=== PATIENT | female | born 1960 | race Caucasian/White ===

== ENCOUNTER 2017-08-30 13:31 | Inpatient (IN) | payer MEDICAID ==
[2017-08-30] MEDS ORDERED: NORMAL SALINE 1000 ML 1,000 ML IV ONE ×2 (14:11→20:28)
[2017-08-30] MEDS ORDERED: FENTANYL CITRATE INJ/PF 100 MCG/2 ML AMPUL IV ONE (14:12)
[2017-08-30] MEDS ORDERED: ONDANSETRON 4 MG TAB.RAPDIS PO ONE (14:12)
--- NOTE | 2017-08-30 14:14 | ER Document Report ---
ED Medical Screen (RME) - General Chief Complaint: Dizziness Stated Complaint: LOW BLOOD SUGAR Time Seen by Provider: 08/30/17 14:05 Notes: RAPID MEDICAL EVALUATION DISCLOSURE I have seen this patient as part of a Rapid Medical Evaluation and, if applicable, placed any initially appropriate orders. The patient will be seen and fully evaluated, including a full history and physical exam, by a provider ( in Main ED or Fast Track) when a room becomes available. 56-year-old female here with complaints of abdominal pain nausea vomiting diarrhea lightheadedness ongoing for the past 4 days. She has not taken anything for the symptoms. She went to see her PCP and had ordered some outpatient lab tests however when the patient went [facility] to have the blood drawn, she can became very lightheaded and was sent here by the lab personnel. EXAM Mild to moderate left upper quadrant TTP No peritoneal signs TRAVEL OUTSIDE OF THE [place] IN LAST 30 DAYS: No - Related Data Allergies/Adverse Reactions: ciprofloxacin [From Cipro] Allergy (Verified 08/30/17 13:35) Penicillins Allergy (Verified 08/30/17 13:33) phenytoin [From Dilantin] Allergy (Verified 08/30/17 13:35) Past Medical History - Social History Chew tobacco use (# tins/day): No Frequency of alcohol use: None Drug Abuse: None Renal/ Medical History: Denies: Hx Peritoneal Dialysis Physical Exam - Vital signs Vitals: Temp Pulse Resp BP Pulse Ox 99.7 F 77 20 94/60 L 96 08/30/17 13:41 08/30/17 13:41 08/30/17 13:41 08/30/17 13:41 08/30/17 13:41 Course - Vital Signs Vital signs: Temp Pulse Resp BP Pulse Ox 99.7 F 77 20 94/60 L 96 08/30/17 13:41 08/30/17 13:41 08/30/17 13:41 08/30/17 13:41 08/30/17 13:41
[2017-08-30 15:13] LABS: ABSOLUTE BASOPHILS # (AUTO) 0.1 10^3/uL (0.0-0.2); ABSOLUTE EOSINOPHILS # (AUTO) 0.2 10^3/uL (0.0-0.6); ABSOLUTE LYMPHOCYTES (AUTO) 1.8 10^3/uL (0.5-4.7); ABSOLUTE MONOCYTES (AUTO) 0.6 10^3/uL (0.1-1.4); ABSOLUTE NEUT (AUTO) 7.6 10^3/uL (1.7-8.2); BASOPHILS % (AUTO) 0.7 % (0-2); EOSINOPHILS % (AUTO) 1.5 % (0-6); HEMATOCRIT 38.1 % (36.0-47.0); HEMOGLOBIN 12.8 g/dL (12.0-15.5); LYMPHOCYTES % (AUTO) 17.4 % (13-45); MEAN CORPUSCULAR HEMOGLOBIN 28.6 pg (27.0-33.4); MEAN CORPUSCULAR HGB CONC 33.5 g/dL (32.0-36.0); MEAN CORPUSCULAR VOLUME 85 fl (80-97); MONOCYTES % (AUTO) 5.9 % (3-13); PLATELET COUNT 172 10^3/uL (150-450); RED BLOOD COUNT 4.47 10^6/uL (3.72-5.28); RED CELL DISTRIBUTION WIDTH 15.6 % (11.5-14.0); SEGMENTED NEUTROPHILS % (AUTO) 74.5 % (42-78); TOTAL CELLS COUNTED % (AUTO) 100 %; WHITE BLOOD COUNT 10.1 10^3/uL (4.0-10.5)
[2017-08-30 17:01] LABS: ALANINE AMINOTRANSFERASE 37 U/L (9-52); ALBUMIN 2.9 g/dL (3.5-5.0); ALKALINE PHOSPHATASE 106 U/L (38-126); ANION GAP 13 (5-19); ASPARTATE AMINO TRANSFERASE 49 U/L (14-36); BILIRUBIN,DIRECT 0.5 mg/dL (0.0-0.4); BILIRUBIN,TOTAL 0.7 mg/dL (0.2-1.3); BLOOD UREA NITROGEN 47 mg/dL (7-20); CALCIUM 7.4 mg/dL (8.4-10.2); CARBON DIOXIDE 20 mmol/L (22-30); CHLORIDE 97 mmol/L (98-107); GLUCOSE 107 mg/dL (75-110); LIPASE 10.4 U/L (23-300); POTASSIUM 4.3 mmol/L (3.6-5.0); SODIUM 129.8 mmol/L (137-145); TOTAL PROTEIN 5.6 g/dL (6.3-8.2)
--- NOTE | 2017-08-30 18:46 | RADIOLOGY REPORT (SQ) ---
EXAM DESCRIPTION: CT ABD/PELVIS NO ORAL OR IV COMPLETED DATE/TIME: 08/30/2017 6:13 pm REASON FOR STUDY: LUQ abd pain n/v/d; colitis diverticulitis? COMPARISON: None. TECHNIQUE: CT scan of the abdomen and pelvis performed without intravenous or oral contrast. Images reviewed with lung, soft tissue, and bone windows. Reconstructed coronal and sagittal MPR images revi ewed. All images stored on PACS. All CT scanners at this facility use dose modulation, iterative reconstruction, and/or weight based d osing when appropriate to reduce radiation dose to as low as reasonably achievable (ALARA). [facility]: Dose Right [facility]: CareDose [facility]: Dose Right [facility]: Teradose 4D [facility]: Smart Innofidei RADIATION DOSE: CT Rad equipment meets quality standard of care and radiation dose reduction techniq ues were employed. CTDIvol: 29.9 mGy. DLP: 1674 mGy-cm.mGy. LIMITATIONS: Study is limited due to the patient's body habitus P FINDINGS: LOWER CHEST: No significant findings. No nodules or infiltrates. There is some thickening of the pericardium suggesting a small pericardial effusion. NON-CONTRASTED LIVER, SPLEEN, ADRENALS: Evaluation limited by lack of IV contrast. No identified sign ificant masses. PANCREAS: No masses. No peripancreatic inflammatory changes. GALLBLADDER: Gallbladder is not identified in a patient is presumably post cholecystectomy. RIGHT KIDNEY AND URETER: No suspicious masses. Assessment limited by lack of IV contrast. No signif icant calcifications. No hydronephrosis or hydroureter. LEFT KIDNEY AND URETER: No suspicious masses. Assessment limited by lack of IV contrast. No signifi cant calcifications. No hydronephrosis or hydroureter. AORTA AND RETROPERITONEUM: No aneurysm. Vascular calcifications are identified in the abdominal aort a. No retroperitoneal masses or adenopathy. BOWEL AND PERITONEAL CAVITY: No obvious masses or inflammatory changes. No free fluid. APPENDIX: Not identified. PELVIS, BLADDER, AND ABDOMINAL WALL:No abnormal masses. No free fluid. Bladder normal. BONES: No significant findings. OTHER: No other significant finding. IMPRESSION: NO SIGNIFICANT OR ACUTE PROCESS IN THE ABDOMEN OR PELVIS. COMMENT: Quality ID # [id number]: Final reports with documentation of one or more dose reduction techniques (e.g., Automated exposure control, adjustment of the mA and/or kV according to patient size, use of iterative reconstruction technique) TECHNICAL DOCUMENTATION: JOB ID: [id number] [employer]- All Rights Reserved Reading location - IP/workstation name: [email or web address]
--- NOTE | 2017-08-30 19:31 | ER Document Report ---
ED General - General Chief Complaint: Dizziness Stated Complaint: LOW BLOOD SUGAR Time Seen by Provider: 08/30/17 14:05 Notes: Patient is a 56-year-old female comes emergency department for chief complaint of nausea, vomiting, diarrhea, dehydration, dizziness. She states that she has had about 6 episodes of vomiting a day for the past 4 days, multiple episodes of diarrhea a day, states that she saw primary care today and they sent her for lab work but she became dizzy so she came here. She denies hematemesis or hematochezia, unsure fevers, states she normally has diarrhea but this is much worse. Past medical history of type 2 diabetes, hypertension, hyperlipidemia, hypothyroidism, epilepsy. States she is still taking all her medications, she has been trying to drink plenty of water but she has not noticed urinating for the past 4 days. TRAVEL OUTSIDE OF THE [place] IN LAST 30 DAYS: No - Related Data Allergies/Adverse Reactions: ciprofloxacin [From Cipro] Allergy (Verified 08/30/17 13:35) Penicillins Allergy (Verified 08/30/17 13:33) phenytoin [From Dilantin] Allergy (Verified 08/30/17 13:35) Past Medical History - General Information source: Patient - Social History Smoking Status: Current Every Day Smoker Chew tobacco use (# tins/day): No Frequency of alcohol use: None Drug Abuse: None Lives with: Family Family History: Reviewed & Not Pertinent Patient has suicidal ideation: No Patient has homicidal ideation: No - Past Medical History Cardiac Medical History: Reports: Hx Hypercholesterolemia, Hx Hypertension Endocrine Medical History: Reports: Hx Diabetes Mellitus Type 2, Hx Hypothyroidism Renal/ Medical History: Denies: Hx Peritoneal Dialysis - Immunizations Hx Diphtheria, Pertussis, Tetanus Vaccination: Yes Review of Systems - Review of Systems Constitutional: See HPI EENT: No symptoms reported Cardiovascular: See HPI Respiratory: No symptoms reported Gastrointestinal: See HPI Genitourinary: No symptoms reported Female Genitourinary: No symptoms reported Musculoskeletal: No symptoms reported Skin: No symptoms reported Hematologic/Lymphatic: No symptoms reported Neurological/Psychological: No symptoms reported Physical Exam - Vital signs Vitals: Temp Pulse Resp BP Pulse Ox 99.7 F 77 20 94/60 L 96 08/30/17 13:41 08/30/17 13:41 08/30/17 13:41 08/30/17 13:41 08/30/17 13:41 - Notes Notes: GENERAL: Pale, alert, no distress HEAD: Normocephalic, atraumatic. EYES: Pupils equal, round, and reactive to light. Extraocular movements intact. ENT: Oral mucosa very dry, tongue midline. NECK: Full range of motion. Supple. Trachea midline. LUNGS: Clear to auscultation bilaterally, no wheezes, rales, or rhonchi. No respiratory distress. HEART: Regular rate and rhythm. No murmur ABDOMEN: Minimal generalized, no guarding, nonspecific. Non-distended. Bowel sounds present in all 4 quadrants. EXTREMITIES: Moves all 4 extremities spontaneously. No edema, normal radial and dorsalis pedis pulses bilaterally. No cyanosis. BACK: no cervical, thoracic, lumbar midline tenderness. No saddle anesthesia, normal distal neurovascular exam. NEUROLOGICAL: Alert and oriented x3. Normal speech. [cranial nerves II through XII grossly intact]. PSYCH: Normal affect, normal mood. SKIN: Warm, dry, normal turgor. Slightly pale Course - Re-evaluation Re-evalutation: On my evaluation patient is still hypotensive, her IV has infiltrated and she is not getting any fluids, patient was placed on the monitor, I placed an ultrasound-guided IV, after fluid resuscitation blood pressure improved to 108 systolic. Patient does not have any notable abdominal tenderness, she does have frequent diarrhea and was able to provide a stool sample. C. difficile negative, no white blood cells, culture pending. CBC unremarkable, chemistry shows renal failure with GFR of only 13, creatinine of 3.57, sodium of 129, patient states her creatinine is usually 1 or less. No comparison labs. Suspect acute renal failure from dehydration secondary to nausea and vomiting. CAT scan ordered in triage reviewed and is unremarkable. Urinalysis does not show infection. Patient is weak but she is improved after IV fluids. Will discuss with hospitalist for admission. Discussed with Dr. Dowell, internal medicine, patient will be admitted to the hospital. Patient states understanding and agreement. - Vital Signs Vital signs: Temp Pulse Resp BP Pulse Ox 99.7 F 77 26 H 108/60 92 08/30/17 13:41 08/30/17 13:41 08/31/17 00:01 08/31/17 00:01 08/31/17 00:01 - Laboratory Result Diagrams: 08/30/17 14:33 08/30/17 16:36 Laboratory results interpreted by me: 08/30/17 08/30/17 08/30/17 14:33 15:40 16:36 RDW 15.6 H Sodium 129.8 L Chloride 97 L Carbon Dioxide 20 L BUN 47 H Creatinine 3.57 H Est GFR ( Amer) 16 L Est GFR (Non-Af Amer) 13 L POC Glucose 112 H Calcium 7.4 L Direct Bilirubin 0.5 H AST 49 H Total Protein 5.6 L Albumin 2.9 L Lipase 10.4 L Urine Protein Urine Glucose (UA) 08/30/17 19:09 RDW Sodium Chloride Carbon Dioxide BUN Creatinine Est GFR ( Amer) Est GFR (Non-Af Amer) POC Glucose Calcium Direct Bilirubin AST Total Protein Albumin Lipase Urine Protein >=500 H Urine Glucose (UA) 50 H Discharge - Discharge Clinical Impression: Nausea vomiting and diarrhea Acute renal failure (ARF) Qualifiers: Acute renal failure type: unspecified Qualified Code(s): N17.9 - Acute kidney failure, unspecified Condition: Stable Disposition: ADMITTED INPATIENT Admitting Provider: Hospitalist Unit Admitted: Telemetry
[2017-08-30 19:32] LABS: APPEARANCE,URINE CLOUDY; BILIRUBIN,URINE NEGATIVE (NEGATIVE); GLUCOSE, URINE 50 mg/dL (NEGATIVE); KETONES,URINE NEGATIVE (NEGATIVE); LEUKOCYTE ESTERASE,URINE NEGATIVE (NEGATIVE); NITRITE,URINE NEGATIVE (NEGATIVE); PROTEIN,URINE >=500 mg/dL (NEGATIVE); URINE SPECIFIC GRAVITY 1.018; UROBILINOGEN,URINE NEGATIVE mg/dL (<2.0)
[2017-08-30 19:33] LABS: COLOR,URINE YELLOW
[2017-08-30] MEDS ORDERED: NORMAL SALINE 1000 ML 1,000 ML IV PRN (21:55)
[2017-08-31] MEDS ORDERED: NORMAL SALINE 1000 ML 1,000 ML IV PRN (02:13)
[2017-08-31] MEDS ORDERED: MAG HYDROX/AL HYDROX/SIMETH SUSP 30 ML UDCUP PO PRN (02:13)
[2017-08-31] MEDS ORDERED: ONDANSETRON HCL INJ/PF 4 MG/2 ML SDV IV PRN (02:13)
[2017-08-31] MEDS ORDERED: DEXTROSE 40% GEL 15 GM TUBE PO PRN ×2 (02:26)
[2017-08-31] MEDS ORDERED: GLUCAGON,HUMAN RECOMB 1 MG INJ IM PRN (02:26)
[2017-08-31] MEDS ORDERED: DEXTROSE 50%-WATER 25 GM/50 ML DISP.SYRIN IV PRN ×2 (02:26)
[2017-08-31] MEDS: ACETAMINOPHEN 325 MG TABLET PO PRN (03:21)
[2017-08-31] MEDS: LOPERAMIDE HCL 2 MG CAPSULE PO PRN ×2 (03:42→14:45)
[2017-08-31 03:58] LABS: ABSOLUTE EOSINOPHILS # (AUTO) 0.2 10^3/uL (0.0-0.6); ABSOLUTE LYMPHOCYTES (AUTO) 1.1 10^3/uL (0.5-4.7); BASOPHILS % (AUTO) 0.4 % (0-2); RED CELL DISTRIBUTION WIDTH 15.9 % (11.5-14.0); TOTAL CELLS COUNTED % (AUTO) 100 %
[2017-08-31 04:03] LABS: ANION GAP 12 (5-19); BLOOD UREA NITROGEN 51 mg/dL (7-20); CALCIUM 7.3 mg/dL (8.4-10.2); CARBON DIOXIDE 21 mmol/L (22-30); CHLORIDE 97 mmol/L (98-107); GLUCOSE 142 mg/dL (75-110); POTASSIUM 4.1 mmol/L (3.6-5.0); SODIUM 130.2 mmol/L (137-145)
[2017-08-31 04:05] LABS: ABSOLUTE MONOCYTES (AUTO) 0.4 10^3/uL (0.1-1.4); ABSOLUTE NEUT (AUTO) 6.3 10^3/uL (1.7-8.2); EOSINOPHILS % (AUTO) 2.6 % (0-6); HEMATOCRIT 34.2 % (36.0-47.0); HEMOGLOBIN 11.5 g/dL (12.0-15.5); LYMPHOCYTES % (AUTO) 13.4 % (13-45); MEAN CORPUSCULAR HEMOGLOBIN 28.6 pg (27.0-33.4); MEAN CORPUSCULAR HGB CONC 33.7 g/dL (32.0-36.0); MEAN CORPUSCULAR VOLUME 85 fl (80-97); MONOCYTES % (AUTO) 5.6 % (3-13); RED BLOOD COUNT 4.03 10^6/uL (3.72-5.28)
[2017-08-31 04:21] LABS: PLATELET COUNT 116 10^3/uL (150-450)
[2017-08-31 04:28] LABS: ANISOCYTOSIS SLIGHT; PLATELET COMMENT DECREASED; PLATELET GIANT PRESENT
[2017-08-31] MEDS ORDERED: HEPARIN SOD (PORCINE) 5,000 UNIT/ML 1 ML SYRINGE SUBCUT SCH (06:00)
[2017-08-31] MEDS ORDERED: PANTOPRAZOLE SODIUM 40 MG VIAL IV ONE (06:25)
--- NOTE | 2017-08-31 06:38 | PDOC H&P ---
History of Present Illness Admission Date/PCP: 08/31/2017 Patient complains of: Intractable nausea vomiting and diarrhea History of Present Illness: RISHI TRAYLOR is a 56 year old female with history of multiple medical problems that will be mentioned below presented to the emergency room with acute onset of intractable nausea vomiting and diarrhea for the last 4 days. She admits to occasional coffee-ground emesis however this has not been witnessed in the ER. She has been having fever and chills with a T-max that was up to 103 per her report. She admits to lower abdominal pain. No chest pain or dyspnea or palpitations. No cough or wheezing or hemoptysis. No other bleeding diathesis. Upon presentation emergency room she was slightly hypotensive with a blood pressure of 94/60 with a temperature of 99.7 and pulse of 77 and pulse oximetry of 96% on room air. Labs are remarkable for hyponatremia with a hypokalemia and a CO2 of 20 BUN of 47 and creatinine of 3.57 that is above her previous normal creatinine. Urinalysis was remarkable for significant proteinuria and glucosuria with trace bacteria and rare WBC clumps and 9 WBCs. Her abdominal pelvic CT scan revealed no acute abnormalities. She was given hydration with IV normal saline as well as IV Zofran and fentanyl. Her blood pressure has improved with hydration. She will be admitted to a medical monitored bed for further evaluation and management. Past Medical History Cardiac Medical History: Reports: Hyperlipidema, Hypertension Endocrine Medical History: Reports: Diabetes Mellitus Type 2, Hypothyroidism, Other - History of Graves' disease Musculoskeltal Medical History: Reports: Arthritis Psychiatric Medical History: Reports: Depression Past Surgical History Past Surgical History: Reports: Appendectomy, Cholecystectomy, Hysterectomy Social History Lives with: Family Smoking Status: Current Every Day Smoker Cigarettes Packs Per Day: 0.5 Frequency of Alcohol Use: None Hx Recreational Drug Use: No Drugs: Marijuana Hx Prescription Drug Abuse: No Family History Family History: CAD - Both parents from [place] as well as her brother, [place] - . Parental Family History Reviewed: Yes Children Family History Reviewed: Yes Sibling(s) Family History Reviewed.: Yes Medication/Allergy Allergies/Adverse Reactions: ciprofloxacin [From Cipro] Allergy (Verified 08/30/17 13:35) Penicillins Allergy (Verified 08/30/17 13:33) phenytoin [From Dilantin] Allergy (Verified 08/30/17 13:35) Review of Systems Review of Systems: As per history of present illness. All pertinent systems were reviewed above. Constitutional, HEENT, cardiovascular, respiratory, GI, , musculoskeletal, neuro, psychiatric, endocrine, integumentary and hematologic systems were reviewed and are otherwise negative/unremarkable except for positive findings mentioned above in the HPI. Physical Exam Vital Signs: Temp Pulse Resp BP Pulse Ox 98.0 F 83 16 87/39 L 95 08/31/17 02:48 08/31/17 02:54 08/31/17 02:48 08/31/17 02:48 08/31/17 02:48 Intake & Output 08/29/17 08/30/17 08/31/17 06:59 06:59 06:59 Intake Total 350 Balance 350 Exam: Generally: Pleasant ill-looking middle-aged female in no acute distress Vital signs-as listed Head - atraumatic, normocephalic. Pupils - equal, round and reactive to light and accommodation. Extraocular movements are intact. No scleral icterus. Oropharynx -dry mucous membranes and tongue. No pharyngeal erythema or exudate. Neck - supple. No JVD. Carotid pulses 2+ bilaterally. No carotid bruits. No palpable thyromegaly or lymphadenopathy. Cardiovascular - regular rate and rhythm. Normal S1 and S2. No murmurs, gallops or rubs. Lungs - clear to auscultation bilaterally. Abdomen - soft lower abdominal tenderness without rebound tenderness guarding or rigidity. Positive bowel sounds. No palpable organomegaly or masses. Extremities - no pitting edema, clubbing or cyanosis. Neuro - grossly non-focal. Skin - no rashes. Breast, pelvic and rectal - deferred Results Laboratory Results: 08/31/17 03:29 08/31/17 03:29 08/31/17 08/31/17 08/31/17 03:29 03:29 03:29 WBC 8.0 RBC 4.03 Hgb 11.5 L Hct 34.2 L MCV 85 MCH 28.6 MCHC 33.7 RDW 15.9 H Plt Count 116 L Seg Neutrophils % 78.0 Lymphocytes % 13.4 Monocytes % 5.6 Eosinophils % 2.6 Basophils % 0.4 Absolute Neutrophils 6.3 Absolute Lymphocytes 1.1 Absolute Monocytes 0.4 Absolute Eosinophils 0.2 Absolute Basophils 0.0 Sodium 130.2 L Potassium 4.1 Chloride 97 L Carbon Dioxide 21 L Anion Gap 12 BUN 51 H Creatinine 4.27 H Est GFR ( Amer) 13 L Est GFR (Non-Af Amer) 11 L Glucose 142 H Calcium 7.3 L TSH 0.55 Impressions: Abdomen/Pelvis CT 08/30/17 14:09 IMPRESSION: NO SIGNIFICANT OR ACUTE PROCESS IN THE ABDOMEN OR PELVIS. Assessment & Plan - Diagnosis (1) Acute kidney injury Is this a current diagnosis for this admission?: Yes Plan: The patient will be admitted to an [facility] bed. She will be hydrated with IV normal saline. We will keep her n.p.o. for now. Will place on IV Protonix. BMP will be followed. (2) Hematemesis Is this a current diagnosis for this admission?: Yes Plan: The patient will be hydrated with IV normal saline and placed on 80 mg of IV Protonix followed by IV Protonix drip. A surgery consultation will be obtained for consideration of EGD. Will follow CBC. (3) Nausea vomiting and diarrhea Is this a current diagnosis for this admission?: Yes Plan: This could be related to viral gastroenteritis. If she has persistent fever, consideration could be given to IV antibiotic therapy especially for the possibility of UTI. Urine culture was obtained for confirmation. Stool studies will be obtained. 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 We will place her on SCDs. GI prophylaxis was addressed above. - Plan Summary Plan Summary: The plan of care was discussed in details with the patient. I answered all questions. The patient agreed to proceed with the above-mentioned plan. The patient is presumably full code. This note was created by [employer] (PRIMP) software and may contain typo errors that may have not been proofread.
[2017-08-31] MEDS: INSULIN LISPRO 100 UNIT/ML 3 ML VIAL SUBCUT PRN ×4 (07:59→21:45)
[2017-08-31] MEDS ORDERED: DIPHENHYDRAMINE HCL 25 MG CAPSULE PO PRN (13:46)
--- NOTE | 2017-08-31 13:53 | Progress Note ---
Provider Note Provider Note: This is a 56 years old female patient admitted with 3 days history of nausea and vomiting. At that admission patient was found to be hypotensive and her creatinine is 4.27 GFR of 11. Accept this patient will be her primary attending physician.
[2017-08-31] MEDS: NORMAL SALINE 1000 ML 1,000 ML IV PRN ×2 (14:05→21:25)
[2017-08-31] MEDS ORDERED: BACLOFEN 10 MG TABLET PO ONE (15:00)
[2017-08-31] MEDS ORDERED: GABAPENTIN 300 MG CAPSULE PO ONE (15:00)
[2017-08-31] MEDS: ATORVASTATIN CALCIUM 40 MG TABLET PO SCH (21:15)
[2017-08-31] MEDS: LEVETIRACETAM 500 MG TABLET PO SCH (21:16)
[2017-08-31] MEDS: BACLOFEN 10 MG TABLET PO SCH (21:16)
[2017-08-31] MEDS: GABAPENTIN 300 MG CAPSULE PO SCH (21:16)
[2017-09-01] MEDS: ACETAMINOPHEN 325 MG TABLET PO PRN ×2 (04:11→10:32)
[2017-09-01] MEDS: NORMAL SALINE 1000 ML 1,000 ML IV PRN ×3 (04:12→18:19)
[2017-09-01 05:05] LABS: ABSOLUTE EOSINOPHILS # (AUTO) 0.1 10^3/uL (0.0-0.6); ABSOLUTE LYMPHOCYTES (AUTO) 0.6 10^3/uL (0.5-4.7); ABSOLUTE MONOCYTES (AUTO) 0.3 10^3/uL (0.1-1.4); ABSOLUTE NEUT (AUTO) 2.5 10^3/uL (1.7-8.2); BASOPHILS % (AUTO) 0.6 % (0-2); EOSINOPHILS % (AUTO) 1.9 % (0-6); HEMATOCRIT 36.5 % (36.0-47.0); HEMOGLOBIN 12.3 g/dL (12.0-15.5); LYMPHOCYTES % (AUTO) 16.6 % (13-45); MEAN CORPUSCULAR HEMOGLOBIN 28.3 pg (27.0-33.4); MEAN CORPUSCULAR HGB CONC 33.7 g/dL (32.0-36.0); MEAN CORPUSCULAR VOLUME 84 fl (80-97); MONOCYTES % (AUTO) 8.4 % (3-13); PLATELET COUNT 122 10^3/uL (150-450); RED BLOOD COUNT 4.34 10^6/uL (3.72-5.28); SEGMENTED NEUTROPHILS % (AUTO) 72.5 % (42-78); TOTAL CELLS COUNTED % (AUTO) 100 %; WHITE BLOOD COUNT 3.5 10^3/uL (4.0-10.5)
[2017-09-01 05:13] LABS: ANION GAP 14 (5-19); BLOOD UREA NITROGEN 49 mg/dL (7-20); CALCIUM 7.2 mg/dL (8.4-10.2); CARBON DIOXIDE 16 mmol/L (22-30); CHLORIDE 103 mmol/L (98-107); GLUCOSE 183 mg/dL (75-110); POTASSIUM 4.1 mmol/L (3.6-5.0); SODIUM 132.8 mmol/L (137-145)
[2017-09-01] MEDS: GABAPENTIN 300 MG CAPSULE PO SCH ×3 (05:24→21:28)
[2017-09-01] MEDS: BACLOFEN 10 MG TABLET PO SCH ×3 (05:24→22:36)
[2017-09-01] MEDS: LEVOTHYROXINE SODIUM 0.1 MG TABLET PO SCH (05:24)
[2017-09-01] MEDS: LEVOTHYROXINE SODIUM 0.075 MG TABLET PO SCH (05:24)
[2017-09-01] MEDS: LOPERAMIDE HCL 2 MG CAPSULE PO PRN ×2 (05:33→07:38)
[2017-09-01] MEDS: INSULIN LISPRO 100 UNIT/ML 3 ML VIAL SUBCUT PRN ×2 (08:29→12:14)
[2017-09-01] MEDS ORDERED: RIFAXIMIN 550 MG TABLET PO ONE (09:11)
[2017-09-01] MEDS ORDERED: LOPERAMIDE HCL 2 MG CAPSULE PO ONE (09:15)
[2017-09-01] MEDS: ASPIRIN 81 MG TABLET, ENT COATED PO SCH (09:21)
[2017-09-01] MEDS: FENOFIBRATE NANOCRYSTALLIZED 48 MG TABLET PO SCH (09:21)
[2017-09-01] MEDS: FLUOXETINE HCL 20 MG CAPSULE PO SCH (09:22)
[2017-09-01] MEDS: LEVETIRACETAM 500 MG TABLET PO SCH ×2 (09:22→22:37)
[2017-09-01] MEDS ORDERED: (PENDING PHARMACY ID) (Levothyroxine Sodium [Synthroid] 175 MCG) PO SCH (10:00)
[2017-09-01] MEDS: RIFAXIMIN 550 MG TABLET PO SCH ×2 (10:21→19:57)
--- NOTE | 2017-09-01 13:14 | PDOC PROGRESS REPORT ---
Subjective Progress Note for:: 09/01/17 Subjective:: This is a 56 years old female patient admitted for acute kidney injury most probably secondary to prerenal azotemia due to frequent watery diarrhea. Still patient has watery diarrhea and she has been on Imodium. I started her on rifaximin. Patient recently relocated from [place] to [facility]. I talked to her son who is in the room during this encounter and asked him to get us her medical record. Her kidney function is relatively improving evidenced by that her creatinine is trending down from 4.27 -2.72 and her GFR from 11-22. Reason For Visit: ACUTE KIDNEY INJURY Physical Exam Vital Signs: Temp Pulse Resp BP Pulse Ox 98.4 F 78 20 108/45 L 92 09/01/17 11:42 09/01/17 11:42 09/01/17 11:42 09/01/17 11:42 09/01/17 11:42 Intake & Output 08/31/17 09/01/17 09/02/17 06:59 06:59 06:59 Intake Total 350 4376 75 Balance 350 4376 75 Weight 137.7 kg 143.6 kg General appearance: PRESENT: no acute distress, well-developed, well-nourished Head exam: PRESENT: atraumatic, normocephalic Eye exam: PRESENT: conjunctiva pink, EOMI, PERRLA. ABSENT: scleral icterus Ear exam: PRESENT: normal external ear exam Mouth exam: PRESENT: moist, tongue midline Neck exam: ABSENT: carotid bruit, JVD, lymphadenopathy, thyromegaly Respiratory exam: PRESENT: clear to auscultation compa. ABSENT: rales, rhonchi, wheezes Cardiovascular exam: PRESENT: RRR. ABSENT: diastolic murmur, rubs, systolic murmur Pulses: PRESENT: normal dorsalis pedis pul Vascular exam: PRESENT: normal capillary refill GI/Abdominal exam: PRESENT: normal bowel sounds, soft. ABSENT: distended, guarding, mass, organolmegaly, rebound, tenderness Rectal exam: PRESENT: deferred Extremities exam: PRESENT: full ROM. ABSENT: calf tenderness, clubbing, pedal edema Neurological exam: PRESENT: alert, awake, oriented to person, oriented to place , oriented to time, oriented to situation. ABSENT: motor sensory deficit Psychiatric exam: PRESENT: appropriate affect, normal mood. ABSENT: homicidal ideation, suicidal ideation Skin exam: PRESENT: dry, intact, warm. ABSENT: cyanosis, rash Results Laboratory Results: 09/01/17 04:32 09/01/17 04:32 09/01/17 09/01/17 04:32 04:32 WBC 3.5 L RBC 4.34 Hgb 12.3 Hct 36.5 MCV 84 MCH 28.3 MCHC 33.7 RDW 16.0 H Plt Count 122 L Seg Neutrophils % 72.5 Lymphocytes % 16.6 Monocytes % 8.4 Eosinophils % 1.9 Basophils % 0.6 Absolute Neutrophils 2.5 Absolute Lymphocytes 0.6 Absolute Monocytes 0.3 Absolute Eosinophils 0.1 Absolute Basophils 0.0 Sodium 132.8 L Potassium 4.1 Chloride 103 Carbon Dioxide 16 L Anion Gap 14 BUN 49 H Creatinine 2.72 H Est GFR ( Amer) 22 L Est GFR (Non-Af Amer) 18 L Glucose 183 H Calcium 7.2 L Impressions: Abdomen/Pelvis CT 08/30/17 14:09 IMPRESSION: NO SIGNIFICANT OR ACUTE PROCESS IN THE ABDOMEN OR PELVIS. Assessment & Plan - Diagnosis (1) Acute kidney injury Is this a current diagnosis for this admission?: Yes Plan: Due to prerenal azotemia secondary to nausea vomiting and diarrhea. Patient is being hydrated. Her creatinine is trending down. (2) Type 2 diabetes mellitus Is this a current diagnosis for this admission?: Yes Plan: Metformin is on hold. And she has been on sliding scale. (3) Hypertension Qualifiers: Hypertension type: essential hypertension Qualified Code(s): I10 - Essential (primary) hypertension Is this a current diagnosis for this admission?: Yes Plan: Hold her antihypertensive medications since patient is running low blood pressure. (4) Hyperlipidemia Qualifiers: Hyperlipidemia type: unspecified Qualified Code(s): E78.5 - Hyperlipidemia , unspecified Is this a current diagnosis for this admission?: Yes Plan: Continue her home medication. (5) Morbid obesity due to excess calories Is this a current diagnosis for this admission?: Yes Plan: Lifestyle modification advised
[2017-09-01] MEDS ORDERED: SUCCINYLCHOLINE CHLORIDE INJ 200 MG/10 ML VIAL ONE (14:39)
[2017-09-01 17:11] LABS: ARTERIAL BLOOD BASE EXCESS -9.1 mmol/L; ARTERIAL BLOOD FIO2 2L; ARTERIAL BLOOD HCO3 18.4 mmol/L (20-26); ARTERIAL BLOOD O2 SATURATION 85.6 % (94-98); ARTERIAL BLOOD PCO2 46.4 mmHg (35-45); ARTERIAL BLOOD PH 7.22 (7.35-7.45); ARTERIAL BLOOD PO2 59.8 mmHg (80-100); ARTERIAL BLOOD TOTAL CO2 19.9 mmol/L (21-25)
--- NOTE | 2017-09-01 17:37 | Progress Note ---
Provider Note Provider Note: This is a 56 years old female patient admitted for acute kidney injury and hypotension secondary to volume depletion. This afternoon around 5 PM patient become unresponsive and her O2 saturation is in the lower 70s. Her ABG shows mixed metabolic and respiratory acidosis with pH of 7.22 PCO2 46 and PO2 of 59 and bicarb of 18. Blood pressure is the lower 80s patient is barely responsive to noxious stimuli. Patient puts on nonrebreather and her O2 saturation picked up to 94%. Since patient is not able her respiration and severely hypotensive patient intubated emergently and transferred to the ICU. CT head and V/Q scan is requested.
[2017-09-01 17:50] LABS: ARTERIAL BLOOD BASE EXCESS -10.4 mmol/L; ARTERIAL BLOOD H2CO3 1.59 mmol/L (1.05-1.35); ARTERIAL BLOOD HCO3 18.3 mmol/L (20-26); ARTERIAL BLOOD O2 SATURATION 93.5 % (94-98); ARTERIAL BLOOD PCO2 52.9 mmHg (35-45); ARTERIAL BLOOD PO2 85.7 mmHg (80-100); ARTERIAL BLOOD TOTAL CO2 19.9 mmol/L (21-25)
[2017-09-01 17:53] LABS: ARTERIAL BLOOD FIO2 50%; ARTERIAL BLOOD PH 7.16 (7.35-7.45)
[2017-09-01] MEDS ORDERED: PROPOFOL 1,000 MG/100 ML INFUS..BTL IV ONE ×2 (18:12→20:03)
[2017-09-01] MEDS ORDERED: NOREPINEPHRINE BITARTRATE INJ/PF 4 MG/4 ML SDV IV ONE (18:13)
--- NOTE | 2017-09-01 18:21 | RADIOLOGY REPORT (SQ) ---
EXAM DESCRIPTION: CHEST SINGLE VIEW COMPLETED DATE/TIME: 09/01/2017 5:51 pm REASON FOR STUDY: Pulmonary edema/pneumonia COMPARISON: None. EXAM PARAMETERS: NUMBER OF VIEWS: One view TECHNIQUE: 2 frontal views of the chest were obtained. RADIATION DOSE: N/A LIMITATIONS: Patient positioning. FINDINGS: TEMPORARY SUPPORT DEVICES:On the 1st image the endotracheal tube appears oriented towards the right mainstem bronchus, on the 2nd image the endotracheal tube tip is obscured by overlying tubi ng. An enteric tube courses along the midline, its tip is not visualized on this exam. LUNGS AND PLEURA: No consolidation, sizable pleural effusion or pneumothorax. MEDIASTINUM AND HILAR STRUCTURES: No obvious masses. HEART AND VASCULAR STRUCTURES: The heart is enlarged. There is vascular congestion. IMPRESSION: 1. Cardiomegaly with vascular congestion. 2. Life support devices, as described above. TECHNICAL DOCUMENTATION: JOB ID: [id number] [employer]- All Rights Reserved Reading location - IP/workstation name: [email or web address]
[2017-09-01] MEDS ORDERED: DEXTROSE 5%-WATER 250 ML with NOREPINEPHRINE BITARTRATE 4 MG IV PRN ×2 (19:09)
[2017-09-01] MEDS ORDERED: MIDAZOLAM HCL 50 MG/100 ML RTUINJ IV PRN (19:13)
[2017-09-01] MEDS ORDERED: MIDAZOLAM HCL 0 MG/0 ML RTUINJ ONE (19:55)
[2017-09-01 20:53] LABS: ARTERIAL BLOOD BASE EXCESS -13.2 mmol/L; ARTERIAL BLOOD H2CO3 1.27 mmol/L (1.05-1.35); ARTERIAL BLOOD HCO3 14.8 mmol/L (20-26); ARTERIAL BLOOD O2 SATURATION 98.1 % (94-98); ARTERIAL BLOOD PCO2 42.3 mmHg (35-45); ARTERIAL BLOOD PO2 138.8 mmHg (80-100); ARTERIAL BLOOD TOTAL CO2 16.1 mmol/L (21-25)
[2017-09-01 20:56] LABS: ARTERIAL BLOOD PH 7.16 (7.35-7.45)
[2017-09-01] MEDS: PROPOFOL 1,000 MG/100 ML INFUS..BTL IV PRN (21:27)
[2017-09-01] MEDS: ATORVASTATIN CALCIUM 40 MG TABLET PO SCH (21:28)
[2017-09-01] MEDS ORDERED: SODIUM BICARBONATE 8.4% INJ 50 MEQ/50 ML DISP.SYRIN IV ONE (21:30)
[2017-09-01 21:37] LABS: ARTERIAL BLOOD FIO2 50%
[2017-09-01] MEDS ORDERED: BACLOFEN 10 MG TABLET ONE (21:53)
--- NOTE | 2017-09-01 23:01 | PDOC CONSULTATION ---
Consultation Consult Date: 09/01/17 Consult reason:: hematemesis History of Present Illness Admission Date/PCP: 08/30/17 23:58 History of Present Illness: RISHI TRAYLOR is a 56 year old female with history of DM type 2,hypothyroidism admitted 08/31/17 for intractable nausea,vomiting and diarrhea. Patient admits to occasional coffee ground emesis. However, the hemoccult test done 08/31/17 was negative. Also, her Hb is stable around 12.3. At present , patient is intubated in ICU because of episode of hypoxia on the floor today. Past Medical History Cardiac Medical History: Reports: Hyperlipidema, Hypertension Endocrine Medical History: Reports: Diabetes Mellitus Type 2, Hypothyroidism, Other - History of Graves' disease Musculoskeltal Medical History: Reports: Arthritis Psychiatric Medical History: Reports: Depression Past Surgical History Past Surgical History: Reports: Appendectomy, Cholecystectomy, Hysterectomy Social History Lives with: Family Smoking Status: Current Every Day Smoker Cigarettes Packs Per Day: 0.5 Frequency of Alcohol Use: None Hx Recreational Drug Use: No Drugs: Marijuana Hx Prescription Drug Abuse: No Family History Family History: CAD - Both parents from [place] as well as her brother, [place] - . Parental Family History Reviewed: No Children Family History Reviewed: No Sibling(s) Family History Reviewed.: No Medication/Allergy Home Medications: Amlodipine Besylate [Norvasc 5 mg Tablet] 5 mg PO DAILYP PRN 08/31/17 Aspirin [Aspirin EC] 81 mg PO DAILY 08/31/17 Atorvastatin Calcium [Lipitor 40 mg Tablet] 40 mg PO QHS 08/31/17 Baclofen [Baclofen 10 mg Tablet] 15 mg PO TID 08/31/17 Diphenhydramine HCl [Banophen] 25 mg PO HSP PRN 08/31/17 Fenofibrate Nanocrystallized [Fenofibrate] 48 mg PO DAILY 08/31/17 Fluoxetine HCl [Prozac 20 mg Capsule] 20 mg PO DAILY 08/31/17 Gabapentin [Neurontin] 600 mg PO TID 08/31/17 Guaifenesin [Mucinex] 1,200 mg PO PRN PRN 08/31/17 Levetiracetam [Keppra 500 mg Tablet] 500 mg PO Q12 08/31/17 Levothyroxine Sodium [Synthroid] 175 mcg PO DAILY 08/31/17 Lisinopril [Prinivil 40 mg Tablet] 40 mg PO DAILY 08/31/17 Loperamide HCl [Loperamide] 2 mg PO QID 08/31/17 Metformin HCl [Glucophage] 1,000 mg PO BID 08/31/17 Omeprazole 20 mg PO DAILY 08/31/17 Allergies/Adverse Reactions: ciprofloxacin [From Cipro] Allergy (Verified 08/30/17 13:35) Penicillins Allergy (Verified 08/30/17 13:33) phenytoin [From Dilantin] Allergy (Verified 08/30/17 13:35) Review of Systems ROS unobtainable: Due to endotracheal tube Physical Exam Vital Signs: Temp Pulse Resp BP Pulse Ox 97.5 F 64 13 136/51 H 98 09/01/17 22:00 09/01/17 18:00 09/01/17 18:00 09/01/17 18:00 09/01/17 20:00 Intake & Output 08/31/17 09/01/17 09/02/17 06:59 06:59 06:59 Intake Total 350 4376 300 Output Total 560 Balance 350 4376 -260 Weight 137.7 kg 143.6 kg Exam: intubated and sedated. Abd is soft and no apparent tenderness. Results Laboratory Results: 09/01/17 04:32 09/01/17 04:32 09/01/17 09/01/17 09/01/17 04:32 04:32 16:09 WBC 3.5 L RBC 4.34 Hgb 12.3 Hct 36.5 MCV 84 MCH 28.3 MCHC 33.7 RDW 16.0 H Plt Count 122 L Seg Neutrophils % 72.5 Lymphocytes % 16.6 Monocytes % 8.4 Eosinophils % 1.9 Basophils % 0.6 Absolute Neutrophils 2.5 Absolute Lymphocytes 0.6 Absolute Monocytes 0.3 Absolute Eosinophils 0.1 Absolute Basophils 0.0 Carbonic Acid 1.40 H HCO3/H2CO3 Ratio 13:1 ABG pH 7.22 L ABG pCO2 46.4 H ABG pO2 59.8 L ABG HCO3 18.4 L ABG O2 Saturation 85.6 L ABG Base Excess -9.1 FiO2 2L Sodium 132.8 L Potassium 4.1 Chloride 103 Carbon Dioxide 16 L Anion Gap 14 BUN 49 H Creatinine 2.72 H Est GFR ( Amer) 22 L Est GFR (Non-Af Amer) 18 L Glucose 183 H Calcium 7.2 L Triglycerides 09/01/17 09/01/17 09/01/17 17:36 17:39 20:12 WBC RBC Hgb Hct MCV MCH MCHC RDW Plt Count Seg Neutrophils % Lymphocytes % Monocytes % Eosinophils % Basophils % Absolute Neutrophils Absolute Lymphocytes Absolute Monocytes Absolute Eosinophils Absolute Basophils Carbonic Acid 1.59 H 1.27 HCO3/H2CO3 Ratio 11:1 11:1 ABG pH 7.16 L* 7.16 L* ABG pCO2 52.9 H 42.3 ABG pO2 85.7 138.8 H ABG HCO3 18.3 L 14.8 L ABG O2 Saturation 93.5 L 98.1 H ABG Base Excess -10.4 -13.2 FiO2 50% 50% Sodium Potassium Chloride Carbon Dioxide Anion Gap BUN Creatinine Est GFR ( Amer) Est GFR (Non-Af Amer) Glucose Calcium Triglycerides 157 H Impressions: Abdomen/Pelvis CT 08/30/17 14:09 IMPRESSION: NO SIGNIFICANT OR ACUTE PROCESS IN THE ABDOMEN OR PELVIS. Chest X-Ray 09/01/17 00:00 IMPRESSION: 1. Cardiomegaly with vascular congestion. 2. Life support devices, as described above. Assessment & Plan - Time Time Spent: 30 to 50 Minutes - Plan Summary Plan Summary: Doubt GI bleed. Reconsult if has evidence of GI bleed.
[2017-09-02] MEDS: INSULIN LISPRO 100 UNIT/ML 3 ML VIAL SUBCUT PRN (00:27)
[2017-09-02 01:08] LABS: ARTERIAL BLOOD BASE EXCESS -12.5 mmol/L; ARTERIAL BLOOD H2CO3 1.11 mmol/L (1.05-1.35); ARTERIAL BLOOD HCO3 14.5 mmol/L (20-26); ARTERIAL BLOOD O2 SATURATION 97.2 % (94-98); ARTERIAL BLOOD PH 7.21 (7.35-7.45); ARTERIAL BLOOD PO2 112.3 mmHg (80-100); ARTERIAL BLOOD TOTAL CO2 15.6 mmol/L (21-25)
[2017-09-02 01:09] LABS: ARTERIAL BLOOD FIO2 35%
[2017-09-02] MEDS: PROPOFOL 1,000 MG/100 ML INFUS..BTL IV PRN ×2 (02:22→07:27)
[2017-09-02] MEDS: NORMAL SALINE 1000 ML 1,000 ML IV PRN ×2 (02:22→07:26)
[2017-09-02] MEDS ORDERED: BACLOFEN 10 MG TABLET ONE (03:24)
[2017-09-02 04:59] LABS: ABSOLUTE BASOPHILS # (AUTO) 0.1 10^3/uL (0.0-0.2); ABSOLUTE EOSINOPHILS # (AUTO) 0.1 10^3/uL (0.0-0.6); ABSOLUTE LYMPHOCYTES (AUTO) 1.4 10^3/uL (0.5-4.7); ABSOLUTE MONOCYTES (AUTO) 0.8 10^3/uL (0.1-1.4); ABSOLUTE NEUT (AUTO) 4.1 10^3/uL (1.7-8.2); BASOPHILS % (AUTO) 0.9 % (0-2); EOSINOPHILS % (AUTO) 1.2 % (0-6); HEMATOCRIT 33.7 % (36.0-47.0); HEMOGLOBIN 11.1 g/dL (12.0-15.5); LYMPHOCYTES % (AUTO) 21.7 % (13-45); MEAN CORPUSCULAR VOLUME 85 fl (80-97); MONOCYTES % (AUTO) 12.5 % (3-13); PLATELET COUNT 158 10^3/uL (150-450); RED BLOOD COUNT 3.97 10^6/uL (3.72-5.28); RED CELL DISTRIBUTION WIDTH 16.1 % (11.5-14.0); SEGMENTED NEUTROPHILS % (AUTO) 63.7 % (42-78); TOTAL CELLS COUNTED % (AUTO) 100 %; WHITE BLOOD COUNT 6.4 10^3/uL (4.0-10.5)
--- NOTE | 2017-09-02 05:20 | RADIOLOGY REPORT (SQ) ---
CT head without contrast on 09/02/2017 at 5:05 AM CLINICAL INDICATION: Unresponsive TECHNIQUE: Multiple axial images are obtained throughout the head without the administration of contrast. This exam was performed according to our departmental dose-optimization program, which includes automated exposure control, adjustment of the mA and/or kV according to patient size and/or use of iterative reconstruction technique. Total DLP is 963.96 mGy*cm. COMPARISON: None FINDINGS: There is no hydrocephalus. There is no CT evidence of acute infarct. There is no hemorrhage. There are no abnormal extra-axial fluid collections. There is no mass, mass effect or midline shift. No bony abnormality is noted. IMPRESSION: No acute intracranial abnormality.
[2017-09-02] MEDS: BACLOFEN 10 MG TABLET PO SCH (05:38)
[2017-09-02] MEDS: LEVOTHYROXINE SODIUM 0.075 MG TABLET PO SCH (05:39)
[2017-09-02] MEDS: LEVOTHYROXINE SODIUM 0.1 MG TABLET PO SCH (05:39)
[2017-09-02] MEDS: GABAPENTIN 300 MG CAPSULE PO SCH (05:39)
[2017-09-02 06:25] LABS: ANION GAP 12 (5-19); BLOOD UREA NITROGEN 47 mg/dL (7-20); CARBON DIOXIDE 18 mmol/L (22-30); CHLORIDE 109 mmol/L (98-107); GLUCOSE 171 mg/dL (75-110); POTASSIUM 4.1 mmol/L (3.6-5.0); SODIUM 138.7 mmol/L (137-145)
[2017-09-02 06:57] LABS: ARTERIAL BLOOD BASE EXCESS -8.4 mmol/L; ARTERIAL BLOOD H2CO3 1.22 mmol/L (1.05-1.35); ARTERIAL BLOOD O2 SATURATION 93.4 % (94-98); ARTERIAL BLOOD PCO2 40.4 mmHg (35-45); ARTERIAL BLOOD PH 7.27 (7.35-7.45); ARTERIAL BLOOD PO2 75.7 mmHg (80-100); ARTERIAL BLOOD TOTAL CO2 19.3 mmol/L (21-25)
[2017-09-02 06:58] LABS: ARTERIAL BLOOD FIO2 30%
[2017-09-02] MEDS ORDERED: VANCOMYCIN HCL 0 MG in DEXTROSE 5%-WATER 250 ML IV NR (08:00)
--- NOTE | 2017-09-02 08:48 | RADIOLOGY REPORT (SQ) ---
EXAM DESCRIPTION: CHEST SINGLE VIEW COMPLETED DATE/TIME: 09/02/2017 7:10 am REASON FOR STUDY: vent management COMPARISON: None. EXAM PARAMETERS: NUMBER OF VIEWS: One view. TECHNIQUE: Single frontal radiographic view of the chest acquired. RADIATION DOSE: NA LIMITATIONS: None. FINDINGS: LUNGS AND PLEURA: No opacities, masses or pneumothorax. No pleural effusion. MEDIASTINUM AND HILAR STRUCTURES: No masses. Contour normal. HEART AND VASCULAR STRUCTURES: The heart is unchanged. The pulmonary vasculature is normal. BONES: No acute findings. HARDWARE: Endotracheal tube above jass. NG tube passing toward stomach. OTHER: No other significant finding. IMPRESSION: NO SIGNIFICANT INTERVAL CHANGE. TECHNICAL DOCUMENTATION: JOB ID: [id number] [employer]- All Rights Reserved Reading location - IP/workstation name: [email or web address]
[2017-09-02] MEDS ORDERED: IPRATROPIUM/ALBUTEROL 0.5-2.5 MG/3 ML AMPUL NEB ONE (10:00)
[2017-09-02] MEDS: LEVETIRACETAM 500 MG/NACL-ISO 500 MG/100 ML RTUPB IV SCH ×2 (10:50→22:32)
[2017-09-02] MEDS: AZTREONAM 1 GM in DEXTROSE 5%-WATER 50 ML IV SCH ×2 (10:51→18:45)
[2017-09-02] MEDS: FENOFIBRATE NANOCRYSTALLIZED 48 MG TABLET PO SCH (10:56)
[2017-09-02] MEDS: ASPIRIN 81 MG TABLET, ENT COATED PO SCH (10:56)
[2017-09-02] MEDS: FLUOXETINE HCL 20 MG CAPSULE PO SCH (10:56)
[2017-09-02] MEDS: RIFAXIMIN 550 MG TABLET PO SCH (10:57)
[2017-09-02] MEDS ORDERED: DIPHENHYDRAMINE HCL 25 MG CAPSULE NG PRN (12:30)
[2017-09-02] MEDS ORDERED: DEXTROSE 40% GEL 15 GM TUBE NG PRN ×2 (12:30)
[2017-09-02] MEDS ORDERED: MAG HYDROX/AL HYDROX/SIMETH SUSP 30 ML UDCUP NG PRN (12:30)
[2017-09-02] MEDS ORDERED: ACETAMINOPHEN 325 MG TABLET NG PRN (12:30)
[2017-09-02] MEDS: BACLOFEN 10 MG TABLET NG SCH ×2 (13:55→22:33)
[2017-09-02] MEDS: GABAPENTIN 300 MG CAPSULE NG SCH ×2 (13:55→22:33)
[2017-09-02] MEDS: IPRATROPIUM/ALBUTEROL 0.5-2.5 MG/3 ML AMPUL NEB SCH ×2 (14:14→20:32)
[2017-09-02] MEDS ORDERED: VANCOMYCIN HCL 1,000 MG in DEXTROSE 5%-WATER 250 ML IV SCH (15:00)
--- NOTE | 2017-09-02 16:36 | PDOC PROGRESS REPORT ---
Subjective Progress Note for:: 09/02/17 Subjective:: Patient is intubated and she has been on mechanical ventilation since yesterday for acute hypoxemic and hypercarbic respiratory failure. ABGs relatively better with pH of 7.27, PCO2 40. Her kidney functions also steadily improving initially her creatinine was 4.277 2.72 and today 2.1. Patient has been started empirically on vancomycin and Azactam since she is allergic to penicillin. VQ scan could not be done. Echo requested to see for the if there is any right heart straining. Reason For Visit: ACUTE KIDNEY INJURY Physical Exam Vital Signs: Temp Pulse Resp BP Pulse Ox 100.9 F H 75 15 90/40 L 97 09/02/17 10:00 09/02/17 14:18 09/02/17 15:45 09/02/17 15:45 09/02/17 15:45 Intake & Output 09/01/17 09/02/17 09/03/17 06:59 06:59 06:59 Intake Total 4376 2346 0 Output Total 2160 1045 Balance 4376 186 -1045 Weight 143.6 kg 140.8 kg Results Laboratory Results: 09/02/17 04:18 09/02/17 05:44 09/01/17 09/01/17 09/01/17 16:09 17:36 17:39 WBC RBC Hgb Hct MCV MCH MCHC RDW Plt Count Seg Neutrophils % Lymphocytes % Monocytes % Eosinophils % Basophils % Absolute Neutrophils Absolute Lymphocytes Absolute Monocytes Absolute Eosinophils Absolute Basophils Carbonic Acid 1.40 H 1.59 H HCO3/H2CO3 Ratio 13:1 11:1 ABG pH 7.22 L 7.16 L* ABG pCO2 46.4 H 52.9 H ABG pO2 59.8 L 85.7 ABG HCO3 18.4 L 18.3 L ABG O2 Saturation 85.6 L 93.5 L ABG Base Excess -9.1 -10.4 FiO2 2L 50% Sodium Potassium Chloride Carbon Dioxide Anion Gap BUN Creatinine Est GFR ( Amer) Est GFR (Non-Af Amer) Glucose Calcium Albumin Triglycerides 157 H Stool for White Cells 09/01/17 09/02/17 09/02/17 20:12 00:40 03:00 WBC RBC Hgb Hct MCV MCH MCHC RDW Plt Count Seg Neutrophils % Lymphocytes % Monocytes % Eosinophils % Basophils % Absolute Neutrophils Absolute Lymphocytes Absolute Monocytes Absolute Eosinophils Absolute Basophils Carbonic Acid 1.27 1.11 HCO3/H2CO3 Ratio 11:1 13:1 ABG pH 7.16 L* 7.21 L ABG pCO2 42.3 37.0 ABG pO2 138.8 H 112.3 H ABG HCO3 14.8 L 14.5 L ABG O2 Saturation 98.1 H 97.2 ABG Base Excess -13.2 -12.5 FiO2 50% 35% Sodium Potassium Chloride Carbon Dioxide Anion Gap BUN Creatinine Est GFR ( Amer) Est GFR (Non-Af Amer) Glucose Calcium Albumin Triglycerides Stool for White Cells NO WBCs SEEN 09/02/17 09/02/17 09/02/17 04:18 04:18 05:44 WBC 6.4 RBC 3.97 Hgb 11.1 L Hct 33.7 L MCV 85 MCH 28.0 MCHC 33.0 RDW 16.1 H Plt Count 158 Seg Neutrophils % 63.7 Lymphocytes % 21.7 Monocytes % 12.5 Eosinophils % 1.2 Basophils % 0.9 Absolute Neutrophils 4.1 Absolute Lymphocytes 1.4 Absolute Monocytes 0.8 Absolute Eosinophils 0.1 Absolute Basophils 0.1 Carbonic Acid HCO3/H2CO3 Ratio ABG pH ABG pCO2 ABG pO2 ABG HCO3 ABG O2 Saturation ABG Base Excess FiO2 Sodium Cancelled 138.7 Potassium Cancelled 4.1 Chloride Cancelled 109 H Carbon Dioxide Cancelled 18 L Anion Gap Cancelled 12 BUN Cancelled 47 H Creatinine Cancelled 2.19 H Est GFR ( Amer) Cancelled 28 L Est GFR (Non-Af Amer) Cancelled 23 L Glucose Cancelled 171 H Calcium Cancelled 7.0 L* Albumin Triglycerides Stool for White Cells 09/02/17 09/02/17 05:44 06:14 WBC RBC Hgb Hct MCV MCH MCHC RDW Plt Count Seg Neutrophils % Lymphocytes % Monocytes % Eosinophils % Basophils % Absolute Neutrophils Absolute Lymphocytes Absolute Monocytes Absolute Eosinophils Absolute Basophils Carbonic Acid 1.22 HCO3/H2CO3 Ratio 14:1 ABG pH 7.27 L ABG pCO2 40.4 ABG pO2 75.7 L ABG HCO3 18.0 L ABG O2 Saturation 93.4 L ABG Base Excess -8.4 FiO2 30% Sodium Potassium Chloride Carbon Dioxide Anion Gap BUN Creatinine Est GFR ( Amer) Est GFR (Non-Af Amer) Glucose Calcium Albumin 2.5 L Triglycerides Stool for White Cells Impressions: Abdomen/Pelvis CT 08/30/17 14:09 IMPRESSION: NO SIGNIFICANT OR ACUTE PROCESS IN THE ABDOMEN OR PELVIS. Head CT 09/02/17 00:00 IMPRESSION: No acute intracranial abnormality. Chest X-Ray 09/02/17 05:57 IMPRESSION: NO SIGNIFICANT INTERVAL CHANGE. Assessment & Plan - Diagnosis (1) Hypotension Is this a current diagnosis for this admission?: Yes Plan: Patient has been on normal saline at a rate of 150 mL/h and Levophed. Her blood pressure is relatively better than yesterday. (2) Acute respiratory failure with hypoxia and hypercapnia Is this a current diagnosis for this admission?: Yes Plan: Patient emergently intubated to protect her airway. ABG is getting better. (3) Acute kidney injury Is this a current diagnosis for this admission?: Yes Plan: Her kidney function is steadily improving. (4) Type 2 diabetes mellitus Is this a current diagnosis for this admission?: Yes Plan: Metformin is on hold. And she has been on sliding scale. (5) Hyperlipidemia Qualifiers: Hyperlipidemia type: unspecified Qualified Code(s): E78.5 - Hyperlipidemia , unspecified Is this a current diagnosis for this admission?: Yes Plan: Continue her home medication. (6) Morbid obesity due to excess calories Is this a current diagnosis for this admission?: Yes Plan: Lifestyle modification advised - Time Time Spent with patient: 35 or more minutes
[2017-09-02] MEDS: RIFAXIMIN 550 MG TABLET NG SCH (18:45)
[2017-09-02] MEDS: ATORVASTATIN CALCIUM 40 MG TABLET NG SCH (22:33)
[2017-09-03] MEDS: NORMAL SALINE 1000 ML 1,000 ML IV PRN ×3 (00:51→21:49)
[2017-09-03] MEDS: IPRATROPIUM/ALBUTEROL 0.5-2.5 MG/3 ML AMPUL NEB SCH ×4 (01:35→20:08)
[2017-09-03] MEDS: AZTREONAM 1 GM in DEXTROSE 5%-WATER 50 ML IV SCH ×3 (02:47→17:21)
[2017-09-03] MEDS: PROPOFOL 1,000 MG/100 ML INFUS..BTL IV PRN ×3 (04:19→21:49)
[2017-09-03 04:41] LABS: ANION GAP 11 (5-19); BLOOD UREA NITROGEN 31 mg/dL (7-20); CARBON DIOXIDE 17 mmol/L (22-30); CHLORIDE 114 mmol/L (98-107); GLUCOSE 278 mg/dL (75-110); POTASSIUM 4.2 mmol/L (3.6-5.0); SODIUM 142.1 mmol/L (137-145)
[2017-09-03 04:53] LABS: ABSOLUTE EOSINOPHILS # (AUTO) 0.1 10^3/uL (0.0-0.6); ABSOLUTE LYMPHOCYTES (AUTO) 0.7 10^3/uL (0.5-4.7); ABSOLUTE MONOCYTES (AUTO) 0.5 10^3/uL (0.1-1.4); ABSOLUTE NEUT (AUTO) 6.4 10^3/uL (1.7-8.2); BASOPHILS % (AUTO) 0.3 % (0-2); EOSINOPHILS % (AUTO) 0.7 % (0-6); HEMATOCRIT 31.4 % (36.0-47.0); HEMOGLOBIN 10.5 g/dL (12.0-15.5); LYMPHOCYTES % (AUTO) 8.9 % (13-45); MEAN CORPUSCULAR HEMOGLOBIN 28.3 pg (27.0-33.4); MEAN CORPUSCULAR HGB CONC 33.3 g/dL (32.0-36.0); MEAN CORPUSCULAR VOLUME 85 fl (80-97); MONOCYTES % (AUTO) 6.9 % (3-13); PLATELET COUNT 189 10^3/uL (150-450); RED CELL DISTRIBUTION WIDTH 16.6 % (11.5-14.0); SEGMENTED NEUTROPHILS % (AUTO) 83.2 % (42-78); TOTAL CELLS COUNTED % (AUTO) 100 %; WHITE BLOOD COUNT 7.7 10^3/uL (4.0-10.5)
[2017-09-03 05:08] LABS: ARTERIAL BLOOD BASE EXCESS -6.7 mmol/L; ARTERIAL BLOOD H2CO3 1.13 mmol/L (1.05-1.35); ARTERIAL BLOOD HCO3 18.8 mmol/L (20-26); ARTERIAL BLOOD O2 SATURATION 96.2 % (94-98); ARTERIAL BLOOD PCO2 37.7 mmHg (35-45); ARTERIAL BLOOD PH 7.32 (7.35-7.45); ARTERIAL BLOOD PO2 89.6 mmHg (80-100)
[2017-09-03 05:10] LABS: ARTERIAL BLOOD FIO2 40%
[2017-09-03] MEDS: BACLOFEN 10 MG TABLET NG SCH ×3 (05:45→21:49)
[2017-09-03] MEDS: GABAPENTIN 300 MG CAPSULE NG SCH ×3 (05:45→21:48)
[2017-09-03] MEDS: LEVOTHYROXINE SODIUM 0.1 MG TABLET NG SCH (05:46)
[2017-09-03] MEDS: LEVOTHYROXINE SODIUM 0.075 MG TABLET NG SCH (05:46)
[2017-09-03 06:32] LABS: CALCIUM 6.5 mg/dL (8.4-10.2)
--- NOTE | 2017-09-03 08:29 | RADIOLOGY REPORT (SQ) ---
EXAM DESCRIPTION: CHEST SINGLE VIEW COMPLETED DATE/TIME: 09/03/2017 6:20 am REASON FOR STUDY: ET Tube Placement COMPARISON: 09/02/2017 NUMBER OF VIEWS: One view. TECHNIQUE: Single frontal radiographic image of the chest acquired. LIMITATIONS: Positioning. FINDINGS: LUNGS AND PLEURA: Diffuse interstitial pattern. No focal consolidation or pneumothorax. MEDIASTINUM AND HILAR STRUCTURES: Stable heart size and mediastinal structures. HEART AND VASCULAR STRUCTURES: Stable appearance. SUPPORT DEVICES: Appropriate location without change. BONES: No acute findings. OTHER: No other significant finding. IMPRESSION: No significant change. No pneumothorax. TECHNICAL DOCUMENTATION: JOB ID: [id number] [employer]- All Rights Reserved Reading location - IP/workstation name: [email or web address]
[2017-09-03] MEDS: FLUOXETINE HCL 20 MG CAPSULE NG SCH (11:39)
[2017-09-03] MEDS: ASPIRIN 81 MG TABLET, ENT COATED PO SCH (11:39)
[2017-09-03] MEDS: RIFAXIMIN 550 MG TABLET NG SCH ×2 (11:39→17:21)
[2017-09-03] MEDS: FENOFIBRATE NANOCRYSTALLIZED 48 MG TABLET NG SCH (11:40)
[2017-09-03] MEDS: LEVETIRACETAM 500 MG/NACL-ISO 500 MG/100 ML RTUPB IV SCH ×2 (11:41→21:47)
[2017-09-03] MEDS: VANCOMYCIN HCL 1,250 MG in DEXTROSE 5%-WATER 250 ML IV SCH (15:18)
[2017-09-03] MEDS: LOPERAMIDE HCL 2 MG CAPSULE NG PRN (15:39)
--- NOTE | 2017-09-03 17:59 | XCELERA REPORT ---
[address] [address] Transthoracic Echocardiogram Report Name: RISHI TRAYLOR Age: 56 yrs Gender: Female : 1960 Patient Status: Inpatient Patient Location: ICU^609^A Study Date: 09/03/2017 09:19 AM Height: 63 in Weight: 310 lb BSA: 2.3 m2 Procedure: A complete two-dimensional transthoracic echocardiogram was performed (2D, M-mode, spectral and color flow Doppler). The study was technically difficult with many images being suboptimal in quality. Reason For Study: chf Ordering Physician: YESSENIA TOUSSAINT Performed By: Lizzy Marroquin Interpretation Summary The left ventricular ejection fraction is normal. There is mild concentric left ventricular hypertrophy. The left ventricle is grossly normal size. Doppler measurements suggest pseudonormalized left ventricular relaxation, which is associated with grade II/IV or mild to moderate diastolic dysfunction Wall motion cannot be accurately commented on, but no definite regional wall motion abnormalities noted. Borderline right ventricular enlargement. The right ventricular systolic function is normal. The right atrium is normal. Borderline left atrial enlargement. There is a trace amount of mitral regurgitation There is no mitral valve stenosis. There is no aortic valve stenosis No aortic regurgitation is present. There is a trace to mild amount of tricuspid regurgitation There is mild pulmonary hypertension by echo Right ventricular systolic pressure is estimated to be elevated at 30- 40mmHg. The aortic root is not well visualized but is probably normal size. The inferior vena cava appeared normal and decreased < 50% with respiration (RAP 10-15 mmHg) Minimal pericardial effusion. MMode/2D Measurements & Calculations RVDd: 2.8 cm LVIDd: 5.3 cm FS: 48.2 % Ao root diam: 2.2 cm IVSd: 0.98 cm LVIDs: 2.8 cm EDV(Teich): 136.6 ml LVPWd: 0.99 cm ESV(Teich): 28.4 ml Ao root area: 3.8 cm2 EF(Teich): 79.2 % LA dimension: 3.6 cm Doppler Measurements & Calculations MV E max olga: MV P1/2t max olga: Ao V2 max: LV V1 max P.7 cm/sec 134.4 cm/sec 182.3 cm/sec 11.0 mmHg MV A max olga: MV P1/2t: 71.3 msec Ao max PG: LV V1 max: 135.4 cm/sec 13.3 mmHg 166.2 cm/sec MV E/A: 0.98 MVA(P1/2t): 3.1 cm2 MV dec slope: 552.0 cm/sec2 MV dec time: 0.24 sec PA V2 max: TR max olga: 112.4 cm/sec 305.1 cm/sec PA max PG: TR max P.2 mmHg 5.1 mmHg Left Ventricle The left ventricle is grossly normal size. There is mild concentric left ventricular hypertrophy. The left ventricular ejection fraction is normal. Doppler measurements suggest pseudonormalized left ventricular relaxation, which is associated with grade II/IV or mild to moderate diastolic dysfunction. Wall motion cannot be accurately commented on, but no definite regional wall motion abnormalities noted. Right Ventricle Borderline right ventricular enlargement. There is normal right ventricular wall thickness. The right ventricular systolic function is normal. Atria The right atrium is normal. Borderline left atrial enlargement. Interarterial septum not well visualized and not well dopplered. Cannot comment on ASD/PFO presence. Mitral Valve The mitral valve leaflets are sclerotic, but show no functional abnormalities. There is no mitral valve stenosis. There is a trace amount of mitral regurgitation. Aortic Valve The aortic valve is not well visualized secondary to technical limitations. The aortic valve opens well. There is no aortic valve stenosis. No aortic regurgitation is present. Tricuspid Valve The tricuspid valve is not well visualized secondary to technical limitations. There is no tricuspid stenosis. There is a trace to mild amount of tricuspid regurgitation. There is mild pulmonary hypertension by echo. Right ventricular systolic pressure is estimated to be elevated at 30-40mmHg. Pulmonic Valve The pulmonic valve is not well visualized. Great Vessels The aortic root is not well visualized but is probably normal size. The inferior vena cava appeared normal and decreased < 50% with respiration (RAP 10-15 mmHg). Effusions Minimal pericardial effusion. : YESSENIA TOUSSAINT > Nadja Painter
--- NOTE | 2017-09-03 18:02 | PDOC PROGRESS REPORT ---
Subjective Progress Note for:: 09/03/17 Subjective:: This is a 56 years old female patient recently relocated from [place] to [facility] to stay with her son. She presented to us with chief improve intractable nausea vomiting and diarrhea. At presentation patient was hypotensive and had initial blood workup shows acute kidney injury with creatinine of 4.27. Patient admitted to [facility] and started on aggressive IV hydration. On the third day of her admission patient become profoundly hypotensive, unresponsive and desaturated her O2 saturation in the lower 70s. Rapid response activated and patient intubated since she is not able to protect her airway and transferred to medical intensive care unit where she started on Levophed and aggressive hydration. Her kidney function has improved and her creatinine markedly trended down and it is now 1.12. Her blood and stool culture grew Salmonella species. Patient has been started empirically on vancomycin and Dr. since she is allergic to multiple antibiotics including penicillin. Currently her blood pressure is relatively stable and she is still on mechanical ventilation support. Reason For Visit: ACUTE KIDNEY INJURY Physical Exam Vital Signs: Temp Pulse Resp BP Pulse Ox 99.5 F 84 16 133/52 H 95 09/03/17 15:52 09/03/17 14:16 09/03/17 16:01 09/03/17 16:01 09/03/17 16:30 Intake & Output 09/02/17 09/03/17 09/04/17 06:59 06:59 06:59 Intake Total 2346 3814 300 Output Total 2160 3270 1300 Balance 186 544 -1000 Weight 140.8 kg 139.4 kg General appearance: PRESENT: no acute distress, other - On mechanical ventilation Head exam: PRESENT: atraumatic Eye exam: PRESENT: conjunctiva pink Mouth exam: PRESENT: moist Neck exam: ABSENT: carotid bruit, JVD, lymphadenopathy, thyromegaly Respiratory exam: PRESENT: clear to auscultation compa. ABSENT: rales, rhonchi, wheezes Cardiovascular exam: PRESENT: RRR. ABSENT: diastolic murmur, rubs, systolic murmur GI/Abdominal exam: PRESENT: normal bowel sounds, soft, other - Morbidly obese bowel sounds active. ABSENT: distended, guarding, mass, organolmegaly, rebound , tenderness Results Laboratory Results: 09/03/17 04:03 09/03/17 04:03 0709/03/17 09/03/17 04:03 04:03 04:03 WBC 7.7 RBC 3.70 L Hgb 10.5 L Hct 31.4 L MCV 85 MCH 28.3 MCHC 33.3 RDW 16.6 H Plt Count 189 Seg Neutrophils % 83.2 H Lymphocytes % 8.9 L Monocytes % 6.9 Eosinophils % 0.7 Basophils % 0.3 Absolute Neutrophils 6.4 Absolute Lymphocytes 0.7 Absolute Monocytes 0.5 Absolute Eosinophils 0.1 Absolute Basophils 0.0 Carbonic Acid HCO3/H2CO3 Ratio ABG pH ABG pCO2 ABG pO2 ABG HCO3 ABG O2 Saturation ABG Base Excess FiO2 Sodium 142.1 Potassium 4.2 Chloride 114 H Carbon Dioxide 17 L Anion Gap 11 BUN 31 H Creatinine 1.12 Est GFR ( Amer) > 60 Est GFR (Non-Af Amer) 50 L Glucose 278 H Calcium 6.5 L* Ionized Calcium Bridger Albumin 2.1 L 09/03/17 09/03/17 04:50 09:52 WBC RBC Hgb Hct MCV MCH MCHC RDW Plt Count Seg Neutrophils % Lymphocytes % Monocytes % Eosinophils % Basophils % Absolute Neutrophils Absolute Lymphocytes Absolute Monocytes Absolute Eosinophils Absolute Basophils Carbonic Acid 1.13 HCO3/H2CO3 Ratio 16:1 ABG pH 7.32 L ABG pCO2 37.7 ABG pO2 89.6 ABG HCO3 18.8 L ABG O2 Saturation 96.2 ABG Base Excess -6.7 FiO2 40% Sodium Potassium Chloride Carbon Dioxide Anion Gap BUN Creatinine Est GFR ( Amer) Est GFR (Non-Af Amer) Glucose Calcium Ionized Calcium Bridger 1.00 L Albumin Impressions: Abdomen/Pelvis CT 08/30/17 14:09 IMPRESSION: NO SIGNIFICANT OR ACUTE PROCESS IN THE ABDOMEN OR PELVIS. Head CT 09/02/17 00:00 IMPRESSION: No acute intracranial abnormality. Chest X-Ray 09/03/17 06:00 IMPRESSION: No significant change. No pneumothorax. Assessment & Plan - Diagnosis (1) Septic shock Is this a current diagnosis for this admission?: Yes Plan: Evidence of by profound hypotension, acute respiratory failure, and blood and stool culture positive for Salmonella species. Continue Azactam and vancomycin. I will de-escalate her antibiotics based on her clinical response and sensitivity pattern. (2) Hypotension Is this a current diagnosis for this admission?: Yes Plan: Improving (3) Acute respiratory failure with hypoxia and hypercapnia Is this a current diagnosis for this admission?: Yes Plan: Patient has been on full mechanical ventilation support (4) Acute kidney injury Is this a current diagnosis for this admission?: Yes Plan: Resolving (5) Type 2 diabetes mellitus Is this a current diagnosis for this admission?: Yes Plan: Metformin is on hold. And she has been on sliding scale. (6) Hyperlipidemia Qualifiers: Hyperlipidemia type: unspecified Qualified Code(s): E78.5 - Hyperlipidemia , unspecified Is this a current diagnosis for this admission?: Yes Plan: Continue her home medication. (7) Morbid obesity due to excess calories Is this a current diagnosis for this admission?: Yes Plan: Lifestyle modification advised
[2017-09-03] MEDS ORDERED: CALCIUM GLUCONATE 1000 MG/10 ML INJ IV ONE ×2 (18:08→18:15)
[2017-09-03] MEDS: ATORVASTATIN CALCIUM 40 MG TABLET NG SCH (21:47)
[2017-09-04] MEDS: IPRATROPIUM/ALBUTEROL 0.5-2.5 MG/3 ML AMPUL NEB SCH ×4 (01:28→20:40)
[2017-09-04] MEDS: INSULIN LISPRO 100 UNIT/ML 3 ML VIAL SUBCUT PRN ×3 (01:59→18:54)
[2017-09-04] MEDS: VANCOMYCIN HCL 1,250 MG in DEXTROSE 5%-WATER 250 ML IV SCH (02:29)
[2017-09-04] MEDS: AZTREONAM 1 GM in DEXTROSE 5%-WATER 50 ML IV SCH (02:30)
[2017-09-04 04:06] LABS: ABSOLUTE EOSINOPHILS # (AUTO) 0.1 10^3/uL (0.0-0.6); ABSOLUTE LYMPHOCYTES (AUTO) 0.9 10^3/uL (0.5-4.7); ABSOLUTE MONOCYTES (AUTO) 0.7 10^3/uL (0.1-1.4); ABSOLUTE NEUT (AUTO) 9.3 10^3/uL (1.7-8.2); BASOPHILS % (AUTO) 0.3 % (0-2); EOSINOPHILS % (AUTO) 0.5 % (0-6); HEMATOCRIT 33.4 % (36.0-47.0); HEMOGLOBIN 10.8 g/dL (12.0-15.5); LYMPHOCYTES % (AUTO) 8.3 % (13-45); MEAN CORPUSCULAR HEMOGLOBIN 27.5 pg (27.0-33.4); MEAN CORPUSCULAR HGB CONC 32.4 g/dL (32.0-36.0); MEAN CORPUSCULAR VOLUME 85 fl (80-97); MONOCYTES % (AUTO) 6.6 % (3-13); PLATELET COUNT 253 10^3/uL (150-450); RED BLOOD COUNT 3.94 10^6/uL (3.72-5.28); RED CELL DISTRIBUTION WIDTH 16.6 % (11.5-14.0); SEGMENTED NEUTROPHILS % (AUTO) 84.3 % (42-78); TOTAL CELLS COUNTED % (AUTO) 100 %
[2017-09-04 04:27] LABS: ANION GAP 10 (5-19); BLOOD UREA NITROGEN 25 mg/dL (7-20); CALCIUM 7.2 mg/dL (8.4-10.2); CARBON DIOXIDE 19 mmol/L (22-30); CHLORIDE 118 mmol/L (98-107); GLUCOSE 293 mg/dL (75-110); POTASSIUM 3.9 mmol/L (3.6-5.0); TRIGLYCERIDES 169 mg/dL (<150)
[2017-09-04] MEDS: GABAPENTIN 300 MG CAPSULE NG SCH ×3 (06:37→21:46)
[2017-09-04] MEDS: LEVOTHYROXINE SODIUM 0.1 MG TABLET NG SCH (06:37)
[2017-09-04] MEDS: LEVOTHYROXINE SODIUM 0.075 MG TABLET NG SCH (06:37)
[2017-09-04] MEDS: BACLOFEN 10 MG TABLET NG SCH ×3 (06:37→21:46)
[2017-09-04] MEDS: NORMAL SALINE 1000 ML 1,000 ML IV PRN ×2 (06:39→21:46)
[2017-09-04 08:04] LABS: ARTERIAL BLOOD BASE EXCESS -5.7 mmol/L; ARTERIAL BLOOD H2CO3 1.25 mmol/L (1.05-1.35); ARTERIAL BLOOD HCO3 20.3 mmol/L (20-26); ARTERIAL BLOOD O2 SATURATION 96.9 % (94-98); ARTERIAL BLOOD PCO2 41.5 mmHg (35-45); ARTERIAL BLOOD PH 7.31 (7.35-7.45); ARTERIAL BLOOD PO2 98.6 mmHg (80-100); ARTERIAL BLOOD TOTAL CO2 21.6 mmol/L (21-25)
[2017-09-04 08:06] LABS: ARTERIAL BLOOD FIO2 40%
[2017-09-04] MEDS ORDERED: FUROSEMIDE INJ/PF 40 MG/4 ML SDV IV ONE (09:00)
[2017-09-04] MEDS: ASPIRIN 81 MG TABLET, ENT COATED PO SCH (09:02)
[2017-09-04] MEDS: LOPERAMIDE HCL 2 MG CAPSULE NG PRN (09:03)
[2017-09-04] MEDS: FLUOXETINE HCL 20 MG CAPSULE NG SCH (09:03)
[2017-09-04] MEDS: FENOFIBRATE NANOCRYSTALLIZED 48 MG TABLET NG SCH (09:05)
[2017-09-04] MEDS: LEVETIRACETAM 500 MG/NACL-ISO 500 MG/100 ML RTUPB IV SCH ×2 (09:05→21:46)
[2017-09-04] MEDS: RIFAXIMIN 550 MG TABLET NG SCH ×2 (09:13→18:54)
[2017-09-04] MEDS: DOXYCYCLINE HYCLATE 100 MG in DEXTROSE 5%-WATER 250 ML IV SCH ×2 (11:30→22:28)
--- NOTE | 2017-09-04 13:38 | PDOC PROGRESS REPORT ---
Subjective Progress Note for:: 09/04/17 Subjective:: Patient has been on weaning trial since yesterday. Patient responded to verbal stimuli by trying to open her eyes. Acute kidney injury completely resolved and her blood pressure is stable. Reason For Visit: ACUTE KIDNEY INJURY Physical Exam Vital Signs: Temp Pulse Resp BP Pulse Ox 98.2 F 98 14 118/57 L 92 09/04/17 12:00 09/04/17 12:00 09/04/17 12:00 09/04/17 12:00 09/04/17 12:00 Intake & Output 09/03/17 09/04/17 09/05/17 06:59 06:59 06:59 Intake Total 3814 6328 Output Total 3270 2875 5 Balance 544 3453 -2025 Weight 139.4 kg 140.4 kg Results Laboratory Results: 09/04/17 03:58 09/04/17 03:58 09/04/17 09/04/17 09/04/17 03:58 03:58 03:58 WBC 11.0 H RBC 3.94 Hgb 10.8 L Hct 33.4 L MCV 85 MCH 27.5 MCHC 32.4 RDW 16.6 H Plt Count 253 Seg Neutrophils % 84.3 H Lymphocytes % 8.3 L Monocytes % 6.6 Eosinophils % 0.5 Basophils % 0.3 Absolute Neutrophils 9.3 H Absolute Lymphocytes 0.9 Absolute Monocytes 0.7 Absolute Eosinophils 0.1 Absolute Basophils 0.0 Carbonic Acid HCO3/H2CO3 Ratio ABG pH ABG pCO2 ABG pO2 ABG HCO3 ABG O2 Saturation ABG Base Excess FiO2 Sodium 147.0 H Potassium 3.9 Chloride 118 H Carbon Dioxide 19 L Anion Gap 10 BUN 25 H Creatinine 0.92 Est GFR ( Amer) > 60 Est GFR (Non-Af Amer) > 60 Glucose 293 H Lactic Acid 0.9 Calcium 7.2 L Triglycerides 169 H 09/04/17 07:30 WBC RBC Hgb Hct MCV MCH MCHC RDW Plt Count Seg Neutrophils % Lymphocytes % Monocytes % Eosinophils % Basophils % Absolute Neutrophils Absolute Lymphocytes Absolute Monocytes Absolute Eosinophils Absolute Basophils Carbonic Acid 1.25 HCO3/H2CO3 Ratio 16:1 ABG pH 7.31 L ABG pCO2 41.5 ABG pO2 98.6 ABG HCO3 20.3 ABG O2 Saturation 96.9 ABG Base Excess -5.7 FiO2 40% Sodium Potassium Chloride Carbon Dioxide Anion Gap BUN Creatinine Est GFR ( Amer) Est GFR (Non-Af Amer) Glucose Lactic Acid Calcium Triglycerides 09/03/17 18:15 NT-Pro-B Natriuret Pep 782 Impressions: Abdomen/Pelvis CT 08/30/17 14:09 IMPRESSION: NO SIGNIFICANT OR ACUTE PROCESS IN THE ABDOMEN OR PELVIS. Head CT 09/02/17 00:00 IMPRESSION: No acute intracranial abnormality. Chest X-Ray 09/03/17 06:00 IMPRESSION: No significant change. No pneumothorax. Assessment & Plan - Diagnosis (1) Septic shock Is this a current diagnosis for this admission?: Yes Plan: Has been resolving (2) Hypotension Is this a current diagnosis for this admission?: Yes Plan: Resolving (3) Acute respiratory failure with hypoxia and hypercapnia Is this a current diagnosis for this admission?: Yes Plan: Currently patient is on weaning trial and she will be extubated hopefully in the coming 48 hours. (4) Acute kidney injury Is this a current diagnosis for this admission?: Yes Plan: Completely resolved (5) Type 2 diabetes mellitus Is this a current diagnosis for this admission?: Yes Plan: Metformin is on hold. And she has been on sliding scale. (6) Hyperlipidemia Qualifiers: Hyperlipidemia type: unspecified Qualified Code(s): E78.5 - Hyperlipidemia , unspecified Is this a current diagnosis for this admission?: Yes Plan: Continue her home medication. (7) Morbid obesity due to excess calories Is this a current diagnosis for this admission?: Yes Plan: Lifestyle modification advised
[2017-09-04] MEDS ORDERED: AMLODIPINE BESYLATE 5 MG TABLET PO PRN (18:02)
--- NOTE | 2017-09-04 18:30 | Progress Note ---
Provider Note Provider Note: ID Consult Note Asked by Pharmacy to review patient's chart. Pt not seen or examined. Reviewed provider notes, medications, VS, labs, imaging reports. Ms. Goss is a 56 year old obese woman who was admitted on 08/30/17 with 4 days of NVD, lower abdominal pain, and associated fever/chills with Tmax at home reportedly up to 103 F. She was found to have hypotension, no murmurs, lower abdominal tenderness. Labs reflected RENE, and CT abd/pelvis showed no significant/acute process, and initially she was suspected of having RENE due to viral gastroenteritis and was managed supportively initially. A stool culture sent on 08/30 showed growth of Salmonella species. Fever recurred, up to 100.6 on 09/01. She also became poorly responsive and was found to have hypoxia on 09/01 that required intubation and mechanical ventilation for management. CXR on 09/01 was read as showing cardiomegaly with vascular congestion and no consolidation. Blood cultures were drawn on 09/02. Rifaximin was started on 09/01 and - as pt has Cipro and penicillins documented as allergies (no reaction specified) in her chart - Azactam and vancomycin on . Repeat CXR on 09/02 was read as showing no change. Last fever was overnight between 09/02 and 09/03. Repeat CXR on 09/03 showed diffuse interstitial pattern, no focal consolidation. Sputum on 09/03 was sent, which shows GPCs in clusters preliminarily. TTE showed mild pulmonary hypertension by echo, no mitral valve or aortic valve stenosis, no aortic regurgitation, trace to mild TR, borderline atrial and RV enlargement, mild-moderate LV diastolic dysfunction. Exam has been documented as CTAB. RENE has resolved. BP has been stable. Vent settings have not required escalation. Azactam and vancomycin were discontinued today and doxycycline begun instead. Impression/Recommendations Bacteremic Salmonella gastroenteritis - Risk groups for Salmonella bacteremia are those on acid reducing medications, those at generally extremes of age, immunosuppressed patients including HIV/AIDS , liver disease, sickle cell disease patients. Pt is over age 50 and on PPI at home, but screening for HIV would be appropriate. It is recommended for all adults up to age 65 to have screening at some point for HIV regardless. - The patient should continue treatment to complete the remainder of 14 days of therapy (12 more days), and while she is hospitalized, this can be accomplished with Rocephin 2 g IV q 24h. The patient as reported allergy in her chart to penicillin with no reaction specified. Quite often, reported penicillin allergies are no true IgE mediated allergies that would preclude use, and there is also low cross reactivity between penicillins and cephalosporins. Furthermore , Pharmacy was able to verify that the patient received prescription for Omnicef in Jan 2017, and if she tolerated that without issue, there is little reason to suspect that she would not do well with Rocephin IV until she is clinically stable / improved enough to finish treatment with an oral agent. Confirmation with the patient or family members of the nature of her allergy and prescription history would be helpful if it can be obtained. Otherwise, aztreonam would be expected to be active given the lack of antibiotic resistance her isolate demonstrated. Although the isolate was reported as sensitive to tetracycline, generally tetracyclines do not achieve good blood levels, and experience with tetracyclines to treated bacteremic Salmonella is limited in comparison to other agents (Bactrim, fluoroquinolones, IV 3rd generation cephalosporins). Brian Galloway MD [facility] Infectious Diseases pager [phone]
[2017-09-04] MEDS ORDERED: LISINOPRIL 10 MG TABLET PO SCH (19:00)
[2017-09-04] MEDS: ATORVASTATIN CALCIUM 40 MG TABLET NG SCH (21:46)
[2017-09-04] MEDS: HEPARIN SOD (PORCINE) 5,000 UNIT/ML 1 ML SYRINGE SUBCUT SCH (21:47)
[2017-09-04] MEDS: PROPOFOL 1,000 MG/100 ML INFUS..BTL IV PRN (22:15)
[2017-09-05] MEDS: INSULIN LISPRO 100 UNIT/ML 3 ML VIAL SUBCUT PRN ×3 (00:51→13:11)
[2017-09-05] MEDS: IPRATROPIUM/ALBUTEROL 0.5-2.5 MG/3 ML AMPUL NEB SCH ×4 (01:18→20:36)
[2017-09-05 05:13] LABS: HEMATOCRIT 31.4 % (36.0-47.0); HEMOGLOBIN 10.4 g/dL (12.0-15.5); MEAN CORPUSCULAR VOLUME 85 fl (80-97); PLATELET COUNT 233 10^3/uL (150-450); RED CELL DISTRIBUTION WIDTH 16.8 % (11.5-14.0); WHITE BLOOD COUNT 11.9 10^3/uL (4.0-10.5)
[2017-09-05 05:27] LABS: ANION GAP 7 (5-19); BLOOD UREA NITROGEN 19 mg/dL (7-20); CALCIUM 7.5 mg/dL (8.4-10.2); CARBON DIOXIDE 24 mmol/L (22-30); CHLORIDE 119 mmol/L (98-107); GLUCOSE 263 mg/dL (75-110); POTASSIUM 3.7 mmol/L (3.6-5.0); SODIUM 149.7 mmol/L (137-145)
[2017-09-05 05:38] LABS: ABSOLUTE LYMPHOCYTES# (MANUAL) 1.2 10^3/uL (0.5-4.7); ABSOLUTE MONOCYTES # (MANUAL) 0.5 10^3/uL (0.1-1.4); ABSOLUTE NEUTROPHILS# (MANUAL) 10.2 10^3/uL (1.7-8.2); BAND NEUTROPHILS % (MANUAL) 4 % (3-5); BASOPHILS % (MANUAL) 0 % (0-2); EOSINOPHILS % (MANUAL) 0 % (0-6); LYMPHOCYTES % (MANUAL) 10 % (13-45); MONOCYTES % (MANUAL) 4 % (3-13); SEGMENTED NEUTROPHILS % (MAN) 82 % (42-78); TOTAL CELLS COUNTED 100
[2017-09-05 05:40] LABS: ANISOCYTOSIS 1+; PLATELET COMMENT ADEQUATE; POLYCHROMASIA SLIGHT
[2017-09-05] MEDS: GABAPENTIN 300 MG CAPSULE NG SCH ×3 (05:43→22:25)
[2017-09-05] MEDS: BACLOFEN 10 MG TABLET NG SCH ×3 (05:43→22:25)
[2017-09-05] MEDS: LEVOTHYROXINE SODIUM 0.1 MG TABLET NG SCH (05:44)
[2017-09-05] MEDS: LEVOTHYROXINE SODIUM 0.075 MG TABLET NG SCH (05:44)
[2017-09-05] MEDS: HEPARIN SOD (PORCINE) 5,000 UNIT/ML 1 ML SYRINGE SUBCUT SCH ×3 (05:45→22:27)
[2017-09-05] MEDS ORDERED: AMLODIPINE BESYLATE 5 MG TABLET NG PRN (08:30)
[2017-09-05] MEDS: LEVETIRACETAM 500 MG/NACL-ISO 500 MG/100 ML RTUPB IV SCH ×2 (10:39→22:26)
[2017-09-05] MEDS: DOXYCYCLINE HYCLATE 100 MG in DEXTROSE 5%-WATER 250 ML IV SCH (10:40)
[2017-09-05] MEDS: NORMAL SALINE 1000 ML 1,000 ML IV PRN ×2 (10:41→22:27)
[2017-09-05] MEDS: LISINOPRIL 10 MG TABLET NG SCH (10:54)
[2017-09-05] MEDS: FLUOXETINE HCL 20 MG CAPSULE NG SCH (10:55)
[2017-09-05] MEDS: ASPIRIN 81 MG TABLET, CHEWABLE NG SCH (10:55)
[2017-09-05] MEDS: RIFAXIMIN 550 MG TABLET NG SCH (10:55)
[2017-09-05] MEDS: FENOFIBRATE NANOCRYSTALLIZED 48 MG TABLET NG SCH (10:55)
[2017-09-05 12:17] LABS: VANCOMYCIN,TROUGH < 5.0 ug/mL (5.0-20.0)
[2017-09-05] MEDS ORDERED: CEFTRIAXONE 2 GM/D5W RTU 2 GM/50 ML RTUPB IV SCH (13:00)
[2017-09-05] MEDS: MORPHINE SULFATE 10 MG/ML INJ IV PRN ×2 (15:35→19:41)
--- NOTE | 2017-09-05 17:23 | PDOC PROGRESS REPORT ---
Subjective Progress Note for:: 09/05/17 Subjective:: Patient is still on weaning trial. She was put back on propofol. Her blood pressure is stable it is on the higher side. I restarted all her antihypertensive medication. Her tracheal aspirate grew gram-positive cocci in cluster. I switched her doxycycline to ceftriaxone per ID recommendation. Reason For Visit: ACUTE KIDNEY INJURY Physical Exam Vital Signs: Temp Pulse Resp BP Pulse Ox 100.8 F H 112 H 25 H 167/72 H 92 09/05/17 14:00 09/05/17 14:01 09/05/17 16:00 09/05/17 15:33 09/05/17 16:00 Intake & Output 09/04/17 09/05/17 09/06/17 06:59 06:59 06:59 Intake Total 6319 4498 1444 Output Total 2875 4450 2475 Balance 3453 48 -1031 Weight 140.4 kg 139.7 kg General appearance: PRESENT: no acute distress, other - Patient is a bit restless Head exam: PRESENT: atraumatic Mouth exam: PRESENT: moist Results Laboratory Results: 09/05/17 04:35 09/05/17 04:35 09/05/17 09/05/17 04:35 04:35 WBC 11.9 H RBC 3.70 L Hgb 10.4 L Hct 31.4 L MCV 85 MCH 28.0 MCHC 33.0 RDW 16.8 H Plt Count 233 Seg Neutrophils % Not Reportable Lymphocytes % Not Reportable Monocytes % Not Reportable Eosinophils % Not Reportable Basophils % Not Reportable Absolute Neutrophils Not Reportable Absolute Lymphocytes Not Reportable Absolute Monocytes Not Reportable Absolute Eosinophils Not Reportable Absolute Basophils Not Reportable Sodium 149.7 H Potassium 3.7 Chloride 119 H Carbon Dioxide 24 Anion Gap 7 BUN 19 Creatinine 0.74 Est GFR ( Amer) > 60 Est GFR (Non-Af Amer) > 60 Glucose 263 H Calcium 7.5 L 09/03/17 09:30 Catheterized Urine Urine Culture - Final NO GROWTH 2 DAYS 09/03/17 18:15 NT-Pro-B Natriuret Pep 782 Impressions: Abdomen/Pelvis CT 08/30/17 14:09 IMPRESSION: NO SIGNIFICANT OR ACUTE PROCESS IN THE ABDOMEN OR PELVIS. Head CT 09/02/17 00:00 IMPRESSION: No acute intracranial abnormality. Chest X-Ray 09/03/17 06:00 IMPRESSION: No significant change. No pneumothorax. Assessment & Plan - Diagnosis (1) Septic shock Is this a current diagnosis for this admission?: Yes Plan: Due to Salmonella sepsis. Has been resolving (2) Hypotension Is this a current diagnosis for this admission?: Yes Plan: Resolved (3) Acute respiratory failure with hypoxia and hypercapnia Is this a current diagnosis for this admission?: Yes Plan: Patient is still intubated but on weaning trial (4) Acute kidney injury Is this a current diagnosis for this admission?: Yes Plan: Completely resolved (5) Type 2 diabetes mellitus Is this a current diagnosis for this admission?: Yes Plan: Metformin is on hold. And she has been on sliding scale. (6) Hyperlipidemia Qualifiers: Hyperlipidemia type: unspecified Qualified Code(s): E78.5 - Hyperlipidemia , unspecified Is this a current diagnosis for this admission?: Yes Plan: Continue her home medication. (7) Morbid obesity due to excess calories Is this a current diagnosis for this admission?: Yes Plan: Lifestyle modification advised - Time Time Spent with patient: 25-34 minutes
[2017-09-05] MEDS: ACETAMINOPHEN SOLN 325 MG/10.15 ML UDCUP NG PRN (19:20)
[2017-09-05] MEDS ORDERED: PROPOFOL 1,000 MG/100 ML INFUS..BTL IV ONE (21:56)
[2017-09-05] MEDS ORDERED: DILTIAZEM HCL INJ 25 MG/5 ML VIAL ONE (22:10)
[2017-09-05] MEDS: PROPOFOL 1,000 MG/100 ML INFUS..BTL IV PRN (22:24)
[2017-09-05] MEDS: ATORVASTATIN CALCIUM 40 MG TABLET NG SCH (22:25)
[2017-09-05] MEDS ORDERED: DILTIAZEM HCL INJ 25 MG/5 ML VIAL IV ONE (22:30)
[2017-09-05] MEDS ORDERED: DILTIAZEM HCL/D5W 125 MG/125 ML RTUINJ IV PRN (23:11)
[2017-09-05] MEDS ORDERED: DILTIAZEM HCL/D5W 125 MG/125 ML RTUINJ IV ONE (23:48)
[2017-09-06] MEDS: INSULIN LISPRO 100 UNIT/ML 3 ML VIAL SUBCUT PRN ×4 (00:50→23:51)
[2017-09-06] MEDS: IPRATROPIUM/ALBUTEROL 0.5-2.5 MG/3 ML AMPUL NEB SCH ×4 (01:29→20:13)
[2017-09-06] MEDS: ACETAMINOPHEN SOLN 325 MG/10.15 ML UDCUP NG PRN ×2 (02:41→09:15)
[2017-09-06] MEDS: PROPOFOL 1,000 MG/100 ML INFUS..BTL IV PRN (02:43)
[2017-09-06 04:15] LABS: HEMATOCRIT 32.5 % (36.0-47.0); HEMOGLOBIN 10.6 g/dL (12.0-15.5); MEAN CORPUSCULAR HEMOGLOBIN 27.6 pg (27.0-33.4); MEAN CORPUSCULAR HGB CONC 32.5 g/dL (32.0-36.0); MEAN CORPUSCULAR VOLUME 85 fl (80-97); PLATELET COUNT 266 10^3/uL (150-450); RED BLOOD COUNT 3.83 10^6/uL (3.72-5.28); RED CELL DISTRIBUTION WIDTH 16.8 % (11.5-14.0); WHITE BLOOD COUNT 16.3 10^3/uL (4.0-10.5)
[2017-09-06 04:27] LABS: ANION GAP 10 (5-19); BLOOD UREA NITROGEN 22 mg/dL (7-20); CALCIUM 7.9 mg/dL (8.4-10.2); CARBON DIOXIDE 23 mmol/L (22-30); CHLORIDE 120 mmol/L (98-107); GLUCOSE 301 mg/dL (75-110); POTASSIUM 3.6 mmol/L (3.6-5.0); SODIUM 153.3 mmol/L (137-145)
[2017-09-06 04:39] LABS: ABSOLUTE MONOCYTES # (MANUAL) 0.8 10^3/uL (0.1-1.4); ABSOLUTE NEUTROPHILS# (MANUAL) 13.5 10^3/uL (1.7-8.2); BAND NEUTROPHILS % (MANUAL) 1 % (3-5); BASOPHILS % (MANUAL) 0 % (0-2); EOSINOPHILS % (MANUAL) 0 % (0-6); LYMPHOCYTES % (MANUAL) 12 % (13-45); METAMYELOCYTES % (MANUAL) 1 % (0); MONOCYTES % (MANUAL) 5 % (3-13); SEGMENTED NEUTROPHILS % (MAN) 81 % (42-78); TOTAL CELLS COUNTED 100
[2017-09-06 04:40] LABS: ANISOCYTOSIS 1+; TOXIC GRANULATION SLIGHT; TOXIC VACUOLATION PRESENT
[2017-09-06 04:41] LABS: PLATELET CLUMPS PRESENT; PLATELET COMMENT ADEQUATE; PLATELET LARGE PRESENT
[2017-09-06] MEDS ORDERED: DILTIAZEM HCL/D5W 125 MG/125 ML RTUINJ IV ONE (05:32)
[2017-09-06] MEDS: LEVOTHYROXINE SODIUM 0.1 MG TABLET NG SCH (06:05)
[2017-09-06] MEDS: LEVOTHYROXINE SODIUM 0.075 MG TABLET NG SCH (06:05)
[2017-09-06] MEDS: GABAPENTIN 300 MG CAPSULE NG SCH ×3 (06:05→21:03)
[2017-09-06] MEDS: HEPARIN SOD (PORCINE) 5,000 UNIT/ML 1 ML SYRINGE SUBCUT SCH ×3 (06:06→21:05)
[2017-09-06] MEDS: BACLOFEN 10 MG TABLET NG SCH ×3 (06:39→21:35)
[2017-09-06] MEDS ORDERED: VANCOMYCIN HCL 0 MG in DEXTROSE 5%-WATER 250 ML IV NR (08:15)
--- NOTE | 2017-09-06 08:29 | RADIOLOGY REPORT (SQ) ---
EXAM DESCRIPTION: CHEST SINGLE VIEW COMPLETED DATE/TIME: 09/06/2017 8:19 am REASON FOR STUDY: pna COMPARISON: None. EXAM PARAMETERS: NUMBER OF VIEWS: One view. TECHNIQUE: Single frontal radiographic view of the chest acquired. RADIATION DOSE: NA LIMITATIONS: None. FINDINGS: LUNGS AND PLEURA: Increasing scattered parenchymal densities in both lungs. MEDIASTINUM AND HILAR STRUCTURES: No masses. Contour normal. HEART AND VASCULAR STRUCTURES: Stable cardiomegaly. BONES: No acute findings. HARDWARE: Stable endotracheal tube and nasogastric tube. OTHER: No other significant finding. IMPRESSION: INCREASING PARENCHYMAL DENSITIES IN BOTH LUNGS WHICH MAY BE DUE TO PULMONARY EDEMA AND/O R PNEUMONIA. TECHNICAL DOCUMENTATION: JOB ID: [id number] [employer]- All Rights Reserved Reading location - IP/workstation name: [email or web address] [email or web address]
[2017-09-06] MEDS ORDERED: FUROSEMIDE INJ/PF 40 MG/4 ML SDV IV ONE (08:45)
[2017-09-06 08:50] LABS: ARTERIAL BLOOD BASE EXCESS -1.2 mmol/L; ARTERIAL BLOOD FIO2 80%; ARTERIAL BLOOD H2CO3 1.26 mmol/L (1.05-1.35); ARTERIAL BLOOD O2 SATURATION 94.2 % (94-98); ARTERIAL BLOOD PCO2 41.9 mmHg (35-45); ARTERIAL BLOOD PH 7.38 (7.35-7.45); ARTERIAL BLOOD PO2 72.3 mmHg (80-100); ARTERIAL BLOOD TOTAL CO2 25.3 mmol/L (21-25)
[2017-09-06] MEDS: LORAZEPAM INJ 2 MG/1 ML VIAL IV PRN ×3 (09:05→21:04)
[2017-09-06] MEDS: FLUOXETINE HCL 20 MG CAPSULE NG SCH (09:09)
[2017-09-06] MEDS: ASPIRIN 81 MG TABLET, CHEWABLE NG SCH (09:09)
[2017-09-06] MEDS: LEVETIRACETAM 500 MG/NACL-ISO 500 MG/100 ML RTUPB IV SCH ×2 (09:12→21:04)
[2017-09-06] MEDS: FENOFIBRATE NANOCRYSTALLIZED 48 MG TABLET NG SCH (09:15)
--- NOTE | 2017-09-06 11:41 | RADIOLOGY REPORT (SQ) ---
EXAM DESCRIPTION: CTA CHEST COMPLETED DATE/TIME: 09/06/2017 11:10 am REASON FOR STUDY: pe COMPARISON: Chest radiograph TECHNIQUE: CT scan of the chest performed using helical scanning technique with dynamic intravenous contrast injection. Images reviewed with lung, soft tissue and bone windows. Reconstructed coronal and sagittal MPR images reviewed. Additional 3 dimensional post-processing performed to develop Maximal Intensity Projection images (IL P). All images stored on PACS. All CT scanners at this facility use dose modulation, iterative reconstruction, and/or weight based d osing when appropriate to reduce radiation dose to as low as reasonably achievable (ALARA). [facility]: Dose Right [facility]: CareDose [facility]: Dose Right [facility]: Teradose 4D [facility]: Mocavo CONTRAST TYPE AND DOSE: contrast/concentration: Isovue 370.00 mg/ml; Total Contrast Delivered: 79.0 ml; Total Saline Delivered: 110.0 ml Contrast bolus optimized for the pulmonary arteries. Not diagnostic for the aorta. RENAL FUNCTION: GFR > 60. RADIATION DOSE: CT Rad equipment meets quality standard of care and radiation dose reduction techniq ues were employed. CTDIvol: 15.5 - 28.2 mGy. DLP: 583 mGy-cm. . LIMITATIONS: None. FINDINGS: LUNGS AND PLEURA: Diffuse parenchymal opacities predominantly in the upper lobes. Minimal air bronchograms at the bases. Bilateral pleural effusions. AORTA AND GREAT VESSELS: No aneurysm. Contrast bolus not optimized for the aorta. HEART: No pericardial effusion. No significant coronary artery calcifications. PULMONARY ARTERIES: No emboli visualized in the main pulmonary arteries or the segmental branches. HILAR AND MEDIASTINAL STRUCTURES: No identified masses or abnormal nodes. HARDWARE: ET tube. Nasogastric tube. UPPER ABDOMEN: No significant findings. Limited exam. THYROID AND OTHER SOFT TISSUES: No masses. No adenopathy. BONES: No acute or significant finding. 3D MIPS: Confirm above findings. OTHER: No other significant finding. IMPRESSION: No pulmonary emboli. Diffuse parenchymal opacities predominantly upper lobe with bilate ral pleural effusions. COMMENT: Quality ID # [id number]: Final reports with documentation of one or more dose reduction techniques (e.g., Automated exposure control, adjustment of the mA and/or kV according to patient size, use of iterative reconstruction technique) TECHNICAL DOCUMENTATION: JOB ID: [id number] [employer] [place]- All Rights Reserved Reading location - IP/workstation name: [email or web address]
--- NOTE | 2017-09-06 11:58 | PDOC CONSULTATION ---
Consultation Consult Date: 09/06/17 Attending physician:: YESSENIA TOUSSAINT Consult reason:: Septic shock History of Present Illness Admission Date/PCP: 08/30/17 23:58 History of Present Illness: RISHI TRAYLOR is a 56 year old female Past Medical History Cardiac Medical History: Reports: Atrial Fibrillation, Hyperlipidema, Hypertension, Other - hx of chest pain Pulmonary Medical History: Reports: Asthma, Chronic Obstructive Pulmonary Disease (COPD), Intubation, Sleep Apnea Neurological Medical History: Reports: Seizures, Other - TIA Endocrine Medical History: Reports: Diabetes Mellitus Type 2, Hypothyroidism, Other - History of Graves' disease Malignancy Medical History: Reports: None GI Medical History: Reports: Diverticulitis, Other - IBS (d) Musculoskeltal Medical History: Reports: Arthritis, Fibromyalgia, Gout Psychiatric Medical History: Reports: Depression, Substance Abuse, Tobacco Dependency, Other - hx of substance abuse Hematology: Denies: Hemophilia, Sickle Cell Disease Infectious Medical History: Denies: Clostridium Difficile Past Surgical History Past Surgical History: Reports: Appendectomy, Section, Cholecystectomy , Hysterectomy, Knee Replacement, Other - r knee oral surgery Social History Information Source: [facility] Records Lives with: Family Smoking Status: Current Every Day Smoker Cigarettes Packs Per Day: 1 Passive smoke exposure as: Both Frequency of Alcohol Use: None Hx Recreational Drug Use: No Drugs: Marijuana Hx Prescription Drug Abuse: No Do you have pets?: Yes Have you had any respiratory illnesses as a child?: Yes Have you been exposed to any sick contacts recently?: Yes Have you had any recent respiratory illnesses?: Yes Have you travelled outside of [place] in the past 12 months?: Yes - just moved from [facility] Family History Family History: CAD - Both parents from [place] as well as her brother, COPD, DM - ., Hyperlipidemia, Hypertension, Malignancy - pancreatic,colon cancer, Thyroid Disfunction - asthma, Other - pseudoseizures Parental Family History Reviewed: Yes Children Family History Reviewed: Yes Sibling(s) Family History Reviewed.: Yes Medication/Allergy Home Medications: Amlodipine Besylate [Norvasc 5 mg Tablet] 5 mg PO DAILYP PRN 08/31/17 Aspirin [Aspirin EC] 81 mg PO DAILY 08/31/17 Atorvastatin Calcium [Lipitor 40 mg Tablet] 40 mg PO QHS 08/31/17 Baclofen [Baclofen 10 mg Tablet] 15 mg PO TID 08/31/17 Diphenhydramine HCl [Banophen] 25 mg PO HSP PRN 08/31/17 Fenofibrate Nanocrystallized [Fenofibrate] 48 mg PO DAILY 08/31/17 Fluoxetine HCl [Prozac 20 mg Capsule] 20 mg PO DAILY 08/31/17 Gabapentin [Neurontin] 600 mg PO TID 08/31/17 Guaifenesin [Mucinex] 1,200 mg PO PRN PRN 08/31/17 Levetiracetam [Keppra 500 mg Tablet] 500 mg PO Q12 08/31/17 Levothyroxine Sodium [Synthroid] 175 mcg PO DAILY 08/31/17 Lisinopril [Prinivil 40 mg Tablet] 40 mg PO DAILY 08/31/17 Loperamide HCl [Loperamide] 2 mg PO QID 08/31/17 Metformin HCl [Glucophage] 1,000 mg PO BID 08/31/17 Omeprazole 20 mg PO DAILY 08/31/17 Allergies/Adverse Reactions: ciprofloxacin [From Cipro] Allergy (Verified 08/30/17 13:35) Penicillins Allergy (Verified 08/30/17 13:33) phenytoin [From Dilantin] Allergy (Verified 08/30/17 13:35) Physical Exam Vital Signs: Temp Pulse Resp BP Pulse Ox 100.8 F H 99 18 145/78 H 95 09/06/17 08:00 09/06/17 08:29 09/06/17 08:29 09/06/17 08:00 09/06/17 08:29 Intake & Output 09/05/17 09/06/17 09/07/17 06:59 06:59 06:59 Intake Total 4498 2893 0 Output Total 4450 4000 240 Balance 48 -1107 -240 Weight 139.7 kg 138.1 kg Results Laboratory Results: 09/06/17 03:54 09/06/17 03:54 09/06/17 09/06/17 09/06/17 03:54 03:54 08:22 WBC 16.3 H RBC 3.83 Hgb 10.6 L Hct 32.5 L MCV 85 MCH 27.6 MCHC 32.5 RDW 16.8 H Plt Count 266 Seg Neutrophils % Not Reportable Lymphocytes % Not Reportable Monocytes % Not Reportable Eosinophils % Not Reportable Basophils % Not Reportable Absolute Neutrophils Not Reportable Absolute Lymphocytes Not Reportable Absolute Monocytes Not Reportable Absolute Eosinophils Not Reportable Absolute Basophils Not Reportable Carbonic Acid 1.26 HCO3/H2CO3 Ratio 19:1 ABG pH 7.38 ABG pCO2 41.9 ABG pO2 72.3 L ABG HCO3 24.0 ABG O2 Saturation 94.2 ABG Base Excess -1.2 FiO2 80% Sodium 153.3 H Potassium 3.6 Chloride 120 H Carbon Dioxide 23 Anion Gap 10 BUN 22 H Creatinine 0.94 Est GFR ( Amer) > 60 Est GFR (Non-Af Amer) > 60 Glucose 301 H Calcium 7.9 L 09/03/17 09:30 Tracheal Aspirate Gram Stain - Final 09/03/17 09:30 Tracheal Aspirate Sputum Culture - Final Staphylococcus Aureus Normal Rach 09/02/17 03:00 Stool - Stool - Final 09/02/17 03:00 Stool - Stool Stool Culture - Final Salmonella Species 09/03/17 09:30 Catheterized Urine Urine Culture - Final NO GROWTH 2 DAYS 09/03/17 18:15 NT-Pro-B Natriuret Pep 782 Impressions: Abdomen/Pelvis CT 08/30/17 14:09 IMPRESSION: NO SIGNIFICANT OR ACUTE PROCESS IN THE ABDOMEN OR PELVIS. Head CT 09/02/17 00:00 IMPRESSION: No acute intracranial abnormality. Chest X-Ray 09/06/17 00:00 IMPRESSION: INCREASING PARENCHYMAL DENSITIES IN BOTH LUNGS WHICH MAY BE DUE TO PULMONARY EDEMA AND/OR PNEUMONIA. Chest/Abdomen CTA 09/06/17 00:00 IMPRESSION: No pulmonary emboli. Diffuse parenchymal opacities predominantly upper lobe with bilateral pleural effusions. Assessment & Plan - Diagnosis (1) Acute kidney injury Is this a current diagnosis for this admission?: Yes Plan: Labs- All tests 24 hr +3.04 L 08/30/17 08/30/17 08/31/17 16:36 19:09 03:29 BUN 47 H 51 H Creatinine 3.57 H 4.27 H Urine Protein >=500 H Urine Glucose (UA) 50 H 09/01/17 09/02/17 09/03/17 04:32 05:44 04:03 BUN 49 H 47 H 31 H Creatinine 2.72 H 2.19 H 1.12 Urine Protein Urine Glucose (UA) 09/04/17 09/05/17 09/06/17 03:58 04:35 03:54 BUN 25 H 19 22 H Creatinine 0.92 0.74 0.94 Urine Protein Urine Glucose (UA) (2) Acute respiratory failure with hypoxia and hypercapnia Is this a current diagnosis for this admission?: Yes Plan: Labs- All tests 24 hr 09/01/17 09/01/17 09/01/17 16:09 17:36 20:12 ABG pH 7.22 L 7.16 L* ABG pCO2 46.4 H 52.9 H 42.3 ABG pO2 85.7 138.8 H FiO2 2L 50% 50% 09/02/17 09/02/17 09/03/17 00:40 06:14 04:50 ABG pH 7.21 L 7.27 L 7.32 L ABG pCO2 37.0 40.4 37.7 ABG pO2 112.3 H 75.7 L 89.6 FiO2 35% 30% 40% 09/04/17 09/06/17 07:30 08:22 ABG pH 7.31 L 7.38 ABG pCO2 41.5 41.9 ABG pO2 98.6 72.3 L FiO2 40% 80% PAO2/FIO2 = 72/.8 = 90 c/w ARDS neg CTA (3) Morbid obesity due to excess calories Is this a current diagnosis for this admission?: Yes (4) Septic shock Is this a current diagnosis for this admission?: Yes Plan: 09/03/17 09:30 Gram Stain - Final Tracheal Aspirate Sputum Culture - Final Staphylococcus Aureus Normal Rach 09/03/17 09:30 Urine Culture - Final Catheterized Urine NO GROWTH 2 DAYS 09/02/17 09:10 Blood Culture - Preliminary Blood Salmonella Species 09/02/17 03:00 - Final Stool - Stool Stool Culture - Final Salmonella Species 08/30/17 19:05 - Final Stool - Stool Stool Culture - Final Salmonella Species - Time Total Critical Time (Minutes): 65
[2017-09-06] MEDS ORDERED: DIGOXIN INJ 0.5 MG/2 ML AMPULE IV ONE (12:00)
[2017-09-06] MEDS: LISINOPRIL 10 MG TABLET NG SCH (12:07)
[2017-09-06] MEDS: VANCOMYCIN HCL 1,500 MG in DEXTROSE 5%-WATER 250 ML IV SCH ×2 (12:07→21:09)
[2017-09-06] MEDS: 1/2 NORMAL SALINE 1,000 ML IV PRN (12:12)
[2017-09-06] MEDS: PIPERACILLIN SODIUM/TAZOBACTAM 3.375 GM in NORMAL SALINE 100 ML IV SCH ×2 (12:12→13:21)
[2017-09-06] MEDS: CEFTAZIDIME PENTAHYDRATE 1 GM in DEXTROSE 5%-WATER 50 ML IV SCH ×2 (14:37→21:03)
[2017-09-06] MEDS: MORPHINE SULFATE 10 MG/ML INJ IV PRN (14:39)
--- NOTE | 2017-09-06 16:28 | PDOC PROGRESS REPORT ---
Subjective Progress Note for:: 09/06/17 Subjective:: Patient intubated and on mechanical ventilation. Patient is still on weaning trial. She is desaturating and CT scan of the chest with contrast done and PE ruled out she has bilateral diffuse parenchymal opacities. Patient has been on Zosyn and vancomycin. Patient also developed new onset A. fib with RVR. Dr. Painter consulted. Dr. Vasquez also has been involved in the management of this patient and appreciate his contribution. Reason For Visit: ACUTE KIDNEY INJURY Physical Exam Vital Signs: Temp Pulse Resp BP Pulse Ox 100.2 F 78 16 115/50 L 95 09/06/17 12:00 09/06/17 14:19 09/06/17 14:19 09/06/17 12:07 09/06/17 14:19 Intake & Output 09/05/17 09/06/17 09/07/17 06:59 06:59 06:59 Intake Total 4498 2893 153 Output Total 4450 4000 1090 Balance 48 1103 -937 Weight 139.7 kg 138.1 kg General appearance: PRESENT: mild distress Eye exam: PRESENT: other - gumming of the eyelids Neck exam: ABSENT: carotid bruit, JVD, lymphadenopathy, thyromegaly Respiratory exam: PRESENT: crackles, rhonchi - At the lung bases GI/Abdominal exam: PRESENT: normal bowel sounds, soft. ABSENT: distended, guarding, mass, organolmegaly, rebound, tenderness Results Laboratory Results: 09/06/17 03:54 09/06/17 03:54 09/06/17 09/06/17 09/06/17 03:54 03:54 08:22 WBC 16.3 H RBC 3.83 Hgb 10.6 L Hct 32.5 L MCV 85 MCH 27.6 MCHC 32.5 RDW 16.8 H Plt Count 266 Seg Neutrophils % Not Reportable Lymphocytes % Not Reportable Monocytes % Not Reportable Eosinophils % Not Reportable Basophils % Not Reportable Absolute Neutrophils Not Reportable Absolute Lymphocytes Not Reportable Absolute Monocytes Not Reportable Absolute Eosinophils Not Reportable Absolute Basophils Not Reportable Carbonic Acid 1.26 HCO3/H2CO3 Ratio 19:1 ABG pH 7.38 ABG pCO2 41.9 ABG pO2 72.3 L ABG HCO3 24.0 ABG O2 Saturation 94.2 ABG Base Excess -1.2 FiO2 80% Sodium 153.3 H Potassium 3.6 Chloride 120 H Carbon Dioxide 23 Anion Gap 10 BUN 22 H Creatinine 0.94 Est GFR ( Amer) > 60 Est GFR (Non-Af Amer) > 60 Glucose 301 H Calcium 7.9 L 09/03/17 09:30 Tracheal Aspirate Gram Stain - Final 09/03/17 09:30 Tracheal Aspirate Sputum Culture - Final Staphylococcus Aureus Reduced Normal Rach 09/02/17 03:00 Stool - Stool - Final 09/02/17 03:00 Stool - Stool Stool Culture - Final Salmonella Species 09/03/17 18:15 NT-Pro-B Natriuret Pep 782 Impressions: Abdomen/Pelvis CT 08/30/17 14:09 IMPRESSION: NO SIGNIFICANT OR ACUTE PROCESS IN THE ABDOMEN OR PELVIS. Head CT 09/02/17 00:00 IMPRESSION: No acute intracranial abnormality. Chest X-Ray 09/06/17 00:00 IMPRESSION: INCREASING PARENCHYMAL DENSITIES IN BOTH LUNGS WHICH MAY BE DUE TO PULMONARY EDEMA AND/OR PNEUMONIA. Chest/Abdomen CTA 09/06/17 00:00 IMPRESSION: No pulmonary emboli. Diffuse parenchymal opacities predominantly upper lobe with bilateral pleural effusions. Assessment & Plan - Diagnosis (1) Septic shock Is this a current diagnosis for this admission?: Yes Plan: Blood pressure is stable (2) Hypotension Is this a current diagnosis for this admission?: Yes Plan: Has resolved (3) Acute respiratory failure with hypoxia and hypercapnia Is this a current diagnosis for this admission?: Yes Plan: Patient is still intubated but on weaning trial (4) Acute kidney injury Is this a current diagnosis for this admission?: Yes Plan: Completely resolved (5) Type 2 diabetes mellitus Is this a current diagnosis for this admission?: Yes Plan: Metformin is on hold. And she has been on sliding scale. (6) Hyperlipidemia Qualifiers: Hyperlipidemia type: unspecified Qualified Code(s): E78.5 - Hyperlipidemia , unspecified Is this a current diagnosis for this admission?: Yes Plan: Continue her home medication. (7) Morbid obesity due to excess calories Is this a current diagnosis for this admission?: Yes Plan: Lifestyle modification advised (8) New onset a-fib Is this a current diagnosis for this admission?: Yes Plan: Dr. Dozier has been consulted
[2017-09-06] MEDS: FUROSEMIDE INJ/PF 40 MG/4 ML SDV IV SCH (18:39)
[2017-09-06] MEDS: DIGOXIN INJ 0.5 MG/2 ML AMPULE IV SCH ×2 (18:40→23:50)
--- NOTE | 2017-09-06 20:43 | PDOC CONSULTATION ---
Consultation Consult Date: 09/06/17 Attending physician:: YESSENIA TOUSSAINT Consult reason:: Atrial flutter fibrillation with rapid ventricular response History of Present Illness Admission Date/PCP: 08/30/17 23:58 Patient complains of: Currently intubated and sedated. History of Present Illness: RISHI TRAYLOR is a 56 year old female with history of multiple medical problems that will be mentioned below presented to the emergency room with acute onset of intractable nausea vomiting and diarrhea for the last 4 days. She admits to occasional coffee-ground emesis however this has not been witnessed in the ER. She has been having fever and chills with a T-max that was up to 103 per her report. She admits to lower abdominal pain. No chest pain or dyspnea or palpitations. No cough or wheezing or hemoptysis. No other bleeding diathesis. Upon presentation emergency room she was slightly hypotensive with a blood pressure of 94/60 with a temperature of 99.7 and pulse of 77 and pulse oximetry of 96% on room air. Labs are remarkable for hyponatremia with a hypokalemia and a CO2 of 20 BUN of 47 and creatinine of 3.57 that is above her previous normal creatinine. Urinalysis was remarkable for significant proteinuria and glucosuria with trace bacteria and rare WBC clumps and 9 WBCs. Her abdominal pelvic CT scan revealed no acute abnormalities. She was given hydration with IV normal saline as well as IV Zofran and fentanyl. Her blood pressure has improved with hydration. She will be admitted to a medical monitored bed for further evaluation and management. This history obtained by the hospitalist was reviewed. Course in the hospital reviewed. Patient currently is intubated and sedated therefore cannot give any good history. Patient subsequently had to be transferred to the intensive care unit for respiratory distress and failure. Last night/early this morning she was noted to go into atrial flutter fibrillation with rapid ventricular response. Currently she is on Cardizem drip. I been asked to evaluate this patient. Past Medical History Cardiac Medical History: Reports: Atrial Fibrillation, Hyperlipidema, Hypertension, Other - hx of chest pain Pulmonary Medical History: Reports: Asthma, Chronic Obstructive Pulmonary Disease (COPD), Intubation, Sleep Apnea Neurological Medical History: Reports: Seizures, Other - TIA Endocrine Medical History: Reports: Diabetes Mellitus Type 2, Hypothyroidism, Other - History of Graves' disease Malignancy Medical History: Reports: None GI Medical History: Reports: Diverticulitis, Other - IBS (d) Musculoskeltal Medical History: Reports: Arthritis, Fibromyalgia, Gout Psychiatric Medical History: Reports: Depression, Substance Abuse, Tobacco Dependency, Other - hx of substance abuse Hematology: Denies: Hemophilia, Sickle Cell Disease Infectious Medical History: Reports: Hepatitis C Denies: Clostridium Difficile Past Surgical History Past Surgical History: Reports: Appendectomy, Section, Cholecystectomy , Hysterectomy, Knee Replacement, Other - r knee oral surgery Social History Lives with: Family Smoking Status: Current Every Day Smoker Cigarettes Packs Per Day: 1 Frequency of Alcohol Use: None Hx Recreational Drug Use: No Drugs: Marijuana Hx Prescription Drug Abuse: No Family History Family History: CAD - Both parents from [place] as well as her brother, COPD, DM - ., Hyperlipidemia, Hypertension, Malignancy - pancreatic,colon cancer, Thyroid Disfunction - asthma, Other - pseudoseizures Parental Family History Reviewed: Yes Children Family History Reviewed: Yes Sibling(s) Family History Reviewed.: Yes Medication/Allergy Home Medications: Amlodipine Besylate [Norvasc 5 mg Tablet] 5 mg PO DAILYP PRN 08/31/17 Aspirin [Aspirin EC] 81 mg PO DAILY 08/31/17 Atorvastatin Calcium [Lipitor 40 mg Tablet] 40 mg PO QHS 08/31/17 Baclofen [Baclofen 10 mg Tablet] 15 mg PO TID 08/31/17 Diphenhydramine HCl [Banophen] 25 mg PO HSP PRN 08/31/17 Fenofibrate Nanocrystallized [Fenofibrate] 48 mg PO DAILY 08/31/17 Fluoxetine HCl [Prozac 20 mg Capsule] 20 mg PO DAILY 08/31/17 Gabapentin [Neurontin] 600 mg PO TID 08/31/17 Guaifenesin [Mucinex] 1,200 mg PO PRN PRN 08/31/17 Levetiracetam [Keppra 500 mg Tablet] 500 mg PO Q12 08/31/17 Levothyroxine Sodium [Synthroid] 175 mcg PO DAILY 08/31/17 Lisinopril [Prinivil 40 mg Tablet] 40 mg PO DAILY 08/31/17 Loperamide HCl [Loperamide] 2 mg PO QID 08/31/17 Metformin HCl [Glucophage] 1,000 mg PO BID 08/31/17 Omeprazole 20 mg PO DAILY 08/31/17 Allergies/Adverse Reactions: ciprofloxacin [From Cipro] Allergy (Verified 08/30/17 13:35) Penicillins Allergy (Verified 08/30/17 13:33) phenytoin [From Dilantin] Allergy (Verified 08/30/17 13:35) Physical Exam Vital Signs: Temp Pulse Resp BP Pulse Ox 100.2 F 96 15 115/50 L 97 09/06/17 12:00 09/06/17 12:00 09/06/17 12:07 09/06/17 12:07 09/06/17 12:07 Intake & Output 09/05/17 09/06/17 09/07/17 06:59 06:59 06:59 Intake Total 4498 2893 153 Output Total 4450 4000 1090 Balance 48 -1107 -937 Weight 139.7 kg 138.1 kg Exam: GENERAL: well-nourished and in no acute distress. Patient is intubated and sedated. Orientation cannot be checked HEAD: Atraumatic, normocephalic. EYES: Pupils equal round and reactive to light, extraocular movements could not be checked, sclera anicteric, conjunctiva are normal. ENT: TMs normal, nares patent, oropharynx clear without exudates. Moist mucous membranes. No oral ulcerations or bleeding gums noted NECK: supple without lymphadenopathy or JVD. Trachea is central. No cervical or axillary lymphadenopathy noted. Carotids are 2+ LUNGS: Breath sounds mostly clear to auscultation patient is noted to have bibasal crackles at the extreme bases CHEST: Palpation of the chest wall shows no significant chest wall tenderness or abnormalities. HEART: [place] [employer], No PSH, 2/6 NENA aortic area, 1/6 mariano systolic murmur mitral area , no rubs or gallops. ABDOMEN: Soft, no significant tenderness appreciated, normoactive bowel sounds. No guarding, no rebound. No rigidity noted . No masses appreciated. EXTREMITIES: Pedal pulses are 1-2+, no calf tenderness noted, 2 + pedal edema noted. No clubbing or cyanosis. NEUROLOGICAL: The patient cannot participate in the neurological exam but no facial asymmetry noted. Extremities slightly hypotonic PSYCH: This cannot be evaluated. Patient cannot participate. SKIN: No significant ecchymosis, rash, or signs of pruritus noted. MUSCULOSKELETAL EXAM: No significant joint swelling noted. Patient cannot participate in musculoskeletal exam Results Laboratory Results: 09/06/17 03:54 09/06/17 03:54 09/06/17 09/06/17 09/06/17 03:54 03:54 08:22 WBC 16.3 H RBC 3.83 Hgb 10.6 L Hct 32.5 L MCV 85 MCH 27.6 MCHC 32.5 RDW 16.8 H Plt Count 266 Seg Neutrophils % Not Reportable Lymphocytes % Not Reportable Monocytes % Not Reportable Eosinophils % Not Reportable Basophils % Not Reportable Absolute Neutrophils Not Reportable Absolute Lymphocytes Not Reportable Absolute Monocytes Not Reportable Absolute Eosinophils Not Reportable Absolute Basophils Not Reportable Carbonic Acid 1.26 HCO3/H2CO3 Ratio 19:1 ABG pH 7.38 ABG pCO2 41.9 ABG pO2 72.3 L ABG HCO3 24.0 ABG O2 Saturation 94.2 ABG Base Excess -1.2 FiO2 80% Sodium 153.3 H Potassium 3.6 Chloride 120 H Carbon Dioxide 23 Anion Gap 10 BUN 22 H Creatinine 0.94 Est GFR ( Amer) > 60 Est GFR (Non-Af Amer) > 60 Glucose 301 H Calcium 7.9 L 09/03/17 09:30 Tracheal Aspirate Gram Stain - Final 09/03/17 09:30 Tracheal Aspirate Sputum Culture - Final Staphylococcus Aureus Normal Rach 09/02/17 03:00 Stool - Stool - Final 09/02/17 03:00 Stool - Stool Stool Culture - Final Salmonella Species 09/03/17 09:30 Catheterized Urine Urine Culture - Final NO GROWTH 2 DAYS 09/03/17 18:15 NT-Pro-B Natriuret Pep 782 EKG Comments: 2D echo shows normal LVEF, diastolic dysfunction Impressions: Abdomen/Pelvis CT 08/30/17 14:09 IMPRESSION: NO SIGNIFICANT OR ACUTE PROCESS IN THE ABDOMEN OR PELVIS. Head CT 09/02/17 00:00 IMPRESSION: No acute intracranial abnormality. Chest X-Ray 09/06/17 00:00 IMPRESSION: INCREASING PARENCHYMAL DENSITIES IN BOTH LUNGS WHICH MAY BE DUE TO PULMONARY EDEMA AND/OR PNEUMONIA. Chest/Abdomen CTA 09/06/17 00:00 IMPRESSION: No pulmonary emboli. Diffuse parenchymal opacities predominantly upper lobe with bilateral pleural effusions. Assessment & Plan - Diagnosis (1) New onset a-fib Is this a current diagnosis for this admission?: Yes (2) Acute respiratory failure with hypoxia and hypercapnia Is this a current diagnosis for this admission?: Yes (3) Hyperlipidemia Qualifiers: Hyperlipidemia type: unspecified Qualified Code(s): E78.5 - Hyperlipidemia , unspecified Is this a current diagnosis for this admission?: Yes (4) Type 2 diabetes mellitus Qualifiers: Diabetes mellitus group home insulin use: without group home use Diabetes mellitus complication status: without complication Qualified Code(s): E11.9 - Type 2 diabetes mellitus without complications Is this a current diagnosis for this admission?: No (5) Acute kidney injury Is this a current diagnosis for this admission?: Yes (6) Septic shock Is this a current diagnosis for this admission?: Yes - Notes Notes: Atrial flutter fibrillation with rapid ventricular response: Continue Cardizem drip. Subsequently however in the afternoon, patient was noted to convert to sinus rhythm. Recommend starting patient on Cardizem CD 120 mg p.o. twice daily. Recommend DVT prophylaxis at this point. New onset atrial fibrillation: Most likely related to metabolic problems. Agree with Cardizem drip. If blood pressure is a problem, recommend digitalization and amiodarone bolus and drip protocol if needed. However by evening patient had converted spontaneously to sinus rhythm. Acute respiratory failure with hypoxemia and hypercapnia: Possibly related to metabolic issues. Chest x-ray suggests pulmonary edema, possibly noncardiac but could well be related to diastolic CHF. Recommend cautious diuresis as allowed by blood pressure. Hyperlipidemia: Recommend high potency statin therapy. Diabetes: Being well managed by hospitalist. Acute kidney injury: Related to metabolic problems, sepsis and hypotension which fortunately was just transient. Septic shock: Patient currently having good perfusion and therefore out of shock. Most likely related to bacteremia. We will continue to follow. - Time Time Spent: 30 to 50 Minutes - More than 50% of the time spent coordinating care , discussing management plans with involved caregivers. Management plans discussed with involved personnels. Medical decision making was of moderate to high complexity, patient's has multiple comorbidities. Medications reviewed and adjusted accordingly: Yes
[2017-09-06] MEDS: ATORVASTATIN CALCIUM 40 MG TABLET NG SCH (21:03)
[2017-09-06] MEDS: GUAIFENESIN 600 MG TABLET.SA PO SCH ×2 (21:03→22:20)
[2017-09-06] MEDS: LOPERAMIDE HCL 2 MG CAPSULE NG PRN (23:50)
[2017-09-07] MEDS: LORAZEPAM INJ 2 MG/1 ML VIAL IV PRN ×4 (00:01→18:45)
[2017-09-07] MEDS: IPRATROPIUM/ALBUTEROL 0.5-2.5 MG/3 ML AMPUL NEB SCH ×4 (02:14→20:08)
[2017-09-07] MEDS: 1/2 NORMAL SALINE 1,000 ML IV PRN ×2 (02:47→22:36)
[2017-09-07 05:14] LABS: ARTERIAL BLOOD BASE EXCESS -0.6 mmol/L; ARTERIAL BLOOD H2CO3 1.35 mmol/L (1.05-1.35); ARTERIAL BLOOD O2 SATURATION 94.7 % (94-98); ARTERIAL BLOOD PCO2 44.8 mmHg (35-45); ARTERIAL BLOOD PH 7.37 (7.35-7.45); ARTERIAL BLOOD PO2 75.8 mmHg (80-100); ARTERIAL BLOOD TOTAL CO2 26.4 mmol/L (21-25)
[2017-09-07 05:15] LABS: ARTERIAL BLOOD FIO2 50%
[2017-09-07] MEDS: CEFTAZIDIME PENTAHYDRATE 1 GM in DEXTROSE 5%-WATER 50 ML IV SCH ×3 (05:17→22:33)
[2017-09-07] MEDS: BACLOFEN 10 MG TABLET NG SCH ×3 (05:18→22:32)
[2017-09-07] MEDS: GABAPENTIN 300 MG CAPSULE NG SCH ×3 (05:18→22:35)
[2017-09-07] MEDS: LEVOTHYROXINE SODIUM 0.1 MG TABLET NG SCH (05:19)
[2017-09-07] MEDS: FUROSEMIDE INJ/PF 40 MG/4 ML SDV IV SCH ×2 (05:19→18:21)
[2017-09-07] MEDS: LEVOTHYROXINE SODIUM 0.075 MG TABLET NG SCH (05:19)
[2017-09-07] MEDS: HEPARIN SOD (PORCINE) 5,000 UNIT/ML 1 ML SYRINGE SUBCUT SCH ×3 (05:20→22:35)
[2017-09-07 06:40] LABS: HEMATOCRIT 33.4 % (36.0-47.0); HEMOGLOBIN 10.8 g/dL (12.0-15.5); MEAN CORPUSCULAR HEMOGLOBIN 27.7 pg (27.0-33.4); MEAN CORPUSCULAR HGB CONC 32.2 g/dL (32.0-36.0); MEAN CORPUSCULAR VOLUME 86 fl (80-97); PLATELET COUNT 240 10^3/uL (150-450); RED BLOOD COUNT 3.88 10^6/uL (3.72-5.28); RED CELL DISTRIBUTION WIDTH 17.2 % (11.5-14.0); WHITE BLOOD COUNT 17.2 10^3/uL (4.0-10.5)
[2017-09-07 07:02] LABS: ANION GAP 11 (5-19); BLOOD UREA NITROGEN 23 mg/dL (7-20); CALCIUM 8.3 mg/dL (8.4-10.2); CARBON DIOXIDE 26 mmol/L (22-30); CHLORIDE 115 mmol/L (98-107); GLUCOSE 319 mg/dL (75-110); PHOSPHORUS 2.3 mg/dL (2.5-4.5); POTASSIUM 3.6 mmol/L (3.6-5.0); SODIUM 151.7 mmol/L (137-145); TRIGLYCERIDES 270 mg/dL (<150)
[2017-09-07] MEDS: MORPHINE SULFATE 10 MG/ML INJ IV PRN ×3 (07:50→22:43)
--- NOTE | 2017-09-07 08:07 | RADIOLOGY REPORT (SQ) ---
EXAM DESCRIPTION: CHEST SINGLE VIEW COMPLETED DATE/TIME: 09/07/2017 6:14 am REASON FOR STUDY: resp. failure, intubation COMPARISON: 09/06/2017 EXAM PARAMETERS: NUMBER OF VIEWS: One view TECHNIQUE: Single frontal radiograph of the chest. RADIATION DOSE: N/A LIMITATIONS: None. FINDINGS: TEMPORARY SUPPORT DEVICES:ETT in expected location. NG tube courses below the leslie-diaphr agm in to the stomach. LUNGS AND PLEURA: Slight worsening of the diffuse parenchymal opacities. No effusions. No masses. No pneumothorax. MEDIASTINUM AND HILAR STRUCTURES: No masses. Contour normal. HEART AND VASCULAR STRUCTURES: Heart is enlarged. Choose 3 Aorta normal for age. BONES: No acute findings. OTHER: No other significant finding. IMPRESSION: Worsening of the parenchymal opacities. Vascular congestion. Overall assessment is pul monary edema versus diffuse pneumonia. SUPPORT DEVICE(S) IN EXPECTED LOCATIONS. TECHNICAL DOCUMENTATION: JOB ID: [id number] [employer] All Rights Reserved Reading location - IP/workstation name: [email or web address]
[2017-09-07] MEDS: LOPERAMIDE HCL 2 MG CAPSULE NG PRN (08:12)
[2017-09-07] MEDS ORDERED: DILTIAZEM HCL 120 MG CAP.SR.24H PO SCH (10:00)
[2017-09-07] MEDS: FENOFIBRATE NANOCRYSTALLIZED 48 MG TABLET NG SCH (10:00)
[2017-09-07] MEDS: LEVETIRACETAM 500 MG/NACL-ISO 500 MG/100 ML RTUPB IV SCH ×2 (10:00→23:10)
--- NOTE | 2017-09-07 11:01 | PDOC PROGRESS REPORT ---
Subjective Progress Note for:: 09/07/17 Subjective:: intubated sedated Reason For Visit: ACUTE KIDNEY INJURY Physical Exam Vital Signs: Temp Pulse Resp BP Pulse Ox 99.5 F 67 17 148/54 H 95 09/07/17 02:00 09/07/17 02:14 09/07/17 08:15 09/07/17 08:07 09/07/17 08:15 Intake & Output 09/06/17 09/07/17 09/08/17 06:59 06:59 06:59 Intake Total 2893 1815 Output Total 4000 3300 600 Balance -1107 -1485 -600 Weight 138.1 kg 138.7 kg General appearance: PRESENT: no acute distress, disheveled, morbidly obese. ABSENT: cooperative Head exam: PRESENT: atraumatic, normocephalic Eye exam: PRESENT: conjunctiva pale. ABSENT: EOMI, nystagmus, periorbital swelling, scleral icterus Mouth exam: PRESENT: dry mucosa, neck supple, tongue midline, other - ET tube Neck exam: ABSENT: carotid bruit, JVD, lymphadenopathy, thyromegaly, tracheal deviation, tracheostomy Respiratory exam: PRESENT: decreased breath sounds, prolonged expiratory phas, rales, rhonchi, unlabored. ABSENT: retraction, stridor Cardiovascular exam: PRESENT: RRR, +S1, +S2, tachycardia Pulses: PRESENT: normal radial pulses GI/Abdominal exam: PRESENT: diminished bowel sounds, soft Extremities exam: ABSENT: calf tenderness, clubbing, joint swelling Musculoskeletal exam: ABSENT: ambulatory, deformity, dislocation Neurological exam: ABSENT: awake Skin exam: PRESENT: dry, warm Results Laboratory Results: 09/07/17 06:25 09/07/17 06:25 09/07/17 09/07/17 09/07/17 04:55 06:25 06:25 WBC 17.2 H RBC 3.88 Hgb 10.8 L Hct 33.4 L MCV 86 MCH 27.7 MCHC 32.2 RDW 17.2 H Plt Count 240 Carbonic Acid 1.35 HCO3/H2CO3 Ratio 18:1 ABG pH 7.37 ABG pCO2 44.8 ABG pO2 75.8 L ABG HCO3 25.0 ABG O2 Saturation 94.7 ABG Base Excess -0.6 FiO2 50% Sodium 151.7 H Potassium 3.6 Chloride 115 H Carbon Dioxide 26 Anion Gap 11 BUN 23 H Creatinine 0.81 Est GFR ( Amer) > 60 Est GFR (Non-Af Amer) > 60 Glucose 319 H Calcium 8.3 L Phosphorus 2.3 L Magnesium 1.8 Triglycerides 270 H 09/03/17 09:30 Tracheal Aspirate Gram Stain - Final 09/03/17 09:30 Tracheal Aspirate Sputum Culture - Final Staphylococcus Aureus Reduced Normal Rach 09/02/17 03:00 Stool - Stool - Final 09/02/17 03:00 Stool - Stool Stool Culture - Final Salmonella Species 09/03/17 09/07/17 18:15 06:25 NT-Pro-B Natriuret Pep 782 4140 H Impressions: Abdomen/Pelvis CT 08/30/17 14:09 IMPRESSION: NO SIGNIFICANT OR ACUTE PROCESS IN THE ABDOMEN OR PELVIS. Head CT 09/02/17 00:00 IMPRESSION: No acute intracranial abnormality. Chest/Abdomen CTA 09/06/17 00:00 IMPRESSION: No pulmonary emboli. Diffuse parenchymal opacities predominantly upper lobe with bilateral pleural effusions. Chest X-Ray 09/07/17 00:00 IMPRESSION: Worsening of the parenchymal opacities. Vascular congestion. Overall assessment is pulmonary edema versus diffuse pneumonia. SUPPORT DEVICE(S) IN EXPECTED LOCATIONS. Assessment & Plan - Diagnosis (1) Acute kidney injury Is this a current diagnosis for this admission?: Yes Plan: stable (2) Acute respiratory failure with hypoxia and hypercapnia Is this a current diagnosis for this admission?: Yes Plan: PAO2/FIO2 = 76/.5 = 152 mild improvement (3) Morbid obesity due to excess calories Is this a current diagnosis for this admission?: Yes (4) Septic shock Is this a current diagnosis for this admission?: Yes Plan: 09/03/17 09:30 Gram Stain - Final Tracheal Aspirate Sputum Culture - Final Staphylococcus Aureus Normal Rach 09/03/17 09:30 Urine Culture - Final Catheterized Urine NO GROWTH 2 DAYS 09/02/17 09:10 Blood Culture - Preliminary Blood Salmonella Species 09/02/17 03:00 - Final Stool - Stool Stool Culture - Final Salmonella Species 08/30/17 19:05 - Final Stool - Stool Stool Culture - Final Salmonella Species - Time Total Critical Time (Minutes): 50
[2017-09-07] MEDS: LISINOPRIL 10 MG TABLET NG SCH (11:06)
[2017-09-07] MEDS: DIGOXIN INJ 0.5 MG/2 ML AMPULE IV SCH (11:07)
[2017-09-07] MEDS: FLUOXETINE HCL 20 MG CAPSULE NG SCH (11:07)
[2017-09-07] MEDS: ASPIRIN 81 MG TABLET, CHEWABLE NG SCH (11:07)
[2017-09-07] MEDS: VANCOMYCIN HCL 1,500 MG in DEXTROSE 5%-WATER 250 ML IV SCH ×2 (11:47→22:37)
[2017-09-07] MEDS ORDERED: FUROSEMIDE INJ/PF 40 MG/4 ML SDV IV ONE (12:55)
--- NOTE | 2017-09-07 13:03 | PDOC PROGRESS REPORT ---
Subjective Progress Note for:: 09/07/17 Subjective:: Still patient is on weaning trial. She is not ready for extubation since she is back on propofol drip. The repeat chest x-ray reported worsening of pulmonary congestion. Patient is already on Lasix 40 mg IV twice a day. I ordered a single dose of [address] Vasquez has been following the patient. Her A. fib subsided now currently patient is in sinus rhythm. Reason For Visit: ACUTE KIDNEY INJURY Physical Exam Vital Signs: Temp Pulse Resp BP Pulse Ox 99.5 F 82 16 148/54 H 94 09/07/17 02:00 09/07/17 08:18 09/07/17 08:18 09/07/17 08:07 09/07/17 08:18 Intake & Output 09/06/17 09/07/17 09/08/17 06:59 06:59 06:59 Intake Total 2893 2165 Output Total 4000 3300 1000 Balance -1107 -1135 -1000 Weight 138.1 kg 138.7 kg General appearance: PRESENT: no acute distress Head exam: PRESENT: atraumatic Neck exam: ABSENT: carotid bruit, JVD, lymphadenopathy, thyromegaly Respiratory exam: PRESENT: clear to auscultation compa. ABSENT: rales, rhonchi, wheezes Cardiovascular exam: PRESENT: RRR. ABSENT: diastolic murmur, rubs, systolic murmur Results Laboratory Results: 09/07/17 06:25 09/07/17 06:25 09/07/17 09/07/17 09/07/17 04:55 06:25 06:25 WBC 17.2 H RBC 3.88 Hgb 10.8 L Hct 33.4 L MCV 86 MCH 27.7 MCHC 32.2 RDW 17.2 H Plt Count 240 Carbonic Acid 1.35 HCO3/H2CO3 Ratio 18:1 ABG pH 7.37 ABG pCO2 44.8 ABG pO2 75.8 L ABG HCO3 25.0 ABG O2 Saturation 94.7 ABG Base Excess -0.6 FiO2 50% Sodium 151.7 H Potassium 3.6 Chloride 115 H Carbon Dioxide 26 Anion Gap 11 BUN 23 H Creatinine 0.81 Est GFR ( Amer) > 60 Est GFR (Non-Af Amer) > 60 Glucose 319 H Calcium 8.3 L Phosphorus 2.3 L Magnesium 1.8 Triglycerides 270 H 07/22/18 09:57 Blood Blood Culture - Final NO GROWTH IN 5 DAYS 09/03/17 09:30 Tracheal Aspirate Gram Stain - Final 09/03/17 09:30 Tracheal Aspirate Sputum Culture - Final Staphylococcus Aureus Reduced Normal Rach 09/02/17 03:00 Stool - Stool - Final 09/02/17 03:00 Stool - Stool Stool Culture - Final Salmonella Species 09/03/17 09/07/17 18:15 06:25 NT-Pro-B Natriuret Pep 782 4140 H Impressions: Abdomen/Pelvis CT 08/30/17 14:09 IMPRESSION: NO SIGNIFICANT OR ACUTE PROCESS IN THE ABDOMEN OR PELVIS. Head CT 09/02/17 00:00 IMPRESSION: No acute intracranial abnormality. Chest/Abdomen CTA 09/06/17 00:00 IMPRESSION: No pulmonary emboli. Diffuse parenchymal opacities predominantly upper lobe with bilateral pleural effusions. Chest X-Ray 09/07/17 00:00 IMPRESSION: Worsening of the parenchymal opacities. Vascular congestion. Overall assessment is pulmonary edema versus diffuse pneumonia. SUPPORT DEVICE(S) IN EXPECTED LOCATIONS. Assessment & Plan - Diagnosis (1) Septic shock Is this a current diagnosis for this admission?: Yes Plan: Blood pressure is stable (2) Hypotension Is this a current diagnosis for this admission?: Yes Plan: Has resolved (3) Acute respiratory failure with hypoxia and hypercapnia Is this a current diagnosis for this admission?: Yes Plan: Patient is still intubated but on weaning trial (4) Acute kidney injury Is this a current diagnosis for this admission?: Yes Plan: Completely resolved (5) Type 2 diabetes mellitus Is this a current diagnosis for this admission?: Yes Plan: Metformin is on hold. And she has been on sliding scale. (6) Hyperlipidemia Qualifiers: Hyperlipidemia type: unspecified Qualified Code(s): E78.5 - Hyperlipidemia , unspecified Is this a current diagnosis for this admission?: Yes Plan: Continue her home medication. (7) Morbid obesity due to excess calories Is this a current diagnosis for this admission?: Yes Plan: Lifestyle modification advised (8) New onset a-fib Is this a current diagnosis for this admission?: Yes Plan: Resolved now patient is in sinus rhythm. Patient probably has paroxysmal A. fib.
[2017-09-07] MEDS: GUAIFENESIN SYRP 200 MG/10 ML UDC PO SCH ×2 (13:14→22:36)
[2017-09-07] MEDS: METOPROLOL TARTRATE PF/INJ 5 MG/5 ML SDV IV PRN ×3 (15:26→22:42)
[2017-09-07] MEDS: INSULIN LISPRO 100 UNIT/ML 3 ML VIAL SUBCUT PRN (18:33)
[2017-09-07 22:24] LABS: VANCOMYCIN,TROUGH 21.1 ug/mL (5.0-20.0)
[2017-09-07] MEDS: DILTIAZEM HCL 60 MG TABLET PO SCH (22:32)
[2017-09-07] MEDS: ATORVASTATIN CALCIUM 40 MG TABLET NG SCH (22:35)
[2017-09-08] MEDS: IPRATROPIUM/ALBUTEROL 0.5-2.5 MG/3 ML AMPUL NEB SCH ×4 (01:53→19:56)
[2017-09-08 04:15] LABS: HEMATOCRIT 32.6 % (36.0-47.0); HEMOGLOBIN 10.5 g/dL (12.0-15.5); MEAN CORPUSCULAR HEMOGLOBIN 27.9 pg (27.0-33.4); MEAN CORPUSCULAR HGB CONC 32.3 g/dL (32.0-36.0); MEAN CORPUSCULAR VOLUME 87 fl (80-97); PLATELET COUNT 190 10^3/uL (150-450); RED BLOOD COUNT 3.77 10^6/uL (3.72-5.28); RED CELL DISTRIBUTION WIDTH 16.6 % (11.5-14.0); WHITE BLOOD COUNT 15.5 10^3/uL (4.0-10.5)
[2017-09-08 04:36] LABS: ALANINE AMINOTRANSFERASE 51 U/L (9-52); ALBUMIN 2.5 g/dL (3.5-5.0); ALKALINE PHOSPHATASE 416 U/L (38-126); ANION GAP 11 (5-19); ASPARTATE AMINO TRANSFERASE 42 U/L (14-36); BILIRUBIN,DIRECT 0.9 mg/dL (0.0-0.4); BILIRUBIN,TOTAL 0.9 mg/dL (0.2-1.3); BLOOD UREA NITROGEN 24 mg/dL (7-20); CALCIUM 8.7 mg/dL (8.4-10.2); CARBON DIOXIDE 29 mmol/L (22-30); CHLORIDE 112 mmol/L (98-107); GLUCOSE 356 mg/dL (75-110); POTASSIUM 3.6 mmol/L (3.6-5.0); SODIUM 152.1 mmol/L (137-145); TOTAL PROTEIN 5.8 g/dL (6.3-8.2)
[2017-09-08 05:02] LABS: ABSOLUTE LYMPHOCYTES# (MANUAL) 1.2 10^3/uL (0.5-4.7); ABSOLUTE MONOCYTES # (MANUAL) 0.5 10^3/uL (0.1-1.4); ABSOLUTE NEUTROPHILS# (MANUAL) 13.8 10^3/uL (1.7-8.2); BAND NEUTROPHILS % (MANUAL) 3 % (3-5); BASOPHILS % (MANUAL) 0 % (0-2); EOSINOPHILS % (MANUAL) 0 % (0-6); LYMPHOCYTES % (MANUAL) 8 % (13-45); METAMYELOCYTES % (MANUAL) 2 % (0); MONOCYTES % (MANUAL) 3 % (3-13); SEGMENTED NEUTROPHILS % (MAN) 84 % (42-78); TOTAL CELLS COUNTED 100
[2017-09-08 05:04] LABS: ANISOCYTOSIS 1+; HYPOCHROMASIA SLIGHT
[2017-09-08 05:07] LABS: PLATELET COMMENT ADEQUATE
[2017-09-08] MEDS: METOPROLOL TARTRATE PF/INJ 5 MG/5 ML SDV IV PRN ×3 (05:30→18:24)
[2017-09-08 05:35] LABS: ARTERIAL BLOOD BASE EXCESS 4.3 mmol/L; ARTERIAL BLOOD H2CO3 1.31 mmol/L (1.05-1.35); ARTERIAL BLOOD HCO3 28.9 mmol/L (20-26); ARTERIAL BLOOD O2 SATURATION 92.8 % (94-98); ARTERIAL BLOOD PCO2 43.5 mmHg (35-45); ARTERIAL BLOOD PH 7.44 (7.35-7.45); ARTERIAL BLOOD PO2 62.9 mmHg (80-100); ARTERIAL BLOOD TOTAL CO2 30.3 mmol/L (21-25)
[2017-09-08 05:38] LABS: ARTERIAL BLOOD FIO2 50%
[2017-09-08] MEDS: CEFTAZIDIME PENTAHYDRATE 1 GM in DEXTROSE 5%-WATER 50 ML IV SCH ×3 (05:48→22:37)
[2017-09-08] MEDS: BACLOFEN 10 MG TABLET NG SCH ×3 (05:48→22:36)
[2017-09-08] MEDS: HEPARIN SOD (PORCINE) 5,000 UNIT/ML 1 ML SYRINGE SUBCUT SCH ×3 (05:49→22:37)
[2017-09-08] MEDS: GABAPENTIN 300 MG CAPSULE NG SCH ×3 (05:49→22:38)
[2017-09-08] MEDS: FUROSEMIDE INJ/PF 40 MG/4 ML SDV IV SCH ×2 (05:49→18:40)
[2017-09-08] MEDS: LEVOTHYROXINE SODIUM 0.1 MG TABLET NG SCH (05:50)
[2017-09-08] MEDS: LEVOTHYROXINE SODIUM 0.075 MG TABLET NG SCH (05:50)
[2017-09-08] MEDS: MORPHINE SULFATE 10 MG/ML INJ IV PRN (05:51)
--- NOTE | 2017-09-08 08:19 | RADIOLOGY REPORT (SQ) ---
EXAM DESCRIPTION: CHEST SINGLE VIEW COMPLETED DATE/TIME: 09/08/2017 7:25 am REASON FOR STUDY: pna COMPARISON: 09/07/2017. FINDINGS: AP portable supine images of the chest, somewhat limited technique due to positioning diff iculties. Performed at approximately 0709 hours. Rotation to the right. Endotracheal and nasogastric tubes look appropriate. Patchy perihilar and lo wer lobe edema/ airspace disease. This looks similar compared to prior. IMPRESSION: Relatively stable appearance of the chest. Support lines and tubes remain in good posit ion. Persistent infiltrates/ edema which look similar. TECHNICAL DOCUMENTATION: JOB ID: [id number] Reading location - IP/workstation name: [email or web address]
[2017-09-08] MEDS: ACETAMINOPHEN SOLN 325 MG/10.15 ML UDCUP NG PRN (08:43)
[2017-09-08] MEDS: INSULIN LISPRO 100 UNIT/ML 3 ML VIAL SUBCUT PRN ×3 (08:45→18:24)
[2017-09-08] MEDS: GUAIFENESIN SYRP 200 MG/10 ML UDC PO SCH ×2 (09:17→22:39)
[2017-09-08] MEDS: LISINOPRIL 10 MG TABLET NG SCH (09:17)
[2017-09-08] MEDS: ASPIRIN 81 MG TABLET, CHEWABLE NG SCH (09:17)
[2017-09-08] MEDS: DILTIAZEM HCL 60 MG TABLET PO SCH ×2 (09:17→22:36)
[2017-09-08] MEDS: AMLODIPINE BESYLATE 5 MG TABLET NG PRN (09:18)
[2017-09-08] MEDS: DIGOXIN INJ 0.5 MG/2 ML AMPULE IV SCH (09:19)
[2017-09-08] MEDS: FLUOXETINE HCL 20 MG CAPSULE NG SCH (09:19)
[2017-09-08] MEDS: LEVETIRACETAM 500 MG/NACL-ISO 500 MG/100 ML RTUPB IV SCH ×2 (09:20→22:38)
[2017-09-08] MEDS ORDERED: FUROSEMIDE INJ/PF 40 MG/4 ML SDV IV ONE (09:23)
[2017-09-08] MEDS: FENOFIBRATE NANOCRYSTALLIZED 48 MG TABLET NG SCH (09:24)
[2017-09-08] MEDS: VANCOMYCIN HCL 1,500 MG in DEXTROSE 5%-WATER 250 ML IV SCH (09:24)
[2017-09-08] MEDS: DEXTROSE 5%-WATER 1000 ML 1,000 ML IV PRN (09:25)
[2017-09-08] MEDS ORDERED: FUROSEMIDE INJ/PF 100 MG/10 ML SDV IV ONE (09:30)
--- NOTE | 2017-09-08 10:18 | PDOC PROGRESS REPORT ---
Subjective Progress Note for:: 09/08/17 Subjective:: Patient is lying in bed with mechanical ventilation in situ. Her blood work shows hyperglycemia greater than 300 and her chemistries remarkable for hyponatremia with sodium of 152. I switched her half-normal saline to D5W. Patient opens her eyes in response to her name. Reason For Visit: ACUTE KIDNEY INJURY Physical Exam Vital Signs: Temp Pulse Resp BP Pulse Ox 99.3 F 75 20 189/65 H 96 09/08/17 02:00 09/08/17 08:09 09/08/17 10:00 09/08/17 09:39 09/08/17 10:00 Intake & Output 09/07/17 09/08/17 09/09/17 06:59 06:59 06:59 Intake Total 2215 9122 250 Output Total 3306 5695 1050 Balance -8988 -0128 -800 Weight 138.7 kg 136.3 kg General appearance: PRESENT: no acute distress Head exam: PRESENT: atraumatic Eye exam: PRESENT: conjunctiva pink Mouth exam: PRESENT: moist Respiratory exam: PRESENT: clear to auscultation compa. ABSENT: rales, rhonchi, wheezes Cardiovascular exam: PRESENT: RRR. ABSENT: diastolic murmur, rubs, systolic murmur GI/Abdominal exam: PRESENT: normal bowel sounds, soft. ABSENT: distended, guarding, mass, organolmegaly, rebound, tenderness Results Laboratory Results: 09/08/17 04:06 09/08/17 04:06 09/08/17 09/08/17 09/08/17 04:06 04:06 05:24 WBC 15.5 H RBC 3.77 Hgb 10.5 L Hct 32.6 L MCV 87 MCH 27.9 MCHC 32.3 RDW 16.6 H Plt Count 190 Seg Neutrophils % Not Reportable Lymphocytes % Not Reportable Monocytes % Not Reportable Eosinophils % Not Reportable Basophils % Not Reportable Absolute Neutrophils Not Reportable Absolute Lymphocytes Not Reportable Absolute Monocytes Not Reportable Absolute Eosinophils Not Reportable Absolute Basophils Not Reportable Carbonic Acid 1.31 HCO3/H2CO3 Ratio 22:1 ABG pH 7.44 ABG pCO2 43.5 ABG pO2 62.9 L ABG HCO3 28.9 H ABG O2 Saturation 92.8 L ABG Base Excess 4.3 FiO2 50% Sodium 152.1 H Potassium 3.6 Chloride 112 H Carbon Dioxide 29 Anion Gap 11 BUN 24 H Creatinine 0.78 Est GFR ( Amer) > 60 Est GFR (Non-Af Amer) > 60 Glucose 356 H Calcium 8.7 Magnesium 1.8 Total Bilirubin 0.9 AST 42 H ALT 51 Alkaline Phosphatase 416 H Total Protein 5.8 L Albumin 2.5 L 09/02/17 09:57 Blood Blood Culture - Final NO GROWTH IN 5 DAYS 09/03/17 09/07/17 18:15 06:25 NT-Pro-B Natriuret Pep 782 4140 H Impressions: Abdomen/Pelvis CT 08/30/17 14:09 IMPRESSION: NO SIGNIFICANT OR ACUTE PROCESS IN THE ABDOMEN OR PELVIS. Head CT 09/02/17 00:00 IMPRESSION: No acute intracranial abnormality. Chest/Abdomen CTA 09/06/17 00:00 IMPRESSION: No pulmonary emboli. Diffuse parenchymal opacities predominantly upper lobe with bilateral pleural effusions. Chest X-Ray 09/08/17 00:00 IMPRESSION: Relatively stable appearance of the chest. Support lines and tubes remain in good position. Persistent infiltrates/ edema which look similar. Assessment & Plan - Diagnosis (1) Hypernatremia Is this a current diagnosis for this admission?: Yes Plan: Patient has been switched from half saline to D5W. We will check her BMP in a.m. (2) Septic shock Is this a current diagnosis for this admission?: Yes Plan: Her Zosyn and switched to ceftazidime by Dr. Vasquez. She has been also on vancomycin. (3) Hypotension Is this a current diagnosis for this admission?: Yes Plan: Has resolved (4) Acute respiratory failure with hypoxia and hypercapnia Is this a current diagnosis for this admission?: Yes Plan: Patient is still intubated but on weaning trial (5) Acute kidney injury Is this a current diagnosis for this admission?: Yes Plan: Has resolved (6) Type 2 diabetes mellitus Is this a current diagnosis for this admission?: Yes Plan: Metformin is on hold. And she has been on sliding scale. (7) Hyperlipidemia Qualifiers: Hyperlipidemia type: unspecified Qualified Code(s): E78.5 - Hyperlipidemia , unspecified Is this a current diagnosis for this admission?: Yes Plan: Continue her home medication. (8) Morbid obesity due to excess calories Is this a current diagnosis for this admission?: Yes Plan: Lifestyle modification advised (9) New onset a-fib Is this a current diagnosis for this admission?: Yes Plan: Resolved now patient is in sinus rhythm. Patient probably has paroxysmal A. fib.
[2017-09-08] MEDS: METOPROLOL TARTRATE 25 MG TABLET PO SCH ×2 (11:41→22:38)
[2017-09-08] MEDS: PANTOPRAZOLE SODIUM 40 MG VIAL IV SCH (11:41)
[2017-09-08] MEDS: GUAIFENESIN 600 MG TABLET.SA PO SCH (12:28)
[2017-09-08] MEDS: INSULIN LISPRO 100 UNIT/ML 3 ML VIAL SUBCUT SCH (18:23)
--- NOTE | 2017-09-08 19:49 | PDOC PROGRESS REPORT ---
Subjective Progress Note for:: 09/07/17 Subjective:: Patient is somewhat improved and is maintaining sinus rhythm. There is no other significant change in general condition. Patient remains intubated, sedated, patient however looks comfortable and in acute distress. Medications reviewed. Reason For Visit: ACUTE KIDNEY INJURY Physical Exam Vital Signs: Temp Pulse Resp BP Pulse Ox 99.3 F 62 16 147/50 H 92 09/08/17 17:37 09/08/17 14:17 09/08/17 16:02 09/08/17 16:02 09/08/17 16:02 Intake & Output 09/07/17 09/08/17 09/09/17 06:59 06:59 06:59 Intake Total 3 7 1989 Output Total 7469 9027 3110 Balance -0109 -4216 -656 Weight 138.7 kg 136.3 kg Exam: GENERAL: well-nourished and in no acute distress. Patient is intubated and sedated. Orientation cannot be checked HEAD: Atraumatic, normocephalic. EYES: Pupils equal round and reactive to light, extraocular movements could not be checked, sclera anicteric, conjunctiva are normal. ENT: TMs normal, nares patent, oropharynx clear without exudates. Moist mucous membranes. No oral ulcerations or bleeding gums noted NECK: supple without lymphadenopathy or JVD. Trachea is central. No cervical or axillary lymphadenopathy noted. Carotids are 2+ LUNGS: Breath sounds mostly clear to auscultation patient is noted to have bibasal crackles at the extreme bases CHEST: Palpation of the chest wall shows no significant chest wall tenderness or abnormalities. 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 ABDOMEN: Soft, no significant tenderness appreciated, normoactive bowel sounds. No guarding, no rebound. No rigidity noted . No masses appreciated. EXTREMITIES: Pedal pulses are 1-2+, no calf tenderness noted, 1+ pedal edema noted. No clubbing or cyanosis. NEUROLOGICAL: The patient cannot participate in the neurological exam but no facial asymmetry noted. Extremities slightly hypotonic PSYCH: This cannot be evaluated. Patient cannot participate. SKIN: No significant ecchymosis, rash, or signs of pruritus noted. MUSCULOSKELETAL EXAM: No significant joint swelling noted. Patient cannot participate in musculoskeletal exam Results Laboratory Results: 09/08/17 04:06 09/08/17 04:06 09/08/17 09/08/17 09/08/17 04:06 04:06 05:24 WBC 15.5 H RBC 3.77 Hgb 10.5 L Hct 32.6 L MCV 87 MCH 27.9 MCHC 32.3 RDW 16.6 H Plt Count 190 Seg Neutrophils % Not Reportable Lymphocytes % Not Reportable Monocytes % Not Reportable Eosinophils % Not Reportable Basophils % Not Reportable Absolute Neutrophils Not Reportable Absolute Lymphocytes Not Reportable Absolute Monocytes Not Reportable Absolute Eosinophils Not Reportable Absolute Basophils Not Reportable Carbonic Acid 1.31 HCO3/H2CO3 Ratio 22:1 ABG pH 7.44 ABG pCO2 43.5 ABG pO2 62.9 L ABG HCO3 28.9 H ABG O2 Saturation 92.8 L ABG Base Excess 4.3 FiO2 50% Sodium 152.1 H Potassium 3.6 Chloride 112 H Carbon Dioxide 29 Anion Gap 11 BUN 24 H Creatinine 0.78 Est GFR ( Amer) > 60 Est GFR (Non-Af Amer) > 60 Glucose 356 H Calcium 8.7 Magnesium 1.8 Total Bilirubin 0.9 AST 42 H ALT 51 Alkaline Phosphatase 416 H Total Protein 5.8 L Albumin 2.5 L 09/02/17 09:10 Blood Blood Culture - Final Salmonella Species 09/03/17 09/07/17 18:15 06:25 NT-Pro-B Natriuret Pep 782 4140 H EKG Comments: Telemetry shows sinus rhythm Impressions: Abdomen/Pelvis CT 08/30/17 14:09 IMPRESSION: NO SIGNIFICANT OR ACUTE PROCESS IN THE ABDOMEN OR PELVIS. Head CT 09/02/17 00:00 IMPRESSION: No acute intracranial abnormality. Chest/Abdomen CTA 09/06/17 00:00 IMPRESSION: No pulmonary emboli. Diffuse parenchymal opacities predominantly upper lobe with bilateral pleural effusions. Chest X-Ray 09/08/17 00:00 IMPRESSION: Relatively stable appearance of the chest. Support lines and tubes remain in good position. Persistent infiltrates/ edema which look similar. Assessment & Plan - Diagnosis (1) New onset a-fib Is this a current diagnosis for this admission?: Yes (2) Acute respiratory failure with hypoxia and hypercapnia Is this a current diagnosis for this admission?: Yes (3) Hyperlipidemia Qualifiers: Hyperlipidemia type: unspecified Qualified Code(s): E78.5 - Hyperlipidemia , unspecified Is this a current diagnosis for this admission?: Yes (4) Type 2 diabetes mellitus Qualifiers: Diabetes mellitus ferry terminal supervisor insulin use: without ferry terminal supervisor use Diabetes mellitus complication status: without complication Qualified Code(s): E11.9 - Type 2 diabetes mellitus without complications Is this a current diagnosis for this admission?: No (5) Acute kidney injury Is this a current diagnosis for this admission?: Yes (6) Septic shock Is this a current diagnosis for this admission?: Yes - Notes Notes: Atrial flutter fibrillation: Currently maintaining sinus rhythm. Patient was noted to convert to sinus rhythm shortly after being moved to the unit. Recommend switching Cardizem CD 120 mg p.o. twice daily and instead of short- acting Cardizem. Recommend DVT prophylaxis at this point. New onset atrial fibrillation: Most likely related to metabolic problems. Do not feel patient needs chronic anticoagulation at this point. This needed can be reassessed later on. Acute respiratory failure with hypoxemia and hypercapnia: Possibly related to metabolic issues. Chest x-ray suggests pulmonary edema, possibly noncardiac but could well be related to diastolic CHF. Recommend cautious diuresis as allowed by blood pressure. Hyperlipidemia: Recommend high potency statin therapy. Diabetes: Being well managed by hospitalist. Acute kidney injury: Related to metabolic problems, sepsis and hypotension which fortunately was just transient. Septic shock: Patient currently having good perfusion and therefore out of shock. Most likely related to bacteremia. We will continue to follow.
--- NOTE | 2017-09-08 19:50 | PDOC PROGRESS REPORT ---
Subjective Progress Note for:: 09/08/17 Subjective:: Patient is somewhat improved and is maintaining sinus rhythm. There is no other significant change in general condition. Patient remains intubated, sedated, patient however looks comfortable and in acute distress. Medications reviewed. Reason For Visit: ACUTE KIDNEY INJURY Physical Exam Vital Signs: Temp Pulse Resp BP Pulse Ox 99.3 F 62 16 147/50 H 92 09/08/17 17:37 09/08/17 14:17 09/08/17 16:02 09/08/17 16:02 09/08/17 16:02 Intake & Output 09/07/17 09/08/17 09/09/17 06:59 06:59 06:59 Intake Total 5670 3 1989 Output Total 6383 2548 7500 Balance -7453 -1556 -231 Weight 138.7 kg 136.3 kg Exam: GENERAL: well-nourished and in no acute distress. Patient is intubated and sedated. Orientation cannot be checked HEAD: Atraumatic, normocephalic. EYES: Pupils equal round and reactive to light, extraocular movements could not be checked, sclera anicteric, conjunctiva are normal. ENT: TMs normal, nares patent, oropharynx clear without exudates. Moist mucous membranes. No oral ulcerations or bleeding gums noted NECK: supple without lymphadenopathy or JVD. Trachea is central. No cervical or axillary lymphadenopathy noted. Carotids are 2+ LUNGS: Breath sounds mostly clear to auscultation patient is noted to have bibasal crackles at the extreme bases CHEST: Palpation of the chest wall shows no significant chest wall tenderness or abnormalities. 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 ABDOMEN: Soft, no significant tenderness appreciated, normoactive bowel sounds. No guarding, no rebound. No rigidity noted . No masses appreciated. EXTREMITIES: Pedal pulses are 1-2+, no calf tenderness noted, 1+ pedal edema noted. No clubbing or cyanosis. NEUROLOGICAL: The patient cannot participate in the neurological exam but no facial asymmetry noted. Extremities slightly hypotonic PSYCH: This cannot be evaluated. Patient cannot participate. SKIN: No significant ecchymosis, rash, or signs of pruritus noted. MUSCULOSKELETAL EXAM: No significant joint swelling noted. Patient cannot participate in musculoskeletal exam Results Laboratory Results: 09/08/17 04:06 09/08/17 04:06 09/08/17 09/08/17 09/08/17 04:06 04:06 05:24 WBC 15.5 H RBC 3.77 Hgb 10.5 L Hct 32.6 L MCV 87 MCH 27.9 MCHC 32.3 RDW 16.6 H Plt Count 190 Seg Neutrophils % Not Reportable Lymphocytes % Not Reportable Monocytes % Not Reportable Eosinophils % Not Reportable Basophils % Not Reportable Absolute Neutrophils Not Reportable Absolute Lymphocytes Not Reportable Absolute Monocytes Not Reportable Absolute Eosinophils Not Reportable Absolute Basophils Not Reportable Carbonic Acid 1.31 HCO3/H2CO3 Ratio 22:1 ABG pH 7.44 ABG pCO2 43.5 ABG pO2 62.9 L ABG HCO3 28.9 H ABG O2 Saturation 92.8 L ABG Base Excess 4.3 FiO2 50% Sodium 152.1 H Potassium 3.6 Chloride 112 H Carbon Dioxide 29 Anion Gap 11 BUN 24 H Creatinine 0.78 Est GFR ( Amer) > 60 Est GFR (Non-Af Amer) > 60 Glucose 356 H Calcium 8.7 Magnesium 1.8 Total Bilirubin 0.9 AST 42 H ALT 51 Alkaline Phosphatase 416 H Total Protein 5.8 L Albumin 2.5 L 09/02/17 09:10 Blood Blood Culture - Final Salmonella Species 09/03/17 09/07/17 18:15 06:25 NT-Pro-B Natriuret Pep 782 4140 H EKG Comments: Patient maintaining sinus rhythm. No sustained tachyarrhythmia or bradycardia arrhythmia noted. Impressions: Abdomen/Pelvis CT 08/30/17 14:09 IMPRESSION: NO SIGNIFICANT OR ACUTE PROCESS IN THE ABDOMEN OR PELVIS. Head CT 09/02/17 00:00 IMPRESSION: No acute intracranial abnormality. Chest/Abdomen CTA 09/06/17 00:00 IMPRESSION: No pulmonary emboli. Diffuse parenchymal opacities predominantly upper lobe with bilateral pleural effusions. Chest X-Ray 09/08/17 00:00 IMPRESSION: Relatively stable appearance of the chest. Support lines and tubes remain in good position. Persistent infiltrates/ edema which look similar. Assessment & Plan - Diagnosis (1) New onset a-fib Is this a current diagnosis for this admission?: Yes (2) Acute respiratory failure with hypoxia and hypercapnia Is this a current diagnosis for this admission?: Yes (3) Hyperlipidemia Qualifiers: Hyperlipidemia type: unspecified Qualified Code(s): E78.5 - Hyperlipidemia , unspecified Is this a current diagnosis for this admission?: Yes (4) Type 2 diabetes mellitus Qualifiers: Diabetes mellitus usp insulin use: without termite control technician use Diabetes mellitus complication status: without complication Qualified Code(s): E11.9 - Type 2 diabetes mellitus without complications Is this a current diagnosis for this admission?: No (5) Acute kidney injury Is this a current diagnosis for this admission?: Yes (6) Septic shock Is this a current diagnosis for this admission?: Yes - Notes Notes: Atrial flutter fibrillation with rapid ventricular response: Continue patient on Cardizem CD 120 mg p.o. twice daily. Recommend DVT prophylaxis at this point. New onset atrial fibrillation: Most likely related to metabolic problems. Patient spontaneously converted to sinus rhythm. Acute respiratory failure with hypoxemia and hypercapnia: Possibly related to metabolic issues. Chest x-ray suggests pulmonary edema, possibly noncardiac but could well be related to diastolic CHF. Currently seems fairly compensated on clinical exam. It is best to keep patient in negative balance. Hyperlipidemia: Recommend high potency statin therapy. Diabetes: Being well managed by hospitalist. Acute kidney injury: Related to metabolic problems, sepsis and hypotension which fortunately was just transient. This is improving. Septic shock: Patient currently having good perfusion and therefore out of shock. Most likely related to bacteremia. We will continue to follow. - Time Time with patient: 15-25 minutes - CODE STATUS was discussed, patient remains full code. Surrogate decision-maker unchanged. Multiple medical problems were addressed. More than 50% of the time spent coordinating care, discussing management plans with involved caregivers. Management plans discussed with involved personnels. Medical decision making was of moderate to high complexity , patient's has multiple comorbidities. Medications reviewed and adjusted accordingly: Yes
[2017-09-08] MEDS: ATORVASTATIN CALCIUM 40 MG TABLET NG SCH (22:38)
[2017-09-08] MEDS: VANCOMYCIN HCL 1,000 MG in DEXTROSE 5%-WATER 250 ML IV SCH (22:39)
[2017-09-09] MEDS: DEXTROSE 5%-WATER 1000 ML 1,000 ML IV PRN ×2 (00:11→16:00)
[2017-09-09] MEDS: INSULIN LISPRO 100 UNIT/ML 3 ML VIAL SUBCUT SCH ×4 (01:12→18:03)
[2017-09-09] MEDS: INSULIN LISPRO 100 UNIT/ML 3 ML VIAL SUBCUT PRN ×3 (01:12→18:03)
[2017-09-09] MEDS: IPRATROPIUM/ALBUTEROL 0.5-2.5 MG/3 ML AMPUL NEB SCH ×4 (02:14→20:35)
[2017-09-09 04:39] LABS: ABSOLUTE BASOPHILS # (AUTO) 0.1 10^3/uL (0.0-0.2); ABSOLUTE EOSINOPHILS # (AUTO) 0.2 10^3/uL (0.0-0.6); ABSOLUTE LYMPHOCYTES (AUTO) 1.5 10^3/uL (0.5-4.7); ABSOLUTE MONOCYTES (AUTO) 0.4 10^3/uL (0.1-1.4); ABSOLUTE NEUT (AUTO) 9.7 10^3/uL (1.7-8.2); BASOPHILS % (AUTO) 0.8 % (0-2); HEMOGLOBIN 10.4 g/dL (12.0-15.5); LYMPHOCYTES % (AUTO) 12.5 % (13-45); MEAN CORPUSCULAR HEMOGLOBIN 28.3 pg (27.0-33.4); MEAN CORPUSCULAR HGB CONC 32.7 g/dL (32.0-36.0); MEAN CORPUSCULAR VOLUME 87 fl (80-97); MONOCYTES % (AUTO) 3.4 % (3-13); PLATELET COUNT 175 10^3/uL (150-450); RED BLOOD COUNT 3.69 10^6/uL (3.72-5.28); RED CELL DISTRIBUTION WIDTH 16.3 % (11.5-14.0); SEGMENTED NEUTROPHILS % (AUTO) 81.3 % (42-78); TOTAL CELLS COUNTED % (AUTO) 100 %
[2017-09-09 05:01] LABS: ANION GAP 9 (5-19); BLOOD UREA NITROGEN 23 mg/dL (7-20); CALCIUM 8.8 mg/dL (8.4-10.2); CARBON DIOXIDE 34 mmol/L (22-30); CHLORIDE 107 mmol/L (98-107); GLUCOSE 335 mg/dL (75-110); POTASSIUM 3.5 mmol/L (3.6-5.0); SODIUM 149.9 mmol/L (137-145)
[2017-09-09] MEDS: BACLOFEN 10 MG TABLET NG SCH ×3 (06:49→22:28)
[2017-09-09] MEDS: CEFTAZIDIME PENTAHYDRATE 1 GM in DEXTROSE 5%-WATER 50 ML IV SCH ×3 (06:49→22:28)
[2017-09-09] MEDS: HEPARIN SOD (PORCINE) 5,000 UNIT/ML 1 ML SYRINGE SUBCUT SCH ×3 (06:50→22:28)
[2017-09-09] MEDS: FUROSEMIDE INJ/PF 40 MG/4 ML SDV IV SCH ×2 (06:50→18:02)
[2017-09-09] MEDS: LEVOTHYROXINE SODIUM 0.1 MG TABLET NG SCH (06:52)
[2017-09-09] MEDS: LEVOTHYROXINE SODIUM 0.075 MG TABLET NG SCH (06:52)
[2017-09-09] MEDS: GABAPENTIN 300 MG CAPSULE NG SCH ×3 (06:52→22:29)
[2017-09-09 07:11] LABS: ARTERIAL BLOOD FIO2 50%; ARTERIAL BLOOD H2CO3 1.57 mmol/L (1.05-1.35); ARTERIAL BLOOD HCO3 34.7 mmol/L (20-26); ARTERIAL BLOOD O2 SATURATION 95.2 % (94-98); ARTERIAL BLOOD PCO2 52.2 mmHg (35-45); ARTERIAL BLOOD PH 7.44 (7.35-7.45); ARTERIAL BLOOD PO2 74.5 mmHg (80-100); ARTERIAL BLOOD TOTAL CO2 36.3 mmol/L (21-25)
[2017-09-09] MEDS ORDERED: HYDRALAZINE HCL INJ/PF 20 MG/1 ML SDV IV PRN (08:00)
[2017-09-09] MEDS ORDERED: HYDRALAZINE HCL INJ/PF 20 MG/1 ML SDV ONE (08:24)
--- NOTE | 2017-09-09 08:24 | RADIOLOGY REPORT (SQ) ---
EXAM DESCRIPTION: CHEST SINGLE VIEW COMPLETED DATE/TIME: 09/09/2017 7:10 am REASON FOR STUDY: pna COMPARISON: 09/08/2017. FINDINGS: AP portable upright 0656 hours Limiting external monitor leads. Endotracheal and nasogastric tubes, right central line all look indigo ssly stable allowing for poor visualization. Extremely low lung volumes with basilar subsegmental atelectasis but upper lobe aeration looks improv ed. IMPRESSION: Appropriate lines and tubes suspected. Probable improved aeration. TECHNICAL DOCUMENTATION: JOB ID: [id number] Reading location - IP/workstation name: [email or web address]
[2017-09-09] MEDS: METOPROLOL TARTRATE 25 MG TABLET PO SCH ×2 (09:37→22:29)
[2017-09-09] MEDS: ASPIRIN 81 MG TABLET, CHEWABLE NG SCH (09:37)
[2017-09-09] MEDS: AMLODIPINE BESYLATE 5 MG TABLET NG PRN (09:39)
[2017-09-09] MEDS: ACETAMINOPHEN SOLN 325 MG/10.15 ML UDCUP NG PRN ×2 (09:40→13:18)
[2017-09-09] MEDS: FLUOXETINE HCL 20 MG CAPSULE NG SCH (09:40)
[2017-09-09] MEDS: DILTIAZEM HCL 60 MG TABLET PO SCH ×2 (09:40→22:28)
[2017-09-09] MEDS: LISINOPRIL 10 MG TABLET NG SCH (09:40)
[2017-09-09] MEDS: GUAIFENESIN SYRP 200 MG/10 ML UDC PO SCH ×2 (09:41→22:29)
[2017-09-09] MEDS: VANCOMYCIN HCL 1,000 MG in DEXTROSE 5%-WATER 250 ML IV SCH ×2 (09:41→23:09)
[2017-09-09] MEDS: LEVETIRACETAM 500 MG/NACL-ISO 500 MG/100 ML RTUPB IV SCH ×2 (09:41→23:08)
[2017-09-09] MEDS: DIGOXIN INJ 0.5 MG/2 ML AMPULE IV SCH (09:41)
[2017-09-09] MEDS: PANTOPRAZOLE SODIUM 40 MG VIAL IV SCH (09:41)
[2017-09-09] MEDS: FENOFIBRATE NANOCRYSTALLIZED 48 MG TABLET NG SCH (09:43)
[2017-09-09] MEDS: LOPERAMIDE HCL 2 MG CAPSULE NG PRN (13:18)
--- NOTE | 2017-09-09 13:22 | PDOC PROGRESS REPORT ---
Subjective Progress Note for:: 09/09/17 Subjective:: Patient remained intubated. She has been on weaning trial. Patient follow commands. Potential extubation for tomorrow. Reason For Visit: ACUTE KIDNEY INJURY Physical Exam Vital Signs: Temp Pulse Resp BP Pulse Ox 99.5 F 61 17 144/48 H 94 09/08/17 23:48 09/09/17 10:00 09/09/17 12:03 09/09/17 12:03 09/09/17 12:03 Intake & Output 09/08/17 09/09/17 09/10/17 06:59 06:59 06:59 Intake Total 205 3390 50 Output Total 5659 4100 0450 Balance -5054 -743 -9839 Weight 136.3 kg 134.9 kg General appearance: PRESENT: no acute distress Head exam: PRESENT: atraumatic Neck exam: ABSENT: carotid bruit, JVD, lymphadenopathy, thyromegaly Cardiovascular exam: PRESENT: RRR. ABSENT: diastolic murmur, rubs, systolic murmur GI/Abdominal exam: PRESENT: normal bowel sounds Results Laboratory Results: 09/09/17 04:17 09/09/17 04:17 09/09/17 09/09/17 09/09/17 04:17 04:17 07:00 WBC 12.0 H RBC 3.69 L Hgb 10.4 L Hct 32.0 L MCV 87 MCH 28.3 MCHC 32.7 RDW 16.3 H Plt Count 175 Seg Neutrophils % 81.3 H Lymphocytes % 12.5 L Monocytes % 3.4 Eosinophils % 2.0 Basophils % 0.8 Absolute Neutrophils 9.7 H Absolute Lymphocytes 1.5 Absolute Monocytes 0.4 Absolute Eosinophils 0.2 Absolute Basophils 0.1 Carbonic Acid 1.57 H HCO3/H2CO3 Ratio 22:1 ABG pH 7.44 ABG pCO2 52.2 H ABG pO2 74.5 L ABG HCO3 34.7 H ABG O2 Saturation 95.2 ABG Base Excess 9.0 FiO2 50% Sodium 149.9 H Potassium 3.5 L Chloride 107 Carbon Dioxide 34 H Anion Gap 9 BUN 23 H Creatinine 0.72 Est GFR ( Amer) > 60 Est GFR (Non-Af Amer) > 60 Glucose 335 H Calcium 8.8 Magnesium 1.7 09/02/17 09:10 Blood Blood Culture - Final Salmonella Species 09/03/17 09/07/17 18:15 06:25 NT-Pro-B Natriuret Pep 782 4140 H Impressions: Abdomen/Pelvis CT 08/30/17 14:09 IMPRESSION: NO SIGNIFICANT OR ACUTE PROCESS IN THE ABDOMEN OR PELVIS. Head CT 09/02/17 00:00 IMPRESSION: No acute intracranial abnormality. Chest/Abdomen CTA 09/06/17 00:00 IMPRESSION: No pulmonary emboli. Diffuse parenchymal opacities predominantly upper lobe with bilateral pleural effusions. Chest X-Ray 09/09/17 06:00 IMPRESSION: Appropriate lines and tubes suspected. Probable improved aeration. Assessment & Plan - Diagnosis (1) Hypernatremia Is this a current diagnosis for this admission?: Yes Plan: Improving her sodium trended from 152-149 (2) Septic shock Is this a current diagnosis for this admission?: Yes Plan: Has resolved (3) Hypotension Is this a current diagnosis for this admission?: Yes Plan: Resolved (4) Acute respiratory failure with hypoxia and hypercapnia Is this a current diagnosis for this admission?: Yes Plan: Mechanical ventilation (5) Acute kidney injury Is this a current diagnosis for this admission?: Yes Plan: Has resolved (6) Type 2 diabetes mellitus Is this a current diagnosis for this admission?: Yes Plan: Patient has been running hyperglycemia ranging between 350 and 400. Patient has been started on Humalog 5 units ACS (7) Hyperlipidemia Qualifiers: Hyperlipidemia type: unspecified Qualified Code(s): E78.5 - Hyperlipidemia , unspecified Is this a current diagnosis for this admission?: Yes Plan: Continue her home medication. (8) Morbid obesity due to excess calories Is this a current diagnosis for this admission?: Yes Plan: Lifestyle modification advised (9) New onset a-fib Is this a current diagnosis for this admission?: Yes Plan: Resolved now patient is in sinus rhythm. Patient probably has paroxysmal A. fib.
--- NOTE | 2017-09-09 18:52 | PDOC PROGRESS REPORT ---
Subjective Progress Note for:: 09/09/17 Subjective:: Patient is somewhat improved and is maintaining sinus rhythm. There is no other significant change in general condition. Patient remains intubated, patient however looks comfortable and in acute distress. Medications reviewed. Reason For Visit: ACUTE KIDNEY INJURY Physical Exam Vital Signs: Temp Pulse Resp BP Pulse Ox 99.5 F 61 15 143/55 H 95 09/09/17 15:52 09/09/17 14:26 09/09/17 17:02 09/09/17 17:02 09/09/17 17:02 Intake & Output 09/08/17 09/09/17 09/10/17 06:59 06:59 06:59 Intake Total 8863 3390 1644 Output Total 5633 5673 1825 Balance -3641 -715 -181 Weight 136.3 kg 134.9 kg Exam: GENERAL: well-nourished and in no acute distress. Patient is intubated. Orientation cannot be checked HEAD: Atraumatic, normocephalic. EYES: Pupils equal round and reactive to light, extraocular movements could not be checked, sclera anicteric, conjunctiva are normal. ENT: TMs normal, nares patent, oropharynx clear without exudates. Moist mucous membranes. No oral ulcerations or bleeding gums noted NECK: supple without lymphadenopathy or JVD. Trachea is central. No cervical or axillary lymphadenopathy noted. Carotids are 2+ LUNGS: Breath sounds mostly clear to auscultation patient is noted to have bibasal crackles at the extreme bases CHEST: Palpation of the chest wall shows no significant chest wall tenderness or abnormalities. 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 ABDOMEN: Soft, no significant tenderness appreciated, normoactive bowel sounds. No guarding, no rebound. No rigidity noted . No masses appreciated. EXTREMITIES: Pedal pulses are 1-2+, no calf tenderness noted, 1+ pedal edema noted. No clubbing or cyanosis. NEUROLOGICAL: The patient cannot participate in the neurological exam but no facial asymmetry noted. Extremities slightly hypotonic PSYCH: This cannot be evaluated. Patient cannot participate. SKIN: No significant ecchymosis, rash, or signs of pruritus noted. MUSCULOSKELETAL EXAM: No significant joint swelling noted. Patient cannot participate in musculoskeletal exam Results Laboratory Results: 09/09/17 04:17 09/09/17 04:17 09/09/17 09/09/17 09/09/17 04:17 04:17 07:00 WBC 12.0 H RBC 3.69 L Hgb 10.4 L Hct 32.0 L MCV 87 MCH 28.3 MCHC 32.7 RDW 16.3 H Plt Count 175 Seg Neutrophils % 81.3 H Lymphocytes % 12.5 L Monocytes % 3.4 Eosinophils % 2.0 Basophils % 0.8 Absolute Neutrophils 9.7 H Absolute Lymphocytes 1.5 Absolute Monocytes 0.4 Absolute Eosinophils 0.2 Absolute Basophils 0.1 Carbonic Acid 1.57 H HCO3/H2CO3 Ratio 22:1 ABG pH 7.44 ABG pCO2 52.2 H ABG pO2 74.5 L ABG HCO3 34.7 H ABG O2 Saturation 95.2 ABG Base Excess 9.0 FiO2 50% Sodium 149.9 H Potassium 3.5 L Chloride 107 Carbon Dioxide 34 H Anion Gap 9 BUN 23 H Creatinine 0.72 Est GFR ( Amer) > 60 Est GFR (Non-Af Amer) > 60 Glucose 335 H Calcium 8.8 Magnesium 1.7 09/02/17 09:10 Blood Blood Culture - Final Salmonella Species 09/03/17 09/07/17 18:15 06:25 NT-Pro-B Natriuret Pep 782 4140 H Impressions: Abdomen/Pelvis CT 08/30/17 14:09 IMPRESSION: NO SIGNIFICANT OR ACUTE PROCESS IN THE ABDOMEN OR PELVIS. Head CT 09/02/17 00:00 IMPRESSION: No acute intracranial abnormality. Chest/Abdomen CTA 09/06/17 00:00 IMPRESSION: No pulmonary emboli. Diffuse parenchymal opacities predominantly upper lobe with bilateral pleural effusions. Chest X-Ray 09/09/17 06:00 IMPRESSION: Appropriate lines and tubes suspected. Probable improved aeration. Assessment & Plan - Diagnosis (1) New onset a-fib Is this a current diagnosis for this admission?: Yes (2) Acute respiratory failure with hypoxia and hypercapnia Is this a current diagnosis for this admission?: Yes (3) Hyperlipidemia Qualifiers: Hyperlipidemia type: unspecified Qualified Code(s): E78.5 - Hyperlipidemia , unspecified Is this a current diagnosis for this admission?: Yes (4) Type 2 diabetes mellitus Qualifiers: Diabetes mellitus senior care insulin use: without terminal gauger supervisor use Diabetes mellitus complication status: without complication Qualified Code(s): E11.9 - Type 2 diabetes mellitus without complications Is this a current diagnosis for this admission?: No (5) Acute kidney injury Is this a current diagnosis for this admission?: Yes (6) Septic shock Is this a current diagnosis for this admission?: Yes - Notes Notes: Atrial flutter fibrillation with rapid ventricular response: Continue patient on Cardizem CD 120 mg p.o. twice daily. Continue IV/p.o. digoxin. Recommend DVT prophylaxis at this point. Chronic anticoagulation not recommended since atrial flutter fibrillation was transient and probably related to metabolic reasons. New onset atrial fibrillation: Most likely related to metabolic problems. Patient spontaneously converted to sinus rhythm. Acute respiratory failure with hypoxemia and hypercapnia: Possibly related to metabolic issues. Chest x-ray suggests pulmonary edema, possibly noncardiac but could well be related to diastolic CHF. Currently seems fairly compensated on clinical exam. It is best to keep patient in negative balance. Continue IV Lasix and adjust as needed by following chest x-ray. Hyperlipidemia: Recommend high potency statin therapy. Diabetes: Being well managed by hospitalist. Acute kidney injury: This has resolved and renal functions been normal. Septic shock: Patient currently having good perfusion and therefore out of shock. Most likely related to bacteremia. Patient has been stable from cardiac standpoint for several days, therefore will sign off. Please reconsult if needed - Time Time with patient: 15-25 minutes - CODE STATUS was discussed, patient remains full code. Surrogate decision-maker unchanged. Multiple medical problems were addressed. More than 50% of the time spent coordinating care, discussing management plans with involved caregivers. Management plans discussed with involved personnels. Medical decision making was of moderate to high complexity , patient's has multiple comorbidities. Medications reviewed and adjusted accordingly: Yes
[2017-09-09] MEDS: ATORVASTATIN CALCIUM 40 MG TABLET NG SCH (22:29)
[2017-09-10] MEDS: INSULIN LISPRO 100 UNIT/ML 3 ML VIAL SUBCUT SCH ×4 (00:21→17:26)
[2017-09-10] MEDS: INSULIN LISPRO 100 UNIT/ML 3 ML VIAL SUBCUT PRN ×2 (00:21→12:35)
[2017-09-10] MEDS: IPRATROPIUM/ALBUTEROL 0.5-2.5 MG/3 ML AMPUL NEB SCH ×4 (02:51→20:34)
[2017-09-10 03:44] LABS: ABSOLUTE BASOPHILS # (AUTO) 0.1 10^3/uL (0.0-0.2); ABSOLUTE EOSINOPHILS # (AUTO) 0.2 10^3/uL (0.0-0.6); ABSOLUTE LYMPHOCYTES (AUTO) 1.9 10^3/uL (0.5-4.7); ABSOLUTE MONOCYTES (AUTO) 0.4 10^3/uL (0.1-1.4); ABSOLUTE NEUT (AUTO) 8.1 10^3/uL (1.7-8.2); BASOPHILS % (AUTO) 1.3 % (0-2); EOSINOPHILS % (AUTO) 2.2 % (0-6); HEMATOCRIT 31.3 % (36.0-47.0); HEMOGLOBIN 10.4 g/dL (12.0-15.5); LYMPHOCYTES % (AUTO) 17.7 % (13-45); MEAN CORPUSCULAR HEMOGLOBIN 28.6 pg (27.0-33.4); MEAN CORPUSCULAR HGB CONC 33.1 g/dL (32.0-36.0); MEAN CORPUSCULAR VOLUME 86 fl (80-97); MONOCYTES % (AUTO) 3.5 % (3-13); PLATELET COUNT 154 10^3/uL (150-450); RED BLOOD COUNT 3.63 10^6/uL (3.72-5.28); SEGMENTED NEUTROPHILS % (AUTO) 75.3 % (42-78); TOTAL CELLS COUNTED % (AUTO) 100 %; WHITE BLOOD COUNT 10.7 10^3/uL (4.0-10.5)
[2017-09-10 04:16] LABS: ANION GAP 8 (5-19); BLOOD UREA NITROGEN 21 mg/dL (7-20); CALCIUM 8.8 mg/dL (8.4-10.2); CARBON DIOXIDE 36 mmol/L (22-30); CHLORIDE 103 mmol/L (98-107); GLUCOSE 292 mg/dL (75-110); PHOSPHORUS 2.6 mg/dL (2.5-4.5); POTASSIUM 3.1 mmol/L (3.6-5.0)
[2017-09-10 06:07] LABS: ARTERIAL BLOOD BASE EXCESS 10.2 mmol/L; ARTERIAL BLOOD H2CO3 1.44 mmol/L (1.05-1.35); ARTERIAL BLOOD HCO3 35.2 mmol/L (20-26); ARTERIAL BLOOD O2 SATURATION 98.4 % (94-98); ARTERIAL BLOOD PCO2 47.8 mmHg (35-45); ARTERIAL BLOOD PH 7.49 (7.35-7.45); ARTERIAL BLOOD PO2 114.3 mmHg (80-100); ARTERIAL BLOOD TOTAL CO2 36.7 mmol/L (21-25)
[2017-09-10 06:08] LABS: ARTERIAL BLOOD FIO2 45%
[2017-09-10] MEDS: BACLOFEN 10 MG TABLET NG SCH ×3 (06:37→22:14)
[2017-09-10] MEDS: HEPARIN SOD (PORCINE) 5,000 UNIT/ML 1 ML SYRINGE SUBCUT SCH ×3 (06:37→22:13)
[2017-09-10] MEDS: CEFTAZIDIME PENTAHYDRATE 1 GM in DEXTROSE 5%-WATER 50 ML IV SCH ×3 (06:37→22:23)
[2017-09-10] MEDS: GABAPENTIN 300 MG CAPSULE NG SCH ×3 (06:38→22:15)
[2017-09-10] MEDS: LEVOTHYROXINE SODIUM 0.075 MG TABLET NG SCH (06:38)
[2017-09-10] MEDS: FUROSEMIDE INJ/PF 40 MG/4 ML SDV IV SCH ×2 (06:38→17:27)
[2017-09-10] MEDS: LEVOTHYROXINE SODIUM 0.1 MG TABLET NG SCH (06:39)
--- NOTE | 2017-09-10 08:52 | RADIOLOGY REPORT (SQ) ---
EXAM DESCRIPTION: CHEST SINGLE VIEW COMPLETED DATE/TIME: 09/10/2017 6:19 am REASON FOR STUDY: ETT PLACEMENT/VENT PT COMPARISON: 09/09/2017 NUMBER OF VIEWS: One view. TECHNIQUE: Single frontal radiographic image of the chest acquired. LIMITATIONS: None. FINDINGS: LUNGS AND PLEURA: Bilateral airspace disease with better definition of the right and left diaphragms. No pneumothorax. MEDIASTINUM AND HILAR STRUCTURES: Stable heart size and mediastinal structures. HEART AND VASCULAR STRUCTURES: Stable appearance. SUPPORT DEVICES: Appropriate location without change. BONES: No acute findings. OTHER: No other significant finding. IMPRESSION: Improving pneumonia. No pneumothorax. TECHNICAL DOCUMENTATION: JOB ID: [id number] [email or web address] Reading location - IP/workstation name: [email or web address]
[2017-09-10] MEDS: PANTOPRAZOLE SODIUM 40 MG VIAL IV SCH (09:52)
[2017-09-10] MEDS: DIGOXIN INJ 0.5 MG/2 ML AMPULE IV SCH (09:52)
[2017-09-10] MEDS: METOPROLOL TARTRATE 25 MG TABLET PO SCH ×2 (09:53→22:15)
[2017-09-10] MEDS: FENOFIBRATE NANOCRYSTALLIZED 48 MG TABLET NG SCH (09:53)
[2017-09-10] MEDS: LISINOPRIL 10 MG TABLET NG SCH (09:53)
[2017-09-10] MEDS: GUAIFENESIN SYRP 200 MG/10 ML UDC PO SCH ×2 (09:53→22:15)
[2017-09-10] MEDS: DILTIAZEM HCL 60 MG TABLET PO SCH ×2 (09:53→22:14)
[2017-09-10] MEDS: ASPIRIN 81 MG TABLET, CHEWABLE NG SCH (09:54)
[2017-09-10] MEDS: LEVETIRACETAM 500 MG/NACL-ISO 500 MG/100 ML RTUPB IV SCH ×2 (09:54→22:13)
[2017-09-10] MEDS: FLUOXETINE HCL 20 MG CAPSULE NG SCH (09:54)
[2017-09-10] MEDS: DEXTROSE 5%-WATER 1000 ML 1,000 ML IV PRN ×2 (10:02→20:40)
[2017-09-10] MEDS: VANCOMYCIN HCL 1,000 MG in DEXTROSE 5%-WATER 250 ML IV SCH (10:03)
[2017-09-10] MEDS: MAGNESIUM SULFATE/D5W 1 GM/100 ML RTUPB IV SCH ×2 (10:33→11:28)
[2017-09-10] MEDS: POTASSI CL 20 MEQ/50 ML RIDER 20 MEQ/50 ML RTUPB IV SCH ×2 (12:32→14:35)
[2017-09-10 14:08] LABS: ARTERIAL BLOOD BASE EXCESS 9.8 mmol/L; ARTERIAL BLOOD H2CO3 1.35 mmol/L (1.05-1.35); ARTERIAL BLOOD HCO3 34.1 mmol/L (20-26); ARTERIAL BLOOD O2 SATURATION 95.1 % (94-98); ARTERIAL BLOOD PO2 69.7 mmHg (80-100); ARTERIAL BLOOD TOTAL CO2 35.4 mmol/L (21-25)
[2017-09-10 14:09] LABS: ARTERIAL BLOOD FIO2 30%
--- NOTE | 2017-09-10 14:49 | PDOC PROGRESS REPORT ---
Subjective Progress Note for:: 09/10/17 Subjective:: I seen patient awake alert and responsive. She is going soon to be extubated. Her basic metabolic panel shows that her hyponatremia is improving 3 days ago her sodium was 152 today it is 147. No significant event overnight. Reason For Visit: ACUTE KIDNEY INJURY Physical Exam Vital Signs: Temp Pulse Resp BP Pulse Ox 100.2 F 63 22 H 169/56 H 94 09/10/17 12:00 09/10/17 13:00 09/10/17 13:00 09/10/17 13:00 09/10/17 13:00 Intake & Output 09/09/17 09/10/17 09/11/17 06:59 06:59 06:59 Intake Total 3390 3094 642 Output Total 4105 3350 1220 Balance -715 -256 -578 Weight 134.9 kg General appearance: PRESENT: no acute distress Head exam: PRESENT: atraumatic Eye exam: PRESENT: conjunctiva pink Mouth exam: PRESENT: moist Neck exam: ABSENT: carotid bruit, JVD, lymphadenopathy, thyromegaly Respiratory exam: PRESENT: clear to auscultation compa. ABSENT: rales, rhonchi, wheezes Cardiovascular exam: PRESENT: RRR. ABSENT: diastolic murmur, rubs, systolic murmur Neurological exam: PRESENT: alert, awake Results Laboratory Results: 09/10/17 03:32 09/10/17 03:32 09/10/17 09/10/17 09/10/17 03:32 03:32 05:40 WBC 10.7 H RBC 3.63 L Hgb 10.4 L Hct 31.3 L MCV 86 MCH 28.6 MCHC 33.1 RDW 16.0 H Plt Count 154 Seg Neutrophils % 75.3 Lymphocytes % 17.7 Monocytes % 3.5 Eosinophils % 2.2 Basophils % 1.3 Absolute Neutrophils 8.1 Absolute Lymphocytes 1.9 Absolute Monocytes 0.4 Absolute Eosinophils 0.2 Absolute Basophils 0.1 Carbonic Acid 1.44 H HCO3/H2CO3 Ratio 24:1 ABG pH 7.49 H ABG pCO2 47.8 H ABG pO2 114.3 H ABG HCO3 35.2 H ABG O2 Saturation 98.4 H ABG Base Excess 10.2 FiO2 45% Sodium 147.0 H Potassium 3.1 L Chloride 103 Carbon Dioxide 36 H Anion Gap 8 BUN 21 H Creatinine 0.81 Est GFR ( Amer) > 60 Est GFR (Non-Af Amer) > 60 Glucose 292 H Calcium 8.8 Phosphorus 2.6 Magnesium 1.5 L 09/10/17 14:00 WBC RBC Hgb Hct MCV MCH MCHC RDW Plt Count Seg Neutrophils % Lymphocytes % Monocytes % Eosinophils % Basophils % Absolute Neutrophils Absolute Lymphocytes Absolute Monocytes Absolute Eosinophils Absolute Basophils Carbonic Acid 1.35 HCO3/H2CO3 Ratio 25:1 ABG pH 7.50 H ABG pCO2 45.0 ABG pO2 69.7 L ABG HCO3 34.1 H ABG O2 Saturation 95.1 ABG Base Excess 9.8 FiO2 30% Sodium Potassium Chloride Carbon Dioxide Anion Gap BUN Creatinine Est GFR ( Amer) Est GFR (Non-Af Amer) Glucose Calcium Phosphorus Magnesium 09/05/17 13:40 Blood Blood Culture - Final NO GROWTH IN 5 DAYS 09/05/17 11:35 Blood Blood Culture - Final NO GROWTH IN 5 DAYS 09/02/17 09:10 Blood Blood Culture - Final Salmonella Species 09/03/17 09/07/17 18:15 06:25 NT-Pro-B Natriuret Pep 782 4140 H Impressions: Abdomen/Pelvis CT 08/30/17 14:09 IMPRESSION: NO SIGNIFICANT OR ACUTE PROCESS IN THE ABDOMEN OR PELVIS. Head CT 09/02/17 00:00 IMPRESSION: No acute intracranial abnormality. Chest/Abdomen CTA 09/06/17 00:00 IMPRESSION: No pulmonary emboli. Diffuse parenchymal opacities predominantly upper lobe with bilateral pleural effusions. Chest X-Ray 09/10/17 00:00 IMPRESSION: Improving pneumonia. No pneumothorax. Assessment & Plan - Diagnosis (1) Hypernatremia Is this a current diagnosis for this admission?: Yes Plan: Resolving (2) Septic shock Is this a current diagnosis for this admission?: Yes Plan: Has resolved (3) Hypotension Is this a current diagnosis for this admission?: Yes Plan: Has resolved (4) Acute respiratory failure with hypoxia and hypercapnia Is this a current diagnosis for this admission?: Yes Plan: Resolving (5) Acute kidney injury Is this a current diagnosis for this admission?: Yes Plan: Has resolved (6) Type 2 diabetes mellitus Is this a current diagnosis for this admission?: Yes Plan: Patient has been running hyperglycemia ranging between 350 and 400. Patient has been started on Humalog 5 units ACS (7) Hyperlipidemia Qualifiers: Hyperlipidemia type: unspecified Qualified Code(s): E78.5 - Hyperlipidemia , unspecified Is this a current diagnosis for this admission?: Yes Plan: Continue her home medication. (8) Morbid obesity due to excess calories Is this a current diagnosis for this admission?: Yes Plan: Lifestyle modification advised (9) New onset a-fib Is this a current diagnosis for this admission?: Yes
[2017-09-10] MEDS: MORPHINE SULFATE 10 MG/ML INJ IV PRN (16:05)
[2017-09-10] MEDS: ATORVASTATIN CALCIUM 40 MG TABLET NG SCH (22:15)
[2017-09-11] MEDS: VANCOMYCIN HCL 750 MG in DEXTROSE 5%-WATER 250 ML IV SCH ×2 (00:59→14:14)
[2017-09-11] MEDS: INSULIN LISPRO 100 UNIT/ML 3 ML VIAL SUBCUT SCH ×5 (01:16→23:11)
[2017-09-11] MEDS: INSULIN LISPRO 100 UNIT/ML 3 ML VIAL SUBCUT PRN ×2 (01:16→23:11)
[2017-09-11] MEDS: IPRATROPIUM/ALBUTEROL 0.5-2.5 MG/3 ML AMPUL NEB SCH ×4 (02:21→20:49)
[2017-09-11 05:27] LABS: ABSOLUTE BASOPHILS # (AUTO) 0.1 10^3/uL (0.0-0.2); ABSOLUTE EOSINOPHILS # (AUTO) 0.2 10^3/uL (0.0-0.6); ABSOLUTE LYMPHOCYTES (AUTO) 1.4 10^3/uL (0.5-4.7); ABSOLUTE MONOCYTES (AUTO) 0.4 10^3/uL (0.1-1.4); ABSOLUTE NEUT (AUTO) 7.7 10^3/uL (1.7-8.2); BASOPHILS % (AUTO) 0.8 % (0-2); EOSINOPHILS % (AUTO) 2.2 % (0-6); HEMATOCRIT 35.3 % (36.0-47.0); HEMOGLOBIN 11.6 g/dL (12.0-15.5); LYMPHOCYTES % (AUTO) 14.5 % (13-45); MEAN CORPUSCULAR HEMOGLOBIN 28.4 pg (27.0-33.4); MEAN CORPUSCULAR HGB CONC 32.8 g/dL (32.0-36.0); MEAN CORPUSCULAR VOLUME 87 fl (80-97); MONOCYTES % (AUTO) 3.8 % (3-13); PLATELET COUNT 143 10^3/uL (150-450); RED BLOOD COUNT 4.08 10^6/uL (3.72-5.28); RED CELL DISTRIBUTION WIDTH 15.7 % (11.5-14.0); SEGMENTED NEUTROPHILS % (AUTO) 78.7 % (42-78); TOTAL CELLS COUNTED % (AUTO) 100 %; WHITE BLOOD COUNT 9.8 10^3/uL (4.0-10.5)
[2017-09-11 05:44] LABS: ARTERIAL BLOOD BASE EXCESS 14.7 mmol/L; ARTERIAL BLOOD FIO2 4 L; ARTERIAL BLOOD H2CO3 1.66 mmol/L (1.05-1.35); ARTERIAL BLOOD HCO3 40.4 mmol/L (20-26); ARTERIAL BLOOD O2 SATURATION 95.1 % (94-98); ARTERIAL BLOOD PH 7.48 (7.35-7.45); ARTERIAL BLOOD PO2 71.8 mmHg (80-100); ARTERIAL BLOOD TOTAL CO2 42.1 mmol/L (21-25)
[2017-09-11 05:50] LABS: ALANINE AMINOTRANSFERASE 46 U/L (9-52); ALBUMIN 2.7 g/dL (3.5-5.0); ALKALINE PHOSPHATASE 467 U/L (38-126); ASPARTATE AMINO TRANSFERASE 42 U/L (14-36); BILIRUBIN,DIRECT 0.6 mg/dL (0.0-0.4); BILIRUBIN,TOTAL 0.9 mg/dL (0.2-1.3); BLOOD UREA NITROGEN 18 mg/dL (7-20); CALCIUM 8.6 mg/dL (8.4-10.2); GLUCOSE 270 mg/dL (75-110); PHOSPHORUS 2.8 mg/dL (2.5-4.5); TOTAL PROTEIN 6.1 g/dL (6.3-8.2)
[2017-09-11 06:12] LABS: ANION GAP 10 (5-19); CARBON DIOXIDE 39 mmol/L (22-30); CHLORIDE 96 mmol/L (98-107); SODIUM 144.9 mmol/L (137-145)
[2017-09-11 06:15] LABS: POTASSIUM 2.8 mmol/L (3.6-5.0)
[2017-09-11] MEDS: FUROSEMIDE INJ/PF 40 MG/4 ML SDV IV SCH (06:39)
[2017-09-11] MEDS: CEFTAZIDIME PENTAHYDRATE 1 GM in DEXTROSE 5%-WATER 50 ML IV SCH ×3 (06:40→21:26)
[2017-09-11] MEDS: HEPARIN SOD (PORCINE) 5,000 UNIT/ML 1 ML SYRINGE SUBCUT SCH ×3 (06:41→21:24)
--- NOTE | 2017-09-11 06:41 | RADIOLOGY REPORT (SQ) ---
EXAM DESCRIPTION: XR CHEST 1 VIEW COMPLETED DATE/TME: 09/11/2017 06:00 CLINICAL HISTORY: 56 years Female, pna COMPARISON: One day prior. NUMBER OF VIEWS/TECHNIQUE: 1/AP FINDINGS: Moderate mixed streaky and patchy opacity of the left lower lobe. Normal cardiac silhouette size. No pneumothorax. No acute bone defect. Interval extubation. IMPRESSION: Interval extubation, else, stable.
[2017-09-11] MEDS: LEVOTHYROXINE SODIUM 0.1 MG TABLET NG SCH (06:42)
[2017-09-11] MEDS: LEVOTHYROXINE SODIUM 0.075 MG TABLET NG SCH (06:42)
[2017-09-11] MEDS: GABAPENTIN 300 MG CAPSULE NG SCH ×3 (06:42→21:26)
[2017-09-11] MEDS: POTASSIUM CHLORIDE 20 MEQ/50 ML RTU IV SCH ×3 (07:12→14:17)
[2017-09-11] MEDS: BACLOFEN 10 MG TABLET NG SCH ×3 (07:13→21:28)
--- NOTE | 2017-09-11 09:27 | EKG REPORT ---
SEVERITY:- ABNORMAL ECG - SINUS RHYTHM FIRST DEGREE AV BLOCK CONSIDER POSTERIOR INFARCT V PACED BEATS VS AIVR : Confirmed by: Nadja Painter 11-Sep-2017 09:26:53
[2017-09-11 10:04] LABS: CREATINE KINASE MB 1.3 ng/mL (<4.55); TROPONIN I 0.016 ng/mL
[2017-09-11] MEDS: LEVETIRACETAM 500 MG/NACL-ISO 500 MG/100 ML RTUPB IV SCH ×2 (10:28→21:22)
[2017-09-11] MEDS: GUAIFENESIN SYRP 200 MG/10 ML UDC PO SCH ×2 (10:28→21:26)
[2017-09-11] MEDS: ASPIRIN 81 MG TABLET, CHEWABLE NG SCH (10:28)
[2017-09-11] MEDS: METOPROLOL TARTRATE 25 MG TABLET PO SCH ×2 (10:29→21:24)
[2017-09-11] MEDS: FLUOXETINE HCL 20 MG CAPSULE NG SCH (10:29)
[2017-09-11] MEDS: DILTIAZEM HCL 60 MG TABLET PO SCH ×2 (10:29→21:25)
[2017-09-11] MEDS: FENOFIBRATE NANOCRYSTALLIZED 48 MG TABLET NG SCH (10:29)
[2017-09-11] MEDS: DIGOXIN INJ 0.5 MG/2 ML AMPULE IV SCH (10:30)
[2017-09-11] MEDS: LISINOPRIL 10 MG TABLET NG SCH (10:30)
--- NOTE | 2017-09-11 15:58 | PDOC PROGRESS REPORT ---
Subjective Progress Note for:: 09/11/17 Subjective:: The patient finally extubated successfully. The patient tolerated the procedure and now currently she is on oxygen via nasal cannula and desaturates around 97%. The only issue this morning is that her potassium is 2.8 may be due to the aggressive diuresis. I will replete her potassium. Patient promised to turn around her life by doing lifestyle modification. Reason For Visit: ACUTE KIDNEY INJURY Physical Exam Vital Signs: Temp Pulse Resp BP Pulse Ox 96.8 F L 55 L 17 155/50 H 91 L 09/11/17 14:00 09/11/17 14:00 09/11/17 15:04 09/11/17 15:04 09/11/17 15:04 Intake & Output 09/10/17 09/11/17 09/12/17 06:59 06:59 06:59 Intake Total 3094 2142 210 Output Total 3350 4945 1570 Balance -256 -2803 -1360 Weight 130.6 kg General appearance: PRESENT: no acute distress Eye exam: PRESENT: conjunctiva pink Neck exam: ABSENT: carotid bruit, JVD, lymphadenopathy, thyromegaly Respiratory exam: PRESENT: clear to auscultation compa. ABSENT: rales, rhonchi, wheezes Cardiovascular exam: PRESENT: RRR. ABSENT: diastolic murmur, rubs, systolic murmur GI/Abdominal exam: PRESENT: normal bowel sounds, soft, other - [place] obese abdomen. ABSENT: distended, guarding, mass, organolmegaly, rebound, tenderness Results Laboratory Results: 09/11/17 05:14 09/11/17 05:14 09/11/17 09/11/17 09/11/17 05:14 05:14 05:30 WBC 9.8 RBC 4.08 Hgb 11.6 L Hct 35.3 L MCV 87 MCH 28.4 MCHC 32.8 RDW 15.7 H Plt Count 143 L Seg Neutrophils % 78.7 H Lymphocytes % 14.5 Monocytes % 3.8 Eosinophils % 2.2 Basophils % 0.8 Absolute Neutrophils 7.7 Absolute Lymphocytes 1.4 Absolute Monocytes 0.4 Absolute Eosinophils 0.2 Absolute Basophils 0.1 Carbonic Acid 1.66 H HCO3/H2CO3 Ratio 24:1 ABG pH 7.48 H ABG pCO2 55.0 H ABG pO2 71.8 L ABG HCO3 40.4 H ABG O2 Saturation 95.1 ABG Base Excess 14.7 FiO2 4 L Sodium 144.9 Potassium 2.8 L* Chloride 96 L Carbon Dioxide 39 H Anion Gap 10 BUN 18 Creatinine 0.63 Est GFR ( Amer) > 60 Est GFR (Non-Af Amer) > 60 Glucose 270 H Calcium 8.6 Phosphorus 2.8 Magnesium 1.9 Total Bilirubin 0.9 AST 42 H ALT 46 Alkaline Phosphatase 467 H Total Protein 6.1 L Albumin 2.7 L 09/05/17 13:40 Blood Blood Culture - Final NO GROWTH IN 5 DAYS 09/03/17 09/07/17 09/11/17 18:15 06:25 09:15 Creatine Kinase 82 CK-MB (CK-2) Troponin I NT-Pro-B Natriuret Pep 782 4140 H 09/11/17 09:15 Creatine Kinase CK-MB (CK-2) 1.30 Troponin I 0.016 NT-Pro-B Natriuret Pep Impressions: Abdomen/Pelvis CT 08/30/17 14:09 IMPRESSION: NO SIGNIFICANT OR ACUTE PROCESS IN THE ABDOMEN OR PELVIS. Head CT 09/02/17 00:00 IMPRESSION: No acute intracranial abnormality. Chest/Abdomen CTA 09/06/17 00:00 IMPRESSION: No pulmonary emboli. Diffuse parenchymal opacities predominantly upper lobe with bilateral pleural effusions. Chest X-Ray 09/11/17 06:00 IMPRESSION: Interval extubation, else, stable. Assessment & Plan - Diagnosis (1) Hypokalemia Is this a current diagnosis for this admission?: Yes Plan: We will replete her potassium and check her BMP in a.m. (2) Hypernatremia Is this a current diagnosis for this admission?: Yes Plan: Resolving (3) Septic shock Is this a current diagnosis for this admission?: Yes Plan: Has resolved (4) Hypotension Is this a current diagnosis for this admission?: Yes Plan: Has resolved (5) Acute respiratory failure with hypoxia and hypercapnia Is this a current diagnosis for this admission?: Yes Plan: Resolving (6) Acute kidney injury Is this a current diagnosis for this admission?: Yes (7) Type 2 diabetes mellitus Is this a current diagnosis for this admission?: Yes (8) Hyperlipidemia Qualifiers: Hyperlipidemia type: unspecified Qualified Code(s): E78.5 - Hyperlipidemia , unspecified Is this a current diagnosis for this admission?: Yes (9) Morbid obesity due to excess calories Is this a current diagnosis for this admission?: Yes (10) New onset a-fib Is this a current diagnosis for this admission?: Yes
[2017-09-11] MEDS ORDERED: FUROSEMIDE INJ/PF 40 MG/4 ML SDV IV SCH (18:00)
[2017-09-11 21:06] LABS: ALANINE AMINOTRANSFERASE 43 U/L (9-52); ALBUMIN 2.7 g/dL (3.5-5.0); ALKALINE PHOSPHATASE 457 U/L (38-126); ANION GAP 6 (5-19); ASPARTATE AMINO TRANSFERASE 50 U/L (14-36); BILIRUBIN,DIRECT 0.7 mg/dL (0.0-0.4); BILIRUBIN,TOTAL 0.8 mg/dL (0.2-1.3); BLOOD UREA NITROGEN 17 mg/dL (7-20); CALCIUM 8.7 mg/dL (8.4-10.2); CARBON DIOXIDE 38 mmol/L (22-30); CHLORIDE 98 mmol/L (98-107); GLUCOSE 275 mg/dL (75-110); POTASSIUM 3.1 mmol/L (3.6-5.0); TOTAL PROTEIN 6.1 g/dL (6.3-8.2)
[2017-09-11] MEDS: DEXTROSE 5%-WATER 1000 ML 1,000 ML IV PRN (21:20)
[2017-09-11] MEDS: ATORVASTATIN CALCIUM 40 MG TABLET NG SCH (21:25)
[2017-09-11] MEDS: LOPERAMIDE HCL 2 MG CAPSULE NG PRN (21:25)
--- NOTE | 2017-09-11 22:23 | EKG REPORT ---
SEVERITY:- ABNORMAL ECG - ATRIAL FIBRILLATION LEFT BUNDLE BRANCH BLOCK : Confirmed by: Nadja Painter 11-Sep-2017 22:22:25
[2017-09-11] MEDS ORDERED: POTASSIUM CHLORIDE 20 MEQ/50 ML RTU IV SCH (22:45)
[2017-09-11] MEDS: POTASSIUM CHLORIDE 10 MEQ CAPSULE.ER PO SCH (23:13)
[2017-09-12] MEDS: VANCOMYCIN HCL 750 MG in DEXTROSE 5%-WATER 250 ML IV SCH ×3 (01:00→23:17)
[2017-09-12] MEDS: IPRATROPIUM/ALBUTEROL 0.5-2.5 MG/3 ML AMPUL NEB SCH ×4 (02:07→20:31)
[2017-09-12] MEDS: POTASSIUM CHLORIDE 10 MEQ CAPSULE.ER PO SCH (02:12)
[2017-09-12 04:22] LABS: ABSOLUTE BASOPHILS # (AUTO) 0.1 10^3/uL (0.0-0.2); ABSOLUTE EOSINOPHILS # (AUTO) 0.2 10^3/uL (0.0-0.6); ABSOLUTE LYMPHOCYTES (AUTO) 1.6 10^3/uL (0.5-4.7); ABSOLUTE MONOCYTES (AUTO) 0.5 10^3/uL (0.1-1.4); ABSOLUTE NEUT (AUTO) 8.1 10^3/uL (1.7-8.2); BASOPHILS % (AUTO) 0.5 % (0-2); EOSINOPHILS % (AUTO) 2.1 % (0-6); HEMATOCRIT 34.3 % (36.0-47.0); HEMOGLOBIN 11.1 g/dL (12.0-15.5); LYMPHOCYTES % (AUTO) 15.4 % (13-45); MEAN CORPUSCULAR HEMOGLOBIN 28.2 pg (27.0-33.4); MEAN CORPUSCULAR HGB CONC 32.5 g/dL (32.0-36.0); MEAN CORPUSCULAR VOLUME 87 fl (80-97); MONOCYTES % (AUTO) 4.5 % (3-13); PLATELET COUNT 150 10^3/uL (150-450); RED BLOOD COUNT 3.95 10^6/uL (3.72-5.28); RED CELL DISTRIBUTION WIDTH 15.4 % (11.5-14.0); SEGMENTED NEUTROPHILS % (AUTO) 77.5 % (42-78); TOTAL CELLS COUNTED % (AUTO) 100 %; WHITE BLOOD COUNT 10.5 10^3/uL (4.0-10.5)
[2017-09-12 04:38] LABS: ANION GAP 7 (5-19); BLOOD UREA NITROGEN 19 mg/dL (7-20); CALCIUM 8.3 mg/dL (8.4-10.2); CARBON DIOXIDE 38 mmol/L (22-30); CHLORIDE 95 mmol/L (98-107); GLUCOSE 377 mg/dL (75-110); POTASSIUM 3.3 mmol/L (3.6-5.0); SODIUM 139.8 mmol/L (137-145)
[2017-09-12 05:31] LABS: ARTERIAL BLOOD BASE EXCESS 11.2 mmol/L; ARTERIAL BLOOD H2CO3 1.58 mmol/L (1.05-1.35); ARTERIAL BLOOD HCO3 36.7 mmol/L (20-26); ARTERIAL BLOOD O2 SATURATION 95.2 % (94-98); ARTERIAL BLOOD PCO2 52.4 mmHg (35-45); ARTERIAL BLOOD PH 7.46 (7.35-7.45); ARTERIAL BLOOD PO2 72.9 mmHg (80-100); ARTERIAL BLOOD TOTAL CO2 38.3 mmol/L (21-25)
[2017-09-12 05:32] LABS: ARTERIAL BLOOD FIO2 40
--- NOTE | 2017-09-12 06:35 | RADIOLOGY REPORT (SQ) ---
EXAM DESCRIPTION: XR CHEST 1 VIEW COMPLETED DATE/TME: 09/12/2017 06:00 CLINICAL HISTORY: 56 years Female, resp failure COMPARISON: One day prior. NUMBER OF VIEWS/TECHNIQUE: 1/AP FINDINGS: Mixed small streakiness and patchy opacity of the left lower lobe, prominent cardiac silhouette. No pneumothorax. No acute bone defect. IMPRESSION: No significant change.
[2017-09-12] MEDS: BACLOFEN 10 MG TABLET NG SCH ×3 (07:34→21:27)
[2017-09-12] MEDS: HEPARIN SOD (PORCINE) 5,000 UNIT/ML 1 ML SYRINGE SUBCUT SCH ×3 (07:34→21:26)
[2017-09-12] MEDS: GABAPENTIN 300 MG CAPSULE NG SCH ×3 (07:35→21:27)
[2017-09-12] MEDS: INSULIN LISPRO 100 UNIT/ML 3 ML VIAL SUBCUT SCH ×4 (07:57→23:15)
[2017-09-12] MEDS: CEFTAZIDIME PENTAHYDRATE 1 GM in DEXTROSE 5%-WATER 50 ML IV SCH ×3 (07:57→21:26)
[2017-09-12] MEDS: INSULIN LISPRO 100 UNIT/ML 3 ML VIAL SUBCUT PRN ×4 (07:58→23:15)
[2017-09-12] MEDS: LEVOTHYROXINE SODIUM 0.075 MG TABLET NG SCH (07:59)
[2017-09-12] MEDS: LEVOTHYROXINE SODIUM 0.1 MG TABLET NG SCH (07:59)
[2017-09-12] MEDS ORDERED: AMLODIPINE BESYLATE 10 MG TABLET PO SCH (10:00)
[2017-09-12] MEDS: GUAIFENESIN SYRP 200 MG/10 ML UDC PO SCH ×3 (11:04→23:15)
[2017-09-12] MEDS: LEVETIRACETAM 500 MG/NACL-ISO 500 MG/100 ML RTUPB IV SCH ×2 (11:05→21:22)
[2017-09-12] MEDS: FLUOXETINE HCL 20 MG CAPSULE NG SCH (11:10)
[2017-09-12] MEDS: METOPROLOL TARTRATE 25 MG TABLET PO SCH (11:11)
[2017-09-12] MEDS: DIGOXIN INJ 0.5 MG/2 ML AMPULE IV SCH (11:11)
[2017-09-12] MEDS: ASPIRIN 81 MG TABLET, CHEWABLE NG SCH (11:11)
[2017-09-12] MEDS: LISINOPRIL 10 MG TABLET NG SCH (11:11)
[2017-09-12] MEDS: DILTIAZEM HCL 60 MG TABLET PO SCH (11:11)
[2017-09-12] MEDS: FENOFIBRATE NANOCRYSTALLIZED 48 MG TABLET NG SCH (11:12)
--- NOTE | 2017-09-12 16:20 | PDOC PROGRESS REPORT ---
Subjective Subjective:: I seen patient propped up in bed. She is awake alert conversant and playful. She is good for transfer out of ICU to medical floor. Reason For Visit: ACUTE KIDNEY INJURY Physical Exam Vital Signs: Temp Pulse Resp BP Pulse Ox 97.7 F 58 L 19 127/49 H 94 09/12/17 14:00 09/12/17 14:00 09/12/17 16:04 09/12/17 16:04 09/12/17 16:04 Intake & Output 09/11/17 09/12/17 09/13/17 06:59 06:59 06:59 Intake Total 2142 2130 220 Output Total 4945 2610 750 Balance -2803 -480 -530 Weight 130.6 kg 131.8 kg General appearance: PRESENT: no acute distress Head exam: PRESENT: atraumatic Eye exam: PRESENT: conjunctiva pink Mouth exam: PRESENT: moist Neck exam: ABSENT: carotid bruit, JVD, lymphadenopathy, thyromegaly Respiratory exam: PRESENT: clear to auscultation compa. ABSENT: rales, rhonchi, wheezes Cardiovascular exam: PRESENT: RRR. ABSENT: diastolic murmur, rubs, systolic murmur GI/Abdominal exam: PRESENT: normal bowel sounds, soft. ABSENT: distended, guarding, mass, organolmegaly, rebound, tenderness Extremities exam: PRESENT: full ROM. ABSENT: calf tenderness, clubbing, pedal edema Neurological exam: PRESENT: alert, awake Psychiatric exam: PRESENT: normal mood Results Laboratory Results: 09/12/17 04:00 09/12/17 04:00 09/11/17 09/12/17 09/12/17 20:45 04:00 04:00 WBC 10.5 RBC 3.95 Hgb 11.1 L Hct 34.3 L MCV 87 MCH 28.2 MCHC 32.5 RDW 15.4 H Plt Count 150 Seg Neutrophils % 77.5 Lymphocytes % 15.4 Monocytes % 4.5 Eosinophils % 2.1 Basophils % 0.5 Absolute Neutrophils 8.1 Absolute Lymphocytes 1.6 Absolute Monocytes 0.5 Absolute Eosinophils 0.2 Absolute Basophils 0.1 Carbonic Acid HCO3/H2CO3 Ratio ABG pH ABG pCO2 ABG pO2 ABG HCO3 ABG O2 Saturation ABG Base Excess FiO2 Sodium 142.0 139.8 Potassium 3.1 L 3.3 L Chloride 98 95 L Carbon Dioxide 38 H 38 H Anion Gap 6 7 BUN 17 19 Creatinine 0.58 0.66 Est GFR ( Amer) > 60 > 60 Est GFR (Non-Af Amer) > 60 > 60 Glucose 275 H 377 H Calcium 8.7 8.3 L Phosphorus 3.0 Magnesium 1.8 Total Bilirubin 0.8 AST 50 H ALT 43 Alkaline Phosphatase 457 H Total Protein 6.1 L Albumin 2.7 L 09/12/17 05:00 WBC RBC Hgb Hct MCV MCH MCHC RDW Plt Count Seg Neutrophils % Lymphocytes % Monocytes % Eosinophils % Basophils % Absolute Neutrophils Absolute Lymphocytes Absolute Monocytes Absolute Eosinophils Absolute Basophils Carbonic Acid 1.58 H HCO3/H2CO3 Ratio 23:1 ABG pH 7.46 H ABG pCO2 52.4 H ABG pO2 72.9 L ABG HCO3 36.7 H ABG O2 Saturation 95.2 ABG Base Excess 11.2 FiO2 40 Sodium Potassium Chloride Carbon Dioxide Anion Gap BUN Creatinine Est GFR ( Amer) Est GFR (Non-Af Amer) Glucose Calcium Phosphorus Magnesium Total Bilirubin AST ALT Alkaline Phosphatase Total Protein Albumin 09/03/17 09/07/17 09/11/17 18:15 06:25 09:15 Creatine Kinase 82 CK-MB (CK-2) Troponin I NT-Pro-B Natriuret Pep 782 4140 H 09/11/17 09:15 Creatine Kinase CK-MB (CK-2) 1.30 Troponin I 0.016 NT-Pro-B Natriuret Pep Impressions: Abdomen/Pelvis CT 08/30/17 14:09 IMPRESSION: NO SIGNIFICANT OR ACUTE PROCESS IN THE ABDOMEN OR PELVIS. Head CT 09/02/17 00:00 IMPRESSION: No acute intracranial abnormality. Chest/Abdomen CTA 09/06/17 00:00 IMPRESSION: No pulmonary emboli. Diffuse parenchymal opacities predominantly upper lobe with bilateral pleural effusions. Chest X-Ray 09/12/17 06:00 IMPRESSION: No significant change. Assessment & Plan - Diagnosis (1) Hypokalemia Is this a current diagnosis for this admission?: Yes Plan: Improving (2) Hypernatremia Is this a current diagnosis for this admission?: Yes Plan: Resolved (3) Septic shock Is this a current diagnosis for this admission?: Yes Plan: Has resolved (4) Hypotension Is this a current diagnosis for this admission?: Yes Plan: Has resolved (5) Acute respiratory failure with hypoxia and hypercapnia Is this a current diagnosis for this admission?: Yes Plan: Resolving (6) Acute kidney injury Is this a current diagnosis for this admission?: Yes Plan: Has resolved (7) Type 2 diabetes mellitus Is this a current diagnosis for this admission?: Yes Plan: Patient has been running hyperglycemia ranging between 350 and 400. Patient has been started on Humalog 5 units ACS (8) Hyperlipidemia Qualifiers: Hyperlipidemia type: unspecified Qualified Code(s): E78.5 - Hyperlipidemia , unspecified Is this a current diagnosis for this admission?: Yes Plan: Continue her home medication. (9) Morbid obesity due to excess calories Is this a current diagnosis for this admission?: Yes Plan: Lifestyle modification advised (10) New onset a-fib Is this a current diagnosis for this admission?: Yes Plan: Resolved now patient is in sinus rhythm. Patient probably has paroxysmal A. fib.
[2017-09-12] MEDS: HYDRALAZINE HCL 50 MG TABLET PO SCH ×2 (16:38→21:27)
[2017-09-12] MEDS: ATORVASTATIN CALCIUM 40 MG TABLET NG SCH (21:27)
[2017-09-13] MEDS: IPRATROPIUM/ALBUTEROL 0.5-2.5 MG/3 ML AMPUL NEB SCH ×4 (01:23→20:36)
[2017-09-13 04:30] LABS: ANION GAP 8 (5-19); BLOOD UREA NITROGEN 19 mg/dL (7-20); CALCIUM 8.5 mg/dL (8.4-10.2); CARBON DIOXIDE 34 mmol/L (22-30); CHLORIDE 97 mmol/L (98-107); GLUCOSE 260 mg/dL (75-110); SODIUM 139.4 mmol/L (137-145)
[2017-09-13] MEDS: HYDRALAZINE HCL 50 MG TABLET PO SCH ×4 (06:57→21:45)
[2017-09-13] MEDS: LEVOTHYROXINE SODIUM 0.075 MG TABLET NG SCH (06:57)
[2017-09-13] MEDS: LEVOTHYROXINE SODIUM 0.1 MG TABLET NG SCH (06:57)
[2017-09-13] MEDS: GABAPENTIN 300 MG CAPSULE NG SCH (06:57)
[2017-09-13] MEDS: BACLOFEN 10 MG TABLET NG SCH (06:58)
[2017-09-13] MEDS: POTASSIUM CHLORIDE 10 MEQ CAPSULE.ER PO SCH ×3 (06:58→10:04)
[2017-09-13] MEDS: CEFTAZIDIME PENTAHYDRATE 1 GM in DEXTROSE 5%-WATER 50 ML IV SCH (06:58)
[2017-09-13] MEDS: HEPARIN SOD (PORCINE) 5,000 UNIT/ML 1 ML SYRINGE SUBCUT SCH ×3 (06:58→21:47)
[2017-09-13] MEDS: INSULIN LISPRO 100 UNIT/ML 3 ML VIAL SUBCUT PRN ×4 (08:46→22:11)
[2017-09-13] MEDS: ASPIRIN 81 MG TABLET, CHEWABLE NG SCH (09:00)
[2017-09-13] MEDS: METFORMIN HCL 500 MG TABLET PO SCH (09:00)
[2017-09-13] MEDS: LISINOPRIL 10 MG TABLET NG SCH (09:01)
[2017-09-13] MEDS: AMLODIPINE BESYLATE 10 MG TABLET PO SCH (09:01)
[2017-09-13] MEDS: FLUOXETINE HCL 20 MG CAPSULE NG SCH (09:02)
[2017-09-13] MEDS: GUAIFENESIN SYRP 200 MG/10 ML UDC PO SCH ×2 (09:03→21:32)
[2017-09-13] MEDS ORDERED: MAG HYDROX/AL HYDROX/SIMETH SUSP 30 ML UDCUP PO PRN (09:30)
[2017-09-13] MEDS ORDERED: DEXTROSE 40% GEL 15 GM TUBE PO PRN ×2 (09:30)
[2017-09-13] MEDS ORDERED: DIPHENHYDRAMINE HCL 25 MG CAPSULE PO PRN (09:30)
[2017-09-13] MEDS: ACETAMINOPHEN SOLN 325 MG/10.15 ML UDCUP PO PRN ×2 (10:02→21:29)
[2017-09-13] MEDS: ASPIRIN 81 MG TABLET, CHEWABLE PO SCH (10:14)
[2017-09-13] MEDS: FLUOXETINE HCL 20 MG CAPSULE PO SCH (10:14)
[2017-09-13] MEDS: LISINOPRIL 10 MG TABLET PO SCH (10:14)
[2017-09-13] MEDS ORDERED: LEVETIRACETAM 500 MG TABLET PO ONE (10:30)
[2017-09-13] MEDS: FENOFIBRATE NANOCRYSTALLIZED 48 MG TABLET PO SCH (11:14)
[2017-09-13 12:54] LABS: VANCOMYCIN,TROUGH 15.3 ug/mL (5.0-20.0)
[2017-09-13] MEDS: GABAPENTIN 300 MG CAPSULE PO SCH ×2 (13:37→21:36)
--- NOTE | 2017-09-13 17:49 | PDOC PROGRESS REPORT ---
Subjective Subjective:: This is a 56 years old female patient admitted for acute kidney injury most probably secondary to prerenal azotemia due to frequent watery diarrhea. On the third day of her admission at about 5 PM patient become unresponsive and her O2 saturation is in the lower 70s. Her ABG shows mixed metabolic and respiratory acidosis with pH of 7.22 PCO2 46 and PO2 of 59 and bicarb of 18. Blood pressure is the lower 80s patient is barely responsive to noxious stimuli. Patient puts on nonrebreather and her O2 saturation picked up to 94%. Since patient is not able to protect her airway and severely hypotensive she was intubated emergently and transferred to the ICU. CTA of the chest is negative for PE. Her blood and urine culture grew Salmonella which is pansensitive. Patient was treated with ceftriaxone related to cefepime and ceftazidime. As you patient started on Levophed and aggressively treated with fluids. Her blood pressure normalized and she is taken off the pressors and sedation gradually. Currently patient is extubated and awaiting transfer to the IMCU. Reason For Visit: ACUTE KIDNEY INJURY Physical Exam Vital Signs: Temp Pulse Resp BP Pulse Ox 98.1 F 60 19 125/76 94 09/13/17 12:00 09/13/17 13:28 09/13/17 14:05 09/13/17 14:05 09/13/17 14:05 Intake & Output 09/12/17 09/13/17 09/14/17 06:59 06:59 06:59 Intake Total 2130 720 350 Output Total 2610 1425 575 Balance -480 -705 -225 Weight 131.8 kg 131.9 kg General appearance: PRESENT: no acute distress Eye exam: PRESENT: conjunctiva pink Mouth exam: PRESENT: moist Neck exam: ABSENT: carotid bruit, JVD, lymphadenopathy, thyromegaly Respiratory exam: PRESENT: clear to auscultation compa. ABSENT: rales, rhonchi, wheezes Cardiovascular exam: PRESENT: RRR. ABSENT: diastolic murmur, rubs, systolic murmur GI/Abdominal exam: PRESENT: normal bowel sounds, soft. ABSENT: distended, guarding, mass, organolmegaly, rebound, tenderness Neurological exam: PRESENT: alert, awake Results Laboratory Results: 09/12/17 04:00 09/13/17 04:04 09/13/17 04:04 Sodium 139.4 Potassium 3.0 L* Chloride 97 L Carbon Dioxide 34 H Anion Gap 8 BUN 19 Creatinine 0.69 Est GFR ( Amer) > 60 Est GFR (Non-Af Amer) > 60 Glucose 260 H Calcium 8.5 09/03/17 09/07/17 09/11/17 18:15 06:25 09:15 Creatine Kinase 82 CK-MB (CK-2) Troponin I NT-Pro-B Natriuret Pep 782 4140 H 09/11/17 09:15 Creatine Kinase CK-MB (CK-2) 1.30 Troponin I 0.016 NT-Pro-B Natriuret Pep Impressions: Abdomen/Pelvis CT 08/30/17 14:09 IMPRESSION: NO SIGNIFICANT OR ACUTE PROCESS IN THE ABDOMEN OR PELVIS. Head CT 09/02/17 00:00 IMPRESSION: No acute intracranial abnormality. Chest/Abdomen CTA 09/06/17 00:00 IMPRESSION: No pulmonary emboli. Diffuse parenchymal opacities predominantly upper lobe with bilateral pleural effusions. Chest X-Ray 09/12/17 06:00 IMPRESSION: No significant change. Assessment & Plan - Diagnosis (1) Hypokalemia Is this a current diagnosis for this admission?: Yes Plan: Improving (2) Hypernatremia Is this a current diagnosis for this admission?: Yes Plan: Resolved (3) Septic shock Is this a current diagnosis for this admission?: Yes Plan: Has resolved (4) Hypotension Is this a current diagnosis for this admission?: Yes Plan: Has resolved (5) Acute respiratory failure with hypoxia and hypercapnia Is this a current diagnosis for this admission?: Yes Plan: Resolving (6) Acute kidney injury Is this a current diagnosis for this admission?: Yes Plan: Has resolved (7) Type 2 diabetes mellitus Is this a current diagnosis for this admission?: Yes Plan: Patient has been running hyperglycemia ranging between 350 and 400. Patient has been started on Humalog 5 units ACS (8) Hyperlipidemia Qualifiers: Hyperlipidemia type: unspecified Qualified Code(s): E78.5 - Hyperlipidemia , unspecified Is this a current diagnosis for this admission?: Yes Plan: Continue her home medication. (9) Morbid obesity due to excess calories Is this a current diagnosis for this admission?: Yes Plan: Lifestyle modification advised (10) New onset a-fib Is this a current diagnosis for this admission?: Yes Plan: Resolved now patient is in sinus rhythm. Patient probably has paroxysmal A. fib.
[2017-09-13] MEDS: BACLOFEN 10 MG TABLET PO SCH (18:19)
[2017-09-13] MEDS: LEVETIRACETAM 500 MG TABLET PO SCH (21:38)
[2017-09-13] MEDS: ATORVASTATIN CALCIUM 40 MG TABLET PO SCH (21:38)
[2017-09-14] MEDS: IPRATROPIUM/ALBUTEROL 0.5-2.5 MG/3 ML AMPUL NEB SCH ×4 (02:07→19:55)
[2017-09-14 04:37] LABS: ABSOLUTE BASOPHILS # (AUTO) 0.1 10^3/uL (0.0-0.2); ABSOLUTE EOSINOPHILS # (AUTO) 0.2 10^3/uL (0.0-0.6); ABSOLUTE MONOCYTES (AUTO) 0.5 10^3/uL (0.1-1.4); ABSOLUTE NEUT (AUTO) 5.7 10^3/uL (1.7-8.2); EOSINOPHILS % (AUTO) 1.8 % (0-6); HEMATOCRIT 31.8 % (36.0-47.0); HEMOGLOBIN 10.5 g/dL (12.0-15.5); LYMPHOCYTES % (AUTO) 23.5 % (13-45); MEAN CORPUSCULAR HEMOGLOBIN 28.7 pg (27.0-33.4); MEAN CORPUSCULAR VOLUME 87 fl (80-97); PLATELET COUNT 158 10^3/uL (150-450); RED BLOOD COUNT 3.66 10^6/uL (3.72-5.28); RED CELL DISTRIBUTION WIDTH 15.7 % (11.5-14.0); SEGMENTED NEUTROPHILS % (AUTO) 67.7 % (42-78); TOTAL CELLS COUNTED % (AUTO) 100 %; WHITE BLOOD COUNT 8.5 10^3/uL (4.0-10.5)
[2017-09-14 04:47] LABS: ANION GAP 10 (5-19); BLOOD UREA NITROGEN 23 mg/dL (7-20); CALCIUM 8.8 mg/dL (8.4-10.2); CARBON DIOXIDE 31 mmol/L (22-30); CHLORIDE 100 mmol/L (98-107); GLUCOSE 316 mg/dL (75-110); PHOSPHORUS 4.3 mg/dL (2.5-4.5); POTASSIUM 3.7 mmol/L (3.6-5.0); SODIUM 141.4 mmol/L (137-145)
[2017-09-14 05:16] LABS: ARTERIAL BLOOD BASE EXCESS 8.3 mmol/L; ARTERIAL BLOOD FIO2 40%; ARTERIAL BLOOD H2CO3 1.57 mmol/L (1.05-1.35); ARTERIAL BLOOD HCO3 33.9 mmol/L (20-26); ARTERIAL BLOOD O2 SATURATION 98.5 % (94-98); ARTERIAL BLOOD PH 7.43 (7.35-7.45); ARTERIAL BLOOD TOTAL CO2 35.5 mmol/L (21-25)
[2017-09-14] MEDS: BACLOFEN 10 MG TABLET PO SCH ×4 (05:19→21:43)
[2017-09-14] MEDS: GABAPENTIN 300 MG CAPSULE PO SCH ×3 (05:20→21:34)
[2017-09-14] MEDS: HYDRALAZINE HCL 50 MG TABLET PO SCH ×3 (05:20→21:33)
[2017-09-14] MEDS: LEVOTHYROXINE SODIUM 0.075 MG TABLET PO SCH (05:21)
[2017-09-14] MEDS: LEVOTHYROXINE SODIUM 0.1 MG TABLET PO SCH (05:21)
[2017-09-14] MEDS: HEPARIN SOD (PORCINE) 5,000 UNIT/ML 1 ML SYRINGE SUBCUT SCH ×3 (05:26→21:35)
--- NOTE | 2017-09-14 07:41 | RADIOLOGY REPORT (SQ) ---
EXAM DESCRIPTION: XR CHEST 1 VIEW COMPLETED DATE/TME: 09/14/2017 06:00 CLINICAL HISTORY: 56 years Female, pna COMPARISON: 2 days prior. NUMBER OF VIEWS/TECHNIQUE: 1/AP FINDINGS: Small left lower lobar retrocardiac patchy opacity, mild central edema pattern, prominent cardiac silhouette. No pneumothorax. No acute bone defect. IMPRESSION: No significant change.
[2017-09-14] MEDS: INSULIN LISPRO 100 UNIT/ML 3 ML VIAL SUBCUT PRN ×4 (08:32→23:51)
[2017-09-14] MEDS: METFORMIN HCL 500 MG TABLET PO SCH ×2 (09:59→18:01)
[2017-09-14] MEDS: ASPIRIN 81 MG TABLET, CHEWABLE PO SCH (10:00)
[2017-09-14] MEDS: LEVETIRACETAM 500 MG TABLET PO SCH ×2 (10:00→21:34)
[2017-09-14] MEDS: GUAIFENESIN SYRP 200 MG/10 ML UDC PO SCH ×2 (10:01→21:32)
[2017-09-14] MEDS: AMLODIPINE BESYLATE 10 MG TABLET PO SCH (10:01)
[2017-09-14] MEDS: FLUOXETINE HCL 20 MG CAPSULE PO SCH (10:02)
[2017-09-14] MEDS: LISINOPRIL 10 MG TABLET PO SCH (10:06)
[2017-09-14] MEDS: FENOFIBRATE NANOCRYSTALLIZED 48 MG TABLET PO SCH (10:06)
--- NOTE | 2017-09-14 11:04 | PDOC PROGRESS REPORT ---
Subjective Progress Note for:: 09/14/17 Subjective:: Stable Reason For Visit: ACUTE KIDNEY INJURY Physical Exam Vital Signs: Temp Pulse Resp BP Pulse Ox 97.0 F 58 L 13 139/60 H 98 09/14/17 04:00 09/14/17 02:08 09/14/17 04:09 09/14/17 04:09 09/14/17 04:09 Intake & Output 09/13/17 09/14/17 09/15/17 06:59 06:59 06:59 Intake Total 720 350 Output Total 1425 1575 Balance -705 -1225 Weight 131.9 kg 132.1 kg General appearance: PRESENT: no acute distress, well-developed, well-nourished Head exam: PRESENT: atraumatic, normocephalic Eye exam: PRESENT: conjunctiva pink, EOMI, PERRLA. ABSENT: scleral icterus Ear exam: PRESENT: normal external ear exam Mouth exam: PRESENT: moist, tongue midline Neck exam: ABSENT: carotid bruit, JVD, lymphadenopathy, thyromegaly Respiratory exam: PRESENT: clear to auscultation compa. ABSENT: rales, rhonchi, wheezes Cardiovascular exam: PRESENT: RRR. ABSENT: diastolic murmur, rubs, systolic murmur Pulses: PRESENT: normal dorsalis pedis pul Vascular exam: PRESENT: normal capillary refill GI/Abdominal exam: PRESENT: normal bowel sounds, soft. ABSENT: distended, guarding, mass, organolmegaly, rebound, tenderness Extremities exam: PRESENT: full ROM. ABSENT: calf tenderness, clubbing, pedal edema Neurological exam: PRESENT: alert, awake, oriented to person, oriented to place , oriented to time, oriented to situation, CN II-XII grossly intact. ABSENT: motor sensory deficit Psychiatric exam: PRESENT: appropriate affect, normal mood. ABSENT: homicidal ideation, suicidal ideation Skin exam: PRESENT: dry, intact, warm. ABSENT: cyanosis, rash Results Laboratory Results: 09/14/17 04:06 09/14/17 04:06 09/14/17 09/14/17 09/14/17 04:06 04:06 04:45 WBC 8.5 RBC 3.66 L Hgb 10.5 L Hct 31.8 L MCV 87 MCH 28.7 MCHC 33.0 RDW 15.7 H Plt Count 158 Seg Neutrophils % 67.7 Lymphocytes % 23.5 Monocytes % 6.0 Eosinophils % 1.8 Basophils % 1.0 Absolute Neutrophils 5.7 Absolute Lymphocytes 2.0 Absolute Monocytes 0.5 Absolute Eosinophils 0.2 Absolute Basophils 0.1 Carbonic Acid 1.57 H HCO3/H2CO3 Ratio 21:1 ABG pH 7.43 ABG pCO2 52.0 H ABG pO2 123.0 H ABG HCO3 33.9 H ABG O2 Saturation 98.5 H ABG Base Excess 8.3 FiO2 40% Sodium 141.4 Potassium 3.7 Chloride 100 Carbon Dioxide 31 H Anion Gap 10 BUN 23 H Creatinine 0.83 Est GFR ( Amer) > 60 Est GFR (Non-Af Amer) > 60 Glucose 316 H Calcium 8.8 Phosphorus 4.3 Magnesium 1.7 09/03/17 09/07/17 09/11/17 18:15 06:25 09:15 Creatine Kinase 82 CK-MB (CK-2) Troponin I NT-Pro-B Natriuret Pep 782 4140 H 09/11/17 09:15 Creatine Kinase CK-MB (CK-2) 1.30 Troponin I 0.016 NT-Pro-B Natriuret Pep Impressions: Abdomen/Pelvis CT 08/30/17 14:09 IMPRESSION: NO SIGNIFICANT OR ACUTE PROCESS IN THE ABDOMEN OR PELVIS. Head CT 09/02/17 00:00 IMPRESSION: No acute intracranial abnormality. Chest/Abdomen CTA 09/06/17 00:00 IMPRESSION: No pulmonary emboli. Diffuse parenchymal opacities predominantly upper lobe with bilateral pleural effusions. Chest X-Ray 09/12/17 06:00 IMPRESSION: No significant change. Assessment & Plan - Diagnosis (1) Acute kidney injury Is this a current diagnosis for this admission?: No (2) Acute respiratory failure with hypoxia and hypercapnia Is this a current diagnosis for this admission?: No (3) Morbid obesity due to excess calories Is this a current diagnosis for this admission?: Yes (4) Septic shock Is this a current diagnosis for this admission?: Yes Plan: Resolved (5) Obesity hypoventilation syndrome Is this a current diagnosis for this admission?: Yes Plan: FVC 40% FEV1 43% The above patient has failed BiPAP. This patient would benefit from noninvasive mechanical ventilation via the trilogy AVAPS/AE and faster responding AVAPS rates. The trilogy is able to provide a target tidal volume and also adjusting the EPAP pressures to maintain a patent airway as well as an oral backup rate this machine will help improve PaCO2 levels. The severity of the patient's condition will lead to future hospitalizations and readmissions as well as life-threatening situations without the use of this device trilogy home vent needed for hypercapnic respiratory failure[facility]
--- NOTE | 2017-09-14 13:18 | PDOC PROGRESS REPORT ---
Subjective Progress Note for:: 09/14/17 - seen on rounds this morning Subjective:: states she's feeling much better today- denies any acute symptoms Reason For Visit: ACUTE KIDNEY INJURY Physical Exam Vital Signs: Temp Pulse Resp BP Pulse Ox 97.5 F 65 18 141/57 H 92 09/14/17 08:00 09/14/17 08:00 09/14/17 08:00 09/14/17 08:00 09/14/17 08:00 Intake & Output 09/13/17 09/14/17 09/15/17 06:59 06:59 06:59 Intake Total 720 350 Output Total 1425 1575 Balance -705 -1225 Weight 290 lb 12.635 oz 291 lb 3.69 oz General appearance: PRESENT: no acute distress, morbidly obese Head exam: PRESENT: atraumatic, normocephalic Eye exam: PRESENT: EOMI, PERRLA. ABSENT: conjunctival injection Mouth exam: PRESENT: moist Neck exam: ABSENT: tracheal deviation Respiratory exam: PRESENT: clear to auscultation compa, decreased breath sounds - bilaterally mostly at the bases and with occasional expiratory wheezing, symmetrical. ABSENT: chest wall tenderness Cardiovascular exam: PRESENT: +S1, +S2 Pulses: PRESENT: +2 pedal pulses bilateral GI/Abdominal exam: PRESENT: normal bowel sounds, soft. ABSENT: tenderness Extremities exam: ABSENT: +2 edema Neurological exam: PRESENT: alert, awake, oriented to person, oriented to place , oriented to time, CN II-XII grossly intact Skin exam: PRESENT: dry, warm Results Laboratory Results: 09/14/17 04:06 09/14/17 04:06 09/14/17 09/14/17 09/14/17 04:06 04:06 04:45 WBC 8.5 RBC 3.66 L Hgb 10.5 L Hct 31.8 L MCV 87 MCH 28.7 MCHC 33.0 RDW 15.7 H Plt Count 158 Seg Neutrophils % 67.7 Lymphocytes % 23.5 Monocytes % 6.0 Eosinophils % 1.8 Basophils % 1.0 Absolute Neutrophils 5.7 Absolute Lymphocytes 2.0 Absolute Monocytes 0.5 Absolute Eosinophils 0.2 Absolute Basophils 0.1 Carbonic Acid 1.57 H HCO3/H2CO3 Ratio 21:1 ABG pH 7.43 ABG pCO2 52.0 H ABG pO2 123.0 H ABG HCO3 33.9 H ABG O2 Saturation 98.5 H ABG Base Excess 8.3 FiO2 40% Sodium 141.4 Potassium 3.7 Chloride 100 Carbon Dioxide 31 H Anion Gap 10 BUN 23 H Creatinine 0.83 Est GFR ( Amer) > 60 Est GFR (Non-Af Amer) > 60 Glucose 316 H Calcium 8.8 Phosphorus 4.3 Magnesium 1.7 09/03/17 09/07/17 09/11/17 18:15 06:25 09:15 Creatine Kinase 82 CK-MB (CK-2) Troponin I NT-Pro-B Natriuret Pep 782 4140 H 09/11/17 09:15 Creatine Kinase CK-MB (CK-2) 1.30 Troponin I 0.016 NT-Pro-B Natriuret Pep Impressions: Abdomen/Pelvis CT 08/30/17 14:09 IMPRESSION: NO SIGNIFICANT OR ACUTE PROCESS IN THE ABDOMEN OR PELVIS. Head CT 09/02/17 00:00 IMPRESSION: No acute intracranial abnormality. Chest/Abdomen CTA 09/06/17 00:00 IMPRESSION: No pulmonary emboli. Diffuse parenchymal opacities predominantly upper lobe with bilateral pleural effusions. Chest X-Ray 09/14/17 06:00 IMPRESSION: No significant change. Assessment & Plan - Diagnosis (2) Acute kidney injury Is this a current diagnosis for this admission?: Yes (3) Acute respiratory failure with hypoxia and hypercapnia Is this a current diagnosis for this admission?: Yes (4) Hypokalemia Is this a current diagnosis for this admission?: Yes - Time Total Critical Time (Minutes): 55 - round on patients this morning and spoke with ICU attending about patient Anticipated discharge: Acute Rehab Within: when bed available - Plan Summary Plan Summary: Salmonella bacteremia- repeat blood cultures negative. currently on Rocephin. Will transition her to Cipro PO if needed. she will need 2 weeks of antibiotics. Spoke with ICU attending today- given that she has salmonella bacteremia- will order ECHO and CT abdo/pelvis with IV contrast to rule out any vascular pathology. she's doing much better now- I will downgrade her today to MICU floor. RENE - resolved Acute resp failure with hypoxia and hypercapnia- unclear etiology- she does have a history of COPD- i am wondering if this acute COPD exacerbation or not. currently on 3L NC- spoke with nursing to wean O2 to SaO2 >89%. She has obesity and might have underlying chronic respiratory failure due to obesity hypoventilation syndrome- currently she's on CPAP at night. she tells me she had O2 ordered for her many years ago but hasn't use it in recent time. Disposition- she will be going to rehab when bed is ready- nursing tells me that bed will not bed ready until next week.
[2017-09-14] MEDS: CEFTRIAXONE 2 GM/D5W RTU 2 GM/50 ML RTUPB IV SCH ×2 (17:52)
[2017-09-14] MEDS: ATORVASTATIN CALCIUM 40 MG TABLET PO SCH (21:33)
[2017-09-14] MEDS: LOPERAMIDE HCL 2 MG CAPSULE PO PRN (21:34)
[2017-09-15] MEDS: IPRATROPIUM/ALBUTEROL 0.5-2.5 MG/3 ML AMPUL NEB SCH ×3 (01:37→20:26)
--- NOTE | 2017-09-15 01:41 | RADIOLOGY REPORT (SQ) ---
EXAM DESCRIPTION: CT ABDOMEN PELVIS WITH IV CONTRAST COMPLETED DATE/TME: 09/15/2017 00:00 CLINICAL HISTORY: 56 years Female, salmonella bacteremia Comparison: CR, one day prior. Technique: IV contrast. Coronal and sagittal reformat. This exam was performed according to our departmental dose-optimization program, which includes automated exposure control, adjustment of the mA and/or kV according to patient size and/or use of iterative reconstruction technique. [facility]: Dose Right [facility]: CareDose [facility]: Dose Right [facility]: Teradose 4D [facility]: [employer] LIMITATIONS: None Findings: Calcification associated with the mitral valve. Small bibasilar patchy lung opacities partially imaged. Small pericardial fluid. No appendicitis. Appendectomy. Small subcutaneous edema of the right paracentral abdominal pelvic wall may indicate injection sequelae. Gamble bulb. Small left upper renal cortical scar/developed slit. Mild lower thoracic disc desiccation. No ascites. Inferior thorax, liver, cholecystectomy, Pancreas, mild splenomegaly, adrenals, renal system, gastrointestinal tract, pelvic organs, lymphatics, vasculature, and musculoskeleton appear otherwise unremarkable. IMPRESSION: 1. Bilateral lower lobar pneumonia partially imaged. 2. Mild splenomegaly.
[2017-09-15 05:17] LABS: ABSOLUTE BASOPHILS # (AUTO) 0.1 10^3/uL (0.0-0.2); ABSOLUTE EOSINOPHILS # (AUTO) 0.1 10^3/uL (0.0-0.6); ABSOLUTE LYMPHOCYTES (AUTO) 1.9 10^3/uL (0.5-4.7); ABSOLUTE MONOCYTES (AUTO) 0.4 10^3/uL (0.1-1.4); ABSOLUTE NEUT (AUTO) 5.6 10^3/uL (1.7-8.2); EOSINOPHILS % (AUTO) 1.4 % (0-6); HEMATOCRIT 31.8 % (36.0-47.0); HEMOGLOBIN 10.3 g/dL (12.0-15.5); LYMPHOCYTES % (AUTO) 23.8 % (13-45); MEAN CORPUSCULAR HEMOGLOBIN 28.1 pg (27.0-33.4); MEAN CORPUSCULAR HGB CONC 32.4 g/dL (32.0-36.0); MEAN CORPUSCULAR VOLUME 87 fl (80-97); MONOCYTES % (AUTO) 5.2 % (3-13); PLATELET COUNT 210 10^3/uL (150-450); RED BLOOD COUNT 3.67 10^6/uL (3.72-5.28); RED CELL DISTRIBUTION WIDTH 16.1 % (11.5-14.0); SEGMENTED NEUTROPHILS % (AUTO) 68.6 % (42-78); TOTAL CELLS COUNTED % (AUTO) 100 %; WHITE BLOOD COUNT 8.1 10^3/uL (4.0-10.5)
[2017-09-15 05:37] LABS: ANION GAP 10 (5-19); BLOOD UREA NITROGEN 19 mg/dL (7-20); CALCIUM 8.9 mg/dL (8.4-10.2); CARBON DIOXIDE 32 mmol/L (22-30); CHLORIDE 99 mmol/L (98-107); GLUCOSE 264 mg/dL (75-110); POTASSIUM 3.5 mmol/L (3.6-5.0); SODIUM 140.7 mmol/L (137-145)
[2017-09-15 05:49] LABS: ARTERIAL BLOOD BASE EXCESS 5.7 mmol/L; ARTERIAL BLOOD H2CO3 1.59 mmol/L (1.05-1.35); ARTERIAL BLOOD HCO3 31.7 mmol/L (20-26); ARTERIAL BLOOD O2 SATURATION 95.6 % (94-98); ARTERIAL BLOOD PCO2 52.9 mmHg (35-45); ARTERIAL BLOOD PO2 80.4 mmHg (80-100); ARTERIAL BLOOD TOTAL CO2 33.3 mmol/L (21-25)
[2017-09-15 05:50] LABS: ARTERIAL BLOOD FIO2 35%
[2017-09-15] MEDS: HYDRALAZINE HCL 50 MG TABLET PO SCH (06:00)
[2017-09-15] MEDS: LEVOTHYROXINE SODIUM 0.1 MG TABLET PO SCH (06:01)
[2017-09-15] MEDS: LEVOTHYROXINE SODIUM 0.075 MG TABLET PO SCH (06:01)
[2017-09-15] MEDS: GABAPENTIN 300 MG CAPSULE PO SCH ×3 (06:02→22:55)
[2017-09-15] MEDS: HEPARIN SOD (PORCINE) 5,000 UNIT/ML 1 ML SYRINGE SUBCUT SCH ×3 (06:02→22:56)
[2017-09-15] MEDS: BACLOFEN 10 MG TABLET PO SCH ×3 (06:10→22:43)
[2017-09-15] MEDS: INSULIN LISPRO 100 UNIT/ML 3 ML VIAL SUBCUT PRN ×3 (08:45→18:12)
--- NOTE | 2017-09-15 08:57 | RADIOLOGY REPORT (SQ) ---
EXAM DESCRIPTION: CHEST SINGLE VIEW COMPLETED DATE/TIME: 09/15/2017 8:11 am REASON FOR STUDY: pna COMPARISON: 09/14/2017. 09/12/2017. EXAM PARAMETERS: NUMBER OF VIEWS: One view. TECHNIQUE: Single frontal radiographic view of the chest acquired. RADIATION DOSE: NA LIMITATIONS: None. FINDINGS: LUNGS AND PLEURA: Left basilar discoid atelectasis. MEDIASTINUM AND HILAR STRUCTURES: No masses. Contour normal. HEART AND VASCULAR STRUCTURES: Borderline cardiac size. BONES: No acute findings. HARDWARE: None in the chest. OTHER: Chest leads in place. IMPRESSION: No significant interval change. TECHNICAL DOCUMENTATION: JOB ID: [id number] [employer]- All Rights Reserved Reading location - IP/workstation name: [email or web address]
[2017-09-15] MEDS ORDERED: ACETAMINOPHEN 325 MG TABLET PO PRN (09:10)
[2017-09-15] MEDS ORDERED: OXYCODONE-ACETAMINOPHEN 5-325 MG TABLET PO PRN (09:11)
[2017-09-15] MEDS: METFORMIN HCL 500 MG TABLET PO SCH ×2 (09:32→18:10)
[2017-09-15] MEDS: FLUOXETINE HCL 20 MG CAPSULE PO SCH (09:32)
[2017-09-15] MEDS: LEVETIRACETAM 500 MG TABLET PO SCH ×2 (09:33→22:56)
[2017-09-15] MEDS: GUAIFENESIN SYRP 200 MG/10 ML UDC PO SCH ×2 (09:33→22:59)
[2017-09-15] MEDS: FENOFIBRATE NANOCRYSTALLIZED 48 MG TABLET PO SCH (09:33)
[2017-09-15] MEDS: ASPIRIN 81 MG TABLET, CHEWABLE PO SCH (09:33)
[2017-09-15] MEDS: INSULIN GLARGINE,HUM.REC.ANLOG 1,000 UNIT/10 ML UNIT SUBCUT SCH ×2 (09:42→22:48)
[2017-09-15] MEDS: LISINOPRIL 10 MG TABLET PO SCH (09:49)
[2017-09-15] MEDS: AMLODIPINE BESYLATE 10 MG TABLET PO SCH (09:50)
[2017-09-15] MEDS ORDERED: HYDRALAZINE HCL 50 MG TABLET PO SCH (10:15)
[2017-09-15] MEDS: HYDRALAZINE HCL 25 MG TABLET PO SCH ×2 (11:56→22:56)
--- NOTE | 2017-09-15 14:10 | PDOC PROGRESS REPORT ---
Subjective Progress Note for:: 09/15/17 Subjective:: states her back hurts but otherwise feels alright Reason For Visit: ACUTE KIDNEY INJURY Physical Exam Vital Signs: Temp Pulse Resp BP Pulse Ox 98.0 F 62 16 125/51 L 93 09/15/17 11:13 09/15/17 11:13 09/15/17 11:13 09/15/17 11:13 09/15/17 11:13 Intake & Output 09/14/17 09/15/17 09/16/17 06:59 06:59 06:59 Intake Total 350 1555 655 Output Total 1575 450 400 Balance -1225 1105 255 Weight 291 lb 3.69 oz 292 lb 1.8 oz General appearance: PRESENT: no acute distress, morbidly obese Head exam: PRESENT: atraumatic, normocephalic Eye exam: PRESENT: EOMI, PERRLA. ABSENT: scleral icterus Mouth exam: PRESENT: moist, neck supple, tongue midline Neck exam: ABSENT: tracheal deviation Respiratory exam: PRESENT: decreased breath sounds - bilaterally with occasional expiratory wheezing with some rhonchi, rhonchi, symmetrical, wheezes Pulses: PRESENT: +2 pedal pulses bilateral GI/Abdominal exam: PRESENT: normal bowel sounds, soft. ABSENT: tenderness Extremities exam: ABSENT: +2 edema Neurological exam: PRESENT: alert, oriented to person, oriented to place, oriented to time, oriented to situation, CN II-XII grossly intact Skin exam: PRESENT: dry, warm Results Laboratory Results: 09/15/17 04:12 09/15/17 04:12 09/15/17 09/15/17 09/15/17 04:12 04:12 05:44 WBC 8.1 RBC 3.67 L Hgb 10.3 L Hct 31.8 L MCV 87 MCH 28.1 MCHC 32.4 RDW 16.1 H Plt Count 210 Seg Neutrophils % 68.6 Lymphocytes % 23.8 Monocytes % 5.2 Eosinophils % 1.4 Basophils % 1.0 Absolute Neutrophils 5.6 Absolute Lymphocytes 1.9 Absolute Monocytes 0.4 Absolute Eosinophils 0.1 Absolute Basophils 0.1 Carbonic Acid 1.59 H HCO3/H2CO3 Ratio 19:1 ABG pH 7.40 ABG pCO2 52.9 H ABG pO2 80.4 ABG HCO3 31.7 H ABG O2 Saturation 95.6 ABG Base Excess 5.7 FiO2 35% Sodium 140.7 Potassium 3.5 L Chloride 99 Carbon Dioxide 32 H Anion Gap 10 BUN 19 Creatinine 0.74 Est GFR ( Amer) > 60 Est GFR (Non-Af Amer) > 60 Glucose 264 H Calcium 8.9 Magnesium 1.6 09/03/17 09/07/17 09/11/17 18:15 06:25 09:15 Creatine Kinase 82 CK-MB (CK-2) Troponin I NT-Pro-B Natriuret Pep 782 4140 H 09/11/17 09:15 Creatine Kinase CK-MB (CK-2) 1.30 Troponin I 0.016 NT-Pro-B Natriuret Pep Impressions: Head CT 09/02/17 00:00 IMPRESSION: No acute intracranial abnormality. Chest/Abdomen CTA 09/06/17 00:00 IMPRESSION: No pulmonary emboli. Diffuse parenchymal opacities predominantly upper lobe with bilateral pleural effusions. Abdomen/Pelvis CT 09/15/17 00:00 IMPRESSION: 1. Bilateral lower lobar pneumonia partially imaged. 2. Mild splenomegaly. Chest X-Ray 09/15/17 06:00 IMPRESSION: No significant interval change. Assessment & Plan - Diagnosis (1) Salmonella bacteremia Is this a current diagnosis for this admission?: Yes Plan: c/w rocephin for now. will need antibiotics for 2 weeks atleast. (2) Acute kidney injury Is this a current diagnosis for this admission?: Yes Plan: resolved, stable (3) Acute respiratory failure with hypoxia and hypercapnia Is this a current diagnosis for this admission?: Yes Plan: history of COPD on baseline 2L O2 now. will change duoneb to BID dosing for now. (4) Hypokalemia Is this a current diagnosis for this admission?: Yes (5) Type 2 diabetes mellitus Qualifiers: Diabetes mellitus snf insulin use: without middle or intermediate school principal use Diabetes mellitus complication status: without complication Qualified Code(s): E11.9 - Type 2 diabetes mellitus without complications Is this a current diagnosis for this admission?: Yes Plan: initiated lantus today at her home dose
[2017-09-15] MEDS: CEFTRIAXONE 2 GM/D5W RTU 2 GM/50 ML RTUPB IV SCH (18:12)
[2017-09-15] MEDS: ATORVASTATIN CALCIUM 40 MG TABLET PO SCH (22:55)
[2017-09-16 05:29] LABS: ANION GAP 14 (5-19); BLOOD UREA NITROGEN 20 mg/dL (7-20); CALCIUM 9.1 mg/dL (8.4-10.2); CARBON DIOXIDE 28 mmol/L (22-30); CHLORIDE 99 mmol/L (98-107); GLUCOSE 221 mg/dL (75-110); POTASSIUM 3.7 mmol/L (3.6-5.0); SODIUM 140.9 mmol/L (137-145)
[2017-09-16] MEDS: BACLOFEN 10 MG TABLET PO SCH ×3 (06:54→22:34)
[2017-09-16] MEDS: HEPARIN SOD (PORCINE) 5,000 UNIT/ML 1 ML SYRINGE SUBCUT SCH ×3 (06:54→22:33)
[2017-09-16] MEDS: HYDRALAZINE HCL 25 MG TABLET PO SCH ×3 (06:55→22:38)
[2017-09-16] MEDS: GABAPENTIN 300 MG CAPSULE PO SCH ×3 (06:55→22:32)
[2017-09-16] MEDS: LEVOTHYROXINE SODIUM 0.075 MG TABLET PO SCH (06:55)
[2017-09-16] MEDS: LEVOTHYROXINE SODIUM 0.1 MG TABLET PO SCH (06:56)
[2017-09-16] MEDS: INSULIN LISPRO 100 UNIT/ML 3 ML VIAL SUBCUT PRN ×3 (08:32→18:57)
[2017-09-16] MEDS: INSULIN GLARGINE,HUM.REC.ANLOG 1,000 UNIT/10 ML UNIT SUBCUT SCH ×2 (08:32→22:31)
[2017-09-16] MEDS: IPRATROPIUM/ALBUTEROL 0.5-2.5 MG/3 ML AMPUL NEB SCH ×2 (09:18→20:30)
[2017-09-16] MEDS: FLUOXETINE HCL 20 MG CAPSULE PO SCH (09:30)
[2017-09-16] MEDS: LISINOPRIL 10 MG TABLET PO SCH (09:30)
[2017-09-16] MEDS: LEVETIRACETAM 500 MG TABLET PO SCH ×2 (09:31→22:37)
[2017-09-16] MEDS: METFORMIN HCL 500 MG TABLET PO SCH ×2 (09:31→18:56)
[2017-09-16] MEDS: GUAIFENESIN SYRP 200 MG/10 ML UDC PO SCH ×3 (09:31→22:32)
[2017-09-16] MEDS: AMLODIPINE BESYLATE 10 MG TABLET PO SCH (09:31)
[2017-09-16] MEDS: ASPIRIN 81 MG TABLET, CHEWABLE PO SCH (09:31)
[2017-09-16] MEDS: FENOFIBRATE NANOCRYSTALLIZED 48 MG TABLET PO SCH (09:33)
--- NOTE | 2017-09-16 13:52 | PDOC PROGRESS REPORT ---
Subjective Progress Note for:: 09/16/17 - Seen on rounds this morning Subjective:: She tells me that she is feeling well today. States her breathing is much better today. Discussed about rehab. She says she is agreeable. She did mention about going home but I discussed about her physical deconditioning due to being in the hospital for so long and she understands and agrees. I have contacted case management and they are working on short-term rehab. Here is interim history by previous provider This is a 56 years old female patient admitted for acute kidney injury most probably secondary to prerenal azotemia due to frequent watery diarrhea. On the third day of her admission at about 5 PM patient become unresponsive and her O2 saturation is in the lower 70s. Her ABG shows mixed metabolic and respiratory acidosis with pH of 7.22 PCO2 46 and PO2 of 59 and bicarb of 18. Blood pressure is the lower 80s patient is barely responsive to noxious stimuli. Patient puts on nonrebreather and her O2 saturation picked up to 94%. Since patient is not able to protect her airway and severely hypotensive she was intubated emergently and transferred to the ICU. CTA of the chest is negative for PE. Her blood and urine culture grew Salmonella which is pansensitive. Patient was treated with ceftriaxone related to cefepime and ceftazidime. As you patient started on Levophed and aggressively treated with fluids. Her blood pressure normalized and she is taken off the pressors and sedation gradually. Currently patient is extubated and awaiting transfer to the [facility]. Reason For Visit: ACUTE KIDNEY INJURY Physical Exam Vital Signs: Temp Pulse Resp BP Pulse Ox 98.5 F 69 15 118/47 L 95 09/16/17 11:16 09/16/17 11:16 09/16/17 11:16 09/16/17 11:16 09/16/17 11:16 Intake & Output 09/15/17 09/16/17 09/17/17 06:59 06:59 06:59 Intake Total 1555 1467 355 Output Total 450 825 225 Balance 1105 642 130 Weight 292 lb 1.8 oz 305 lb 12.498 oz General appearance: PRESENT: no acute distress, morbidly obese Head exam: PRESENT: atraumatic, normocephalic Eye exam: PRESENT: EOMI, PERRLA. ABSENT: scleral icterus Respiratory exam: PRESENT: clear to auscultation compa, decreased breath sounds - Bilaterally with no expiratory wheezing appreciated today, symmetrical Cardiovascular exam: PRESENT: +S1, +S2 Pulses: PRESENT: +2 pedal pulses bilateral Extremities exam: ABSENT: pedal edema Skin exam: PRESENT: dry, warm Results Laboratory Results: 09/15/17 04:12 09/16/17 04:10 09/16/17 04:10 Sodium 140.9 Potassium 3.7 Chloride 99 Carbon Dioxide 28 Anion Gap 14 BUN 20 Creatinine 0.88 Est GFR ( Amer) > 60 Est GFR (Non-Af Amer) > 60 Glucose 221 H Calcium 9.1 09/03/17 09/07/17 09/11/17 18:15 06:25 09:15 Creatine Kinase 82 CK-MB (CK-2) Troponin I NT-Pro-B Natriuret Pep 782 4140 H 09/11/17 09:15 Creatine Kinase CK-MB (CK-2) 1.30 Troponin I 0.016 NT-Pro-B Natriuret Pep Impressions: Head CT 09/02/17 00:00 IMPRESSION: No acute intracranial abnormality. Chest/Abdomen CTA 09/06/17 00:00 IMPRESSION: No pulmonary emboli. Diffuse parenchymal opacities predominantly upper lobe with bilateral pleural effusions. Abdomen/Pelvis CT 09/15/17 00:00 IMPRESSION: 1. Bilateral lower lobar pneumonia partially imaged. 2. Mild splenomegaly. Chest X-Ray 09/15/17 06:00 IMPRESSION: No significant interval change. Assessment & Plan - Diagnosis (1) Salmonella bacteremia Is this a current diagnosis for this admission?: Yes (2) Acute kidney injury Is this a current diagnosis for this admission?: Yes (3) Acute respiratory failure with hypoxia and hypercapnia Is this a current diagnosis for this admission?: Yes (4) Hypokalemia Is this a current diagnosis for this admission?: Yes (5) Type 2 diabetes mellitus Qualifiers: Diabetes mellitus senior care insulin use: without senior care use Diabetes mellitus complication status: without complication Qualified Code(s): E11.9 - Type 2 diabetes mellitus without complications Is this a current diagnosis for this admission?: Yes - Plan Summary Plan Summary: Patient currently is doing well and stable. She is awaiting rehab placement and case management is on the case. Due to her positive history of bacteremia secondary to Salmonella is recommended that she should get 2 weeks of Rocephin or Cipro. Currently she is on Rocephin since 09/15/17. If she is discharged prior to her 14 days of Rocephin and she can be discharged on Cipro 750 mg twice daily for the rest of the course. I did get a CT of abdomen pelvis given history of Salmonella bacteremia which did not show any acute changes but did show partially imaged bilateral lower lobe pneumonia. Although chest x-ray does not show anything. She is on antibiotics at this time and clinically she is doing much better.
[2017-09-16] MEDS: CEFTRIAXONE 2 GM/D5W RTU 2 GM/50 ML RTUPB IV SCH (18:56)
[2017-09-16] MEDS: ATORVASTATIN CALCIUM 40 MG TABLET PO SCH (22:32)
[2017-09-17 05:58] LABS: ANION GAP 12 (5-19); BLOOD UREA NITROGEN 26 mg/dL (7-20); CALCIUM 9.4 mg/dL (8.4-10.2); CARBON DIOXIDE 30 mmol/L (22-30); CHLORIDE 100 mmol/L (98-107); GLUCOSE 183 mg/dL (75-110); POTASSIUM 3.8 mmol/L (3.6-5.0); SODIUM 141.8 mmol/L (137-145)
[2017-09-17] MEDS: LEVOTHYROXINE SODIUM 0.1 MG TABLET PO SCH (07:00)
[2017-09-17] MEDS: GABAPENTIN 300 MG CAPSULE PO SCH ×3 (07:01→21:59)
[2017-09-17] MEDS: LEVOTHYROXINE SODIUM 0.075 MG TABLET PO SCH (07:01)
[2017-09-17] MEDS: HEPARIN SOD (PORCINE) 5,000 UNIT/ML 1 ML SYRINGE SUBCUT SCH ×3 (07:01→22:00)
[2017-09-17] MEDS: HYDRALAZINE HCL 25 MG TABLET PO SCH ×3 (07:01→22:02)
[2017-09-17] MEDS: BACLOFEN 10 MG TABLET PO SCH ×3 (07:03→22:01)
[2017-09-17] MEDS: INSULIN LISPRO 100 UNIT/ML 3 ML VIAL SUBCUT PRN ×2 (07:52→13:47)
[2017-09-17] MEDS: IPRATROPIUM/ALBUTEROL 0.5-2.5 MG/3 ML AMPUL NEB SCH ×2 (08:11→19:36)
[2017-09-17] MEDS: METFORMIN HCL 500 MG TABLET PO SCH ×2 (09:47→17:35)
[2017-09-17] MEDS: LISINOPRIL 10 MG TABLET PO SCH (09:47)
[2017-09-17] MEDS: AMLODIPINE BESYLATE 10 MG TABLET PO SCH (09:47)
[2017-09-17] MEDS: ASPIRIN 81 MG TABLET, CHEWABLE PO SCH (09:48)
[2017-09-17] MEDS: FENOFIBRATE NANOCRYSTALLIZED 48 MG TABLET PO SCH (09:48)
[2017-09-17] MEDS: LEVETIRACETAM 500 MG TABLET PO SCH ×2 (09:48→22:00)
[2017-09-17] MEDS: FLUOXETINE HCL 20 MG CAPSULE PO SCH (09:48)
[2017-09-17] MEDS: GUAIFENESIN SYRP 200 MG/10 ML UDC PO SCH ×2 (09:49→22:00)
[2017-09-17] MEDS: INSULIN GLARGINE,HUM.REC.ANLOG 1,000 UNIT/10 ML UNIT SUBCUT SCH ×2 (09:53→22:05)
[2017-09-17] MEDS: LOPERAMIDE HCL 2 MG CAPSULE PO PRN ×2 (11:58→22:00)
--- NOTE | 2017-09-17 15:08 | PDOC PROGRESS REPORT ---
Subjective Progress Note for:: 09/17/17 Subjective:: The patient is a pleasant, obese 56-year-old female who was admitted to the hospital with intractable diarrhea and an acute kidney injury. The patient's diarrhea was secondary to Salmonella and the patient actually developed Salmonella bacteremia. On the third day after admission the patient became unresponsive and her O2 saturations dropped into the low 70s. Since the patient was significantly hypotensive and could not protect her airway she was urgently intubated and transferred to the ICU. CTA of the chest was negative for pulmonary embolus. Sputum culture was positive for MSSA. Initially the patient was on pressors but eventually was successfully extubated and downgraded out of the ICU. She is completed a 2 week course of IV antibiotics for her bacteremia. Repeat blood cultures have been negative. At this point she is significantly debilitated and the initial plan was to pursue subacute rehabilitation at discharge. According to the discharge planning notes the patient received a bed offer this morning. Initially I was going to discharge the patient but it turns out that this was in fact not true. She was declined from subacute rehabilitation as she only has Medicaid. The discharge planners are still working on appropriate disposition. She has not been seen by physical therapy but hopefully will be seen today. The patient is not wanting to sign over her social security check to go to rehab but would like to go home. According to the nursing staff the patient has not been out of bed and requires quite a bit of assistance just to sit up in the bed at this time. Today when I saw the patient she is in good spirits. She is resting comfortably and states that she is anxious to get out of the hospital. She denies fever or shaking chills. No chest pain, shortness of breath or cough. No nausea or vomiting. She states she has had some diarrhea. She is tested negative for Clostridium difficile infection on 3 different occasions. She reports no urinary complaints. Reason For Visit: ACUTE KIDNEY INJURY Physical Exam Vital Signs: Temp Pulse Resp BP Pulse Ox 98.3 F 70 21 H 124/60 96 09/17/17 11:30 09/17/17 11:30 09/17/17 11:30 09/17/17 11:30 09/17/17 11:30 Intake & Output 09/16/17 09/17/17 09/18/17 06:59 06:59 06:59 Intake Total 1467 855 413 Output Total 825 325 Balance 642 530 413 Weight 138.7 kg 139.3 kg General appearance: PRESENT: no acute distress, morbidly obese, well-nourished, other - She is chronically ill-appearing and pale Head exam: PRESENT: atraumatic, normocephalic Eye exam: PRESENT: conjunctiva pink, EOMI, PERRLA. ABSENT: scleral icterus Mouth exam: PRESENT: moist, tongue midline Neck exam: ABSENT: carotid bruit, JVD, lymphadenopathy, thyromegaly Respiratory exam: PRESENT: clear to auscultation compa, decreased breath sounds - She is diminished in the lower bases bilaterally. ABSENT: rales, rhonchi, wheezes Cardiovascular exam: PRESENT: RRR. ABSENT: diastolic murmur, rubs, systolic murmur GI/Abdominal exam: PRESENT: normal bowel sounds, soft, other - Her abdomen is morbidly obese. I could not assess for organomegaly due to the patient's body habitus. ABSENT: distended, guarding, mass, rebound, tenderness Rectal exam: PRESENT: deferred Extremities exam: PRESENT: full ROM. ABSENT: calf tenderness, clubbing, pedal edema Musculoskeletal exam: ABSENT: ambulatory Neurological exam: PRESENT: alert Psychiatric exam: PRESENT: appropriate affect, normal mood. ABSENT: homicidal ideation, suicidal ideation Skin exam: PRESENT: dry, intact, warm. ABSENT: cyanosis, rash Results Laboratory Results: 09/15/17 04:12 09/17/17 04:10 09/17/17 04:10 Sodium 141.8 Potassium 3.8 Chloride 100 Carbon Dioxide 30 Anion Gap 12 BUN 26 H Creatinine 1.25 Est GFR ( Amer) 53 L Est GFR (Non-Af Amer) 44 L Glucose 183 H Calcium 9.4 09/03/17 09/07/17 09/11/17 18:15 06:25 09:15 Creatine Kinase 82 CK-MB (CK-2) Troponin I NT-Pro-B Natriuret Pep 782 4140 H 09/11/17 09:15 Creatine Kinase CK-MB (CK-2) 1.30 Troponin I 0.016 NT-Pro-B Natriuret Pep Impressions: Head CT 09/02/17 00:00 IMPRESSION: No acute intracranial abnormality. Chest/Abdomen CTA 09/06/17 00:00 IMPRESSION: No pulmonary emboli. Diffuse parenchymal opacities predominantly upper lobe with bilateral pleural effusions. Abdomen/Pelvis CT 09/15/17 00:00 IMPRESSION: 1. Bilateral lower lobar pneumonia partially imaged. 2. Mild splenomegaly. Chest X-Ray 09/15/17 06:00 IMPRESSION: No significant interval change. Assessment & Plan - Diagnosis (1) Septic shock Is this a current diagnosis for this admission?: Yes Plan: Resolved. Requiring mechanical ventilation in the ICU as well as pressors. Resolved. Her septic shock is likely due to her Salmonella bacteremia as well as MSSA pneumonia. (2) Salmonella bacteremia Is this a current diagnosis for this admission?: Yes Plan: She is completed a course of antibiotic therapy. Repeat cultures are negative. (3) Acute respiratory failure with hypoxia and hypercapnia Is this a current diagnosis for this admission?: Yes Plan: Secondary to septic shock due to Salmonella bacteremia also MSSA pneumonia. (4) MSSA (methicillin susceptible Staphylococcus aureus) pneumonia Is this a current diagnosis for this admission?: Yes Plan: She has completed a course of antibiotic therapy. (5) Acute renal failure Is this a current diagnosis for this admission?: Yes Plan: Secondary to intractable diarrhea prior to presentation. Also secondary to sepsis. Resolved (6) Diabetes mellitus Is this a current diagnosis for this admission?: Yes Plan: Adequately controlled on current regimen. (7) Hyponatremia Is this a current diagnosis for this admission?: Yes Plan: Resolved (8) Hypokalemia Is this a current diagnosis for this admission?: Yes Plan: Repleted and resolved (9) Hypomagnesemia Is this a current diagnosis for this admission?: Yes Plan: Repleted and resolved (10) New onset atrial fibrillation Is this a current diagnosis for this admission?: Yes Plan: Secondary to acute illness. No further episodes. Currently in a sinus rhythm and rate controlled. (11) Hyperlipidemia Is this a current diagnosis for this admission?: Yes Plan: Continue atorvastatin (12) Morbid obesity Is this a current diagnosis for this admission?: Yes Plan: Dietary discretion is advised (13) Ambulatory dysfunction Is this a current diagnosis for this admission?: Yes Plan: Physical therapy will see her i hopefully today. Apparently the patient only has Medicaid and has been declined from rehab. The discharge planners are working on appropriate disposition. Also the patient does not want to sign over her social security check to go to rehab. Further discussions need to be had. (14) Full code status Is this a current diagnosis for this admission?: Yes - Time Time Spent with patient: 25-34 minutes - Inpatient Certification Medical Necessity: Other - Inpatient hospitalization remains necessary for disposition. The patient is profoundly weak with significant ambulatory dysfunction after this acute illness. She needs further evaluation from physical therapy and likely will require some sort of rehabilitation prior to transitioning home.
--- NOTE | 2017-09-17 17:34 | Pulmonary Function Test ---
Pulmonary Function Test Date of Procedure:: 09/13/17 INDICATION:: Dyspnea Referring Provider: - Report Spirometry: FVC 1.18 L 40% postbronchodilator 1.43 L 48% FEV1 1.03 L 43% postbronchodilator 1.31 L 54% FEV1/FVC % 81 postbronchodilator 92 predicted 87 FEF 25-75% 1.22 L 46% postbronchodilator 2.30 L 87% Impression: Moderate obstructive ventilatory defect with good response to bronchodilator therapy. Inferred restrictive ventilatory defect. (Restrictive defect may mask the degree of obstruction) Restrictive defect cannot be diagnosed conclusively without lung volumes .
[2017-09-17] MEDS: CEFTRIAXONE 2 GM/D5W RTU 2 GM/50 ML RTUPB IV SCH (17:35)
[2017-09-17] MEDS: ONDANSETRON HCL INJ/PF 4 MG/2 ML SDV IV PRN (20:38)
[2017-09-17] MEDS: ATORVASTATIN CALCIUM 40 MG TABLET PO SCH (22:00)
[2017-09-18] MEDS: LOPERAMIDE HCL 2 MG CAPSULE PO PRN ×4 (03:38→23:51)
[2017-09-18 05:01] LABS: ABSOLUTE BASOPHILS # (AUTO) 0.1 10^3/uL (0.0-0.2); ABSOLUTE EOSINOPHILS # (AUTO) 0.2 10^3/uL (0.0-0.6); ABSOLUTE LYMPHOCYTES (AUTO) 2.1 10^3/uL (0.5-4.7); ABSOLUTE MONOCYTES (AUTO) 0.6 10^3/uL (0.1-1.4); ABSOLUTE NEUT (AUTO) 4.7 10^3/uL (1.7-8.2); BASOPHILS % (AUTO) 1.2 % (0-2); HEMATOCRIT 30.5 % (36.0-47.0); LYMPHOCYTES % (AUTO) 26.6 % (13-45); MEAN CORPUSCULAR HEMOGLOBIN 28.7 pg (27.0-33.4); MEAN CORPUSCULAR HGB CONC 32.8 g/dL (32.0-36.0); MEAN CORPUSCULAR VOLUME 88 fl (80-97); MONOCYTES % (AUTO) 8.1 % (3-13); PLATELET COUNT 277 10^3/uL (150-450); RED BLOOD COUNT 3.49 10^6/uL (3.72-5.28); RED CELL DISTRIBUTION WIDTH 16.2 % (11.5-14.0); SEGMENTED NEUTROPHILS % (AUTO) 61.1 % (42-78); TOTAL CELLS COUNTED % (AUTO) 100 %; WHITE BLOOD COUNT 7.7 10^3/uL (4.0-10.5)
[2017-09-18 05:16] LABS: ANION GAP 12 (5-19); BLOOD UREA NITROGEN 28 mg/dL (7-20); CALCIUM 9.3 mg/dL (8.4-10.2); CARBON DIOXIDE 29 mmol/L (22-30); CHLORIDE 103 mmol/L (98-107); GLUCOSE 74 mg/dL (75-110); POTASSIUM 3.8 mmol/L (3.6-5.0); SODIUM 144.1 mmol/L (137-145)
[2017-09-18] MEDS: LEVOTHYROXINE SODIUM 0.1 MG TABLET PO SCH (05:16)
[2017-09-18] MEDS: HEPARIN SOD (PORCINE) 5,000 UNIT/ML 1 ML SYRINGE SUBCUT SCH ×3 (05:16→21:43)
[2017-09-18] MEDS: LEVOTHYROXINE SODIUM 0.075 MG TABLET PO SCH (05:16)
[2017-09-18] MEDS: HYDRALAZINE HCL 25 MG TABLET PO SCH (05:17)
[2017-09-18] MEDS: GABAPENTIN 300 MG CAPSULE PO SCH ×3 (05:17→21:43)
[2017-09-18] MEDS: BACLOFEN 10 MG TABLET PO SCH ×3 (05:18→21:44)
[2017-09-18] MEDS: IPRATROPIUM/ALBUTEROL 0.5-2.5 MG/3 ML AMPUL NEB SCH ×2 (07:42→20:03)
[2017-09-18] MEDS: AMLODIPINE BESYLATE 10 MG TABLET PO SCH (09:48)
[2017-09-18] MEDS: LISINOPRIL 10 MG TABLET PO SCH (09:48)
[2017-09-18] MEDS: INSULIN GLARGINE,HUM.REC.ANLOG 1,000 UNIT/10 ML UNIT SUBCUT SCH ×2 (09:49→21:41)
[2017-09-18] MEDS: GUAIFENESIN SYRP 200 MG/10 ML UDC PO SCH ×3 (09:50→21:45)
[2017-09-18] MEDS: LEVETIRACETAM 500 MG TABLET PO SCH ×2 (09:50→21:43)
[2017-09-18] MEDS: ASPIRIN 81 MG TABLET, CHEWABLE PO SCH (09:50)
[2017-09-18] MEDS: FENOFIBRATE NANOCRYSTALLIZED 48 MG TABLET PO SCH (09:50)
[2017-09-18] MEDS: FLUOXETINE HCL 20 MG CAPSULE PO SCH (09:50)
[2017-09-18] MEDS: METFORMIN HCL 500 MG TABLET PO SCH ×2 (09:50→17:01)
[2017-09-18] MEDS ORDERED: NORMAL SALINE 1000 ML 1,000 ML IV PRN (10:15)
[2017-09-18] MEDS ORDERED: LISINOPRIL 10 MG TABLET PO SCH (10:16)
--- NOTE | 2017-09-18 11:50 | PDOC PROGRESS REPORT ---
Subjective Progress Note for:: 09/18/17 Subjective:: Patient was admitted with intractable diarrhea as well as acute kidney failure. She was found to be positive for Salmonella with bacteremia as well as diarrhea. She was subsequently intubated and treated in the ICU and is being successfully extubated. Repeat blood cultures have been negative. She does continue to improve and has been hemodynamically stable however she has been weak especially due to her prolonged hospitalization and she is still recuperating but the plan is for her to go home with home health at discharge once stable. Reason For Visit: ACUTE KIDNEY INJURY Physical Exam Vital Signs: Temp Pulse Resp BP Pulse Ox 97.7 F 61 18 95/49 L 94 09/18/17 07:32 09/18/17 07:42 09/18/17 07:42 09/18/17 07:32 09/18/17 07:32 Intake & Output 09/17/17 09/18/17 09/19/17 06:59 06:59 06:59 Intake Total 855 1018 Output Total 325 Balance 530 1018 Weight 139.3 kg 138.1 kg General appearance: PRESENT: no acute distress, morbidly obese, well-developed, well-nourished Head exam: PRESENT: atraumatic, normocephalic Eye exam: PRESENT: EOMI. ABSENT: scleral icterus Mouth exam: PRESENT: moist, tongue midline Neck exam: ABSENT: carotid bruit, JVD, lymphadenopathy, thyromegaly Respiratory exam: PRESENT: clear to auscultation compa. ABSENT: rales, rhonchi, wheezes Cardiovascular exam: PRESENT: RRR. ABSENT: diastolic murmur, rubs, systolic murmur Pulses: PRESENT: normal dorsalis pedis pul Vascular exam: PRESENT: normal capillary refill GI/Abdominal exam: PRESENT: normal bowel sounds, soft. ABSENT: distended, guarding, mass, organolmegaly, rebound, tenderness Rectal exam: PRESENT: deferred Extremities exam: PRESENT: full ROM. ABSENT: calf tenderness, clubbing, pedal edema Neurological exam: PRESENT: alert, awake, oriented to person, oriented to place , oriented to time, oriented to situation, CN II-XII grossly intact. ABSENT: motor sensory deficit Psychiatric exam: PRESENT: normal mood. ABSENT: homicidal ideation, suicidal ideation Skin exam: PRESENT: dry, intact, warm. ABSENT: cyanosis, rash Results Laboratory Results: 09/18/17 04:07 09/18/17 04:07 09/18/17 09/18/17 04:07 04:07 WBC 7.7 RBC 3.49 L Hgb 10.0 L Hct 30.5 L MCV 88 MCH 28.7 MCHC 32.8 RDW 16.2 H Plt Count 277 Seg Neutrophils % 61.1 Lymphocytes % 26.6 Monocytes % 8.1 Eosinophils % 3.0 Basophils % 1.2 Absolute Neutrophils 4.7 Absolute Lymphocytes 2.1 Absolute Monocytes 0.6 Absolute Eosinophils 0.2 Absolute Basophils 0.1 Sodium 144.1 Potassium 3.8 Chloride 103 Carbon Dioxide 29 Anion Gap 12 BUN 28 H Creatinine 1.31 H Est GFR ( Amer) 50 L Est GFR (Non-Af Amer) 42 L Glucose 74 L Calcium 9.3 Magnesium 1.5 L 09/03/17 09/07/17 09/11/17 18:15 06:25 09:15 Creatine Kinase 82 CK-MB (CK-2) Troponin I NT-Pro-B Natriuret Pep 782 4140 H 09/11/17 09:15 Creatine Kinase CK-MB (CK-2) 1.30 Troponin I 0.016 NT-Pro-B Natriuret Pep Impressions: Head CT 09/02/17 00:00 IMPRESSION: No acute intracranial abnormality. Chest/Abdomen CTA 09/06/17 00:00 IMPRESSION: No pulmonary emboli. Diffuse parenchymal opacities predominantly upper lobe with bilateral pleural effusions. Abdomen/Pelvis CT 09/15/17 00:00 IMPRESSION: 1. Bilateral lower lobar pneumonia partially imaged. 2. Mild splenomegaly. Chest X-Ray 09/15/17 06:00 IMPRESSION: No significant interval change. Assessment & Plan - Time Time Spent with patient: 15-24 minutes Medications reviewed and adjusted accordingly: Yes Anticipated discharge: Home with Homehealth Within: within 48 hours - Inpatient Certification Based on my medical assessment, after consideration of the patient's comorbidities, presenting symptoms, or acuity I expect that the services needed warrant INPATIENT care.: Yes Medical Necessity: Significant Comorbidiites Make Outpatient Treatment Too Risky , Risk of Complication if Not Cared For in Hospital - Plan Summary Plan Summary: Septic shock secondary to Salmonella bacteremia as well as MSSA pneumonia resolved. 2. Salmonella bacteremia she has completed a course of antibiotics 3. MSSA pneumonia resolved 4. Acute respiratory failure with hypoxemia and hypercapnia status post mechanical ventilation. 5. Acute kidney failure secondary to ATN as well as a sepsis resolved 6. Type 2 diabetes mellitus controlled 7. Hyponatremia, hypokalemia and hypomagnesemia all corrected 8. Lone atrial fibrillation secondary to sepsis resolved 9. Hyperlipidemia chronic currently on statin 10. Ambulatory dysfunction from prolonged hospitalization. Continue to encourage physical therapy in hospital 11. Morbid obesity patient encouraged to lose weight 12. Full CODE STATUS
[2017-09-18] MEDS: MAGNESIUM SULFATE/D5W 1 GM/100 ML RTUPB IV SCH ×2 (12:53→14:14)
[2017-09-18] MEDS: ONDANSETRON HCL INJ/PF 4 MG/2 ML SDV IV PRN (16:57)
[2017-09-18] MEDS: CEFTRIAXONE 2 GM/D5W RTU 2 GM/50 ML RTUPB IV SCH (17:01)
--- NOTE | 2017-09-18 18:56 | PDOC PROGRESS REPORT ---
Subjective Progress Note for:: 09/18/17 Subjective:: Stable Without complaints Reason For Visit: ACUTE KIDNEY INJURY Physical Exam Vital Signs: Temp Pulse Resp BP Pulse Ox 97.8 F 61 16 95/41 L 96 09/18/17 15:35 09/18/17 15:35 09/18/17 15:35 09/18/17 15:35 09/18/17 15:35 Intake & Output 09/17/17 09/18/17 09/19/17 06:59 06:59 06:59 Intake Total 855 1018 2288 Output Total 325 Balance 530 1018 2288 Weight 139.3 kg 138.1 kg General appearance: PRESENT: no acute distress, cooperative, disheveled, morbidly obese Head exam: PRESENT: atraumatic, normocephalic Eye exam: PRESENT: conjunctiva pale, EOMI. ABSENT: nystagmus, periorbital swelling, scleral icterus Mouth exam: PRESENT: moist, neck supple, tongue midline Neck exam: ABSENT: carotid bruit, JVD, lymphadenopathy, thyromegaly, tracheal deviation, tracheostomy Respiratory exam: PRESENT: decreased breath sounds, prolonged expiratory phas, rales, rhonchi, unlabored. ABSENT: retraction Cardiovascular exam: PRESENT: RRR, +S1, +S2 Pulses: PRESENT: normal radial pulses GI/Abdominal exam: PRESENT: normal bowel sounds, soft Extremities exam: ABSENT: calf tenderness, clubbing, joint swelling Musculoskeletal exam: ABSENT: deformity, dislocation Neurological exam: PRESENT: awake Psychiatric exam: PRESENT: flat affect Skin exam: PRESENT: dry, warm Results Laboratory Results: 09/18/17 04:07 09/18/17 04:07 09/18/17 09/18/17 04:07 04:07 WBC 7.7 RBC 3.49 L Hgb 10.0 L Hct 30.5 L MCV 88 MCH 28.7 MCHC 32.8 RDW 16.2 H Plt Count 277 Seg Neutrophils % 61.1 Lymphocytes % 26.6 Monocytes % 8.1 Eosinophils % 3.0 Basophils % 1.2 Absolute Neutrophils 4.7 Absolute Lymphocytes 2.1 Absolute Monocytes 0.6 Absolute Eosinophils 0.2 Absolute Basophils 0.1 Sodium 144.1 Potassium 3.8 Chloride 103 Carbon Dioxide 29 Anion Gap 12 BUN 28 H Creatinine 1.31 H Est GFR ( Amer) 50 L Est GFR (Non-Af Amer) 42 L Glucose 74 L Calcium 9.3 Magnesium 1.5 L 09/03/17 09/07/17 09/11/17 18:15 06:25 09:15 Creatine Kinase 82 CK-MB (CK-2) Troponin I NT-Pro-B Natriuret Pep 782 4140 H 09/11/17 09:15 Creatine Kinase CK-MB (CK-2) 1.30 Troponin I 0.016 NT-Pro-B Natriuret Pep Impressions: Head CT 09/02/17 00:00 IMPRESSION: No acute intracranial abnormality. Chest/Abdomen CTA 09/06/17 00:00 IMPRESSION: No pulmonary emboli. Diffuse parenchymal opacities predominantly upper lobe with bilateral pleural effusions. Abdomen/Pelvis CT 09/15/17 00:00 IMPRESSION: 1. Bilateral lower lobar pneumonia partially imaged. 2. Mild splenomegaly. Chest X-Ray 09/15/17 06:00 IMPRESSION: No significant interval change. Assessment & Plan - Diagnosis (1) Acute kidney injury Is this a current diagnosis for this admission?: No Plan: stable (2) Acute respiratory failure with hypoxia and hypercapnia Is this a current diagnosis for this admission?: No Plan: PAO2/FIO2 = 76/.5 = 152 mild improvement (3) Morbid obesity due to excess calories Is this a current diagnosis for this admission?: Yes (4) Septic shock Is this a current diagnosis for this admission?: Yes Plan: Resolved (5) Obesity hypoventilation syndrome Is this a current diagnosis for this admission?: Yes Plan: FVC 40% FEV1 43% The above patient has failed BiPAP. This patient would benefit from noninvasive mechanical ventilation via the trilogy AVAPS/AE and faster responding AVAPS rates. The trilogy is able to provide a target tidal volume and also adjusting the EPAP pressures to maintain a patent airway as well as an oral backup rate this machine will help improve PaCO2 levels. The severity of the patient's condition will lead to future hospitalizations and readmissions as well as life-threatening situations without the use of this device trilogy home vent needed for hypercapnic respiratory failure. [facility] or [facility] [place] [facility] to follow for trilogy set up.
--- NOTE | 2017-09-18 19:01 | PDOC PROGRESS REPORT ---
Subjective Progress Note for:: 09/08/17 Subjective:: intubated sedated Reason For Visit: Respiratory failure Physical Exam Vital Signs: Temp Pulse Resp BP Pulse Ox 99.3 F 75 25 H 193/73 H 94 09/08/17 02:00 09/08/17 08:09 09/08/17 08:09 09/08/17 04:39 09/08/17 08:09 Intake & Output 09/07/17 09/08/17 09/09/17 06:59 06:59 06:59 Intake Total 2215 1654 Output Total 3301 8766 Balance -1411 -1850 Weight 138.7 kg 136.3 kg General appearance: PRESENT: no acute distress, cooperative, disheveled, morbidly obese Head exam: PRESENT: atraumatic, normocephalic Eye exam: PRESENT: conjunctiva pale, EOMI. ABSENT: nystagmus, periorbital swelling, scleral icterus Mouth exam: PRESENT: dry mucosa, neck supple, tongue midline, other - ET tube in place Neck exam: ABSENT: carotid bruit, JVD, lymphadenopathy, thyromegaly, tracheal deviation, tracheostomy Respiratory exam: PRESENT: decreased breath sounds, prolonged expiratory phas, rales, rhonchi, unlabored. ABSENT: retraction, stridor Cardiovascular exam: PRESENT: RRR, +S1, +S2 Pulses: PRESENT: normal radial pulses GI/Abdominal exam: PRESENT: normal bowel sounds, soft Extremities exam: PRESENT: pedal edema. ABSENT: calf tenderness, clubbing, joint swelling Musculoskeletal exam: ABSENT: deformity, dislocation Neurological exam: PRESENT: awake Psychiatric exam: PRESENT: flat affect Skin exam: PRESENT: dry, warm Results Laboratory Results: 09/08/17 04:06 09/08/17 04:06 09/08/17 09/08/17 09/08/17 04:06 04:06 05:24 WBC 15.5 H RBC 3.77 Hgb 10.5 L Hct 32.6 L MCV 87 MCH 27.9 MCHC 32.3 RDW 16.6 H Plt Count 190 Seg Neutrophils % Not Reportable Lymphocytes % Not Reportable Monocytes % Not Reportable Eosinophils % Not Reportable Basophils % Not Reportable Absolute Neutrophils Not Reportable Absolute Lymphocytes Not Reportable Absolute Monocytes Not Reportable Absolute Eosinophils Not Reportable Absolute Basophils Not Reportable Carbonic Acid 1.31 HCO3/H2CO3 Ratio 22:1 ABG pH 7.44 ABG pCO2 43.5 ABG pO2 62.9 L ABG HCO3 28.9 H ABG O2 Saturation 92.8 L ABG Base Excess 4.3 FiO2 50% Sodium 152.1 H Potassium 3.6 Chloride 112 H Carbon Dioxide 29 Anion Gap 11 BUN 24 H Creatinine 0.78 Est GFR ( Amer) > 60 Est GFR (Non-Af Amer) > 60 Glucose 356 H Calcium 8.7 Magnesium 1.8 Total Bilirubin 0.9 AST 42 H ALT 51 Alkaline Phosphatase 416 H Total Protein 5.8 L Albumin 2.5 L 09/02/17 09:57 Blood Blood Culture - Final NO GROWTH IN 5 DAYS 09/03/17 09/07/17 18:15 06:25 NT-Pro-B Natriuret Pep 782 4140 H Impressions: Abdomen/Pelvis CT 08/30/17 14:09 IMPRESSION: NO SIGNIFICANT OR ACUTE PROCESS IN THE ABDOMEN OR PELVIS. Head CT 09/02/17 00:00 IMPRESSION: No acute intracranial abnormality. Chest/Abdomen CTA 09/06/17 00:00 IMPRESSION: No pulmonary emboli. Diffuse parenchymal opacities predominantly upper lobe with bilateral pleural effusions. Chest X-Ray 09/08/17 00:00 IMPRESSION: Relatively stable appearance of the chest. Support lines and tubes remain in good position. Persistent infiltrates/ edema which look similar. Assessment & Plan - Diagnosis (1) Acute kidney injury Is this a current diagnosis for this admission?: Yes Plan: stable (2) Acute respiratory failure with hypoxia and hypercapnia Is this a current diagnosis for this admission?: Yes Plan: wean from mechanical ventilation as tolerated (3) Morbid obesity due to excess calories Is this a current diagnosis for this admission?: Yes (4) Septic shock Is this a current diagnosis for this admission?: Yes Plan: Resolved - Time Total Critical Time (Minutes): 45
--- NOTE | 2017-09-18 19:04 | PDOC PROGRESS REPORT ---
Subjective Progress Note for:: 09/09/17 Subjective:: intubated sedated Reason For Visit: ACUTE KIDNEY INJURY Physical Exam Vital Signs: Temp Pulse Resp BP Pulse Ox 99.5 F 61 17 144/48 H 94 09/08/17 23:48 09/09/17 10:00 09/09/17 12:03 09/09/17 12:03 09/09/17 12:03 Intake & Output 09/08/17 09/09/17 09/10/17 06:59 06:59 06:59 Intake Total 4646 3390 50 Output Total 5695 2444 1450 Balance -9012 -077 -3330 Weight 136.3 kg 134.9 kg General appearance: PRESENT: no acute distress, cooperative, disheveled, morbidly obese Head exam: PRESENT: atraumatic, normocephalic Eye exam: PRESENT: conjunctiva pale, EOMI. ABSENT: nystagmus, periorbital swelling Mouth exam: PRESENT: dry mucosa, neck supple, tongue midline, other - ET tube in place Neck exam: ABSENT: carotid bruit, JVD, lymphadenopathy, thyromegaly, tracheal deviation, tracheostomy Respiratory exam: PRESENT: decreased breath sounds, prolonged expiratory phas, rhonchi, unlabored. ABSENT: retraction, stridor Cardiovascular exam: PRESENT: RRR, +S1, +S2 Pulses: PRESENT: normal radial pulses GI/Abdominal exam: PRESENT: hypoactive bowel sounds, soft Extremities exam: PRESENT: pedal edema. ABSENT: calf tenderness, clubbing, joint swelling Musculoskeletal exam: ABSENT: deformity, dislocation Neurological exam: PRESENT: awake Skin exam: PRESENT: dry Results Laboratory Results: 09/09/17 04:17 09/09/17 04:17 09/09/17 09/09/17 09/09/17 04:17 04:17 07:00 WBC 12.0 H RBC 3.69 L Hgb 10.4 L Hct 32.0 L MCV 87 MCH 28.3 MCHC 32.7 RDW 16.3 H Plt Count 175 Seg Neutrophils % 81.3 H Lymphocytes % 12.5 L Monocytes % 3.4 Eosinophils % 2.0 Basophils % 0.8 Absolute Neutrophils 9.7 H Absolute Lymphocytes 1.5 Absolute Monocytes 0.4 Absolute Eosinophils 0.2 Absolute Basophils 0.1 Carbonic Acid 1.57 H HCO3/H2CO3 Ratio 22:1 ABG pH 7.44 ABG pCO2 52.2 H ABG pO2 74.5 L ABG HCO3 34.7 H ABG O2 Saturation 95.2 ABG Base Excess 9.0 FiO2 50% Sodium 149.9 H Potassium 3.5 L Chloride 107 Carbon Dioxide 34 H Anion Gap 9 BUN 23 H Creatinine 0.72 Est GFR ( Amer) > 60 Est GFR (Non-Af Amer) > 60 Glucose 335 H Calcium 8.8 Magnesium 1.7 09/02/17 09:10 Blood Blood Culture - Final Salmonella Species 09/03/17 09/07/17 18:15 06:25 NT-Pro-B Natriuret Pep 782 4140 H Impressions: Abdomen/Pelvis CT 08/30/17 14:09 IMPRESSION: NO SIGNIFICANT OR ACUTE PROCESS IN THE ABDOMEN OR PELVIS. Head CT 09/02/17 00:00 IMPRESSION: No acute intracranial abnormality. Chest/Abdomen CTA 09/06/17 00:00 IMPRESSION: No pulmonary emboli. Diffuse parenchymal opacities predominantly upper lobe with bilateral pleural effusions. Chest X-Ray 09/09/17 06:00 IMPRESSION: Appropriate lines and tubes suspected. Probable improved aeration. Assessment & Plan - Diagnosis (1) Acute kidney injury Is this a current diagnosis for this admission?: Yes Plan: stable (2) Acute respiratory failure with hypoxia and hypercapnia Is this a current diagnosis for this admission?: Yes Plan: Respiratory rate, tidal volume, FiO2, minute ventilation, airway pressures all suggest successful extubation will proceed with extubation (3) Morbid obesity due to excess calories Is this a current diagnosis for this admission?: Yes (4) Septic shock Is this a current diagnosis for this admission?: Yes - Time Total Critical Time (Minutes): 55
--- NOTE | 2017-09-18 19:08 | PDOC PROGRESS REPORT ---
Subjective Progress Note for:: 09/10/17 Subjective:: iStatus post extubation stable Reason For Visit: ACUTE KIDNEY INJURY Physical Exam Vital Signs: Temp Pulse Resp BP Pulse Ox 99.7 F 69 17 183/66 H 96 09/10/17 07:46 09/10/17 07:46 09/10/17 08:03 09/10/17 08:03 09/10/17 08:03 Intake & Output 09/09/17 09/10/17 09/11/17 06:59 06:59 06:59 Intake Total 3390 1744 Output Total 4105 1860 420 Balance -965 -1606 -420 Weight 134.9 kg General appearance: PRESENT: no acute distress, cooperative, disheveled, morbidly obese Head exam: PRESENT: atraumatic, normocephalic Eye exam: PRESENT: conjunctiva pale, EOMI. ABSENT: nystagmus, periorbital swelling, scleral icterus Mouth exam: PRESENT: moist, neck supple, tongue midline Neck exam: ABSENT: carotid bruit, JVD, lymphadenopathy, thyromegaly, tracheal deviation, tracheostomy Respiratory exam: PRESENT: decreased breath sounds, prolonged expiratory phas, rhonchi, unlabored. ABSENT: retraction, stridor Cardiovascular exam: PRESENT: RRR, +S1, +S2 Pulses: PRESENT: normal radial pulses GI/Abdominal exam: PRESENT: normal bowel sounds, soft Gentrourinary exam: PRESENT: indwelling catheter Extremities exam: PRESENT: pedal edema. ABSENT: calf tenderness, clubbing, joint swelling Musculoskeletal exam: ABSENT: deformity, dislocation Neurological exam: PRESENT: awake, oriented to person Psychiatric exam: PRESENT: flat affect Skin exam: PRESENT: dry, warm Results Laboratory Results: 09/10/17 03:32 09/10/17 03:32 09/10/17 09/10/17 09/10/17 03:32 03:32 05:40 WBC 10.7 H RBC 3.63 L Hgb 10.4 L Hct 31.3 L MCV 86 MCH 28.6 MCHC 33.1 RDW 16.0 H Plt Count 154 Seg Neutrophils % 75.3 Lymphocytes % 17.7 Monocytes % 3.5 Eosinophils % 2.2 Basophils % 1.3 Absolute Neutrophils 8.1 Absolute Lymphocytes 1.9 Absolute Monocytes 0.4 Absolute Eosinophils 0.2 Absolute Basophils 0.1 Carbonic Acid 1.44 H HCO3/H2CO3 Ratio 24:1 ABG pH 7.49 H ABG pCO2 47.8 H ABG pO2 114.3 H ABG HCO3 35.2 H ABG O2 Saturation 98.4 H ABG Base Excess 10.2 FiO2 45% Sodium 147.0 H Potassium 3.1 L Chloride 103 Carbon Dioxide 36 H Anion Gap 8 BUN 21 H Creatinine 0.81 Est GFR ( Amer) > 60 Est GFR (Non-Af Amer) > 60 Glucose 292 H Calcium 8.8 Phosphorus 2.6 Magnesium 1.5 L 09/02/17 09:10 Blood Blood Culture - Final Salmonella Species 09/03/17 09/07/17 18:15 06:25 NT-Pro-B Natriuret Pep 782 4140 H Impressions: Abdomen/Pelvis CT 08/30/17 14:09 IMPRESSION: NO SIGNIFICANT OR ACUTE PROCESS IN THE ABDOMEN OR PELVIS. Head CT 09/02/17 00:00 IMPRESSION: No acute intracranial abnormality. Chest/Abdomen CTA 09/06/17 00:00 IMPRESSION: No pulmonary emboli. Diffuse parenchymal opacities predominantly upper lobe with bilateral pleural effusions. Chest X-Ray 09/10/17 00:00 IMPRESSION: Improving pneumonia. No pneumothorax. Assessment & Plan - Diagnosis (1) Acute kidney injury Is this a current diagnosis for this admission?: Yes Plan: Resolved (2) Acute respiratory failure with hypoxia and hypercapnia Is this a current diagnosis for this admission?: Yes Plan: Stable at this time (3) Morbid obesity due to excess calories Is this a current diagnosis for this admission?: Yes (4) Septic shock Is this a current diagnosis for this admission?: Yes - Time Total Critical Time (Minutes): 40
--- NOTE | 2017-09-18 19:11 | PDOC PROGRESS REPORT ---
Subjective Progress Note for:: 09/11/17 Subjective:: iStatus post extubation stable Reason For Visit: ACUTE KIDNEY INJURY Physical Exam Vital Signs: Temp Pulse Resp BP Pulse Ox 96.6 F L 60 15 163/66 H 96 09/11/17 08:00 09/11/17 08:00 09/11/17 08:00 09/11/17 08:00 09/11/17 08:00 Intake & Output 09/10/17 09/11/17 09/12/17 06:59 06:59 06:59 Intake Total 3094 2142 Output Total 3350 4945 740 Balance -256 -2803 -740 Weight 130.6 kg General appearance: PRESENT: no acute distress, cooperative, disheveled, morbidly obese Head exam: PRESENT: atraumatic, normocephalic Eye exam: PRESENT: conjunctiva pale, EOMI. ABSENT: nystagmus, periorbital swelling, scleral icterus Mouth exam: PRESENT: dry mucosa, neck supple, tongue midline Neck exam: ABSENT: carotid bruit, JVD, lymphadenopathy, thyromegaly, tracheal deviation, tracheostomy Respiratory exam: PRESENT: decreased breath sounds, prolonged expiratory phas, rhonchi, unlabored. ABSENT: retraction, stridor Cardiovascular exam: PRESENT: RRR, +S1, +S2 Pulses: PRESENT: normal radial pulses GI/Abdominal exam: PRESENT: normal bowel sounds, soft Extremities exam: PRESENT: pedal edema. ABSENT: calf tenderness, clubbing, joint swelling Musculoskeletal exam: ABSENT: deformity, dislocation Neurological exam: PRESENT: awake Psychiatric exam: PRESENT: flat affect Skin exam: PRESENT: dry, vesicles Results Laboratory Results: 09/11/17 05:14 09/11/17 05:14 09/10/17 09/11/17 09/11/17 14:00 05:14 05:14 WBC 9.8 RBC 4.08 Hgb 11.6 L Hct 35.3 L MCV 87 MCH 28.4 MCHC 32.8 RDW 15.7 H Plt Count 143 L Seg Neutrophils % 78.7 H Lymphocytes % 14.5 Monocytes % 3.8 Eosinophils % 2.2 Basophils % 0.8 Absolute Neutrophils 7.7 Absolute Lymphocytes 1.4 Absolute Monocytes 0.4 Absolute Eosinophils 0.2 Absolute Basophils 0.1 Carbonic Acid 1.35 HCO3/H2CO3 Ratio 25:1 ABG pH 7.50 H ABG pCO2 45.0 ABG pO2 69.7 L ABG HCO3 34.1 H ABG O2 Saturation 95.1 ABG Base Excess 9.8 FiO2 30% Sodium 144.9 Potassium 2.8 L* Chloride 96 L Carbon Dioxide 39 H Anion Gap 10 BUN 18 Creatinine 0.63 Est GFR ( Amer) > 60 Est GFR (Non-Af Amer) > 60 Glucose 270 H Calcium 8.6 Phosphorus 2.8 Magnesium 1.9 Total Bilirubin 0.9 AST 42 H ALT 46 Alkaline Phosphatase 467 H Total Protein 6.1 L Albumin 2.7 L 09/11/17 05:30 WBC RBC Hgb Hct MCV MCH MCHC RDW Plt Count Seg Neutrophils % Lymphocytes % Monocytes % Eosinophils % Basophils % Absolute Neutrophils Absolute Lymphocytes Absolute Monocytes Absolute Eosinophils Absolute Basophils Carbonic Acid 1.66 H HCO3/H2CO3 Ratio 24:1 ABG pH 7.48 H ABG pCO2 55.0 H ABG pO2 71.8 L ABG HCO3 40.4 H ABG O2 Saturation 95.1 ABG Base Excess 14.7 FiO2 4 L Sodium Potassium Chloride Carbon Dioxide Anion Gap BUN Creatinine Est GFR ( Amer) Est GFR (Non-Af Amer) Glucose Calcium Phosphorus Magnesium Total Bilirubin AST ALT Alkaline Phosphatase Total Protein Albumin 09/05/17 13:40 Blood Blood Culture - Final NO GROWTH IN 5 DAYS 09/05/17 11:35 Blood Blood Culture - Final NO GROWTH IN 5 DAYS 09/03/17 09/07/17 18:15 06:25 NT-Pro-B Natriuret Pep 782 4140 H Impressions: Abdomen/Pelvis CT 08/30/17 14:09 IMPRESSION: NO SIGNIFICANT OR ACUTE PROCESS IN THE ABDOMEN OR PELVIS. Head CT 09/02/17 00:00 IMPRESSION: No acute intracranial abnormality. Chest/Abdomen CTA 09/06/17 00:00 IMPRESSION: No pulmonary emboli. Diffuse parenchymal opacities predominantly upper lobe with bilateral pleural effusions. Chest X-Ray 09/11/17 06:00 IMPRESSION: Interval extubation, else, stable. Assessment & Plan - Diagnosis (1) Acute kidney injury Is this a current diagnosis for this admission?: Yes Plan: Resolved (2) Acute respiratory failure with hypoxia and hypercapnia Is this a current diagnosis for this admission?: Yes Plan: Extubated stable (3) Morbid obesity due to excess calories Is this a current diagnosis for this admission?: Yes (4) Septic shock Is this a current diagnosis for this admission?: Yes - Time Total Critical Time (Minutes): 40
--- NOTE | 2017-09-18 19:13 | PDOC PROGRESS REPORT ---
Subjective Progress Note for:: 09/12/17 Subjective:: iStatus post extubation stable Reason For Visit: ACUTE KIDNEY INJURY Physical Exam Vital Signs: Temp Pulse Resp BP Pulse Ox 96.4 F L 57 L 19 161/67 H 95 09/12/17 08:00 09/12/17 09:01 09/12/17 09:04 09/12/17 09:04 09/12/17 09:04 Intake & Output 09/11/17 09/12/17 09/13/17 06:59 06:59 06:59 Intake Total 2142 1880 Output Total 4945 2610 150 Balance -2803 -730 -150 Weight 130.6 kg 131.8 kg General appearance: PRESENT: no acute distress, cooperative, disheveled, morbidly obese Head exam: PRESENT: atraumatic, normocephalic Eye exam: PRESENT: conjunctiva pale, EOMI. ABSENT: nystagmus, periorbital swelling, scleral icterus Mouth exam: PRESENT: moist, neck supple, tongue midline Neck exam: ABSENT: carotid bruit, JVD, lymphadenopathy, thyromegaly, tracheal deviation, tracheostomy Respiratory exam: PRESENT: decreased breath sounds, prolonged expiratory phas, rhonchi, unlabored. ABSENT: retraction, stridor Cardiovascular exam: PRESENT: RRR, +S1, +S2 Pulses: PRESENT: normal radial pulses GI/Abdominal exam: PRESENT: normal bowel sounds, soft Gentrourinary exam: PRESENT: indwelling catheter Extremities exam: PRESENT: pedal edema. ABSENT: calf tenderness, clubbing, joint swelling Musculoskeletal exam: ABSENT: deformity, dislocation Neurological exam: PRESENT: awake Psychiatric exam: PRESENT: flat affect Skin exam: PRESENT: dry, warm Results Laboratory Results: 09/12/17 04:00 09/12/17 04:00 09/11/17 09/12/17 09/12/17 20:45 04:00 04:00 WBC 10.5 RBC 3.95 Hgb 11.1 L Hct 34.3 L MCV 87 MCH 28.2 MCHC 32.5 RDW 15.4 H Plt Count 150 Seg Neutrophils % 77.5 Lymphocytes % 15.4 Monocytes % 4.5 Eosinophils % 2.1 Basophils % 0.5 Absolute Neutrophils 8.1 Absolute Lymphocytes 1.6 Absolute Monocytes 0.5 Absolute Eosinophils 0.2 Absolute Basophils 0.1 Carbonic Acid HCO3/H2CO3 Ratio ABG pH ABG pCO2 ABG pO2 ABG HCO3 ABG O2 Saturation ABG Base Excess FiO2 Sodium 142.0 139.8 Potassium 3.1 L 3.3 L Chloride 98 95 L Carbon Dioxide 38 H 38 H Anion Gap 6 7 BUN 17 19 Creatinine 0.58 0.66 Est GFR ( Amer) > 60 > 60 Est GFR (Non-Af Amer) > 60 > 60 Glucose 275 H 377 H Calcium 8.7 8.3 L Phosphorus 3.0 Magnesium 1.8 Total Bilirubin 0.8 AST 50 H ALT 43 Alkaline Phosphatase 457 H Total Protein 6.1 L Albumin 2.7 L 09/12/17 05:00 WBC RBC Hgb Hct MCV MCH MCHC RDW Plt Count Seg Neutrophils % Lymphocytes % Monocytes % Eosinophils % Basophils % Absolute Neutrophils Absolute Lymphocytes Absolute Monocytes Absolute Eosinophils Absolute Basophils Carbonic Acid 1.58 H HCO3/H2CO3 Ratio 23:1 ABG pH 7.46 H ABG pCO2 52.4 H ABG pO2 72.9 L ABG HCO3 36.7 H ABG O2 Saturation 95.2 ABG Base Excess 11.2 FiO2 40 Sodium Potassium Chloride Carbon Dioxide Anion Gap BUN Creatinine Est GFR ( Amer) Est GFR (Non-Af Amer) Glucose Calcium Phosphorus Magnesium Total Bilirubin AST ALT Alkaline Phosphatase Total Protein Albumin 09/03/17 09/07/17 09/11/17 18:15 06:25 09:15 Creatine Kinase 82 CK-MB (CK-2) Troponin I NT-Pro-B Natriuret Pep 782 4140 H 09/11/17 09:15 Creatine Kinase CK-MB (CK-2) 1.30 Troponin I 0.016 NT-Pro-B Natriuret Pep Impressions: Abdomen/Pelvis CT 08/30/17 14:09 IMPRESSION: NO SIGNIFICANT OR ACUTE PROCESS IN THE ABDOMEN OR PELVIS. Head CT 09/02/17 00:00 IMPRESSION: No acute intracranial abnormality. Chest/Abdomen CTA 09/06/17 00:00 IMPRESSION: No pulmonary emboli. Diffuse parenchymal opacities predominantly upper lobe with bilateral pleural effusions. Chest X-Ray 09/12/17 06:00 IMPRESSION: No significant change. Assessment & Plan - Diagnosis (1) Acute kidney injury Is this a current diagnosis for this admission?: Yes Plan: Resolved (2) Acute respiratory failure with hypoxia and hypercapnia Is this a current diagnosis for this admission?: Yes Plan: Extubated stable (3) Morbid obesity due to excess calories Is this a current diagnosis for this admission?: Yes (4) Septic shock Is this a current diagnosis for this admission?: Yes
--- NOTE | 2017-09-18 19:14 | PDOC PROGRESS REPORT ---
Subjective Progress Note for:: 09/13/17 Subjective:: iStatus post extubation stable Reason For Visit: ACUTE KIDNEY INJURY Physical Exam Vital Signs: Temp Pulse Resp BP Pulse Ox 97.2 F 63 17 133/55 H 97 09/13/17 08:00 09/13/17 08:37 09/13/17 08:37 09/13/17 08:04 09/13/17 08:37 Intake & Output 09/12/17 09/13/17 09/14/17 06:59 06:59 06:59 Intake Total 2130 720 Output Total 2610 1425 235 Balance -480 -705 -235 Weight 131.8 kg 131.9 kg General appearance: PRESENT: no acute distress, cooperative, disheveled, morbidly obese Head exam: PRESENT: atraumatic, normocephalic Eye exam: PRESENT: conjunctiva pale, EOMI. ABSENT: nystagmus, periorbital swelling, scleral icterus Mouth exam: PRESENT: moist, neck supple, tongue midline Neck exam: ABSENT: carotid bruit, JVD, lymphadenopathy, thyromegaly, tracheal deviation, tracheostomy Respiratory exam: PRESENT: decreased breath sounds, prolonged expiratory phas, rhonchi, unlabored. ABSENT: retraction, stridor Cardiovascular exam: PRESENT: RRR, +S1, +S2 Pulses: PRESENT: normal radial pulses GI/Abdominal exam: PRESENT: normal bowel sounds, soft Gentrourinary exam: PRESENT: indwelling catheter Extremities exam: ABSENT: calf tenderness, clubbing, joint swelling Musculoskeletal exam: ABSENT: deformity, dislocation Neurological exam: PRESENT: awake Psychiatric exam: PRESENT: flat affect Skin exam: PRESENT: dry, warm Results Laboratory Results: 09/12/17 04:00 09/13/17 04:04 09/13/17 04:04 Sodium 139.4 Potassium 3.0 L* Chloride 97 L Carbon Dioxide 34 H Anion Gap 8 BUN 19 Creatinine 0.69 Est GFR ( Amer) > 60 Est GFR (Non-Af Amer) > 60 Glucose 260 H Calcium 8.5 09/03/17 09/07/17 09/11/17 18:15 06:25 09:15 Creatine Kinase 82 CK-MB (CK-2) Troponin I NT-Pro-B Natriuret Pep 782 4140 H 09/11/17 09:15 Creatine Kinase CK-MB (CK-2) 1.30 Troponin I 0.016 NT-Pro-B Natriuret Pep Impressions: Abdomen/Pelvis CT 08/30/17 14:09 IMPRESSION: NO SIGNIFICANT OR ACUTE PROCESS IN THE ABDOMEN OR PELVIS. Head CT 09/02/17 00:00 IMPRESSION: No acute intracranial abnormality. Chest/Abdomen CTA 09/06/17 00:00 IMPRESSION: No pulmonary emboli. Diffuse parenchymal opacities predominantly upper lobe with bilateral pleural effusions. Chest X-Ray 09/12/17 06:00 IMPRESSION: No significant change. Assessment & Plan - Diagnosis (1) Acute kidney injury Is this a current diagnosis for this admission?: Yes Plan: Resolved (2) Acute respiratory failure with hypoxia and hypercapnia Is this a current diagnosis for this admission?: Yes Plan: Extubated stable (3) Morbid obesity due to excess calories Is this a current diagnosis for this admission?: Yes (4) Septic shock Is this a current diagnosis for this admission?: Yes Plan: Resolved
--- NOTE | 2017-09-18 19:16 | PDOC PROGRESS REPORT ---
Subjective Progress Note for:: 09/17/17 Subjective:: iStatus post extubation stable Reason For Visit: ACUTE KIDNEY INJURY Physical Exam Vital Signs: Temp Pulse Resp BP Pulse Ox 98.3 F 70 21 H 124/60 96 09/17/17 11:30 09/17/17 11:30 09/17/17 11:30 09/17/17 11:30 09/17/17 11:30 Intake & Output 09/16/17 09/17/17 09/18/17 06:59 06:59 06:59 Intake Total 1467 855 Output Total 825 325 Balance 642 530 Weight 138.7 kg 139.3 kg General appearance: PRESENT: no acute distress, cooperative, disheveled, morbidly obese Head exam: PRESENT: atraumatic, normocephalic Eye exam: PRESENT: conjunctiva pale, EOMI. ABSENT: nystagmus, periorbital swelling, scleral icterus Mouth exam: PRESENT: moist, neck supple, tongue midline Neck exam: ABSENT: carotid bruit, JVD, lymphadenopathy, thyromegaly, tracheal deviation, tracheostomy Respiratory exam: PRESENT: decreased breath sounds, prolonged expiratory phas, rhonchi. ABSENT: retraction, stridor Cardiovascular exam: PRESENT: RRR, +S1, +S2 Pulses: PRESENT: normal radial pulses GI/Abdominal exam: PRESENT: normal bowel sounds, soft Extremities exam: PRESENT: pedal edema. ABSENT: calf tenderness, clubbing, joint swelling Musculoskeletal exam: ABSENT: deformity, dislocation Neurological exam: PRESENT: awake Psychiatric exam: PRESENT: flat affect Skin exam: PRESENT: dry, warm Results Laboratory Results: 09/15/17 04:12 09/17/17 04:10 09/17/17 04:10 Sodium 141.8 Potassium 3.8 Chloride 100 Carbon Dioxide 30 Anion Gap 12 BUN 26 H Creatinine 1.25 Est GFR ( Amer) 53 L Est GFR (Non-Af Amer) 44 L Glucose 183 H Calcium 9.4 09/03/17 09/07/17 09/11/17 18:15 06:25 09:15 Creatine Kinase 82 CK-MB (CK-2) Troponin I NT-Pro-B Natriuret Pep 782 4140 H 09/11/17 09:15 Creatine Kinase CK-MB (CK-2) 1.30 Troponin I 0.016 NT-Pro-B Natriuret Pep Impressions: Head CT 09/02/17 00:00 IMPRESSION: No acute intracranial abnormality. Chest/Abdomen CTA 09/06/17 00:00 IMPRESSION: No pulmonary emboli. Diffuse parenchymal opacities predominantly upper lobe with bilateral pleural effusions. Abdomen/Pelvis CT 09/15/17 00:00 IMPRESSION: 1. Bilateral lower lobar pneumonia partially imaged. 2. Mild splenomegaly. Chest X-Ray 09/15/17 06:00 IMPRESSION: No significant interval change. Assessment & Plan - Diagnosis (1) Acute kidney injury Is this a current diagnosis for this admission?: No (2) Acute respiratory failure with hypoxia and hypercapnia Is this a current diagnosis for this admission?: Yes Plan: Extubated stable (3) Morbid obesity due to excess calories Is this a current diagnosis for this admission?: Yes (4) Septic shock Is this a current diagnosis for this admission?: Yes Plan: Resolved (5) Obesity hypoventilation syndrome Is this a current diagnosis for this admission?: Yes Plan: FVC 40% FEV1 43% The above patient has failed BiPAP. This patient would benefit from noninvasive mechanical ventilation via the trilogy AVAPS/AE and faster responding AVAPS rates. The trilogy is able to provide a target tidal volume and also adjusting the EPAP pressures to maintain a patent airway as well as an oral backup rate this machine will help improve PaCO2 levels. The severity of the patient's condition will lead to future hospitalizations and readmissions as well as life-threatening situations without the use of this device trilogy home vent needed for hypercapnic respiratory failure. [facility] or [facility] to follow for trilogy set up.
[2017-09-18] MEDS: ATORVASTATIN CALCIUM 40 MG TABLET PO SCH (21:43)
[2017-09-19] MEDS: GABAPENTIN 300 MG CAPSULE PO SCH ×3 (05:22→22:58)
[2017-09-19] MEDS: HEPARIN SOD (PORCINE) 5,000 UNIT/ML 1 ML SYRINGE SUBCUT SCH ×3 (05:23→22:59)
[2017-09-19] MEDS: LEVOTHYROXINE SODIUM 0.1 MG TABLET PO SCH (05:23)
[2017-09-19] MEDS: LEVOTHYROXINE SODIUM 0.075 MG TABLET PO SCH (05:23)
[2017-09-19] MEDS: BACLOFEN 10 MG TABLET PO SCH ×3 (05:23→23:02)
[2017-09-19 06:04] LABS: ANION GAP 11 (5-19); BLOOD UREA NITROGEN 32 mg/dL (7-20); CALCIUM 8.8 mg/dL (8.4-10.2); CARBON DIOXIDE 29 mmol/L (22-30); CHLORIDE 103 mmol/L (98-107); GLUCOSE 96 mg/dL (75-110); POTASSIUM 3.8 mmol/L (3.6-5.0); SODIUM 142.5 mmol/L (137-145)
[2017-09-19] MEDS: IPRATROPIUM/ALBUTEROL 0.5-2.5 MG/3 ML AMPUL NEB SCH ×2 (07:58→19:47)
[2017-09-19] MEDS: LEVETIRACETAM 500 MG TABLET PO SCH ×2 (09:34→22:58)
[2017-09-19] MEDS: ASPIRIN 81 MG TABLET, CHEWABLE PO SCH (09:34)
[2017-09-19] MEDS: INSULIN GLARGINE,HUM.REC.ANLOG 1,000 UNIT/10 ML UNIT SUBCUT SCH ×2 (09:34→23:02)
[2017-09-19] MEDS: METFORMIN HCL 500 MG TABLET PO SCH ×2 (09:34→17:39)
[2017-09-19] MEDS: AMLODIPINE BESYLATE 10 MG TABLET PO SCH (09:35)
[2017-09-19] MEDS: GUAIFENESIN SYRP 200 MG/10 ML UDC PO SCH ×2 (09:35→23:06)
[2017-09-19] MEDS: FLUOXETINE HCL 20 MG CAPSULE PO SCH (09:35)
[2017-09-19] MEDS: FENOFIBRATE NANOCRYSTALLIZED 48 MG TABLET PO SCH (09:36)
[2017-09-19] MEDS: ONDANSETRON HCL INJ/PF 4 MG/2 ML SDV IV PRN ×3 (09:55→23:10)
--- NOTE | 2017-09-19 11:34 | PDOC PROGRESS REPORT ---
Subjective Progress Note for:: 09/19/17 Subjective:: iStatus post extubation stable Reason For Visit: ACUTE KIDNEY INJURY Physical Exam Vital Signs: Temp Pulse Resp BP Pulse Ox 98.1 F 62 14 99/79 L 95 09/19/17 07:50 09/19/17 07:58 09/19/17 07:58 09/19/17 07:50 09/19/17 07:58 Intake & Output 09/18/17 09/19/17 09/20/17 06:59 06:59 06:59 Intake Total 1018 2288 Balance 1018 2288 Weight 138.1 kg 138.4 kg General appearance: PRESENT: no acute distress, cooperative, disheveled, morbidly obese Head exam: PRESENT: atraumatic, normocephalic Eye exam: PRESENT: conjunctiva pale, EOMI. ABSENT: nystagmus, periorbital swelling, scleral icterus Mouth exam: PRESENT: moist, neck supple, tongue midline Neck exam: ABSENT: carotid bruit, JVD, lymphadenopathy, thyromegaly, tracheal deviation, tracheostomy Respiratory exam: PRESENT: decreased breath sounds, prolonged expiratory phas, rhonchi, unlabored. ABSENT: stridor, tachypnea Cardiovascular exam: PRESENT: RRR, +S1, +S2 Pulses: PRESENT: normal radial pulses GI/Abdominal exam: PRESENT: normal bowel sounds, soft Gentrourinary exam: PRESENT: indwelling catheter Extremities exam: PRESENT: pedal edema. ABSENT: calf tenderness, clubbing, joint swelling Musculoskeletal exam: ABSENT: ambulatory, deformity, dislocation Neurological exam: PRESENT: awake Psychiatric exam: PRESENT: flat affect Skin exam: PRESENT: dry, warm Results Laboratory Results: 09/18/17 04:07 09/19/17 04:11 09/19/17 04:11 Sodium 142.5 Potassium 3.8 Chloride 103 Carbon Dioxide 29 Anion Gap 11 BUN 32 H Creatinine 1.84 H Est GFR ( Amer) 34 L Est GFR (Non-Af Amer) 28 L Glucose 96 Calcium 8.8 09/03/17 09/07/17 09/11/17 18:15 06:25 09:15 Creatine Kinase 82 CK-MB (CK-2) Troponin I NT-Pro-B Natriuret Pep 782 4140 H 09/11/17 09:15 Creatine Kinase CK-MB (CK-2) 1.30 Troponin I 0.016 NT-Pro-B Natriuret Pep Impressions: Head CT 09/02/17 00:00 IMPRESSION: No acute intracranial abnormality. Chest/Abdomen CTA 09/06/17 00:00 IMPRESSION: No pulmonary emboli. Diffuse parenchymal opacities predominantly upper lobe with bilateral pleural effusions. Abdomen/Pelvis CT 09/15/17 00:00 IMPRESSION: 1. Bilateral lower lobar pneumonia partially imaged. 2. Mild splenomegaly. Chest X-Ray 09/15/17 06:00 IMPRESSION: No significant interval change. Assessment & Plan - Diagnosis (1) Acute kidney injury Is this a current diagnosis for this admission?: No (2) Acute respiratory failure with hypoxia and hypercapnia Is this a current diagnosis for this admission?: Yes Plan: At or near her baseline (3) Morbid obesity due to excess calories Is this a current diagnosis for this admission?: Yes (4) Septic shock Is this a current diagnosis for this admission?: No (5) Obesity hypoventilation syndrome Is this a current diagnosis for this admission?: Yes Plan: FVC 40% FEV1 43% The above patient has failed BiPAP. This patient would benefit from noninvasive mechanical ventilation via the trilogy AVAPS/AE and faster responding AVAPS rates. The trilogy is able to provide a target tidal volume and also adjusting the EPAP pressures to maintain a patent airway as well as an oral backup rate this machine will help improve PaCO2 levels. The severity of the patient's condition will lead to future hospitalizations and readmissions as well as life-threatening situations without the use of this device trilogy home vent needed for hypercapnic respiratory failure. [facility] or [facility] to follow for trilogy set up.
[2017-09-19] MEDS: NYSTATIN TOPICAL POWDER 15 GM TP SCH ×2 (11:56→17:39)
[2017-09-19] MEDS: NORMAL SALINE 1000 ML 1,000 ML IV PRN (11:56)
[2017-09-19] MEDS: INSULIN LISPRO 100 UNIT/ML 3 ML VIAL SUBCUT PRN (14:59)
--- NOTE | 2017-09-19 16:28 | PDOC PROGRESS REPORT ---
Subjective Progress Note for:: 09/19/17 Subjective:: Patient was admitted with intractable diarrhea as well as acute kidney failure. She was found to be positive for Salmonella with bacteremia as well as diarrhea. She was subsequently intubated and treated in the ICU and is being successfully extubated. Repeat blood cultures have been negative. She does continue to improve and has been hemodynamically stable however she has been weak especially due to her prolonged hospitalization and she is still recuperating but the plan is for her to go home with home health at discharge once stable. We are planning for the end of the week if she continues to make progress Reason For Visit: ACUTE KIDNEY INJURY Physical Exam Vital Signs: Temp Pulse Resp BP Pulse Ox 98.1 F 60 14 99/79 L 95 09/19/17 07:50 09/19/17 14:00 09/19/17 07:58 09/19/17 07:50 09/19/17 07:58 Intake & Output 09/18/17 09/19/17 09/20/17 06:59 06:59 06:59 Intake Total 1018 2288 Balance 1018 2288 Weight 138.1 kg 138.4 kg General appearance: PRESENT: no acute distress, morbidly obese, well-developed, well-nourished Head exam: PRESENT: atraumatic, normocephalic Eye exam: PRESENT: PERRLA. ABSENT: scleral icterus Ear exam: PRESENT: normal external ear exam Mouth exam: PRESENT: moist, tongue midline Neck exam: ABSENT: carotid bruit, JVD, lymphadenopathy, thyromegaly Respiratory exam: PRESENT: clear to auscultation compa. ABSENT: rales, rhonchi, wheezes Cardiovascular exam: PRESENT: RRR. ABSENT: diastolic murmur, rubs, systolic murmur Pulses: PRESENT: normal dorsalis pedis pul Vascular exam: PRESENT: normal capillary refill GI/Abdominal exam: PRESENT: normal bowel sounds, soft. ABSENT: distended, guarding, mass, organolmegaly, rebound, tenderness Rectal exam: PRESENT: deferred Extremities exam: PRESENT: full ROM. ABSENT: calf tenderness, clubbing, pedal edema Neurological exam: PRESENT: alert, awake, oriented to person, oriented to place , oriented to time, oriented to situation, CN II-XII grossly intact. ABSENT: motor sensory deficit Psychiatric exam: PRESENT: appropriate affect, normal mood. ABSENT: homicidal ideation, suicidal ideation Skin exam: PRESENT: dry, intact, warm. ABSENT: cyanosis, rash Results Laboratory Results: 09/18/17 04:07 09/19/17 04:11 09/19/17 09/19/17 04:11 04:11 Sodium 142.5 Potassium 3.8 Chloride 103 Carbon Dioxide 29 Anion Gap 11 BUN 32 H Creatinine 1.84 H Est GFR ( Amer) 34 L Est GFR (Non-Af Amer) 28 L Glucose 96 Calcium 8.8 Magnesium 1.9 09/03/17 09/07/17 09/11/17 18:15 06:25 09:15 Creatine Kinase 82 CK-MB (CK-2) Troponin I NT-Pro-B Natriuret Pep 782 4140 H 09/11/17 09:15 Creatine Kinase CK-MB (CK-2) 1.30 Troponin I 0.016 NT-Pro-B Natriuret Pep Impressions: Head CT 09/02/17 00:00 IMPRESSION: No acute intracranial abnormality. Chest/Abdomen CTA 09/06/17 00:00 IMPRESSION: No pulmonary emboli. Diffuse parenchymal opacities predominantly upper lobe with bilateral pleural effusions. Abdomen/Pelvis CT 09/15/17 00:00 IMPRESSION: 1. Bilateral lower lobar pneumonia partially imaged. 2. Mild splenomegaly. Chest X-Ray 09/15/17 06:00 IMPRESSION: No significant interval change. Assessment & Plan - Time Time Spent with patient: 15-24 minutes Medications reviewed and adjusted accordingly: Yes Anticipated discharge: Home Within: within 72 hours - Inpatient Certification Based on my medical assessment, after consideration of the patient's comorbidities, presenting symptoms, or acuity I expect that the services needed warrant INPATIENT care.: Yes Medical Necessity: Need Close Monitoring Due to Risk of Patient Decompensation, Risk of Complication if Not Cared For in Hospital - Plan Summary Plan Summary: 1. Septic shock secondary to Salmonella bacteremia as well as MSSA pneumonia resolved. 2. Salmonella bacteremia - completed a course of antibiotics 3. MSSA pneumonia resolved 4. Acute respiratory failure with hypoxemia and hypercapnia status post mechanical ventilation. 5. Acute kidney failure secondary to ATN as well as sepsis resolved 6. Type 2 diabetes mellitus controlled 7. Hyponatremia, hypokalemia and hypomagnesemia corrected 8. 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 Hyperlipidemia chronic currently on statin 10. Ambulatory dysfunction from prolonged hospitalization. Continue to encourage physical therapy in hospital. Plan is to dc home with home health once stable 11. Morbid obesity patient encouraged to lose weight 12. Full CODE STATUS
[2017-09-19] MEDS: CEFTRIAXONE 2 GM/D5W RTU 2 GM/50 ML RTUPB IV SCH (17:39)
[2017-09-19] MEDS: ATORVASTATIN CALCIUM 40 MG TABLET PO SCH (22:58)
[2017-09-20] MEDS: NORMAL SALINE 1000 ML 1,000 ML IV PRN ×2 (03:21→20:35)
[2017-09-20] MEDS: ONDANSETRON HCL INJ/PF 4 MG/2 ML SDV IV PRN ×2 (03:22→08:12)
[2017-09-20 05:24] LABS: ANION GAP 13 (5-19); BLOOD UREA NITROGEN 36 mg/dL (7-20); CARBON DIOXIDE 26 mmol/L (22-30); CHLORIDE 104 mmol/L (98-107); GLUCOSE 103 mg/dL (75-110); POTASSIUM 4.5 mmol/L (3.6-5.0)
[2017-09-20] MEDS: LEVOTHYROXINE SODIUM 0.1 MG TABLET PO SCH (05:57)
[2017-09-20] MEDS: GABAPENTIN 300 MG CAPSULE PO SCH ×3 (05:57→21:40)
[2017-09-20] MEDS: HEPARIN SOD (PORCINE) 5,000 UNIT/ML 1 ML SYRINGE SUBCUT SCH ×3 (05:57→21:52)
[2017-09-20] MEDS: LEVOTHYROXINE SODIUM 0.075 MG TABLET PO SCH (05:58)
[2017-09-20] MEDS: BACLOFEN 10 MG TABLET PO SCH ×3 (05:58→21:42)
[2017-09-20] MEDS: IPRATROPIUM/ALBUTEROL 0.5-2.5 MG/3 ML AMPUL NEB SCH ×2 (09:21→19:53)
[2017-09-20] MEDS: FLUOXETINE HCL 20 MG CAPSULE PO SCH (10:58)
[2017-09-20] MEDS: LEVETIRACETAM 500 MG TABLET PO SCH ×2 (10:58→21:41)
[2017-09-20] MEDS: ASPIRIN 81 MG TABLET, CHEWABLE PO SCH (10:58)
[2017-09-20] MEDS: METFORMIN HCL 500 MG TABLET PO SCH ×2 (10:58→18:01)
[2017-09-20] MEDS: NYSTATIN TOPICAL POWDER 15 GM TP SCH ×2 (10:58→18:01)
[2017-09-20] MEDS: AMLODIPINE BESYLATE 10 MG TABLET PO SCH (10:58)
[2017-09-20] MEDS: GUAIFENESIN SYRP 200 MG/10 ML UDC PO SCH ×2 (11:00→21:44)
[2017-09-20] MEDS: INSULIN GLARGINE,HUM.REC.ANLOG 1,000 UNIT/10 ML UNIT SUBCUT SCH ×3 (11:00→21:43)
[2017-09-20] MEDS: FENOFIBRATE NANOCRYSTALLIZED 48 MG TABLET PO SCH (11:13)
--- NOTE | 2017-09-20 14:28 | PDOC PROGRESS REPORT ---
Subjective Progress Note for:: 09/20/17 Subjective:: Patient complain of some nausea and vomiting today and just generalized malaise she has not been febrile and she has been hemodynamically stable. There is no abdominal pain or dizziness Reason For Visit: ACUTE KIDNEY INJURY Physical Exam Vital Signs: Temp Pulse Resp BP Pulse Ox 98.2 F 53 L 16 122/55 L 97 09/20/17 07:37 09/20/17 07:37 09/20/17 07:37 09/20/17 07:37 09/20/17 07:37 Intake & Output 09/19/17 09/20/17 09/21/17 06:59 06:59 06:59 Intake Total 2288 2392 Output Total 500 Balance 2288 1892 Weight 138.4 kg 140.6 kg General appearance: PRESENT: no acute distress, well-developed, well-nourished Head exam: PRESENT: atraumatic, normocephalic Eye exam: PRESENT: conjunctiva pink, EOMI, PERRLA. ABSENT: scleral icterus Ear exam: PRESENT: normal external ear exam Mouth exam: PRESENT: moist, tongue midline Neck exam: ABSENT: carotid bruit, JVD, lymphadenopathy, thyromegaly Respiratory exam: PRESENT: clear to auscultation compa. ABSENT: rales, rhonchi, wheezes Cardiovascular exam: PRESENT: RRR. ABSENT: diastolic murmur, rubs, systolic murmur Pulses: PRESENT: normal dorsalis pedis pul Vascular exam: PRESENT: normal capillary refill GI/Abdominal exam: PRESENT: normal bowel sounds, soft. ABSENT: distended, guarding, mass, organolmegaly, rebound, tenderness Rectal exam: PRESENT: deferred Extremities exam: PRESENT: full ROM. ABSENT: calf tenderness, clubbing, pedal edema Neurological exam: PRESENT: alert, awake, oriented to person, oriented to place , oriented to time, oriented to situation, CN II-XII grossly intact. ABSENT: motor sensory deficit Psychiatric exam: PRESENT: appropriate affect. ABSENT: homicidal ideation, suicidal ideation Skin exam: PRESENT: dry, intact, warm. ABSENT: cyanosis, rash Results Laboratory Results: 09/18/17 04:07 09/20/17 04:29 09/20/17 04:29 Sodium 143.0 Potassium 4.5 Chloride 104 Carbon Dioxide 26 Anion Gap 13 BUN 36 H Creatinine 1.81 H Est GFR ( Amer) 35 L Est GFR (Non-Af Amer) 29 L Glucose 103 Calcium 9.0 09/03/17 09/07/17 09/11/17 18:15 06:25 09:15 Creatine Kinase 82 CK-MB (CK-2) Troponin I NT-Pro-B Natriuret Pep 782 4140 H 09/11/17 09:15 Creatine Kinase CK-MB (CK-2) 1.30 Troponin I 0.016 NT-Pro-B Natriuret Pep Impressions: Head CT 09/02/17 00:00 IMPRESSION: No acute intracranial abnormality. Chest/Abdomen CTA 09/06/17 00:00 IMPRESSION: No pulmonary emboli. Diffuse parenchymal opacities predominantly upper lobe with bilateral pleural effusions. Abdomen/Pelvis CT 09/15/17 00:00 IMPRESSION: 1. Bilateral lower lobar pneumonia partially imaged. 2. Mild splenomegaly. Chest X-Ray 09/15/17 06:00 IMPRESSION: No significant interval change. Assessment & Plan - Time Time Spent with patient: 15-24 minutes Anticipated discharge: Home with Homehealth Within: within 72 hours - Inpatient Certification Based on my medical assessment, after consideration of the patient's comorbidities, presenting symptoms, or acuity I expect that the services needed warrant INPATIENT care.: Yes Medical Necessity: Risk of Complication if Not Cared For in Hospital, Risk of Diagnosis Which Will Require Inpatient Eval/Care/Monitoring - Plan Summary Plan Summary: 1. Septic shock secondary to Salmonella bacteremia as well as MSSA pneumonia. Patient had been on Fortaz since 726 and this was subsequently switched to ceftriaxone which she has received up till now making about 15 days of cephalosporins. Was felt that she needed at least 14 days of IV antibiotics due to the Salmonella bacteremia. I will go ahead and discontinue the ceftriaxone. Also be contributing factor to her GI symptoms. 2. Salmonella bacteremia - completed a course of antibiotics today 3. MSSA pneumonia resolved 4. Acute respiratory failure with hypoxemia and hypercapnia status post mechanical ventilation. 5. Acute kidney failure secondary to ATN as well as sepsis resolved 6. Type 2 diabetes mellitus controlled 7. Hyponatremia, hypokalemia and hypomagnesemia corrected 8. 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 Hyperlipidemia chronic currently on statin 10. Ambulatory dysfunction from prolonged hospitalization. Continue to encourage physical therapy in hospital. Plan is to dc home with home health once stable 11. Morbid obesity patient encouraged to lose weight 12. Full CODE STATUS 13. She appears to be slightly azotemic again and she has been placed on cautious IV fluid
[2017-09-20] MEDS: PROMETHAZINE HCL INJ 25 MG/1 ML VIAL IV PRN (15:32)
--- NOTE | 2017-09-20 16:29 | RADIOLOGY REPORT (SQ) ---
EXAM DESCRIPTION: KUB/ABDOMEN (SINGLE VIEW) COMPLETED DATE/TIME: 09/20/2017 4:19 pm REASON FOR STUDY: vomiting Bile, obstruction? COMPARISON: None. NUMBER OF VIEWS: One view. TECHNIQUE: Supine radiographic image of the abdomen acquired. LIMITATIONS: None. FINDINGS: BOWEL GAS PATTERN: Relatively gasless abdomen. No dilated loops of bowel are appreciated. CALCIFICATIONS: No suspicious calcifications. SOFT TISSUES: No gross mass or suggestion of organomegaly. HARDWARE: None in the abdomen. BONES: No acute fracture. No worrisome bone lesions. OTHER: Cannot exclude airspace disease in either lower lobe. IMPRESSION: 1. Nonspecific abdomen. The paucity of bowel gas Yomaira difficult to rule out bowel obst ruction. 2. Cannot exclude lower lobe airspace disease. TECHNICAL DOCUMENTATION: JOB ID: [id number] [employer]- All Rights Reserved Reading location - IP/workstation name: [email or web address]
[2017-09-20] MEDS: HYDRALAZINE HCL 25 MG TABLET PO SCH ×2 (18:01→21:41)
[2017-09-20] MEDS: ATORVASTATIN CALCIUM 40 MG TABLET PO SCH (21:41)
[2017-09-21 05:06] LABS: ABSOLUTE BASOPHILS # (AUTO) 0.1 10^3/uL (0.0-0.2); ABSOLUTE EOSINOPHILS # (AUTO) 0.2 10^3/uL (0.0-0.6); ABSOLUTE LYMPHOCYTES (AUTO) 1.7 10^3/uL (0.5-4.7); ABSOLUTE MONOCYTES (AUTO) 0.4 10^3/uL (0.1-1.4); ABSOLUTE NEUT (AUTO) 2.9 10^3/uL (1.7-8.2); BASOPHILS % (AUTO) 1.7 % (0-2); EOSINOPHILS % (AUTO) 3.7 % (0-6); HEMOGLOBIN 8.9 g/dL (12.0-15.5); LYMPHOCYTES % (AUTO) 32.8 % (13-45); MEAN CORPUSCULAR HEMOGLOBIN 29.1 pg (27.0-33.4); MEAN CORPUSCULAR VOLUME 88 fl (80-97); MONOCYTES % (AUTO) 7.4 % (3-13); PLATELET COUNT 237 10^3/uL (150-450); RED BLOOD COUNT 3.07 10^6/uL (3.72-5.28); RED CELL DISTRIBUTION WIDTH 17.9 % (11.5-14.0); SEGMENTED NEUTROPHILS % (AUTO) 54.4 % (42-78); TOTAL CELLS COUNTED % (AUTO) 100 %; WHITE BLOOD COUNT 5.3 10^3/uL (4.0-10.5)
[2017-09-21 05:22] LABS: ANION GAP 8 (5-19); BLOOD UREA NITROGEN 30 mg/dL (7-20); CALCIUM 8.8 mg/dL (8.4-10.2); CARBON DIOXIDE 29 mmol/L (22-30); CHLORIDE 108 mmol/L (98-107); GLUCOSE 98 mg/dL (75-110); POTASSIUM 4.5 mmol/L (3.6-5.0); SODIUM 144.9 mmol/L (137-145)
[2017-09-21] MEDS: HYDRALAZINE HCL 25 MG TABLET PO SCH ×3 (06:16→22:13)
[2017-09-21] MEDS: GABAPENTIN 300 MG CAPSULE PO SCH ×3 (06:16→22:11)
[2017-09-21] MEDS: BACLOFEN 10 MG TABLET PO SCH ×3 (06:16→22:17)
[2017-09-21] MEDS: LEVOTHYROXINE SODIUM 0.075 MG TABLET PO SCH (06:17)
[2017-09-21] MEDS: HEPARIN SOD (PORCINE) 5,000 UNIT/ML 1 ML SYRINGE SUBCUT SCH ×3 (06:18→22:14)
[2017-09-21] MEDS: LEVOTHYROXINE SODIUM 0.1 MG TABLET PO SCH (06:18)
[2017-09-21] MEDS: IPRATROPIUM/ALBUTEROL 0.5-2.5 MG/3 ML AMPUL NEB SCH ×2 (08:14→19:44)
[2017-09-21] MEDS: INSULIN GLARGINE,HUM.REC.ANLOG 1,000 UNIT/10 ML UNIT SUBCUT SCH ×2 (10:41→22:15)
[2017-09-21] MEDS: FLUOXETINE HCL 20 MG CAPSULE PO SCH (10:44)
[2017-09-21] MEDS: LEVETIRACETAM 500 MG TABLET PO SCH ×2 (10:44→22:10)
[2017-09-21] MEDS: ASPIRIN 81 MG TABLET, CHEWABLE PO SCH (10:44)
[2017-09-21] MEDS: METFORMIN HCL 500 MG TABLET PO SCH ×2 (10:44→18:19)
[2017-09-21] MEDS: AMLODIPINE BESYLATE 10 MG TABLET PO SCH (10:45)
[2017-09-21] MEDS: FENOFIBRATE NANOCRYSTALLIZED 48 MG TABLET PO SCH (10:47)
[2017-09-21] MEDS: LOPERAMIDE HCL 2 MG CAPSULE PO PRN ×2 (10:48→15:23)
[2017-09-21] MEDS: NORMAL SALINE 1000 ML 1,000 ML IV PRN (10:49)
[2017-09-21] MEDS: GUAIFENESIN SYRP 200 MG/10 ML UDC PO SCH ×2 (10:53→22:17)
[2017-09-21] MEDS: NYSTATIN TOPICAL POWDER 15 GM TP SCH (10:58)
--- NOTE | 2017-09-21 13:37 | PDOC PROGRESS REPORT ---
Subjective Progress Note for:: 09/21/17 Subjective:: Patient feels much better today. There has been no further nausea vomiting. There is no diarrhea or fever. She was able to tolerate breakfast this morning Reason For Visit: ACUTE KIDNEY INJURY Physical Exam Vital Signs: Temp Pulse Resp BP Pulse Ox 97.9 F 69 18 139/55 H 96 09/21/17 11:18 09/21/17 11:18 09/21/17 11:18 09/21/17 11:18 09/21/17 11:18 Intake & Output 09/20/17 09/21/17 09/22/17 06:59 06:59 06:59 Intake Total 2392 2411 1752 Output Total 500 250 Balance 1892 2161 1752 Weight 140.6 kg 140 kg General appearance: PRESENT: no acute distress, morbidly obese, well-developed, well-nourished Head exam: PRESENT: atraumatic, normocephalic Eye exam: PRESENT: conjunctiva pink, EOMI, PERRLA. ABSENT: scleral icterus Ear exam: PRESENT: normal external ear exam Mouth exam: PRESENT: moist, tongue midline Neck exam: ABSENT: carotid bruit, JVD, lymphadenopathy, thyromegaly Respiratory exam: PRESENT: clear to auscultation compa. ABSENT: rales, rhonchi, wheezes Cardiovascular exam: PRESENT: RRR. ABSENT: diastolic murmur, rubs, systolic murmur Pulses: PRESENT: normal dorsalis pedis pul Vascular exam: PRESENT: normal capillary refill GI/Abdominal exam: PRESENT: normal bowel sounds, soft. ABSENT: distended, guarding, mass, organolmegaly, rebound, tenderness Rectal exam: PRESENT: deferred Extremities exam: PRESENT: full ROM. ABSENT: calf tenderness, clubbing, pedal edema Neurological exam: PRESENT: alert, awake, oriented to person, oriented to place , oriented to time, oriented to situation, CN II-XII grossly intact. ABSENT: motor sensory deficit Psychiatric exam: PRESENT: appropriate affect, normal mood. ABSENT: homicidal ideation, suicidal ideation Skin exam: PRESENT: dry, intact, warm. ABSENT: cyanosis, rash Results Laboratory Results: 09/21/17 04:16 09/21/17 04:16 09/21/17 09/21/17 04:16 04:16 WBC 5.3 RBC 3.07 L Hgb 8.9 L Hct 27.0 L MCV 88 MCH 29.1 MCHC 33.0 RDW 17.9 H Plt Count 237 Seg Neutrophils % 54.4 Lymphocytes % 32.8 Monocytes % 7.4 Eosinophils % 3.7 Basophils % 1.7 Absolute Neutrophils 2.9 Absolute Lymphocytes 1.7 Absolute Monocytes 0.4 Absolute Eosinophils 0.2 Absolute Basophils 0.1 Sodium 144.9 Potassium 4.5 Chloride 108 H Carbon Dioxide 29 Anion Gap 8 BUN 30 H Creatinine 1.23 Est GFR ( Amer) 54 L Est GFR (Non-Af Amer) 45 L Glucose 98 Calcium 8.8 09/03/17 09/07/17 09/11/17 18:15 06:25 09:15 Creatine Kinase 82 CK-MB (CK-2) Troponin I NT-Pro-B Natriuret Pep 782 4140 H 09/11/17 09:15 Creatine Kinase CK-MB (CK-2) 1.30 Troponin I 0.016 NT-Pro-B Natriuret Pep Impressions: Head CT 09/02/17 00:00 IMPRESSION: No acute intracranial abnormality. Chest/Abdomen CTA 09/06/17 00:00 IMPRESSION: No pulmonary emboli. Diffuse parenchymal opacities predominantly upper lobe with bilateral pleural effusions. Abdomen/Pelvis CT 09/15/17 00:00 IMPRESSION: 1. Bilateral lower lobar pneumonia partially imaged. 2. Mild splenomegaly. Chest X-Ray 09/15/17 06:00 IMPRESSION: No significant interval change. KUB X-Ray 09/20/17 00:00 IMPRESSION: 1. Nonspecific abdomen. The paucity of bowel gas Yomaira difficult to rule out bowel obstruction. 2. Cannot exclude lower lobe airspace disease. Assessment & Plan - Time Time Spent with patient: 15-24 minutes Medications reviewed and adjusted accordingly: Yes Anticipated discharge: Home Within: within 72 hours - Inpatient Certification Based on my medical assessment, after consideration of the patient's comorbidities, presenting symptoms, or acuity I expect that the services needed warrant INPATIENT care.: Yes Medical Necessity: Need For Continuous Telemetry Monitoring - Plan Summary Plan Summary: 1. Septic shock secondary to Salmonella bacteremia as well as MSSA pneumonia. Patient received Fortaz since 71 and this was subsequently switched to ceftriaxone which she received through 09/20 about 15 days of cephalosporins. Was felt that she needed at least 14 days of IV antibiotics due to the Salmonella bacteremia. Is now off all antibiotics 2. Salmonella bacteremia - completed a course of antibiotics today 3. MSSA pneumonia resolved 4. Acute respiratory failure with hypoxemia and hypercapnia status post mechanical ventilation. 5. Acute kidney failure secondary to ATN as well as sepsis resolved 6. Type 2 diabetes mellitus controlled 7. Hyponatremia, hypokalemia and hypomagnesemia corrected 8. 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 Hyperlipidemia chronic currently on statin 10. Ambulatory dysfunction from prolonged hospitalization. Continue to encourage physical therapy in hospital. Plan is to dc home with home health once stable. She has been encouraged to ambulate with help so she can get stronger and be discharged home 11. Morbid obesity patient encouraged to lose weight 12. Full CODE STATUS 13. Continue cautious IV fluid due to azotemia
[2017-09-21] MEDS: ATORVASTATIN CALCIUM 40 MG TABLET PO SCH (22:10)
[2017-09-22] MEDS: LOPERAMIDE HCL 2 MG CAPSULE PO PRN (00:08)
[2017-09-22] MEDS: PROMETHAZINE HCL INJ 25 MG/1 ML VIAL IV PRN (00:10)
[2017-09-22] MEDS: NYSTATIN TOPICAL POWDER 15 GM TP SCH ×3 (00:52→18:42)
[2017-09-22] MEDS: NORMAL SALINE 1000 ML 1,000 ML IV PRN (00:53)
[2017-09-22 05:53] LABS: ANION GAP 8 (5-19); BLOOD UREA NITROGEN 22 mg/dL (7-20); CALCIUM 8.7 mg/dL (8.4-10.2); CARBON DIOXIDE 28 mmol/L (22-30); CHLORIDE 108 mmol/L (98-107); GLUCOSE 100 mg/dL (75-110); POTASSIUM 4.4 mmol/L (3.6-5.0); SODIUM 144.1 mmol/L (137-145)
[2017-09-22] MEDS: BACLOFEN 10 MG TABLET PO SCH ×3 (06:10→22:12)
[2017-09-22] MEDS: HYDRALAZINE HCL 25 MG TABLET PO SCH ×3 (06:10→22:12)
[2017-09-22] MEDS: HEPARIN SOD (PORCINE) 5,000 UNIT/ML 1 ML SYRINGE SUBCUT SCH ×3 (06:10→22:12)
[2017-09-22] MEDS: LEVOTHYROXINE SODIUM 0.1 MG TABLET PO SCH (06:11)
[2017-09-22] MEDS: LEVOTHYROXINE SODIUM 0.075 MG TABLET PO SCH (06:11)
[2017-09-22] MEDS: GABAPENTIN 300 MG CAPSULE PO SCH ×3 (06:11→22:12)
[2017-09-22] MEDS: IPRATROPIUM/ALBUTEROL 0.5-2.5 MG/3 ML AMPUL NEB SCH ×2 (07:42→19:36)
[2017-09-22] MEDS: FLUOXETINE HCL 20 MG CAPSULE PO SCH (10:44)
[2017-09-22] MEDS: METFORMIN HCL 500 MG TABLET PO SCH ×2 (10:44→18:08)
[2017-09-22] MEDS: AMLODIPINE BESYLATE 10 MG TABLET PO SCH (10:44)
[2017-09-22] MEDS: INSULIN GLARGINE,HUM.REC.ANLOG 1,000 UNIT/10 ML UNIT SUBCUT SCH ×2 (10:45→22:13)
[2017-09-22] MEDS: FENOFIBRATE NANOCRYSTALLIZED 48 MG TABLET PO SCH (10:45)
[2017-09-22] MEDS: ASPIRIN 81 MG TABLET, CHEWABLE PO SCH (10:45)
[2017-09-22] MEDS: LEVETIRACETAM 500 MG TABLET PO SCH ×2 (10:45→22:12)
[2017-09-22] MEDS: GUAIFENESIN SYRP 200 MG/10 ML UDC PO SCH ×2 (10:46→22:13)
[2017-09-22] MEDS ORDERED: NORMAL SALINE 1000 ML 1,000 ML IV PRN (11:20)
--- NOTE | 2017-09-22 11:29 | PDOC PROGRESS REPORT ---
Subjective Progress Note for:: 09/22/17 Subjective:: Patient feels much better today. C/o ear pain Reason For Visit: ACUTE KIDNEY INJURY Physical Exam Vital Signs: Temp Pulse Resp BP Pulse Ox 98.4 F 63 18 110/47 L 99 09/22/17 07:50 09/22/17 07:50 09/22/17 07:50 09/22/17 07:50 09/22/17 07:50 Intake & Output 09/21/17 09/22/17 09/23/17 06:59 06:59 06:59 Intake Total 2411 3430 Output Total 250 Balance 2161 3430 Weight 140 kg 140.6 kg General appearance: PRESENT: no acute distress, morbidly obese, well-developed, well-nourished Head exam: PRESENT: atraumatic, normocephalic Eye exam: PRESENT: conjunctiva pink, EOMI, PERRLA. ABSENT: scleral icterus Ear exam: PRESENT: normal external ear exam Mouth exam: PRESENT: moist, tongue midline Neck exam: ABSENT: carotid bruit, JVD, lymphadenopathy, thyromegaly Respiratory exam: PRESENT: clear to auscultation compa. ABSENT: rales, rhonchi, wheezes Cardiovascular exam: PRESENT: RRR. ABSENT: diastolic murmur, rubs, systolic murmur Pulses: PRESENT: normal dorsalis pedis pul Vascular exam: PRESENT: normal capillary refill GI/Abdominal exam: PRESENT: normal bowel sounds, soft. ABSENT: distended, guarding, mass, organolmegaly, rebound, tenderness Rectal exam: PRESENT: deferred Extremities exam: PRESENT: full ROM. ABSENT: calf tenderness, clubbing, pedal edema Neurological exam: PRESENT: alert, awake, oriented to person, oriented to place , oriented to time, oriented to situation, CN II-XII grossly intact. ABSENT: motor sensory deficit Psychiatric exam: PRESENT: appropriate affect, normal mood. ABSENT: homicidal ideation, suicidal ideation Skin exam: PRESENT: dry, intact, warm. ABSENT: cyanosis, rash Results Laboratory Results: 09/21/17 04:16 09/22/17 04:20 09/22/17 04:20 Sodium 144.1 Potassium 4.4 Chloride 108 H Carbon Dioxide 28 Anion Gap 8 BUN 22 H Creatinine 0.89 Est GFR ( Amer) > 60 Est GFR (Non-Af Amer) > 60 Glucose 100 Calcium 8.7 09/03/17 09/07/17 09/11/17 18:15 06:25 09:15 Creatine Kinase 82 CK-MB (CK-2) Troponin I NT-Pro-B Natriuret Pep 782 4140 H 09/11/17 09:15 Creatine Kinase CK-MB (CK-2) 1.30 Troponin I 0.016 NT-Pro-B Natriuret Pep Impressions: Head CT 09/02/17 00:00 IMPRESSION: No acute intracranial abnormality. Chest/Abdomen CTA 09/06/17 00:00 IMPRESSION: No pulmonary emboli. Diffuse parenchymal opacities predominantly upper lobe with bilateral pleural effusions. Abdomen/Pelvis CT 09/15/17 00:00 IMPRESSION: 1. Bilateral lower lobar pneumonia partially imaged. 2. Mild splenomegaly. Chest X-Ray 09/15/17 06:00 IMPRESSION: No significant interval change. KUB X-Ray 09/20/17 00:00 IMPRESSION: 1. Nonspecific abdomen. The paucity of bowel gas Yomaira difficult to rule out bowel obstruction. 2. Cannot exclude lower lobe airspace disease. Assessment & Plan - Time Time Spent with patient: 15-24 minutes Smoking Cessation Education: 3 to 10 minutes Anticipated discharge: Home Within: within 48 hours - Inpatient Certification Based on my medical assessment, after consideration of the patient's comorbidities, presenting symptoms, or acuity I expect that the services needed warrant INPATIENT care.: Yes Medical Necessity: Need For IV Fluids - Plan Summary Plan Summary: 1. Septic shock secondary to Salmonella bacteremia as well as MSSA pneumonia. Patient received Fortaz since and this was subsequently switched to ceftriaxone which she received through 09/20. 2. Salmonella bacteremia - completed a course of antibiotics today 3. MSSA pneumonia resolved 4. Acute respiratory failure with hypoxemia and hypercapnia status post mechanical ventilation. 5. Acute kidney failure secondary to ATN as well as sepsis resolved 6. Type 2 diabetes mellitus controlled 7. Hyponatremia, hypokalemia and hypomagnesemia corrected 8. 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 Hyperlipidemia chronic currently on statin 10. Ambulatory dysfunction from prolonged hospitalization. Continue to encourage physical therapy in hospital. Plan is to dc home with home health once stable. She has been encouraged to ambulate with help so she can get stronger and be discharged home 11. Morbid obesity patient encouraged to lose weight 12. Full CODE STATUS 13. Continue cautious IV fluid. azotemia is resolving
[2017-09-22] MEDS: INSULIN LISPRO 100 UNIT/ML 3 ML VIAL SUBCUT PRN (12:00)
[2017-09-22] MEDS: ATORVASTATIN CALCIUM 40 MG TABLET PO SCH (22:12)
[2017-09-22] MEDS ORDERED: LANSOPRAZOLE 30 MG TAB.RAP.DR PO ONE (22:30)
[2017-09-23 06:03] LABS: ANION GAP 7 (5-19); BLOOD UREA NITROGEN 18 mg/dL (7-20); CARBON DIOXIDE 27 mmol/L (22-30); CHLORIDE 109 mmol/L (98-107); GLUCOSE 88 mg/dL (75-110); POTASSIUM 4.5 mmol/L (3.6-5.0); SODIUM 143.1 mmol/L (137-145)
[2017-09-23] MEDS: GABAPENTIN 300 MG CAPSULE PO SCH ×3 (06:15→22:25)
[2017-09-23] MEDS: HYDRALAZINE HCL 25 MG TABLET PO SCH ×3 (06:15→22:26)
[2017-09-23] MEDS: LEVOTHYROXINE SODIUM 0.075 MG TABLET PO SCH (06:15)
[2017-09-23] MEDS: LEVOTHYROXINE SODIUM 0.1 MG TABLET PO SCH (06:15)
[2017-09-23] MEDS: BACLOFEN 10 MG TABLET PO SCH ×3 (06:16→22:32)
[2017-09-23] MEDS: HEPARIN SOD (PORCINE) 5,000 UNIT/ML 1 ML SYRINGE SUBCUT SCH ×3 (06:16→22:31)
[2017-09-23] MEDS: IPRATROPIUM/ALBUTEROL 0.5-2.5 MG/3 ML AMPUL NEB SCH ×2 (09:02→19:27)
[2017-09-23] MEDS: AMLODIPINE BESYLATE 10 MG TABLET PO SCH (10:49)
[2017-09-23] MEDS: METFORMIN HCL 500 MG TABLET PO SCH ×2 (10:49→17:47)
[2017-09-23] MEDS: FLUOXETINE HCL 20 MG CAPSULE PO SCH (10:49)
[2017-09-23] MEDS: INSULIN GLARGINE,HUM.REC.ANLOG 1,000 UNIT/10 ML UNIT SUBCUT SCH ×2 (10:49→22:37)
[2017-09-23] MEDS: FENOFIBRATE NANOCRYSTALLIZED 48 MG TABLET PO SCH (10:49)
[2017-09-23] MEDS: LEVETIRACETAM 500 MG TABLET PO SCH ×2 (10:49→22:25)
[2017-09-23] MEDS: ASPIRIN 81 MG TABLET, CHEWABLE PO SCH (10:49)
[2017-09-23] MEDS: NYSTATIN TOPICAL POWDER 15 GM TP SCH ×2 (10:50→17:47)
[2017-09-23] MEDS: GUAIFENESIN SYRP 200 MG/10 ML UDC PO SCH ×2 (10:50→22:33)
[2017-09-23] MEDS: INSULIN LISPRO 100 UNIT/ML 3 ML VIAL SUBCUT PRN (11:50)
--- NOTE | 2017-09-23 14:03 | PDOC PROGRESS REPORT ---
Subjective Progress Note for:: 09/23/17 Subjective:: Patient feels much better today.Sitting up in chair Reason For Visit: ACUTE KIDNEY INJURY Physical Exam Vital Signs: Temp Pulse Resp BP Pulse Ox 97.8 F 71 20 126/58 H 95 09/23/17 11:07 09/23/17 11:07 09/23/17 11:07 09/23/17 11:07 09/23/17 11:07 Intake & Output 09/22/17 09/23/17 09/24/17 06:59 06:59 06:59 Intake Total 3430 2445 1800 Balance 3430 2445 1800 Weight 140.6 kg 145.6 kg General appearance: PRESENT: no acute distress, morbidly obese, well-developed, well-nourished Head exam: PRESENT: atraumatic, normocephalic Eye exam: PRESENT: conjunctiva pink, EOMI, PERRLA. ABSENT: scleral icterus Ear exam: PRESENT: normal external ear exam Mouth exam: PRESENT: moist, tongue midline Neck exam: ABSENT: carotid bruit, JVD, lymphadenopathy, thyromegaly Respiratory exam: PRESENT: clear to auscultation compa. ABSENT: rales, rhonchi, wheezes Cardiovascular exam: PRESENT: RRR, +S1, +S2. ABSENT: diastolic murmur, rubs, systolic murmur Pulses: PRESENT: normal dorsalis pedis pul Vascular exam: PRESENT: normal capillary refill GI/Abdominal exam: PRESENT: normal bowel sounds, soft. ABSENT: distended, guarding, mass, organolmegaly, rebound, tenderness Rectal exam: PRESENT: deferred Extremities exam: PRESENT: full ROM. ABSENT: calf tenderness, clubbing, pedal edema Neurological exam: PRESENT: alert, awake, oriented to person, oriented to place , oriented to time, oriented to situation, CN II-XII grossly intact. ABSENT: motor sensory deficit Psychiatric exam: PRESENT: appropriate affect, normal mood. ABSENT: homicidal ideation, suicidal ideation Skin exam: PRESENT: dry, intact, warm. ABSENT: cyanosis, rash Results Laboratory Results: 09/21/17 04:16 09/23/17 04:36 09/23/17 04:36 Sodium 143.1 Potassium 4.5 Chloride 109 H Carbon Dioxide 27 Anion Gap 7 BUN 18 Creatinine 0.81 Est GFR ( Amer) > 60 Est GFR (Non-Af Amer) > 60 Glucose 88 Calcium 9.0 09/03/17 09/07/17 09/11/17 18:15 06:25 09:15 Creatine Kinase 82 CK-MB (CK-2) Troponin I NT-Pro-B Natriuret Pep 782 4140 H 09/11/17 09:15 Creatine Kinase CK-MB (CK-2) 1.30 Troponin I 0.016 NT-Pro-B Natriuret Pep Impressions: Head CT 09/02/17 00:00 IMPRESSION: No acute intracranial abnormality. Chest/Abdomen CTA 09/06/17 00:00 IMPRESSION: No pulmonary emboli. Diffuse parenchymal opacities predominantly upper lobe with bilateral pleural effusions. Abdomen/Pelvis CT 09/15/17 00:00 IMPRESSION: 1. Bilateral lower lobar pneumonia partially imaged. 2. Mild splenomegaly. Chest X-Ray 09/15/17 06:00 IMPRESSION: No significant interval change. KUB X-Ray 09/20/17 00:00 IMPRESSION: 1. Nonspecific abdomen. The paucity of bowel gas Yomaira difficult to rule out bowel obstruction. 2. Cannot exclude lower lobe airspace disease. Assessment & Plan - Time Time Spent with patient: 15-24 minutes Medications reviewed and adjusted accordingly: Yes Anticipated discharge: Home with Homehealth Within: within 48 hours - Inpatient Certification Based on my medical assessment, after consideration of the patient's comorbidities, presenting symptoms, or acuity I expect that the services needed warrant INPATIENT care.: Yes Medical Necessity: Risk of Complication if Not Cared For in Hospital, Risk of Diagnosis Which Will Require Inpatient Eval/Care/Monitoring - Plan Summary Plan Summary: 1. Septic shock secondary to Salmonella bacteremia as well as MSSA pneumonia. Completed antibiotics 2. Salmonella bacteremia - completed a course of antibiotics 3. MSSA pneumonia resolved 4. Acute respiratory failure with hypoxemia and hypercapnia status post mechanical ventilation. 5. Acute kidney failure secondary to ATN as well as sepsis resolved 6. Type 2 diabetes mellitus controlled 7. Hyponatremia, hypokalemia and hypomagnesemia corrected 8. 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 Hyperlipidemia chronic currently on statin 10. Ambulatory dysfunction from prolonged hospitalization. Continue to encourage physical therapy in hospital. Plan is to dc home with home health once stable. She has been encouraged to ambulate with help so she can get stronger and be discharged home hopefully early this week 11. Morbid obesity patient encouraged to lose weight 12. Full CODE STATUS 13. DC IVF, azotemia resolved
--- NOTE | 2017-09-23 18:08 | PDOC PROGRESS REPORT ---
Subjective Progress Note for:: 09/20/17 Subjective:: stable Reason For Visit: ACUTE KIDNEY INJURY Physical Exam Vital Signs: Temp Pulse Resp BP Pulse Ox 98.2 F 53 L 16 122/55 L 97 09/20/17 07:37 09/20/17 07:37 09/20/17 07:37 09/20/17 07:37 09/20/17 07:37 Intake & Output 09/19/17 09/20/17 09/21/17 06:59 06:59 06:59 Intake Total 2288 2392 Output Total 500 Balance 2288 1892 Weight 138.4 kg 140.6 kg General appearance: PRESENT: no acute distress, disheveled, morbidly obese Head exam: PRESENT: atraumatic, normocephalic Eye exam: PRESENT: conjunctiva pale, EOMI. ABSENT: nystagmus, periorbital swelling, scleral icterus Mouth exam: PRESENT: moist, tongue midline Neck exam: ABSENT: carotid bruit, JVD, lymphadenopathy, thyromegaly, tracheal deviation, tracheostomy Respiratory exam: PRESENT: decreased breath sounds, prolonged expiratory phas, rales, rhonchi, unlabored, other. ABSENT: retraction, stridor Cardiovascular exam: PRESENT: RRR, rubs Pulses: PRESENT: normal radial pulses GI/Abdominal exam: PRESENT: hypoactive bowel sounds, soft. ABSENT: tenderness Gentrourinary exam: PRESENT: indwelling catheter Extremities exam: ABSENT: calf tenderness, clubbing, joint swelling Musculoskeletal exam: ABSENT: ambulatory, deformity, dislocation Neurological exam: PRESENT: awake Psychiatric exam: PRESENT: flat affect Skin exam: PRESENT: dry, warm Results Laboratory Results: 09/18/17 04:07 09/20/17 04:29 09/20/17 04:29 Sodium 143.0 Potassium 4.5 Chloride 104 Carbon Dioxide 26 Anion Gap 13 BUN 36 H Creatinine 1.81 H Est GFR ( Amer) 35 L Est GFR (Non-Af Amer) 29 L Glucose 103 Calcium 9.0 09/03/17 09/07/17 09/11/17 18:15 06:25 09:15 Creatine Kinase 82 CK-MB (CK-2) Troponin I NT-Pro-B Natriuret Pep 782 4140 H 09/11/17 09:15 Creatine Kinase CK-MB (CK-2) 1.30 Troponin I 0.016 NT-Pro-B Natriuret Pep Impressions: Head CT 09/02/17 00:00 IMPRESSION: No acute intracranial abnormality. Chest/Abdomen CTA 09/06/17 00:00 IMPRESSION: No pulmonary emboli. Diffuse parenchymal opacities predominantly upper lobe with bilateral pleural effusions. Abdomen/Pelvis CT 09/15/17 00:00 IMPRESSION: 1. Bilateral lower lobar pneumonia partially imaged. 2. Mild splenomegaly. Chest X-Ray 09/15/17 06:00 IMPRESSION: No significant interval change. Assessment & Plan - Diagnosis (1) Acute kidney injury Is this a current diagnosis for this admission?: No Plan: Resolved (2) Acute respiratory failure with hypoxia and hypercapnia Is this a current diagnosis for this admission?: Yes Plan: At or near her baseline (3) Morbid obesity due to excess calories Is this a current diagnosis for this admission?: Yes (4) Septic shock Is this a current diagnosis for this admission?: No Plan: Resolved (5) Obesity hypoventilation syndrome Is this a current diagnosis for this admission?: Yes Plan: FVC 40% FEV1 43% The above patient has failed BiPAP. This patient would benefit from noninvasive mechanical ventilation via the trilogy AVAPS/AE and faster responding AVAPS rates. The trilogy is able to provide a target tidal volume and also adjusting the EPAP pressures to maintain a patent airway as well as an oral backup rate this machine will help improve PaCO2 levels. The severity of the patient's condition will lead to future hospitalizations and readmissions as well as life-threatening situations without the use of this device trilogy home vent needed for hypercapnic respiratory failure. [facility] or [facility] to follow for trilogy set up. - Time Total Critical Time (Minutes): 40
[2017-09-23] MEDS ORDERED: LANSOPRAZOLE 30 MG TAB.RAP.DR PO SCH (22:00)
[2017-09-23] MEDS: ATORVASTATIN CALCIUM 40 MG TABLET PO SCH (22:25)
[2017-09-24] MEDS: HYDRALAZINE HCL 25 MG TABLET PO SCH ×2 (06:19→14:34)
[2017-09-24] MEDS: LEVOTHYROXINE SODIUM 0.1 MG TABLET PO SCH (06:21)
[2017-09-24] MEDS: GABAPENTIN 300 MG CAPSULE PO SCH ×2 (06:21→14:34)
[2017-09-24] MEDS: LEVOTHYROXINE SODIUM 0.075 MG TABLET PO SCH (06:21)
[2017-09-24] MEDS: HEPARIN SOD (PORCINE) 5,000 UNIT/ML 1 ML SYRINGE SUBCUT SCH ×2 (06:22→14:34)
[2017-09-24] MEDS: BACLOFEN 10 MG TABLET PO SCH ×2 (06:22→14:34)
[2017-09-24] MEDS: IPRATROPIUM/ALBUTEROL 0.5-2.5 MG/3 ML AMPUL NEB SCH (08:58)
[2017-09-24] MEDS: FENOFIBRATE NANOCRYSTALLIZED 48 MG TABLET PO SCH (09:11)
[2017-09-24] MEDS: FLUOXETINE HCL 20 MG CAPSULE PO SCH (09:11)
[2017-09-24] MEDS: AMLODIPINE BESYLATE 10 MG TABLET PO SCH (09:11)
[2017-09-24] MEDS: GUAIFENESIN SYRP 200 MG/10 ML UDC PO SCH (09:11)
[2017-09-24] MEDS: LEVETIRACETAM 500 MG TABLET PO SCH (09:11)
[2017-09-24] MEDS: ASPIRIN 81 MG TABLET, CHEWABLE PO SCH (09:11)
[2017-09-24] MEDS: LOPERAMIDE HCL 2 MG CAPSULE PO PRN (09:11)
[2017-09-24] MEDS: NYSTATIN TOPICAL POWDER 15 GM TP SCH (09:11)
[2017-09-24] MEDS: INSULIN GLARGINE,HUM.REC.ANLOG 1,000 UNIT/10 ML UNIT SUBCUT SCH (09:11)
[2017-09-24] MEDS: METFORMIN HCL 500 MG TABLET PO SCH (09:11)
[2017-09-24] MEDS ORDERED: FUROSEMIDE INJ/PF 40 MG/4 ML SDV IV ONE (15:15)
--- NOTE | 2017-09-24 17:41 | PDOC DISCHARGE SUMMARY ---
General - Admit/Disc Date/PCP Admission Date/Primary Care Provider: 08/30/17 23:58 Discharge Date: 09/24/17 - Discharge Diagnosis (1) Acute kidney injury Is this a current diagnosis for this admission?: Yes (2) Acute respiratory failure with hypoxia and hypercapnia Is this a current diagnosis for this admission?: Yes (3) Ambulatory dysfunction Is this a current diagnosis for this admission?: Yes (4) Diabetes mellitus Is this a current diagnosis for this admission?: Yes (5) Hyperlipidemia Is this a current diagnosis for this admission?: Yes (6) Hypernatremia Is this a current diagnosis for this admission?: Yes (7) MSSA (methicillin susceptible Staphylococcus aureus) pneumonia Is this a current diagnosis for this admission?: Yes (8) Morbid obesity Is this a current diagnosis for this admission?: Yes (9) Obesity hypoventilation syndrome Is this a current diagnosis for this admission?: Yes (10) Salmonella bacteremia Is this a current diagnosis for this admission?: Yes (11) Septic shock Is this a current diagnosis for this admission?: No - Additional Information Discharge Diet: Diabetic Discharge Activity: Activity As Tolerated Prescriptions: Hydralazine HCl [Apresoline 25 mg Tablet] 25 mg PO Q8 #90 tablet Home Medications: Amlodipine Besylate [Norvasc 5 mg Tablet] 5 mg PO DAILYP PRN 08/31/17 Aspirin [Aspirin EC] 81 mg PO DAILY 08/31/17 Atorvastatin Calcium [Lipitor 40 mg Tablet] 40 mg PO QHS 08/31/17 Baclofen [Baclofen 10 mg Tablet] 15 mg PO TID 08/31/17 Diphenhydramine HCl [Banophen] 25 mg PO HSP PRN 08/31/17 Fenofibrate Nanocrystallized [Fenofibrate] 48 mg PO DAILY 08/31/17 Fluoxetine HCl [Prozac 20 mg Capsule] 20 mg PO DAILY 08/31/17 Gabapentin [Neurontin] 600 mg PO TID 08/31/17 Guaifenesin [Mucinex] 1,200 mg PO PRN PRN 08/31/17 Levetiracetam [Keppra 500 mg Tablet] 500 mg PO Q12 08/31/17 Levothyroxine Sodium [Synthroid] 175 mcg PO DAILY 08/31/17 Lisinopril [Prinivil 40 mg Tablet] 40 mg PO DAILY 08/31/17 Metformin HCl [Glucophage] 1,000 mg PO BID 08/31/17 Omeprazole 20 mg PO DAILY 08/31/17 Hydralazine HCl [Apresoline 25 mg Tablet] 25 mg PO Q8 #90 tablet 09/24/17 Insulin Glargine,Hum.rec.anlog [Lantus Insulin 100 Unit/1 ml 10 ml] 55 unit SUBCUT Q12 #0 09/24/17 History of Present Illness History of Present Illness: RISHI TRAYLOR is a 57 year old female R with history of multiple medical problems that will be mentioned below presented to the emergency room with acute onset of intractable nausea vomiting and diarrhea for the last 4 days. She admits to occasional coffee-ground emesis however this has not been witnessed in the ER. She has been having fever and chills with a T-max that was up to 103 per her report. She admits to lower abdominal pain. No chest pain or dyspnea or palpitations. No cough or wheezing or hemoptysis. No other bleeding diathesis. Upon presentation emergency room she was slightly hypotensive with a blood pressure of 94/60 with a temperature of 99.7 and pulse of 77 and pulse oximetry of 96% on room air. Labs are remarkable for hyponatremia with a hypokalemia and a CO2 of 20 BUN of 47 and creatinine of 3.57 that is above her previous normal creatinine. Urinalysis was remarkable for significant proteinuria and glucosuria with trace bacteria and rare WBC clumps and 9 WBCs. Her abdominal pelvic CT scan revealed no acute abnormalities. She was given hydration with IV normal saline as well as IV Zofran and fentanyl. Her blood pressure has improved with hydration. She will be admitted to a medical monitored bed for further evaluation and management. Hospital Course Hospital Course: patient was admitted with sepsis as well as acute renal failure with a creatinine of 4.7. She was ultimately found to have salmonella bacteremia. Patient received 2 week treatment with IV antibiotics which has been completed in hospital. She was treated in the ICU due to her sepsis and she was on mechanical ventilation but successfully extubated. Respiratory status has been fairly stable since then. She had an episode of lone atrial fibrillation which has since resolved and has had no further subsequent episode. Consultations by pulmonology as well as loan services professional were done. Please see the consultation report for full details patient also had a pulmonary function test done which revealed moderate obstructive ventilatory defect with good response to bronchodilator therapy. She was initially on oxygen at one time however oxygenation has improved and does not require oxygen anymore. Due to the prolonged hospitalization and severe ileus patient was understandably weak and has some ambulatory dysfunction. This did adjust to her hospitalization as she received physical therapy so she could get stronger prior to returning home. Patient has been hemodynamically stable and has been progressing well and at this time it is felt that she can be discharged home in stable condition. Physical Exam Vital Signs: Temp Pulse Resp BP Pulse Ox 98.1 F 70 18 102/56 L 91 L 09/24/17 16:27 09/24/17 16:27 09/24/17 16:27 09/24/17 16:27 09/24/17 16:27 Intake & Output 09/23/17 09/24/17 09/25/17 06:59 06:59 06:59 Intake Total 2445 2400 750 Balance 2445 2400 750 Weight 145.6 kg 144.3 kg General appearance: PRESENT: no acute distress, well-developed, well-nourished Head exam: PRESENT: atraumatic, normocephalic Eye exam: PRESENT: conjunctiva pink, EOMI, PERRLA. ABSENT: scleral icterus Ear exam: PRESENT: normal external ear exam Mouth exam: PRESENT: moist, tongue midline Neck exam: ABSENT: carotid bruit, JVD, lymphadenopathy, thyromegaly Respiratory exam: PRESENT: clear to auscultation compa. ABSENT: rales, rhonchi, wheezes Cardiovascular exam: PRESENT: RRR. ABSENT: diastolic murmur, rubs, systolic murmur Pulses: PRESENT: normal dorsalis pedis pul Vascular exam: PRESENT: normal capillary refill GI/Abdominal exam: PRESENT: normal bowel sounds, soft. ABSENT: distended, guarding, mass, organolmegaly, rebound, tenderness Rectal exam: PRESENT: deferred Extremities exam: PRESENT: full ROM. ABSENT: calf tenderness, clubbing, pedal edema Neurological exam: PRESENT: alert, awake, oriented to person, oriented to place , oriented to time, oriented to situation, CN II-XII grossly intact. ABSENT: motor sensory deficit Psychiatric exam: PRESENT: appropriate affect, normal mood. ABSENT: homicidal ideation, suicidal ideation Skin exam: PRESENT: dry, intact, warm. ABSENT: cyanosis, rash Results Laboratory Results: 09/21/17 04:16 09/23/17 04:36 09/03/17 09/07/17 09/11/17 18:15 06:25 09:15 Creatine Kinase 82 CK-MB (CK-2) Troponin I NT-Pro-B Natriuret Pep 782 4140 H 09/11/17 09:15 Creatine Kinase CK-MB (CK-2) 1.30 Troponin I 0.016 NT-Pro-B Natriuret Pep Impressions: Head CT 09/02/17 00:00 IMPRESSION: No acute intracranial abnormality. Chest/Abdomen CTA 09/06/17 00:00 IMPRESSION: No pulmonary emboli. Diffuse parenchymal opacities predominantly upper lobe with bilateral pleural effusions. Abdomen/Pelvis CT 09/15/17 00:00 IMPRESSION: 1. Bilateral lower lobar pneumonia partially imaged. 2. Mild splenomegaly. Chest X-Ray 09/15/17 06:00 IMPRESSION: No significant interval change. KUB X-Ray 09/20/17 00:00 IMPRESSION: 1. Nonspecific abdomen. The paucity of bowel gas Yomaira difficult to rule out bowel obstruction. 2. Cannot exclude lower lobe airspace disease. Qualifiers - * PATIENT BEING DISCHARGED WITH ANY OF THE FOLLOWING DIAGNOSIS: No Plan Time Spent: Greater than 30 Minutes
[2017-09-24 18:29] VITALS: BP 102/56
== END 2017-09-24 17:01 | disposition home health service (06) | DRG 870 ==
LOC: ER 13:31 → EH 23:58 → 3W 08-31 02:42 → ICU 09-01 17:15 → 3N 09-14 17:16
PROVIDERS: ADMIT Family Medicine; ATTEND Family Medicine
PROC: 0BH17EZ Insertion of Endotracheal Airway into Trachea, Via Natural or Artificial Opening (ICD-10-PCS; principal; 2017-09-01)
PROC: 5A1955Z Respiratory Ventilation, Greater than 96 Consecutive Hours (ICD-10-PCS; 2017-09-01)
DX: A02.1 Salmonella sepsis (principal); N17.0 Acute kidney failure with tubular necrosis; R65.21 Severe sepsis with septic shock; J96.02 Acute respiratory failure with hypercapnia; J96.01 Acute respiratory failure with hypoxia; J15.211 Pneumonia due to Methicillin susceptible Staphylococcus aureus; E87.1 Hypo-osmolality and hyponatremia; E87.4 Mixed disorder of acid-base balance; K56.7 Ileus, unspecified; E66.2 Morbid (severe) obesity with alveolar hypoventilation; Z68.43 Body mass index [BMI] 50.0-59.9, adult; E87.6 Hypokalemia; E86.0 Dehydration; I95.9 Hypotension, unspecified; I10 Essential (primary) hypertension; E83.42 Hypomagnesemia; E11.65 Type 2 diabetes mellitus with hyperglycemia; E78.5 Hyperlipidemia, unspecified; I48.91 Unspecified atrial fibrillation; E03.9 Hypothyroidism, unspecified; R26.9 Unspecified abnormalities of gait and mobility; G40.909 Epilepsy, unspecified, not intractable, without status epilepticus; F17.210 Nicotine dependence, cigarettes, uncomplicated; Z79.84 Long term (current) use of oral hypoglycemic drugs; Z79.82 Long term (current) use of aspirin; Z79.899 Other long term (current) drug therapy; Z88.0 Allergy status to penicillin
CPT/HCPCS: 31500; 36415; 36600; 70450; 71045; 71275; 74018; 74176; 74177; 80048; 80053; 80162; 80202; 81001; 82040; 82272; 82330; 82550; 82553; 82803; 82962; 83036; 83605; 83690; 83735; 83880; 84100; 84443; 84478; 84484; 85025; 85027; 87040; 87045; 87070; 87077; 87086; 87186; 87205; 87493; 89055; 93005; 93010; 93306; 94002; 94003; 94010; 94640; 94660; 94799; 96361; 96374; 99285; A9270-GY; J0330; J0360; J0610; J0696; J0713; J1160; J1644; J1815; J1940; J1953; J2060; J2270; J2405; J2543; J2550; J2704; J3010; J3370; J3475; J3480; J3490; J7030; J7060; J7620; S0119; S0164

== ENCOUNTER 2017-09-25 08:22 | Emergency (ER) | payer MEDICAID ==
--- NOTE | 2017-09-25 08:34 | ER Document Report ---
ED General - General Stated Complaint: WEAKNESS Mode of Arrival: Medic Information source: Patient TRAVEL OUTSIDE OF THE [place] IN LAST 30 DAYS: No - HPI Notes: 49-year-old female medical history of hypertension, type 2 diabetes, hyperlipidemia, hypothyroidism and epilepsy which she takes Keppra for presents to the ED via EMS after being discharged from the hospital for a history of respiratory failure, sepsis, acute renal failure, bilateral pneumonia, Salmonella poisoning with complaints of weakness and chills. Patient states that she could ambulate yesterday with her walker, states today she can even walk due to weakness. Patient has not tried any [id number] medications. Patient's blood sugar which was taken on the ambulance was 71. Patient recently just moved from [place] on August 10 to be with her family. She did establish care and this needs very but is only seen. Patient is denying any chest pain or shortness of breath. But she just does not "feel right". Denies chest pain,palpitations, shortness of breath, dyspnea, nausea, vomiting, diarrhea, abdominal pain, hematuria,blurred vision, double vision, loss of vision, speech changes, LH, dizziness, syncope, headaches, wheezing, ST, URI, neck pain, bowel or bladder dysfunction, saddle anesthesia, numbness or tingling in bilateral upper or lower extremities equally, muscle paralysis, weakness in bilateral upper or lower extremities equally or rash. - Related Data Allergies/Adverse Reactions: ciprofloxacin [From Cipro] Allergy (Verified 09/25/17 09:53) Penicillins Allergy (Verified 09/25/17 09:53) phenytoin [From Dilantin] Allergy (Verified 09/25/17 09:53) Past Medical History - General Information source: Patient - Social History Smoking Status: Unknown if Ever Smoked Family History: CAD - Both parents from [place] as well as her brother, COPD, DM - ., Hyperlipidemia, Hypertension, Malignancy - pancreatic,colon cancer, Thyroid Disfunction - asthma, Other - pseudoseizures - Past Medical History Cardiac Medical History: Reports: Hx Atrial Fibrillation, Hx Hypercholesterolemia, Hx Hypertension Pulmonary Medical History: Reports: Hx Asthma, Hx COPD, Hx Intubation, Hx Sleep Apnea Neurological Medical History: Reports: Hx Seizures Endocrine Medical History: Reports: Hx Diabetes Mellitus Type 2, Hx Hypothyroidism Renal/ Medical History: Denies: Hx Peritoneal Dialysis GI Medical History: Reports: Hx Diverticulitis Musculoskeletal Medical History: Reports Hx Arthritis, Reports Hx Fibromyalgia, Reports Hx Gout Psychiatric Medical History: Reports: Hx Depression Infectious Medical History: Denies: Hx C-Diff Past Surgical History: Reports: Hx Appendectomy, Hx Section, Hx Cholecystectomy, Hx Hysterectomy, Other - r knee oral surgery - Immunizations Hx Diphtheria, Pertussis, Tetanus Vaccination: Yes Hx Pneumococcal Vaccination: 10/13/16 Review of Systems - Review of Systems Notes: REVIEW OF SYSTEMS: CONSTITUTIONAL : Reports fever, chills, or sweats. Released from hospital yesterday after a month of being admitted EENT: Denies eye, ear, throat, or mouth pain or symptoms. Denies nasal or sinus congestion or discharge. Denies throat, tongue, or mouth swelling or difficulty swallowing. CARDIOVASCULAR: Denies chest pain. Denies palpitations or racing or irregular heart beat. Denies ankle edema. RESPIRATORY: Denies cough, cold, or chest congestion. Denies shortness of breath, difficulty breathing, or wheezing. GASTROINTESTINAL: Denies abdominal pain or distention. Denies nausea, vomiting , or diarrhea. Denies blood in vomitus, stools, or per rectum. Denies black, tarry stools. Denies constipation. GENITOURINARY: Denies difficulty urinating, painful urination, burning, frequency, blood in urine, or discharge. FEMALE GENITOURINARY: Denies vaginal bleeding, heavy or abnormal periods, irregular periods. Denies vaginal discharge or odor. MUSCULOSKELETAL: Denies back or neck pain or stiffness. Reports right knee and calf pain that started last night. SKIN: Denies rash, lesions or sores. HEMATOLOGIC : Denies easy bruising or bleeding. LYMPHATIC: Denies swollen, enlarged glands. NEUROLOGICAL: Denies confusion or altered mental status. Denies passing out or loss of consciousness. Denies dizziness or lightheadedness. Denies headache. reports generalized weakness. Denies paralysis or loss of use of either side. Denies problems with gait or speech. Denies sensory loss, numbness, or tingling. Denies seizures. PSYCHIATRIC: Denies anxiety or stress. Denies depression, suicidal ideation, or homicidal ideation. ALL OTHER SYSTEMS REVIEWED AND NEGATIVE. Constitutional: See HPI EENT: No symptoms reported Cardiovascular: No symptoms reported Respiratory: No symptoms reported Gastrointestinal: No symptoms reported Genitourinary: No symptoms reported Female Genitourinary: No symptoms reported Musculoskeletal: See HPI Skin: No symptoms reported Hematologic/Lymphatic: No symptoms reported Neurological/Psychological: No symptoms reported Physical Exam - Vital signs Vitals: Resp Pulse Ox 16 94 09/25/17 08:49 09/25/17 08:49 - Notes Notes: PHYSICAL EXAMINATION: GENERAL: chronically ill, well-nourished and in no acute distress. HEAD: Atraumatic, normocephalic. EYES: Pupils equal round and reactive to light, extraocular movements intact, conjunctiva are normal. ENT: Nares patent, oropharynx clear without exudates. Moist mucous membranes. NECK: Normal range of motion, supple without lymphadenopathy LUNGS: Diminished breath sounds in bilateral lower, no wheezes or rhonchi noted. HEART: Regular rate and rhythm without murmurs ABDOMEN: Soft, nontender, nondistended abdomen. No guarding, no rebound. No masses appreciated. No CVA tenderness bilaterally Female : deferred Musculoskeletal: Normal range of motion, no pitting or edema. No cyanosis. Tenderness to right knee on palpation. postive ladan's sign. anterior and posterior drawer test negative. Dtr + 2 in BLE. Full motor and sensory function to BLE equally. No open wounds. No induration or drainage. Strength 5 out of 5 bilaterally equally. Ankle examination normal. Squeeze test negative. Hip examination normal. Pulses + 2 bilaterally and equally. NEUROLOGICAL: Cranial nerves grossly intact. Normal speech, normal gait. Normal sensory, motor exams. able to bear full weight PSYCH: Normal mood, normal affect. SKIN: Warm, Dry, normal turgor, no rashes or lesions noted. Bilateral pedal edema without pitting bilaterally. Distal pulses +2 in bilateral lower extremities. Course - Re-evaluation Re-evalutation: 09/25/17 09:26 57-year-old female afebrile vitals stable and in no distress for evaluation of weakness chills since she was discharged from the hospital yesterday evening after close to 1 month of admission for sepsis, bilateral pneumonia, Salmonella and acute renal failure. Patient reports she is also having right calf and knee pain that has been worse the last day, patient has been immobilized for the last month due to being admitted at [facility], states she was getting blood thinners daily while admitted. Last chest x-ray that was done on September 15 2017 showed she had bilateral lobe pneumonia while being admitted in the hospital. venous ultrasound of RLE negative for acute dvt. right knee xray shows DJD, no acute fracture or dislocation. wbc 5.8 with anemia. trop 0.016 with first set, second set done 4 hours later was less than 0.012. ekg negative for acute stemi. cmp k 4.3, Cr 0.75, bnp 761, lactic acid 0.7. cxr negative for any acute pulmonary findings which is pneumonia, pleural effusion, pneumothorax etc. Urinalysis negative for leukocytosis, proteinuria etc. Heart score three- point patient has a risk of an acute coronary event of 0.9-1.7%. Paul social work manager consulted at 1315, due to son's concern of patient not being able to ambulate a house. However finding out social work manager that patient refused rehab at discharge. 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 emergency service worker worked with patient and son, after conversation social work manager was able to have patient be agreeable to going home in which she will have nursing care facilities contact her for further follow-up within the next day. See social work manager's note for specific details. Patient presents with multiple vague complaints that did not appear to be concerning for any acute life-threatening pathology. Vitals are within normal limits at triage and at time of discharge. Physical examination is unremarkable. patient has tolerated oral intake without difficulty. Patient was not noted to be in distress at any point during their ER visit. At this time, based on the reassuring evaluation, I do not suspect an acute [place], pulmonary embolus, aortic dissection, acute intra-abdominal pathology, stroke, or sepsis.Will discharge with return precautions and follow- up recommendations. Verbal discharge instructions given a the bedside and opportunity for questions given. Medication warnings reviewed. Patient is in agreement with this plan and has verbalized understanding of return precautions and the need for primary care follow-up in the next 24-72 hours. - Vital Signs Vital signs: Temp Pulse Resp BP Pulse Ox 98.5 F 75 20 162/62 H 92 09/25/17 18:25 09/25/17 18:25 09/25/17 18:25 09/25/17 18:25 09/25/17 18:25 - Laboratory Result Diagrams: 09/25/17 09:00 09/25/17 09:00 Laboratory results interpreted by me: 09/25/17 09/25/17 09/25/17 08:50 09:00 09:00 RBC 3.43 L Hgb 10.0 L Hct 30.2 L RDW 18.1 H Sodium 146.0 H Glucose 68 L Albumin 3.3 L Urine Protein 100 H Urine Blood SMALL H - EKG Interpretation by Me EKG shows normal: Sinus rhythm Rate: Normal Rhythm: NSR - hr 71 bpm. no stemi Discharge - Discharge Clinical Impression: Anemia, Degenerative arthritis of right knee, Calf swelling Condition: Stable Disposition: HOME, SELF-CARE Instructions: Anemia ([facility]), Knee Exercise Program ([facility]) Additional Instructions: All your labs today were negative. venous Dopplers was negative. your kidney' s are normal. Follow up with your primary care doctor within 24-48 hours. Symptoms become worse return to the emergency room tim. He had no infection. Chest x-ray shows a resolving pneumonia. Social work has been and to discuss home care with you. Return immediately for any new or worsening symptoms. Follow up with primary care provider, call tomorrow to make followup appointment.
[2017-09-25 09:32] LABS: ABSOLUTE BASOPHILS # (AUTO) 0.1 10^3/uL (0.0-0.2); ABSOLUTE EOSINOPHILS # (AUTO) 0.3 10^3/uL (0.0-0.6); ABSOLUTE LYMPHOCYTES (AUTO) 1.4 10^3/uL (0.5-4.7); ABSOLUTE MONOCYTES (AUTO) 0.3 10^3/uL (0.1-1.4); ABSOLUTE NEUT (AUTO) 3.7 10^3/uL (1.7-8.2); BASOPHILS % (AUTO) 1.4 % (0-2); HEMATOCRIT 30.2 % (36.0-47.0); LYMPHOCYTES % (AUTO) 24.8 % (13-45); MEAN CORPUSCULAR HEMOGLOBIN 29.3 pg (27.0-33.4); MEAN CORPUSCULAR HGB CONC 33.3 g/dL (32.0-36.0); MEAN CORPUSCULAR VOLUME 88 fl (80-97); MONOCYTES % (AUTO) 4.8 % (3-13); PLATELET COUNT 233 10^3/uL (150-450); RED BLOOD COUNT 3.43 10^6/uL (3.72-5.28); RED CELL DISTRIBUTION WIDTH 18.1 % (11.5-14.0); TOTAL CELLS COUNTED % (AUTO) 100 %; WHITE BLOOD COUNT 5.8 10^3/uL (4.0-10.5)
--- NOTE | 2017-09-25 09:34 | RADIOLOGY REPORT (SQ) ---
EXAM DESCRIPTION: CHEST SINGLE VIEW COMPLETED DATE/TIME: 09/25/2017 9:14 am REASON FOR STUDY: weakness. d/c'd from [facility] on 09/23, stayed 1m COMPARISON: 09/15/2017 EXAM PARAMETERS: NUMBER OF VIEWS: One view. TECHNIQUE: Single frontal radiographic view of the chest acquired. RADIATION DOSE: NA LIMITATIONS: None. FINDINGS: LUNGS AND PLEURA: Minimal residual density left base. Lungs otherwise clear. MEDIASTINUM AND HILAR STRUCTURES: No masses. Contour normal. HEART AND VASCULAR STRUCTURES: Heart normal in size. Normal vasculature. BONES: No acute findings. HARDWARE: None in the chest. OTHER: No other significant finding. IMPRESSION: Near complete resolution of the previously noted opacity left base. Lungs otherwise mynor ar. TECHNICAL DOCUMENTATION: JOB ID: [id number] [email or web address]- All Rights Reserved Reading location - IP/workstation name: [email or web address]
[2017-09-25 09:36] LABS: INTERNATIONAL RATION (INR) 0.92; PARTIAL THROMBOPLASTIN TIME 29.2 SEC (23.5-35.8); PROTHROMBIN TIME 12.8 SEC (11.4-15.4)
[2017-09-25 09:41] LABS: ALANINE AMINOTRANSFERASE 25 U/L (9-52); ALBUMIN 3.3 g/dL (3.5-5.0); ALKALINE PHOSPHATASE 126 U/L (38-126); ANION GAP 9 (5-19); ASPARTATE AMINO TRANSFERASE 19 U/L (14-36); BILIRUBIN,DIRECT 0.3 mg/dL (0.0-0.4); BILIRUBIN,TOTAL 0.5 mg/dL (0.2-1.3); BLOOD UREA NITROGEN 10 mg/dL (7-20); CALCIUM 9.8 mg/dL (8.4-10.2); CARBON DIOXIDE 30 mmol/L (22-30); CHLORIDE 107 mmol/L (98-107); CREATINE KINASE 60 U/L (30-135); GLUCOSE 68 mg/dL (75-110); POTASSIUM 4.3 mmol/L (3.6-5.0); TOTAL PROTEIN 6.4 g/dL (6.3-8.2)
[2017-09-25 09:53] LABS: CREATINE KINASE MB 2.78 ng/mL (<4.55); TROPONIN I 0.016 ng/mL
--- NOTE | 2017-09-25 10:13 | RADIOLOGY REPORT (SQ) ---
EXAM DESCRIPTION: KNEE RIGHT 4 VIEWS COMPLETED DATE/TIME: 09/25/2017 9:55 am REASON FOR STUDY: severe pain, suddenly today. hx of OA in knee COMPARISON: None. NUMBER OF VIEWS: Four views. TECHNIQUE: AP, lateral, and both oblique radiographic images acquired of the right knee. LIMITATIONS: None. FINDINGS: MINERALIZATION: Normal. BONES: No acute fracture or dislocation. No worrisome bone lesions. No significant osteophytes. JOINT: No effusion. Moderate degenerative compromise of the lateral joint compartment with associate d hypertrophic spurring. Moderate to severe degenerative compromise medial joint compartment with as sociated hypertrophic spurring. Moderate degenerative narrowing of the patellofemoral joint. OTHER: No other significant finding. IMPRESSION: No acute findings. Degenerative compromise of the knee joint compartments -moderate lat eral compartment and moderate to severe medial. Moderate degenerative narrowing of the patellofemora l joint. TECHNICAL DOCUMENTATION: JOB ID: [id number] [employer]- All Rights Reserved Reading location - IP/workstation name: [email or web address]
[2017-09-25 11:17] LABS: APPEARANCE,URINE CLEAR; BILIRUBIN,URINE NEGATIVE (NEGATIVE); COLOR,URINE YELLOW; GLUCOSE, URINE NEGATIVE (NEGATIVE); KETONES,URINE NEGATIVE (NEGATIVE); LEUKOCYTE ESTERASE,URINE NEGATIVE (NEGATIVE); NITRITE,URINE NEGATIVE (NEGATIVE); PROTEIN,URINE 100 mg/dL (NEGATIVE); URINE SPECIFIC GRAVITY 1.008; UROBILINOGEN,URINE NEGATIVE mg/dL (<2.0)
[2017-09-25 12:24] LABS: VENOUS BLOOD BASE EXCESS 5.5 mmol/L; VENOUS BLOOD PCO2 49.3 mmHg (35-63); VENOUS BLOOD PH 7.42 (7.30-7.42)
--- NOTE | 2017-09-25 12:41 | RADIOLOGY REPORT (SQ) ---
EXAM DESCRIPTION: VENOUS UNILATERAL LOWER COMPLETED DATE/TIME: 09/25/2017 12:33 pm REASON FOR STUDY: right calf pain since last night COMPARISON: None. TECHNIQUE: Dynamic and static donnelly scale and color images acquired of the right leg venous system. S elected spectral images acquired with additional compression and augmentation maneuvers. The contrala teral common femoral vein and saphenofemoral junction were also imaged. Images stored on PACS. LIMITATIONS: None. FINDINGS: COMMON FEMORAL: Normal phasicity, compression and augmentation. No visualized echogenic ma terial on donnelly scale. No defects on color images. FEMORAL: Normal compression and augmentation. No visualized echogenic material on donnelly scale. No defe cts on color images. POPLITEAL: Normal compression, augmentation. No visualized echogenic material on donnelly scale. No defec ts on color images. CALF VESSELS: Normal compression, augmentation. No visualized echogenic material on donnelly scale. No de fects on color images. GSV and SSV: Normal compression, augmentation. No visualized echogenic material on donnelly scale. No def ects on color images. ANY DEEP VENOUS INSUFFICIENCY: Not evaluated. ANY EVIDENCE OF POPLITEAL CYST: No. OTHER: No other significant finding. CONTRALATERAL COMMON FEMORAL VEIN AND SAPHENOFEMORAL JUNCTION: Normal phasicity, compression and augmentation. No visualized echogenic material on donnelly scale. No de fects on color images. IMPRESSION: NO EVIDENCE DVT OR SVT IN THE RIGHT LEG. TECHNICAL DOCUMENTATION: JOB ID: [id number] [employer]- All Rights Reserved Reading location - IP/workstation name: [email or web address]
--- NOTE | 2017-09-25 14:03 | EKG REPORT ---
SEVERITY:- ABNORMAL ECG - SINUS RHYTHM FIRST DEGREE AV BLOCK : Confirmed by: Jose Carlos Agee MD 25-Sep-2017 14:02:38
[2017-09-25 18:26] VITALS: BP 162/62
== END 2017-09-25 18:45 | disposition home or self-care (01) ==
LOC: ER 08:22
DX: D64.9 Anemia, unspecified (principal); M17.11 Unilateral primary osteoarthritis, right knee; M79.89 Other specified soft tissue disorders; R60.0 Localized edema; M25.561 Pain in right knee; M79.661 Pain in right lower leg; R53.1 Weakness; R68.83 Chills (without fever); J44.9 Chronic obstructive pulmonary disease, unspecified; E11.9 Type 2 diabetes mellitus without complications; I10 Essential (primary) hypertension; G40.909 Epilepsy, unspecified, not intractable, without status epilepticus; Z79.899 Other long term (current) drug therapy; Z79.01 Long term (current) use of anticoagulants; Z88.1 Allergy status to other antibiotic agents; Z88.0 Allergy status to penicillin; Z88.8 Allergy status to other drugs, medicaments and biological substances
CPT/HCPCS: 36415; 71045; 80053; 81001; 82550; 82553; 82803; 82962; 83605; 83880; 84484; 85025; 85610; 85730; 87040; 87086; 93005; 93010; 93971; 99285

== ENCOUNTER → 2018-02-25 | Outpatient (CLI) | payer MEDICAID ==
--- NOTE | 2018-02-26 10:53 | WOMENS IMAGING REPORT ---
EXAM DESCRIPTION: BILAT SCREENING MAMMO W/CAD COMPLETED DATE/TIME: 02/25/2018 10:41 am REASON FOR STUDY: ROUTINE BILATERAL SCREENING;Z12.31Z12.31 ENCNTR SCREEN MAMMOGRAM FOR MALIGNANT NE OPLASM OF ZAID COMPARISON: None. TECHNIQUE: Standard craniocaudal and mediolateral oblique views of each breast recorded using Nujia l acquisition. LIMITATIONS: None. FINDINGS: RIGHT BREAST MASSES: No suspicious masses. CALCIFICATIONS: Calcifications approximately 6 o'clock, 5 to 7 cm deep to the nipple. ARCHITECTURAL DISTORTION: None. DEVELOPING DENSITY: None. ASYMMETRY: None noted. OTHER: No other significant findings. LEFT BREAST MASSES: No suspicious masses. CALCIFICATIONS: No new or suspicious calcifications. ARCHITECTURAL DISTORTION: None. DEVELOPING DENSITY: None. ASYMMETRY: None noted. OTHER: No other significant findings. Read with the assistance of CAD. .[facility] - R2 Cenova Version 1.3 .[facility] Imaging - R2 Cenova Version 1.3 .[facility] Imaging - R2 Cenova Version 2.4 .[facility] - R2 Cenova Version 2.4 .[facility] - R2 Interior [employer] Principal Version 9.2 IMPRESSION: Calcifications right breast. BREAST DENSITY: a. The breasts are almost entirely fatty. BIRAD: 0 Incomplete: Needs Additional Imaging Evaluation and/or prior Mammograms for Comparison. RECOMMENDATION: RECOMMENDED FOLLOW-UP: True lateral and magnification views right breast. The patient will be contacted for additional imaging. COMMENT: The patient has been notified of the results by letter per SA requirements. Additional no tification policies are in place for contacting patient with suspicious or incomplete findings. Quality ID #[id number]: The [employer] recommends an annual screening mammogram for women aged 40 years or over. This facility utilizes a reminder system to ensure that all patients receive reminder letters, and/or direct phone calls for appointments. This includes reminders for routine scr eening mammograms, diagnostic mammograms, or other Breast Imaging Interventions when appropriate. Th is patient will be placed in the appropriate reminder system. The [employer] (ACR) has developed recommendations for screening MRI of the breast s in certain patient populations, to be used in conjunction with mammography. Breast MRI surveillanc e may be appropriate for women with more than 20% lifetime risk of developing breast cancer as deter mined by genetic testing, significant family history of the disease, or history of mantle radiation f or Hodgkins Disease. ACR Practice Guidelines 2008. TECHNICAL DOCUMENTATION: FINDING NUMBER: (1) ASSESSMENT: (1) JOB ID: [id number] [employer]- All Rights Reserved Reading location - IP/workstation name: [email or web address]
== END ==
LOC: WI 10:12
PROVIDERS: ATTEND Nurse Practitioner Family
DX: Z12.31 Encounter for screening mammogram for malignant neoplasm of breast (principal)
CPT/HCPCS: 77067

== ENCOUNTER → 2018-03-19 | Outpatient (CLI) | payer MEDICAID | LOC: WI 10:49 | PROVIDERS: ATTEND Nurse Practitioner Family | DX: R92.0 Mammographic microcalcification found on diagnostic imaging of breast (principal) ==

== ENCOUNTER → 2018-04-16 | Outpatient (CLI) | payer MEDICAID ==
--- NOTE | 2018-04-16 13:58 | RADIOLOGY REPORT (SQ) ---
EXAM DESCRIPTION: CT ABD/PELVIS NO ORAL OR IV COMPLETED DATE/TIME: 04/16/2018 1:32 pm REASON FOR STUDY: LEFT FLANK PAIN R10.9 UNSPECIFIED ABDOMINAL PAIN COMPARISON: CT abdomen pelvis 09/15/2017, 08/30/2017 TECHNIQUE: CT scan of the abdomen and pelvis performed without intravenous or oral contrast. Images reviewed with lung, soft tissue, and bone windows. Reconstructed coronal and sagittal MPR images revi ewed. All images stored on PACS. All CT scanners at this facility use dose modulation, iterative reconstruction, and/or weight based d osing when appropriate to reduce radiation dose to as low as reasonably achievable (ALARA). [facility]: Dose Right [facility]: CareDose [facility]: Dose Right [facility]: Teradose 4D [facility]: Smart Rebls RADIATION DOSE: CT Rad equipment meets quality standard of care and radiation dose reduction techniq ues were employed. CTDIvol: 30.8 mGy. DLP: 1656 mGy-cm.mGy. LIMITATIONS: Morbid obesity FINDINGS: LOWER CHEST: Moderate cardiomegaly. Calcified mitral annulus. Lung bases are clear NON-CONTRASTED LIVER, SPLEEN, ADRENALS: Evaluation limited by lack of IV contrast. No identified sign ificant masses. PANCREAS: No masses. No peripancreatic inflammatory changes. GALLBLADDER: Surgically absent RIGHT KIDNEY AND URETER: No suspicious masses. Assessment limited by lack of IV contrast. No signif icant calcifications. No hydronephrosis or hydroureter. LEFT KIDNEY AND URETER: No suspicious masses. Assessment limited by lack of IV contrast. No signifi cant calcifications. No hydronephrosis or hydroureter. AORTA AND RETROPERITONEUM: No aneurysm. No retroperitoneal masses or adenopathy. Heavily calcified i liac bifurcation with probable flow significant stenosis proximal right common iliac artery best show n on coronal image 71 BOWEL AND PERITONEAL CAVITY: No obvious masses or inflammatory changes. No free fluid. APPENDIX: Surgically absent PELVIS, BLADDER, AND ABDOMINAL WALL:No abnormal masses. No free fluid. Bladder normal. Post hysterec aline. Normal bilateral ovaries on axial image 77 BONES: Moderate central canal stenosis at L3-4 on sagittal reconstruction image 52 OTHER: No other significant finding. IMPRESSION: No CT findings to explain history of left flank pain COMMENT: Quality ID # [id number]: Final reports with documentation of one or more dose reduction techniques (e.g., Automated exposure control, adjustment of the mA and/or kV according to patient size, use of iterative reconstruction technique) TECHNICAL DOCUMENTATION: JOB ID: [id number] [employer]- All Rights Reserved Reading location - IP/workstation name: [email or web address]
== END ==
LOC: RAD 13:01
PROVIDERS: ATTEND Nurse Practitioner Family
DX: R10.9 Unspecified abdominal pain (principal)
CPT/HCPCS: 74176

== ENCOUNTER 2018-04-26 08:03 | Day surgery (SDC) | payer MEDICAID ==
[~2018-04-26 08:03] MED LIST: LIDOCAINE 0.5% INJ-PF (5 MG/ML) 50 ML SDV ONE; MIDAZOLAM 2 MG/2 ML INJ ONE; PROPOFOL INJ 200 MG/20 ML VIAL IV ONE
[2018-04-26 11:08] VITALS: BP 170/71
--- NOTE | 2018-04-26 12:31 | Operative Report ---
Operative Report DATE OF SURGERY: 04/26/18 Operative Report: The risks, benefits and alternatives of the procedure including the risk of bleeding, perforation requiring surgery have been explained to the patient in detail and informed consent has been obtained. Patient is brought back to the operating room and placed in a left, lateral decubital position. Timeout was called. Propofol medication is administered. Rectal examination is done which did not reveal any masses, tears or fissures. An Olympus videoscope was introduced into the patient's rectum. The scope was then carefully advanced all the way to the cecum. The cecum was identified by the usual anatomical landmarks of the ileocecal valve as well as the appendiceal office. Photodocumentation is obtained. The scope was then sequentially pulled back via the rest segments of the colon including the ascending colon, hepatic flexure, transverse colon, splenic flexure, descending colon and finally into the rectosigmoid portions of the colon. Retroflexion maneuver was performed. PREOPERATIVE DIAGNOSIS: Change in bowel habits. Epigastric pain POSTOPERATIVE DIAGNOSIS: Status post biopsy in the right side of the colon secondary to mild inflammation. Internal hemorrhoids. Gastritis status post biopsy rule out Helicobacter pylori. Esophagitis versus Merchant's OPERATION: Colonoscopy with biopsy. EGD with biopsy SURGEON: CYNTHIA CARBONE ANESTHESIA: LMAC TISSUE REMOVED OR ALTERED: As noted above. COMPLICATIONS: None. ESTIMATED BLOOD LOSS: None. INTRAOPERATIVE FINDINGS: As noted above. PROCEDURE: Patient tolerated the procedure well. No immediate postprocedure complications are noted. Patient discharged in good condition. Discharge date 04/26/2018. Discharge diet: Regular. Discharge activity: Regular. 2-3-week follow-up to discuss findings. Patient is instructed to call the office or proceed to the emergency room should there be any further proximal questions. Wait on the pathology.
--- NOTE | 2018-04-26 13:19 | EKG REPORT ---
SEVERITY:- NORMAL ECG - SINUS RHYTHM : Confirmed by: Jose Carlos Agee MD 26-Apr-2018 13:18:08
== END 2018-04-26 11:05 | disposition home or self-care (01) ==
LOC: OROUT 08:03
PROVIDERS: ATTEND Internal Medicine Gastroenterology
DX: K52.9 Noninfective gastroenteritis and colitis, unspecified (principal); K64.8 Other hemorrhoids; K29.50 Unspecified chronic gastritis without bleeding; E78.2 Mixed hyperlipidemia; E03.9 Hypothyroidism, unspecified; I10 Essential (primary) hypertension; E11.9 Type 2 diabetes mellitus without complications; G40.909 Epilepsy, unspecified, not intractable, without status epilepticus; E66.9 Obesity, unspecified; M10.9 Gout, unspecified; D50.9 Iron deficiency anemia, unspecified; G47.33 Obstructive sleep apnea (adult) (pediatric); I48.91 Unspecified atrial fibrillation; E05.00 Thyrotoxicosis with diffuse goiter without thyrotoxic crisis or storm; Z87.891 Personal history of nicotine dependence; Z79.899 Other long term (current) drug therapy; Z79.4 Long term (current) use of insulin; Z79.82 Long term (current) use of aspirin; Z79.51 Long term (current) use of inhaled steroids; Z88.0 Allergy status to penicillin; Z88.1 Allergy status to other antibiotic agents
CPT/HCPCS: 43239; 45380; 82962; 88342 ×2; 88305 ×2; 93005; 93010; J2250; J3490; J2704; 731

== ENCOUNTER → 2018-09-24 | Outpatient (CLI) | payer MEDICAID | LOC: WI 11:10 | PROVIDERS: ATTEND Nurse Practitioner Family | DX: R92.1 Mammographic calcification found on diagnostic imaging of breast (principal) ==

== ENCOUNTER 2019-01-14 07:42 | Emergency (ER) | payer MEDICAID ==
--- NOTE | 2019-01-14 08:17 | ER Document Report ---
ED General - General Chief Complaint: Arm Injury Stated Complaint: FALL/SHOULDER PAIN Time Seen by Provider: 01/14/19 08:17 Primary Care Provider: GREGORIA CHA FNP-C [Primary Care Provider] - Follow up as needed AMRIK AUSTIN MD [ACTIVE STAFF] - Follow up as needed TRAVEL OUTSIDE OF THE [place] IN LAST 30 DAYS: No - HPI Notes: 58-year-old female presents the emergency room with complaints of right shoulder pain status post fall 2 weeks ago, patient states she landed on her right shoulder. Patient states she did not get it checked out because it "felt better" after some time. Patient states yesterday she was carrying a half a case of water, states she felt a "pop" in her right shoulder, states she has had pain since that time. Has not tried any heat or icing, has not tried any over the counter antipyretics or pain medication. Patient states that she does have a primary care provider and states very, has not had a chance to get seen by her. Patient does have a history of acute kidney injury, advised patient to not take any NSAIDs denies fevers, chills, chest pain,palpitations, shortness of breath, dyspnea, nausea, vomiting, diarrhea, abdominal pain, hematuria,blurred vision, double vision, loss of vision, speech changes, LH, dizziness, syncope, headaches, wheezing, ST, URI, neck pain, weakness, bowel or bladder dysfunction, saddle anesthesia, numbness or tingling in bilateral upper or lower extremities equally, muscle paralysis, weakness in bilateral upper or lower extremities equally or rash. Denies IV drug use.. - Related Data Allergies/Adverse Reactions: ciprofloxacin [From Cipro] Allergy (Verified 04/26/18 09:00) diazoxide Allergy (Verified 04/26/18 09:00) Penicillins Allergy (Verified 04/26/18 09:00) phenytoin [From Dilantin] Allergy (Verified 04/26/18 09:00) Past Medical History - General Information source: Patient - Social History Smoking Status: Current Every Day Smoker Chew tobacco use (# tins/day): No Frequency of alcohol use: None Drug Abuse: Marijuana Family History: CAD, COPD, DM, Hyperlipidemia, Hypertension, Malignancy, Thyroid Disfunction, Other Patient has suicidal ideation: No Patient has homicidal ideation: No - Past Medical History Cardiac Medical History: Reports: Hx Atrial Fibrillation, Hx Hypercholesterolemia, Hx Hypertension Denies: Hx Coronary Artery Disease, Hx Heart Attack Pulmonary Medical History: Reports: Hx COPD, Hx Intubation, Hx Sleep Apnea Denies: Hx Asthma, Hx Bronchitis, Hx Pneumonia Neurological Medical History: Reports: Hx Seizures - LAST 07/2017. Denies: Hx Cerebrovascular Accident Endocrine Medical History: Reports: Hx Diabetes Mellitus Type 2, Hx Hypothyroidism Renal/ Medical History: Denies: Hx Peritoneal Dialysis GI Medical History: Reports: Hx Diverticulitis Musculoskeletal Medical History: Reports Hx Arthritis, Reports Hx Fibromyalgia, Reports Hx Gout Psychiatric Medical History: Reports: Hx Depression Infectious Medical History: Denies: Hx C-Diff Past Surgical History: Reports: Hx Appendectomy, Hx Section, Hx Cholecystectomy, Hx Hysterectomy, Other - r knee oral surgery - Immunizations Hx Diphtheria, Pertussis, Tetanus Vaccination: No - UNKNOWN Hx Pneumococcal Vaccination: 11/12/17 Review of Systems - Review of Systems Constitutional: No symptoms reported EENT: No symptoms reported Cardiovascular: No symptoms reported Respiratory: No symptoms reported Gastrointestinal: No symptoms reported Genitourinary: No symptoms reported Female Genitourinary: No symptoms reported Musculoskeletal: See HPI Skin: No symptoms reported Hematologic/Lymphatic: No symptoms reported Neurological/Psychological: No symptoms reported Physical Exam - Vital signs Vitals: Temp Pulse Resp BP Pulse Ox 98.3 F 82 16 181/67 H 94 01/14/19 07:55 01/14/19 07:55 01/14/19 07:55 01/14/19 07:55 01/14/19 07:55 - Notes Notes: PHYSICAL EXAMINATION: reviewed vital signs by RN GENERAL: Well-appearing, well-nourished and in no acute distress. HEAD: Atraumatic, normocephalic. EYES: Pupils equal round and reactive to light, extraocular movements intact, conjunctiva are normal. ENT: Nares patent, oropharynx clear without exudates. Moist mucous membranes. NECK: Normal range of motion, supple without lymphadenopathy LUNGS: Breath sounds clear to auscultation bilaterally and equal. No wheezes rales or rhonchi. HEART: Regular rate and rhythm without murmurs ABDOMEN: Soft, nontender, nondistended abdomen. No guarding, no rebound. No masses appreciated. Female : deferred Musculoskeletal: Normal range of motion, no pitting or edema. No cyanosis. right shoulder pain with abduction and flexion. no pain with supination, pronation, extension. 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 APROM in shoulder. DTR +2 in BUE equally. Noted crepitus with APROM in elbow. negative drop arm, neer sign, johns test bilaterally. slightly positive impingement sign all on right. No vascular compromise. Neck with full APROM, no cervical spinal tenderness. No tenderness over clavicles or step off noted bilaterally. Strength 5 out of 5 in bilateral upper extremities equally. NEUROLOGICAL: Cranial nerves grossly intact. Normal speech, normal gait. Normal sensory, motor exams PSYCH: Normal mood, normal affect. SKIN: Warm, Dry, normal turgor, no rashes or lesions noted. Course - Re-evaluation Re-evalutation: 01/14/19 14:22 afebrile vital stable no distress. Nurse's notes reviewed. X- ray negative for acute fracture dislocation. Discussed with patient that she likely has a muscular strain from lifting the water yesterday, advised her apply heat 20 minutes on 20 minutes off several times a day, to use muscle relaxers, do not drive or drink or operate [id number] taking muscle relaxers and cause sedation and impairment of cognitive function. Patient given pain medication while in the emergency room. [id number] at bedside will drive patient home. Patient advised to sling follow-up with interior specialist. Since patient does have a history of acute kidney injury last year, advised to stay away from NSAIDs and to use muscle relaxers and acetaminophen as well as mobilization to manage her shoulder impingement. After performing a Medical Screening Examination, I estimate there is LOW risk for OPEN FRACTURE, COMPARTMENT SYNDROME, DEEP VENOUS THROMBOSIS, ACUTE TENDON RUPTURE, or NEUROVASCULAR INJURY thus I consider the discharge disposition reasonable. I have reevaluated this patient multiple times and no significant life threatening changes are noted. The patient and I have discussed the diagnosis and risks, and we agree with discharging home to closely follow-up with their primary doctor or the referral orthopedist with the understanding that symptoms and presentations can change. We also discussed returning to the Emergency Department immediately if new or worsening symptoms occur. We have discussed the symptoms which are most concerning (e.g., changing or worsening pain, numbness, weakness) that necessitate immediate return - Vital Signs Vital signs: Temp Pulse Resp BP Pulse Ox 98.6 F 80 17 170/86 H 100 12/03/19 10:00 01/14/19 10:00 01/14/19 10:00 01/14/19 10:00 01/14/19 10:00 Discharge - Discharge Clinical Impression: Right shoulder pain, MSSA (methicillin susceptible Staphylococcus aureus) pneumonia Condition: Stable Disposition: HOME, SELF-CARE Instructions: Muscle Relaxers ([facility]), Muscle Strain ([facility]), Myalagia (Muscle Pain) ([facility]), Shoulder Injury ([facility]) Additional Instructions: Shoulder Injury You have injured your shoulder. This usually results from stretching or tearing of the tendons during trauma. Time and protection are required in order to heal properly. Many injuries are quite disabling, and should be taken seriously. Initial treatment includes cold packs and a sling to rest the shoulder. The physician has assessed the seriousness of your injury, and has outlined a treatment plan. Understand that this treatment may change, depending on how you progress. If a re-examination was recommended, it is important that you follow up as instructed. Some shoulder injuries (such as partial tear of the rotator cuff) are only suspected after you've failed to improve. Call us if there's severe pain, numbness, or loss of function. The x-ray of your shoulder was normal Return immediately for any new or worsening symptoms. Follow up with primary care provider, call tomorrow to make followup appointment. Prescriptions: Acetaminophen [Pain Relief] 975 mg PO Q6HP PRN #20 tablet PRN Reason: Methocarbamol [Robaxin 500 mg Tablet] 500 mg PO QID PRN #15 tablet PRN Reason: Forms: Return to Work Referrals: GREGORIA CHA FNP-C [Primary Care Provider] - Follow up as needed AMRIK AUSTIN MD [ACTIVE STAFF] - Follow up as needed
[2019-01-14] MEDS ORDERED: HYDROCODONE/ACETAMINOPHEN 5-325 MG TABLET PO ONE (09:25)
--- NOTE | 2019-01-14 09:41 | RADIOLOGY REPORT (SQ) ---
EXAM DESCRIPTION: SHOULDER RIGHT 2 OR MORE VIEWS COMPLETED DATE/TIME: 01/14/2019 9:24 am REASON FOR STUDY: fell, now has bone tenderness COMPARISON: None. NUMBER OF VIEWS: Three views. TECHNIQUE: Internal rotation, external rotation, and Y view images acquired of the right shoulder. LIMITATIONS: None. FINDINGS: MINERALIZATION: Normal. BONES: No acute fracture. No worrisome bone lesions. JOINTS: No dislocation. VISUALIZED LUNGS AND RIBS: No pneumothorax. No rib fracture. SOFT TISSUES: No radiopaque foreign body. OTHER: No other significant finding. IMPRESSION: NEGATIVE STUDY OF THE RIGHT SHOULDER. NO RADIOGRAPHIC EVIDENCE OF ACUTE INJURY. TECHNICAL DOCUMENTATION: JOB ID: [id number] [employer]- All Rights Reserved Reading location - IP/workstation name: [email or web address]
[2019-01-14 10:01] VITALS: BP 170/86
== END 2019-01-14 10:02 | disposition home or self-care (01) ==
LOC: ER 07:42
DX: S49.91XA Unspecified injury of right shoulder and upper arm, initial encounter (principal); J15.211 Pneumonia due to Methicillin susceptible Staphylococcus aureus; W01.0XXA Fall on same level from slipping, tripping and stumbling without subsequent striking against object, initial encounter; F17.200 Nicotine dependence, unspecified, uncomplicated; I48.91 Unspecified atrial fibrillation; E78.00 Pure hypercholesterolemia, unspecified; I10 Essential (primary) hypertension; E11.9 Type 2 diabetes mellitus without complications; Z90.49 Acquired absence of other specified parts of digestive tract; Z90.710 Acquired absence of both cervix and uterus
CPT/HCPCS: 99283; 73030; L3650 ×2

== ENCOUNTER → 2019-02-18 | Outpatient (CLI) | payer MEDICAID ==
--- NOTE | 2019-02-18 15:51 | RADIOLOGY REPORT (SQ) ---
EXAM DESCRIPTION: LUMBAR SPINE COMPLETE COMPLETED DATE/TIME: 02/18/2019 3:43 pm REASON FOR STUDY: LOW BACK PAIN M54.5 LOW BACK PAIN COMPARISON: None. NUMBER OF VIEWS: Five views including obliques. TECHNIQUE: AP, lateral, oblique, and sacral radiographic images acquired of the lumbar spine. LIMITATIONS: None. FINDINGS: MINERALIZATION: Normal. SEGMENTATION: Normal. No transitional anatomy. ALIGNMENT: Normal. VERTEBRAE: Maintained height. No fracture or worrisome bone lesion. DISCS: Disc space narrowing with osteophytes, most pronounced at L3-L4 with vacuum change. POSTERIOR ELEMENTS: Pedicles and facets are intact. No pars defect or posterior arch defects. HARDWARE: None in the spine. PARASPINAL SOFT TISSUES: Normal. PELVIS: Intact as visualized. No fractures or worrisome bone lesions. SI joints intact. OTHER: No other significant finding. IMPRESSION: DEGENERATIVE DISC DISEASE. NO ACUTE FINDINGS. TECHNICAL DOCUMENTATION: JOB ID: [id number] [employer]- All Rights Reserved Reading location - IP/workstation name: [email or web address]
== END ==
LOC: OD 15:26
PROVIDERS: ATTEND Nurse Practitioner Family
DX: M51.36 Other intervertebral disc degeneration, lumbar region (principal); M54.5 Low back pain
CPT/HCPCS: 72110

== ENCOUNTER → 2019-03-05 | Outpatient (CLI) | payer MEDICAID ==
--- NOTE | 2019-03-05 12:13 | RADIOLOGY REPORT (SQ) ---
EXAM DESCRIPTION: MRI LUMBAR SPINE WITHOUT COMPLETED DATE/TIME: 03/05/2019 11:58 am REASON FOR STUDY: (M51.36)OTHER INTERVERTEBRAL DISC DEGENERATION, LUMBAR REGION M51.36 OTHER INTERV ERTEBRAL DISC DEGENERATION, LUMBAR REGION COMPARISON: None. TECHNIQUE: Sagittal and Axial imaging includes T1, T2, STIR and gradient echo sequences. Coronal T2/ HASTE imaging. LIMITATIONS: None. FINDINGS: VISUALIZED UPPER ABDOMEN: Limited evaluation. No acute or suspicious findings suggested. SEGMENTATION: No transitional anatomy. The lowest well-developed disc space is labeled L5-S1. ALIGNMENT: Anatomic. VERTEBRAE: Intact. BONE MARROW: Marrow edema involving the anterior inferior aspect of L 3 and anterior superior aspect of L4. Most likely secondary to disc degenerative disease. DISC SIGNAL: Multilevel desiccation most marked at L2-L3, L3-L4 and L4-L5. POSTERIOR ELEMENTS: Generally intact. No pars defect evident. HARDWARE: None in the spine. CORD AND CONUS: Normal in size and signal intensity. Conus at the appropriate level. SOFT TISSUES: No aortic aneurysm seen. No bulky retroperitoneal adenopathy or mass. No paraspinal mas s or fluid. L1-L2: No significant spinal stenosis or exit foraminal stenosis. L2-L3: Annular disc bulging with a focal left lateral protrusion which results in effacement the left anterolateral aspect of the thecal sac. There is mass effect on the exiting nerve root. L3-L4: Broad-based annular disc bulging. Facet arthropathy. This results in moderate central canal stenosis. There is bilateral foraminal narrowing relatively symmetric. L4-L5: Desiccation of the disc. Normal height. Mild facet arthropathy. No high-grade central steno sis. Mild asymmetric narrowing of the left neural foramina. L5-S1: No significant spinal stenosis or exit foraminal stenosis. LOWER THORACIC: Incompletely imaged. No stenosis seen. SACRUM: Visualized upper sacrum intact. OTHER: No other significant findings. IMPRESSION: 1. Mild multilevel spondylosis. 2. Annular disc bulging at L2-L3 with a focal left lateral protrusion which results in effacement of the left anterolateral aspect of the sac. There is mass effect on the exiting nerve root. 3. Broad-based annular disc bulging at L3-L4 with facet arthropathy. This results in moderate centr al canal stenosis. There is bilateral foraminal narrowing. 4. Facet arthropathy at L4-L5 with mild asymmetric narrowing of the left neural foramina. 5. Mild marrow edema at L3 and L4 as described above. This is most likely secondary to disc degener ative disease. No loss of height. TECHNICAL DOCUMENTATION: JOB ID: [id number] [employer]- All Rights Reserved Reading location - IP/workstation name: [email or web address]
== END ==
LOC: RAD 11:12
PROVIDERS: ATTEND Nurse Practitioner Family
DX: M51.36 Other intervertebral disc degeneration, lumbar region (principal); M47.896 Other spondylosis, lumbar region
CPT/HCPCS: 72148